=== PATIENT | female | born 1945 | race Caucasian/White ===

== ENCOUNTER 2017-09-05 10:23 | Inpatient (IN) | payer OTHER, MEDICARE ==
[~2017-09-05] VITALS: Ht 152.4 cm; Wt 61.6 kg
[2017-09-05] VITALS (12 sets, daily range): BP systolic 120–176; BP diastolic 65–82; PULSE 64–176; RESP 20–31; TEMP 97.5–98.2; O2SAT 95–99
[2017-09-05] MEDS ORDERED: ADENOSINE IV SOLN 3 MG/ML 2 ML VIAL IV PUSH ONE (10:45)
[2017-09-05] MEDS ORDERED: SODIUM CHLORIDE 0.9% FLUSH 10 ML FLUSH IVF PRN (10:45)
[2017-09-05] MEDS ORDERED: ADENOSINE IV SOLN 3 MG/ML 2 ML VIAL ONE (10:45)
[2017-09-05] MEDS ORDERED: DILTIAZEM HCL 25 MG/5 ML VIAL IV PUSH ONE (11:00)
[2017-09-05] MEDS ORDERED: SODIUM CHLORIDE 0.9% FLUSH 5 ML FLUSH IV FLUSH PRN (11:00)
--- NOTE | 2017-09-05 11:07 | RADRPT ---
EXAM DATE/TIME: 09/05/2017 10:54 [facility] COMPARISON: CT SIMULATION, August 22, 2017, 9:41. INDICATIONS : Shortnes of breath. MEDICAL HISTORY : Myocardial infarction. Chronic obstructive pulmonary disease. SURGICAL HISTORY : Lobectomy. Pacemaker. ENCOUNTER: Initial ACUITY: 1 day PAIN SCORE: 0/10 LOCATION: Bilateral chest FINDINGS: Left subclavian [id number] with tip in the mid SVC. Linear opacities at the lung bases with likely small right pleural effusion. Cardiomediastinal are within normal limits. Bony thorax is intact. CONCLUSION: 1. Linear parenchymal opacities at the lung bases consistent with atelectasis. 2. Probable small right pleural effusion. Jorge Escobar MD on September 05, 2017 at 11:03 Board Certified Radiologist. This report was verified electronically.
--- NOTE | 2017-09-05 11:16 | PD ---
HPI Chief Complaint: Cardiac Complaint Time Seen by Provider: 10:43 Travel History International Travel<30 days: No Contact w/Intl Traveler<30days: No Traveled to known affect area: No History of Present Illness HPI This is a 71-year-old female history of lung cancer, status post right lower lobectomy, SVT, who presents here with complaints of palpitations. When paramedics arrived, they found her to be in SVT with a heart rate in the 160s to 200s. The patient was combative and confused at that time. She has since converted to what appears to be sinus arrhythmia versus atypical A. fib. The patient reported palpitations. She's also reported that she was having shortness of breath. The patient did not recall having the altered mental status during the episode. PFSH Past Medical History Arthritis: Yes Asthma: Yes Anxiety: Yes Heart Rhythm Problems: Yes Cancer: Yes COPD: Yes GERD: Yes Migraines: Yes Myocardial Infarction: Yes Pneumonia: Yes Past Surgical History Hysterectomy: Yes Thoracic Surgery: Yes (RLL LOBECTOMY) Tonsillectomy: Yes Social History Alcohol Use: No Tobacco Use: No Substance Use: No Allergies-Medications (Allergen,Severity, Reaction): Coded Allergies: diphenhydramine (Unverified Adverse Reaction, Unknown, Shortness of Breath , Flushing, 06/14/17) Reported Meds & Prescriptions Reported Meds & Active Scripts Active Reported Verapamil ER 24 HR (Verapamil HCl) 240 Mg Tab Unknown Dose PO HS Ventolin Hfa 18 GM Inh (Albuterol Sulfate) 90 Mcg/Act Aer 1 Puff INH Q4H PRN Prevacid (Lansoprazole) 30 Mg Capdr 30 Mg PO DAILY Potassium Chloride ER (Potassium Chloride) 10 Meq Cap 10 Meq PO BID Magnesium Oxide 400 Mg Tab 400 Mg PO DAILY Lorazepam 0.5 Mg Tab Unknown Dose PO DAILY PRN Hydrochlorothiazide 12.5 Mg Tab 12.5 Mg PO DAILY Glucosamine (Glucosamine Sulfate) 1,000 Mg Cap Unknown Dose PO DAILY Dexamethasone 4 Mg Tab 4 Mg PO BID Aspirin EC (Aspirin) 81 Mg Tabdr 81 Mg PO DAILY Advair Hfa 12 GM Inh (Fluticasone-Salmeterol 12 GM Inh) 230-21 Mcg/Act Aer 2 Puff INH DAILY Review of Systems ROS Limitations: Poor Historian Except as stated in HPI: all other systems reviewed are Neg General / Constitutional: No: Fever, Chills HENT: No: Headaches, Neck Pain Cardiovascular: Positive: Palpitations, Tachycardia, No: Chest Pain or Discomfort Respiratory: No: Cough, Shortness of Breath Gastrointestinal: No: Nausea, Vomiting Genitourinary: No: Urgency, Dysuria Musculoskeletal: No: Pain Neurologic: Positive: Dizziness, Change in Mentation (resolved when heart rate returned to normal rate), No: Weakness, Syncope, Focal Abnormalities, Coordination Problem Physical Exam Narrative GENERAL: Well-developed well-nourished female in no obvious respiratory distress. SKIN: Focused skin assessment warm/dry. HEAD: Atraumatic. Normocephalic. EYES: Pupils equal and round. No scleral icterus. No injection or drainage. ENT: No nasal bleeding or discharge. Mucous membranes pink and moist. NECK: Trachea midline. Supple. CARDIOVASCULAR: Tachycardic with a rate in 190s. It resolved and return back to heart rate of 80s to 100 when I entered the room. RESPIRATORY: No accessory muscle use. Clear to auscultation. Slightly decreased breath sounds at the right base. This would be consistent with her right lower lobe lobectomy. GASTROINTESTINAL: Abdomen soft, non-tender, nondistended. Hepatic and splenic margins not palpable. MUSCULOSKELETAL: No obvious deformities. No clubbing. No cyanosis. No edema. NEUROLOGICAL: Awake and alert. No obvious cranial nerve deficits. Motor grossly within normal limits. Normal speech. PSYCHIATRIC: Appropriate mood and affect; insight and judgment normal. Data Data Last Documented VS Vital Signs Date Time Temp Pulse Resp B/P (MAP) Pulse Ox O2 Delivery O2 Flow Rate FiO2 09/05/17 12:31 88 31 97 Nasal Cannula 3.00 09/05/17 10:33 98.1 Orders Orders Electrocardiogram (09/05/17 10:43) Basic Metabolic Panel (Bmp) (09/05/17 10:43) Ckmb (Isoenzyme) Profile (09/05/17 10:43) Complete Blood Count With Diff (09/05/17 10:43) Magnesium (Mg) (09/05/17 10:43) Prothrombin Time / Inr (Pt) (09/05/17 10:43) Act Partial Throm Time (Ptt) (09/05/17 10:43) Troponin I (09/05/17 10:43) Chest, Single Ap (09/05/17 10:43) Ecg Monitoring (09/05/17 10:43) Bilateral Bp Monitoring (09/05/17 10:43) Iv Access Insert/Monitor (09/05/17 10:43) Oximetry (09/05/17 10:43) Oxygen Administration (09/05/17 10:43) Sodium Chloride 0.9% Flush (Ns Flush) (09/05/17 10:45) Adenosine Inj (Adenocard Inj) (09/05/17 10:45) Blood Pressure (09/05/17 10:48) Vital Signs (09/05/17 10:48) Diltiazem Inj (Cardizem Inj) (09/05/17 11:00) Diltiazem Inj (Cardizem Inj) (09/05/17 11:00) Sodium Chloride 0.9% Flush (Ns Flush) (09/05/17 11:00) Sodium Chlorid 0.9% 500 Ml Inj (Ns 500 M (09/05/17 12:15) Electrocardiogram (09/05/17 12:31) Admit To Inpatient (09/05/17 ) Vital Signs (Adult) Q4H (09/05/17 13:10) Activity Oob With Assistance (09/05/17 13:10) Sap Bw Developer / Telemetry .CONTINUOUS (09/05/17 13:10) Intake + Output HAYES.QSHIFT (09/05/17 13:10) Diet Heart Healthy (09/05/17 Lunch) Sodium Chloride 0.9% Flush (Ns Flush) (09/05/17 13:15) Sodium Chloride 0.9% Flush (Ns Flush) (09/05/17 21:00) Basic Metabolic Panel (Bmp) (09/06/17 06:00) Complete Blood Count With Diff (09/06/17 06:00) Creatine Kinase (Cpk) (09/05/17 17:00) Creatine Kinase (Cpk) (09/05/17 23:00) Troponin I (09/05/17 17:00) Troponin I (09/05/17 23:00) Electrocardiogram (09/05/17 17:00) Electrocardiogram (09/05/17 23:00) Pt Request For Service (09/05/17 13:10) Case Management Consult (09/05/17 13:10) Naloxone Inj (Narcan Inj) (09/05/17 13:15) Inpatient Certification (09/05/17 ) Ipratropium Neb (Atrovent Neb) (09/05/17 13:15) Ipratropium Neb (Atrovent Neb) (09/05/17 16:00) Resp Oxygen Nasal Cannula (09/05/17 ) Admit Order (Ed Use Only) (09/05/17 13:32) Labs Laboratory Tests Test 09/05/17 11:00 White Blood Count 13.9 TH/MM3 Red Blood Count 5.33 MIL/MM3 Hemoglobin 15.6 GM/DL Hematocrit 47.0 % Mean Corpuscular Volume 88.1 FL Mean Corpuscular Hemoglobin 29.2 PG Mean Corpuscular Hemoglobin Concent 33.2 % Red Cell Distribution Width 15.4 % Platelet Count 193 TH/MM3 Mean Platelet Volume 7.4 FL Neutrophils (%) (Auto) 86.8 % Lymphocytes (%) (Auto) 7.9 % Monocytes (%) (Auto) 5.2 % Eosinophils (%) (Auto) 0.0 % Basophils (%) (Auto) 0.1 % Neutrophils # (Auto) 12.0 TH/MM3 Lymphocytes # (Auto) 1.1 TH/MM3 Monocytes # (Auto) 0.7 TH/MM3 Eosinophils # (Auto) 0.0 TH/MM3 Basophils # (Auto) 0.0 TH/MM3 CBC Comment DIFF FINAL Differential Comment Prothrombin Time 11.5 SEC Prothromb Time International Ratio 1.0 RATIO Activated Partial Thromboplast Time 37.6 SEC Blood Urea Nitrogen 24 MG/DL Creatinine 0.89 MG/DL Random Glucose 133 MG/DL Calcium Level 9.1 MG/DL Magnesium Level 2.5 MG/DL Sodium Level 137 MEQ/L Potassium Level 3.5 MEQ/L Chloride Level 98 MEQ/L Carbon Dioxide Level 27.5 MEQ/L Anion Gap 12 MEQ/L Estimat Glomerular Filtration Rate 62 ML/MIN Total Creatine Kinase 34 U/L Troponin I 0.11 NG/ML MDM Medical Decision Making Medical Screen Exam Complete: Yes Emergency Medical Condition: Yes Differential Diagnosis Paroxysmal A. fib with RVR versus SVT versus sinus arrhythmia versus sinus tach. Narrative Course 71-year-old female with reported history of SVT, presents here after having palpitations and lightheadedness. The patient was noted to be with a heart rate of 180-200 when she arrived. She shortly one down to 80s and 100. She's having no chest pain, chest pressure. She apparently was confused when she had the elevated heart rate. She is back to baseline now. Troponin is 0.11. She had what appeared to be sinus tach with frequent PACs. It went back into the 130s 140s. She is placed on a diltiazem drip. She'll be admitted to the [facility] service. I spoke with Dr. Lane and she will admit the patient to the service. Diagnosis Primary Impression: Paroxysmal tachycardia Additional Impression: Elevated troponin Admitting Information Admitting Physician Requests: Admit Chucky Landrum MD Sep 05, 2017 11:16
[2017-09-05 11:26] LABS: BASOPHIL % 0.1 % (0.0-2.0); HEMO FLAGS DIFF FINAL; LYMPH % 7.9 % (9.0-44.0); LYMPHOCYTE # 1.1 TH/MM3 (1.0-4.8); MEAN CELL VOLUME 88.1 FL (80.0-100.0); MEAN CORPUSCULAR HEMOGLOBIN 29.2 PG (27.0-34.0); MEAN CORPUSCULAR HGB CONC 33.2 % (32.0-36.0); MONO % 5.2 % (0.0-8.0); NEUT % 86.8 % (16.0-70.0); PLATELET COUNT 193 TH/MM3 (150-450); RED BLOOD COUNT 5.33 MIL/MM3 (4.00-5.30); RED CELL DISTRIBUTION WIDTH 15.4 % (11.6-17.2); WHITE BLOOD COUNT 13.9 TH/MM3 (4.0-11.0)
[2017-09-05 11:34] LABS: APTT (PATIENT) 37.6 SEC (24.3-30.1); PROTHROMBIN TIME - PATIENT 11.5 SEC (9.8-11.6)
[2017-09-05 11:41] LABS: BICARBONATE 27.5 MEQ/L (21.0-32.0); MAGNESIUM 2.5 MG/DL (1.5-2.5); POTASSIUM 3.5 MEQ/L (3.5-5.1)
--- NOTE | 2017-09-05 11:44 | EKG ---
Date Performed: 09/05/2017 Time Performed: 10:30:07 PTAGE: 71 years EKG: Sinus rhythm WITH PACs ABNORMAL RHYTHM ECG NO PREVIOUS TRACING DOCTOR: Manny Chao Interpretating Date/Time 09/05/2017 11:43:15
[2017-09-05] MEDS: DILTIAZEM INJ 125 MG in SODIUM CHLORIDE 0.9% INJ 100 ML IV PRN (12:11)
[2017-09-05] MEDS ORDERED: SODIUM CHLORID 0.9% 500 ML INJ 500 ML IV ONE (12:15)
[2017-09-05] MEDS ORDERED: RESP: IPRATROPIUM 0.5 MG/2.5 ML NEB NEB PRN (13:15)
[2017-09-05] MEDS ORDERED: NALOXONE HCL 0.4 MG/ML AMP IV PUSH PRN (13:15)
[2017-09-05] MEDS ORDERED: DEXA4TAB PO (13:39)
[2017-09-05] MEDS ORDERED: ADVA230A INH (13:39)
[2017-09-05] MEDS ORDERED: HYDR12.56 PO (13:39)
[2017-09-05] MEDS ORDERED: LORA0.5T PO (13:39)
[2017-09-05] MEDS ORDERED: PREV30CA36 PO (13:39)
[2017-09-05] MEDS ORDERED: VERA1TAB17 PO (13:39)
[2017-09-05] MEDS ORDERED: GLUC100013 PO (13:39)
[2017-09-05] MEDS ORDERED: MAGN400T2 PO (13:39)
[2017-09-05] MEDS ORDERED: POTA10CA PO (13:39)
[2017-09-05] MEDS ORDERED: ASPI81TA23 PO (13:39)
[2017-09-05] MEDS ORDERED: VENTAER INH (13:39)
--- NOTE | 2017-09-05 13:57 | HHI.HP ---
[facility] Service [facility] Primary Care Physician Oswald Banegas M.D. Admission Diagnosis AFIB Diagnoses: Travel History International Travel<30 Days: No Contact w/Intl Traveler <30 Da: No Traveled to Known Affected Are: No History of Present Illness History from patient, ER physician communication, and review of medical records. Patient reported that she came to the hospital from Dr. Kong office. She stated this because her heart rate was high. Per ER triage note, patient was sent from lab core because of SVT with a heart rate in the 200s. Patient herself denies any symptoms associated with it. Particularly, she denies any chest pain/feeling of palpitations/nausea/sweating/diarrhea/vomiting. She denies any fever. Denies any cough. Denies any burning urination or pain on urination. denies any recent black color stools or red color stools. Denies hematuria. Patient is somewhat of a poor historian though. She is reports that she does have history of irregular heart beat. She denies being on blood thinners. She states she does have history of lung cancer. She states that she has had chemotherapy previously and last dose was in January. She reports she is supposed to start her first radiation today. When asked whether she takes Decadron, she states that it makes her feel so horrible and she does not take it. She does complain of severe headaches. However when asked whether her cancer had spread to her brain, she does not seem to know it. She is still driving. Review of Systems Except as stated in HPI: all other systems reviewed are Neg Past Family Social History Past Medical History Hypertension Irregular heart rate. Patient states atrial fibrillation when asked. However I cannot confirm this. 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 lung ca - s/p chemo, last january 2017. 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 COPD Migraine headaches Past Surgical History Per EMR: Hysterectomy Ovarian tumor resection Bronchoscopy with brushing in 2016 Right lower lobe lobectomy in 2011 Tonsillectomy in 9 Reported Medications Patient's medications listed on EMRreviewed. Patient is not able to recall the names and doses of her medications. Allergies: Coded Allergies: Iodinated Contrast- Oral and IV Dye (Verified Allergy, Unknown, Shortness of Breath, 09/05/17) diphenhydramine (Unverified Adverse Reaction, Unknown, Shortness of Breath , Flushing, 06/14/17) Family History brother of pancreatic cancer 3 yrs ago Social History quit smoking 10yrs ago denies etoh or drug abuse Physical Exam Vital Signs Vital Signs Date Time Temp Pulse Resp B/P (MAP) Pulse Ox O2 Delivery O2 Flow Rate FiO2 09/05/17 12:31 88 31 97 Nasal Cannula 3.00 09/05/17 12:11 104 141/63 09/05/17 11:04 97 Nasal Cannula 3.00 09/05/17 11:03 156/72 (100) 09/05/17 10:33 98.1 89 23 176/82 (113) 99 Nasal Cannula 3.00 09/05/17 10:33 99 Nasal Cannula 3.00 Physical Exam GENERAL: This is a well-nourished, well-developed patient, seems to be in mild distress. Could be anxiety. Also with chronic dyspnea. SKIN: No rashes, ecchymoses or lesions. Cool and dry. HEAD: Atraumatic. Normocephalic. No temporal or scalp tenderness. EYES: No scleral icterus. No injection or drainage. ENT: Nose without bleeding, purulent drainage or septal hematoma. Airway patent. NECK: Trachea midline. No JVD Supple, nontender, no meningeal signs. CARDIOVASCULAR: Regular rate and rhythm without murmurs, gallops, or rubs. RESPIRATORY: Bilaterally decreased air entry. GASTROINTESTINAL: Abdomen soft, non-tender, nondistended. No guarding. MUSCULOSKELETAL: Extremities without clubbing, cyanosis, or edema. No calf tenderness NEUROLOGICAL: Awake and alert. Motor and sensory grossly within normal limits. Normal speech. Laboratory Laboratory Tests Test 09/05/17 11:00 White Blood Count 13.9 Red Blood Count 5.33 Hemoglobin 15.6 Hematocrit 47.0 Mean Corpuscular Volume 88.1 Mean Corpuscular Hemoglobin 29.2 Mean Corpuscular Hemoglobin Concent 33.2 Red Cell Distribution Width 15.4 Platelet Count 193 Mean Platelet Volume 7.4 Neutrophils (%) (Auto) 86.8 Lymphocytes (%) (Auto) 7.9 Monocytes (%) (Auto) 5.2 Eosinophils (%) (Auto) 0.0 Basophils (%) (Auto) 0.1 Neutrophils # (Auto) 12.0 Lymphocytes # (Auto) 1.1 Monocytes # (Auto) 0.7 Eosinophils # (Auto) 0.0 Basophils # (Auto) 0.0 CBC Comment DIFF FINAL Differential Comment Prothrombin Time 11.5 Prothromb Time International Ratio 1.0 Activated Partial Thromboplast Time 37.6 Blood Urea Nitrogen 24 Creatinine 0.89 Random Glucose 133 Calcium Level 9.1 Magnesium Level 2.5 Sodium Level 137 Potassium Level 3.5 Chloride Level 98 Carbon Dioxide Level 27.5 Anion Gap 12 Estimat Glomerular Filtration Rate 62 Total Creatine Kinase 34 Troponin I 0.11 Result Diagram: 09/05/17 1100 09/05/17 1100 Imaging Last 48 hours Impressions Chest X-Ray 09/05/17 1043 Signed Impressions: Service Date/Time: Tuesday, September 05, 2017 10:54 - CONCLUSION: 1. Linear parenchymal opacities at the lung bases consistent with atelectasis. 2. Probable small right pleural effusion. Jorge Escobar MD Caprinjacquelyn VTE Risk Assessment Caprini VTE Risk Assessment: Mod/High Risk (score >= 2) Caprini Risk Assessment Model Point Value = 1 Point Value = 2 Point Value = 3 Point Value = 5 Age 41-60 Minor surgery BMI > 25 kg/m2 Swollen legs Varicose veins or History of unexplained or recurrent spontaneous Oral contraceptives or hormone replacement Sepsis (< 1 month) Serious lung disease, including pneumonia (< 1 month) Abnormal pulmonary function Acute myocardial infarction Congestive heart failure (< 1 month) History of inflammatory bowel disease Medical patient at bed rest Age 61-74 Arthroscopic surgery Major open surgery (> 45 min) Laparoscopic surgery (> 45 min) Malignancy Confined to bed (> 72 hours) Immobilizing plaster cast Central venous access Age >= 75 History of VTE Family history of VTE Factor V Leiden Prothrombin [id number] Lupus anticoagulant Anticardiolipin antibodies Elevated serum homocysteine Heparin-induced thrombocytopenia Other congenital or acquired thrombophilia Stroke (< 1 month) Elective arthroplasty Hip, pelvis, or leg fracture Acute spinal cord injury (< 1 month) Prophylaxis Regimen Total Risk Factor Score Risk Level Prophylaxis Regimen 0-1 Low Early ambulation 2 Moderate Order ONE of the following: *Sequential Compression Device (SCD) *Heparin 5000 units SQ BID 3-4 Higher Order ONE of the following medications: *Heparin 5000 units SQ TID *Enoxaparin/Lovenox 40 mg SQ daily (WT < 150 kg, CrCl > 30 mL/min) *Enoxaparin/Lovenox 30 mg SQ daily (WT < 150 kg, CrCl > 10-29 mL/min) *Enoxaparin/Lovenox 30 mg SQ BID (WT < 150 kg, CrCl > 30 mL/min) AND/OR *Sequential Compression Device (SCD) 5 or more Highest Order ONE of the following medications: *Heparin 5000 units SQ TID (Preferred with Epidurals) *Enoxaparin/Lovenox 40 mg SQ daily (WT < 150 kg, CrCl > 30 mL/min) *Enoxaparin/Lovenox 30 mg SQ daily (WT < 150 kg, CrCl > 10-29 mL/min) *Enoxaparin/Lovenox 30 mg SQ BID (WT < 150 kg, CrCl > 30 mL/min) AND *Sequential Compression Device (SCD) Assessment and Plan Assessment and Plan Impression: Cardiac arrhythmia : Sinus tachycardia. So far, no evidence of A. fib on EKGs. We'll need to monitor on telemetry. Leukocytosis with left shift: Etiology unclear. Patient denies any symptoms suggestive of acute infection. She is to be on Decadron as well. However she states she's not taking it. Elevated troponin: Secondary to tachycardia. Hypertension Irregular heart rate. Patient states atrial fibrillation when asked. However I cannot confirm this. 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 lung ca - s/p chemo, last january 2017. 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 COPD Migraine headaches Plan: Telemetry monitoring. Serial cardiac enzymes and EKGs. Patient requires Cardizem IV. Started on the drip. Supplemental oxygen. Patient is on home oxygen. Nebulizers scheduled and as needed. We'll check CT pulmonary angiogram as patient is quite dyspneic and tachycardic. 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 Would consult patient's oncologist. check US of Bilateral LE Will monitor for evidence of any infection. Check UA and urine culture if indicated. DVT prophylaxis with SCD - if DVT studies negative Discussed Condition With patient, ER MD, nursing staff Physician Certification 2 Midnight Certification Type: Admission for Inpatient Services Order for Inpatient Services The services are ordered in accordance with Medicare regulations or non- Medicare payer requirements, as applicable. In the case of services not specified as inpatient-only, they are appropriately provided as inpatient services in accordance with the 2-midnight benchmark. Estimated LOS (days): 3 days is the estimated time the patient will need to remain in the hospital, assuming treatment plan goals are met and no additional complications. Post-Hospital Plan: Not yet determined Malena Lane MD Sep 05, 2017 13:57
--- NOTE | 2017-09-05 16:00 | RADRPT ---
EXAM DATE/TIME: 09/05/2017 15:13 [facility] COMPARISON: No previous studies available for comparison. INDICATIONS : Bilateral leg pain. MEDICAL HISTORY : Gastroesophageal reflux disease. Chronic obstructive pulmonary disease. Arthritis. Asthma. Irregular heartbeat. Heart attack. SURGICAL HISTORY : Tonsillectomy.Hysterectomy. Right lobectomy. ENCOUNTER: Initial ACUITY: 1 day PAIN SCORE: 5/10 LOCATION: Bilateral legs. TECHNIQUE: Venous ultrasound of the left and right leg was performed from the inguinal ligament to the proximal calf. Real-time, color Doppler and spectral tracing, compression and augmentation techniques were us ed. FINDINGS: RIGHT LEG: There is normal compressibility of the deep venous system from the inguinal region to the proximal ca lf. No echogenic clot is seen in the lumen of the common femoral, femoral, popliteal, and posterior tibial veins. There is a normal response of the venous system to proximal and distal augmentation an d respiration. LEFT LEG: There is normal compressibility of the deep venous system from the inguinal region to the proximal ca lf. No echogenic clot is seen in the lumen of the common femoral, femoral, popliteal, and posterior tibial veins. There is a normal response of the venous system to proximal and distal augmentation an d respiration. CONCLUSION: No DVT in either leg. Alec Almeida MD on September 05, 2017 at 15:57 Board Certified Radiologist. This report was verified electronically.
--- NOTE | 2017-09-05 16:01 | PD.CONS ---
Consult Service Palliative Care Consult Requested By Dr. Lane. . Primary Care Physician Oswald Banegas M.D. . Reason for Consultation a. To assist with evaluation and management of symptoms including: shortness of breath and nausea b. To assist medical decision maker(s) with: better understanding of current medical conditions; weighing benefits/burdens of medical treatment options; making medical treatment decisions. . HPI History of Present Illness Patient is a 71 year old female who presented to the ED today, 08/31/17, she was being seen in Dr. Garza office and was sent to the hospital for an elevated heart rate, her heart rate was reportedly in the 200s. When paramedics arrived to the scene the patient was confused and combative, she subsequently converted to a sinus arrhythmia prior to arrival to the ED. Upon arrival patient reported having palpations and shortness of breath, she did not recall the episode of confusion with the onset of the elevated heart rate. The patient has a medical history significant for SVT, atrial fibrillation, and lung cancer with metastases to the brain, her last chemotherapy treatment was in January of this year, and it was planned to initiate radiation therapy with Dr. Casanova today. Of note the patient was recently hospitalized at [facility] for approximately 12 days and was recently discharged this past Tuesday. * ED workup included the following: Vital signs: T:98.1, HR:89, RR:23, BP:176/82 , SPO2:99% on 3L NC. WBC:13.9, Hb.6, Hct:47, Troponin:0.11. ECG: Sinus rhythm. Patient placed on Cardizem drip and admitted for cardiac arrhythmia. CTA ordered to R/O PE. Patient seen and examined in ED, at bedside, patient resting on stretcher, breathing comfortably on 3L NC. Patient is drowsy, converses only minimally, she is oriented to person and to place, she denies any chest pain, shortness of breath, or palpitations at the time of exam. She does state she has intermittent nausea and reports a severe headache. Palliative Care was consulted to assist with symptom management and to discuss with the patient/family the benefits and burdens of his current illnesses and the options regarding future care. Function/Cognitive Trajectory Prior to her acute hospitalization in July patient was completely independent of all ADLs, she was still driving independently, and was able to ambulate without difficulty. The patient's reports that her overall health has been declining over the past several months, specifically after the initiation of chemotherapy treatment in January, he states she has lost over 30 pounds since that time. . Review of Systems ROS Limitations: Poor Historian (ROS obtained via patient's 's report) Constitutional: COMPLAINS OF: Weight loss, Change in appetite, Generalized weakness, DENIES: Fever, Chills Respiratory: COMPLAINS OF: Cough, Shortness of breath Cardiovascular: COMPLAINS OF: Palpitations Gastrointestinal: COMPLAINS OF: Diarrhea, Nausea, Vomiting Neurologic: COMPLAINS OF: Headache Psychiatric: COMPLAINS OF: Confusion Past Family Social History Coded Allergies: Iodinated Contrast- Oral and IV Dye (Verified Allergy, Unknown, Shortness of Breath, 09/05/17) diphenhydramine (Unverified Adverse Reaction, Unknown, Shortness of Breath , Flushing, 06/14/17) Past Medical History Hypertension SVT Atrial Fibrillation Lung ca - s/p chemo, last January 2017. 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 Poorly differentiated squamous cell cancer. COPD Migraine headaches Past Surgical History Hysterectomy Ovarian tumor resection Bronchoscopy with brushing in 2016 Right lower lobe lobectomy in 2011 Tonsillectomy in 9 . Reported Medications Reported Meds & Active Scripts Active Reported Verapamil ER 24 HR (Verapamil HCl) 240 Mg Tab Unknown Dose PO HS Ventolin Hfa 18 GM Inh (Albuterol Sulfate) 90 Mcg/Act Aer 1 Puff INH Q4H PRN Prevacid (Lansoprazole) 30 Mg Capdr 30 Mg PO DAILY Potassium Chloride ER (Potassium Chloride) 10 Meq Cap 10 Meq PO BID Magnesium Oxide 400 Mg Tab 400 Mg PO DAILY Lorazepam 0.5 Mg Tab Unknown Dose PO DAILY PRN Hydrochlorothiazide 12.5 Mg Tab 12.5 Mg PO DAILY Glucosamine (Glucosamine Sulfate) 1,000 Mg Cap Unknown Dose PO DAILY Dexamethasone 4 Mg Tab 4 Mg PO BID Aspirin EC (Aspirin) 81 Mg Tabdr 81 Mg PO DAILY Advair Hfa 12 GM Inh (Fluticasone-Salmeterol 12 GM Inh) 230-21 Mcg/Act Aer 2 Puff INH DAILY . Current Medications Medications (Trade) Dose Ordered Sig/Arleen Route Start Time Stop Time Status Last Admin (NS Flush) 2 ml UNSCH PRN IVF 09/05/17 10:45 Diltiazem HCl 125 mg/Sodium Chloride 125 ml @ 5 mls/hr TITRATE PRN IV 09/05/17 11:00 09/05/17 12:11 (NS Flush) 2 ml UNSCH PRN IV FLUSH 09/05/17 11:00 (NS Flush) 2 ml UNSCH PRN IV FLUSH 09/05/17 13:15 (NS Flush) 2 ml BID IV FLUSH 09/05/17 21:00 (Narcan Inj) 0.4 mg UNSCH PRN IV PUSH 09/05/17 13:15 (Atrovent Neb) 0.5 mg Q2HR NEB PRN NEB 09/05/17 13:15 (Atrovent Neb) 0.5 mg Q6HR NEB NEB 09/05/17 16:00 Family History Father at age 90 secondary to head trauma. Mother at age 79 from unknown complications, per patient's from "loneliness after the of her ". Brother of pancreatic cancer 3 yrs ago. . Substance Use Tobacco: Former smoker, 1ppd 40 years, quit 7 years ago Alcohol: Occasional, social. Prescription med abuse: None reported. Illicits: None reported. Psychosocial History Patient is originally from [facility]. She has been for 47 years and has one adult daughter. 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 The patient and her relocated to [place] some time back in the 1970s and also moved back and forth from [place] during this time period. . Spiritual/Cultural Factors Nondenominational. . Living Will: Never completed Health Care Surrogate: Never completed Durable Power of Rn Social Work: Never completed Ethical and Legal Issues None known. . Physical Exam Vital Signs Date Time Temp Pulse Resp B/P (MAP) Pulse Ox O2 Delivery O2 Flow Rate FiO2 09/05/17 12:31 88 31 97 Nasal Cannula 3.00 09/05/17 12:11 104 141/63 09/05/17 11:04 97 Nasal Cannula 3.00 09/05/17 11:03 156/72 (100) 09/05/17 10:33 98.1 89 23 176/82 (113) 99 Nasal Cannula 3.00 09/05/17 10:33 99 Nasal Cannula 3.00 Exam CONSTITUTIONAL/GENERAL: This is a frail elderly female patient, in no apparent distress. TUBES/LINES/DRAINS: Left subclavian port accessed. SKIN: No jaundice, rashes, or lesions. Ecchymoses on upper extremities. No wounds seen anteriorly. Skin temperature appropriate. Not diaphoretic. HEAD: Atraumatic. Normocephalic. EYES: Pupils equal and round and reactive. Extraocular motions intact. No scleral icterus. No injection or drainage. Fundi not examined. ENT: Hearing grossly normal. Nose without bleeding or purulent drainage. NECK: Trachea midline. Supple, nontender. CARDIOVASCULAR: Regular rate and rhythm without murmurs, gallops, or rubs. No JVD. Peripheral pulses symmetric. RESPIRATORY/CHEST: Symmetric, unlabored respirations. Clear to auscultation. Breath sounds equal bilaterally. No wheezes, rales, or rhonchi. GASTROINTESTINAL: Abdomen soft, non-tender, nondistended. No guarding. Bowel sounds present. GENITOURINARY: Without palpable bladder distension. MUSCULOSKELETAL: Extremities without clubbing, cyanosis, or edema. No mottling or clubbing. LYMPHATICS: No palpable cervical or supraclavicular adenopathy. NEUROLOGICAL: Drowsy, oriented to person and to place. Minimally verbal. Follows commands. Moves all extremities. PSYCHIATRIC: Unable to assess secondary to clinical condition. . Diagnostic Tests Laboratory Laboratory Tests Test 09/05/17 11:00 White Blood Count 13.9 TH/MM3 (4.0-11.0) Red Blood Count 5.33 MIL/MM3 (4.00-5.30) Hemoglobin 15.6 GM/DL (11.6-15.3) Hematocrit 47.0 % (35.0-46.0) Mean Corpuscular Volume 88.1 FL (80.0-100.0) Mean Corpuscular Hemoglobin 29.2 PG (27.0-34.0) Mean Corpuscular Hemoglobin Concent 33.2 % (32.0-36.0) Red Cell Distribution Width 15.4 % (11.6-17.2) Platelet Count 193 TH/MM3 (150-450) Mean Platelet Volume 7.4 FL (7.0-11.0) Neutrophils (%) (Auto) 86.8 % (16.0-70.0) Lymphocytes (%) (Auto) 7.9 % (9.0-44.0) Monocytes (%) (Auto) 5.2 % (0.0-8.0) Eosinophils (%) (Auto) 0.0 % (0.0-4.0) Basophils (%) (Auto) 0.1 % (0.0-2.0) Neutrophils # (Auto) 12.0 TH/MM3 (1.8-7.7) Lymphocytes # (Auto) 1.1 TH/MM3 (1.0-4.8) Monocytes # (Auto) 0.7 TH/MM3 (0-0.9) Eosinophils # (Auto) 0.0 TH/MM3 (0-0.4) Basophils # (Auto) 0.0 TH/MM3 (0-0.2) CBC Comment DIFF FINAL Differential Comment Prothrombin Time 11.5 SEC (9.8-11.6) Prothromb Time International Ratio 1.0 RATIO Activated Partial Thromboplast Time 37.6 SEC (24.3-30.1) Blood Urea Nitrogen 24 MG/DL (7-18) Creatinine 0.89 MG/DL (0.50-1.00) Random Glucose 133 MG/DL (74-106) Calcium Level 9.1 MG/DL (8.5-10.1) Magnesium Level 2.5 MG/DL (1.5-2.5) Sodium Level 137 MEQ/L (136-145) Potassium Level 3.5 MEQ/L (3.5-5.1) Chloride Level 98 MEQ/L (98-107) Carbon Dioxide Level 27.5 MEQ/L (21.0-32.0) Anion Gap 12 MEQ/L (5-15) Estimat Glomerular Filtration Rate 62 ML/MIN (>89) Total Creatine Kinase 34 U/L (26-192) Troponin I 0.11 NG/ML (0.02-0.05) Result Diagram: 09/05/17 1100 09/05/17 1100 Patient/Family Conference Family Conference Location: Bedside Issues Discussed: * Palliative care role, purpose, approach * Additional medical, psychosocial, and spiritual history * Patients general health, functional status, and cognitive changes in the months leading up to the current hospitalization * Patient/family understanding of the current medical problems * Patient/family understanding of prognosis * Patients goals of care as best understood from conversations and/or values * Current medical treatment options and benefits/burdens of those options * Code status * Questions answered to the best of my ability * Palliative care contact information provided . Assessment and Plan Disease Oriented Problem List: (1) Lung cancer metastatic to brain (2) Paroxysmal tachycardia (3) Elevated troponin Symptom Scale: (1) Shortness of breath (2) Debility Pertinent Non-Medical Issues Psychosocial:Patient is originally from [facility]. She has been for 47 years and has one adult daughter. 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 The patient and her relocated to [place] some time back in the 1970s and also moved back and forth from [place] during this time period. Spiritual: Nondenominational. Legal: None known. Ethical issues impacting care: None known. . Important Contacts Jori Izaguirre () [phone] Tiffanie Lainez (daughter) [phone] . 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 Due to her advanced age and multiple comorbidities patient is at a high risk for complications and setbacks. Given her recent diagnosis of brain mets, unfortunately her overall prognosis is poor. . Code Status: No Code Plan * Legal decision maker: Patient drowsy during exam and minimally engages in conversation. Per EMR she had an episode of confusion prior to arriving to the hospital. Patient's reports that this was the first episode of confusion he has witnessed. She has a history of cancer with a recent diagnosis of brain mets. Patient does not have any previous written advanced directives, per [place] statutes in the absence of written advanced directives health care decision making would fall to her next of kin which is her . Suggest shared decision making secondary to her waxing and waning neurological status, this was discussed with the patient and her . * Goals: Pending clinical course. * CODE STATUS: DNR. Discussed the risks and limitations of CPR given the patient 's overall poor prognosis. Both the patient and her endorse that she would not want CPR or to be intubated and placed on mechanical ventilation. Code status updated in the EMR and discussed with bedside RN. * SYMPTOMS: --Shortness of breath: Multifactorial, secondary to history of lung cancer, COPD, irregular heart rhythm, etc. Patient on 3L NC, Atrovent 0.5mg ordered q 6 hours scheduled and q 2 hours PRN. Pending CTA to R/O PE. No recommendations at this time. --Nausea: Patient has had ongoing issues with nausea and vomiting prior to her hospital admission. She would benefit from antinausea medication. * Palliative care will continue to follow during hospital course as condition evolves, to assist patient/decision-maker with understanding of medical conditions, weighing benefits/burdens of treatment options, for clarification of goals of treatment. Additionally will assist with any symptoms of palliative concern Thank you for the opportunity to participate in the care of Ms. Izaguirre. Attestation To help prompt me to consider important information that might be impacting today's encounter and assessment, information from prior notes written by myself or my colleagues may have been "brought forward" into today's note. My signature on this note, however, is an attestation that I personally performed the exam, history, and/or decision-making noted today, and, unless otherwise indicated, the interactions with patient, family, and staff as well as the review of records all occurred today. I also attest that the listed assessment and stated plan reflect my best clinical judgment today based on the combination of historical information, prior notes, and today's exam/ interactions. When time spent is documented, it refers only to time spent today by the signer, or if indicated, combined time spent today by collaborating physician/nurse practitioner. Angle Liu Sep 05, 2017 16:01
[2017-09-05] MEDS: RESP: IPRATROPIUM 0.5 MG/2.5 ML NEB NEB SCH ×2 (17:34→20:29)
[2017-09-05] MEDS ORDERED: ONDANSETRON HCL 4 MG/2 ML VIAL IV PUSH PRN (18:30)
[2017-09-05] MEDS ORDERED: PANTOPRAZOLE SODIUM 40 MG VIAL IV PUSH ONE (19:00)
[2017-09-05] MEDS ORDERED: LORazepam 2 MG/ML VIAL IV PUSH ONE (19:00)
[2017-09-05] MEDS: SODIUM CHLOR 0.9% 1000 ML INJ 1,000 ML IV SCH (19:32)
[2017-09-05] MEDS: DEXAMETHASONE SOD PHOS 4 MG/ML VIAL IV PUSH SCH (19:33)
[2017-09-05] MEDS: SODIUM CHLORIDE 0.9% FLUSH 10 ML FLUSH IV FLUSH SCH (21:00)
[2017-09-06] VITALS (28 sets, daily range): BP systolic 143–177; BP diastolic 64–75; PULSE 63–84; RESP 18–22; TEMP 97.5–98; O2SAT 94–98
[2017-09-06] MEDS: DILTIAZEM INJ 125 MG in SODIUM CHLORIDE 0.9% INJ 100 ML IV PRN (00:17)
[2017-09-06] MEDS: ACETAMINOPHEN 325 MG TAB PO PRN ×2 (00:33→22:25)
[2017-09-06] MEDS: DEXAMETHASONE SOD PHOS 4 MG/ML VIAL IV PUSH SCH ×4 (00:34→17:51)
[2017-09-06] MEDS: RESP: IPRATROPIUM 0.5 MG/2.5 ML NEB NEB SCH ×4 (03:53→19:26)
[2017-09-06 05:24] LABS: AUTOMATED NEUTROPHIL # 7.4 TH/MM3 (1.8-7.7); BASOPHIL % 0.1 % (0.0-2.0); HEMATOCRIT 41.8 % (35.0-46.0); HEMO FLAGS DIFF FINAL; LYMPH % 3.5 % (9.0-44.0); LYMPHOCYTE # 0.3 TH/MM3 (1.0-4.8); MEAN CELL VOLUME 86.7 FL (80.0-100.0); MEAN CORPUSCULAR HEMOGLOBIN 29.8 PG (27.0-34.0); MEAN CORPUSCULAR HGB CONC 34.4 % (32.0-36.0); MONO % 0.9 % (0.0-8.0); NEUT % 95.5 % (16.0-70.0); PLATELET COUNT 164 TH/MM3 (150-450); RED BLOOD COUNT 4.82 MIL/MM3 (4.00-5.30); RED CELL DISTRIBUTION WIDTH 15.5 % (11.6-17.2); WHITE BLOOD COUNT 7.7 TH/MM3 (4.0-11.0)
[2017-09-06 05:49] LABS: BICARBONATE 25.1 MEQ/L (21.0-32.0); POTASSIUM 3.2 MEQ/L (3.5-5.1)
--- NOTE | 2017-09-06 05:57 | MB ---
cc: TONA MARTINES MD, RUBY ANNE E. M.D. DATE OF 1945 DATE OF SERVICE 09/05/2017 NOTE This is a re-dictation of a cut off dictation earlier. REFERRING PHYSICIAN Dr. Martines CHIEF COMPLAINT Dr. Martines requests consultation for Mrs. Izaguirre regarding metastatic small cell lung cancer. HISTORY OF PRESENT ILLNESS Mrs. Izaguirre is a 71-year-old woman, well-known patient originally from [place], speaks [place]. She has a history of right lung cancer resected in 2001. 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 She was treated with carboplatin and CDL INSTRUCTOR-16 with excellent response. MRI evaluation before the treatment shows nonspecific lesion. However, on followup July 15, MRI shows widespread metastatic disease to the TELEPHONE [employer] CLERK ROOM SERVICE without hemorrhage or mass effect. She was referred promptly to radiation oncology for treatment. Unfortunately there has been delays in starting her radiation therapy. She has been admitted several times to [facility]. She had previously refused to come to [facility] for admission due to a poor experience with her 's pacemaker. She has been followed by her mental health program manager at [facility] Dr. Rivera who is managing her COPD exacerbation. She finally reestablish with Dr. Casanova after being discharged from [facility] the first time. I saw her on 08/22/2017. She had evidence of progressive disease by imaging study at [facility]. She also has increased symptoms with headaches. She was re-admitted to [facility] these past 12 days. The reason for hospitalization is not clear. She was having some seen symptoms of shortness of breath. She complained of epigastric discomfort, increasing headaches and nausea. She does not like the Decadron which she was placed on. She was coming to the Oncology Clinic on 09/05/2017. We were discussing systemic therapy for her metastatic small cell lung cancer. We discussed the option of irinotecan pending completion of her radiation therapy. However, in clinic she was found to have heart rate in the 200 range. She was significantly affected. She had changes in mental status when her heart rate was in the 200s which rapidly would go down to the 130s. She was unstable. [facility] was called that brought her into the main hospital. She was seen by Dr. Landrum and subsequently admitted. REVIEW OF SYSTEMS She was seen in the emergency room in the presence of her and family friends. Her main complaint is the epigastric discomfort and headaches. She is noted to have heart rates in the 80s with the Cardizem drip. Her blood pressure is significantly elevated with systolic of 210 and diastolic of 100. She was nauseous. She is uncomfortable with back pain. She denies any fevers. She has good family support. The rest of her review of systems is negative. PAST MEDICAL HISTORY 1. Anxiety. 2. Arthritis. 3. COPD. 4. Asthma. 5. Gastroesophageal reflux. 6. Irregular heartbeat. 7. Migraine headaches. 8. History of right lung cancer. 9. Second primary left lung cancer with TELEPHONE ORDER CLERK [employer] SERVICE metastatic disease. PAST SURGICAL HISTORY 1. Port placement. 2. Hysterectomy. 3. Ovarian tumor resection. 4. Bronchoscopy. 5. Right lower lobectomy. 6. Tonsillectomy. ALLERGIES BENADRYL. CODEINE. MORPHINE. IV CONTRAST. FAMILY HISTORY Noncontributory. The patient does not know if her mother and father are still alive. SOCIAL HISTORY She is and lives with her , has one daughter. She quit smoking 10 years ago. She has over a 40 pack-year smoking history. She drank occasionally. Denies any illicit drug use. PHYSICAL EXAMINATION VITAL SIGNS: Temperature 98.2, heart rate in the 80s, respiratory rate 20, blood pressure 169/74. GENERAL: Ms. Izaguirre is a well-developed and well-nourished woman with short hair growing back. She has lost weight from her previous visit. HEENT: Her pupils are round, reactive. Oropharynx is dry. NECK: Supple. LUNGS: With decreased breath sounds in the right lung field. CARDIOVASCULAR: Cardiovascular exam reveals a rate-controlled rhythm. ABDOMEN: Benign. LOWER EXTREMITIES: Without edema. LABORATORY DATA Significant for the erythrocytosis with hemoglobin of 15.1. White blood cell count is 13.9, platelet count 193. Chemistry is significant for an elevated BUN of 24, creatinine 0.89, glucose of 133. Troponin I is mildly elevated. LDH is 305. D-dimer is elevated. ASSESSMENT AND PLAN Mrs. Izaguirre is a 71-year-old woman with history of right lung cancer resected. She developed a second primary left lung cancer with excellent response to carboplatin and CDL INSTRUCTOR-16. However at the time of her treatment she had TELEPHONE ORDER CLERK [employer] SERVICE metastatic disease that was not apparent at the completion of her carboplatin and CDL INSTRUCTOR-16. Follow-up MRI shows TELEPHONE ORDER CLERK [employer] SERVICE metastatic disease. On initial finding she was asymptomatic from TELEPHONE [employer] CLERK [employer] SERVICE disease. She has had a delay in starting her radiation therapy. She has had progression of her TELEPH[employer] CL[employer]ICE metastatic disease. She is complaining of headaches, likely from her TELEPHONE [employer] CL[employer]ICE metastatic disease. We discussed continuing Decadron. We will consult Dr. Casanova to initiate radiation to TELEPHONE [employer]ICE as soon as possible. Cardiology is consulted for the tachyarrhythmia. Her research physicist is in [place]. She does not recall nor her who the research physicist was who following her at [facility]. We will consult with the on-call physician for the tachyarrhythmia. She appears to be rate controlled on Cardizem drip. She is being titrated although her blood pressure is elevated. A dose of lorazepam for anxiety which she takes regularly is to be given. We will monitor her blood pressure trends. She has underlying severe COPD. Much of her shortness of breath is due to that. She is oxygen dependent at baseline. We will continue her oxygen support. Respiratory treatment will continue per primary team. We had considered chemotherapy with single-agent irinotecan pending that her performance status improves. She had recently been discharged from the hospital and is likely recovering from the acute exacerbation that brought her in. We will support her and consider how she fares in her performance status before deciding on additional palliative therapy. Mrs. Izaguirre and her family's questions were answered to their satisfaction. Supportive treatment continues. Proton pump inhibitor is ordered for GI toxicity associated with the Decadron. We will initiate DVT prophylaxis. She looks clinically dry. A liter of normal saline is ordered. Her questions were answered to her satisfaction. Shawanda Kong MD RAD/SSB /11:42 PM /5:44 AM
[2017-09-06] MEDS: SODIUM CHLOR 0.9% 1000 ML INJ 1,000 ML IV SCH ×2 (06:17→15:00)
[2017-09-06] MEDS: PANTOPRAZOLE SOD 40 MG DELAYED RELEASE TAB PO SCH ×2 (08:48→10:51)
[2017-09-06] MEDS: SODIUM CHLORIDE 0.9% FLUSH 10 ML FLUSH IV FLUSH SCH ×2 (08:48→20:19)
--- NOTE | 2017-09-06 10:23 | MB ---
cc: JESUS REYEZ M.D. DATE OF CONSULTATION 09/06/2017 REASON FOR CONSULTATION For evaluation of tachyarrhythmia. HISTORY OF PRESENT ILLNESS Skylar Izaguirre is a 71-year-old woman with a history of PSVT which sounds like paroxysmal atrial fibrillation. She was treated for this in the ambulance and unfortunately there are no strips in her chart and by the time she was here her EKG showed she was in sinus with PACs. However, she has had previous atrial fibrillation. She was just hospitalized at [facility] and was seen by my colleague Dr. Holcomb. She has a history of being on verapamil for SVT but was not taking it apparently due to side effects. She was changed the diltiazem. In talking to the patient now, she is somewhat somnolent during my exam but she denies taking any diltiazem. She is on IV Cardizem presently. She is confused. As mentioned right now I cannot elicit much history from her. She has known lung cancer with metastases to the brain. PAST MEDICAL HISTORY 1. Anxiety. 2. Arthritis. 3. COPD. 4. Gastroesophageal reflux. 5. Migraine headaches. 6. Large cell neuroendocrine cancer in the left lung. 7. Non-small cell cancer in the right lung. 8. Metastases to the brain. PAST SURGICAL HISTORY 1. Apparently surgery in the right lower lobe. 2. Port placement. 3. Hysterectomy. 4. Apparent tumor resection. 5. Bronchoscopy. 6. Tonsillectomy. ALLERGIES BENADRYL. CODEINE. MORPHINE. IV CONTRAST. FAMILY HISTORY Unremarkable. SOCIAL HISTORY Quit smoking 10 years ago with a 40 pack-year history. PHYSICAL EXAMINATION GENERAL: A well-developed, well-nourished female. She is alert. VITAL SIGNS: Charted. HEENT: Exam unremarkable. NECK: Supple. No JVD. CHEST: Diminished breath sounds particularly at the right base, right midlung stark. CARDIAC EXAM: S1-S2, regular rate and rhythm. No murmurs or gallops. ABDOMEN: Soft, nontender. No masses or organomegaly. EXTREMITIES: No clubbing, cyanosis or edema. EKG here shows additional sinus rhythm with PACs. LABORATORIES Notable for hypokalemia. Potassium is only 3.2. Troponins are nonspecific at 0.11, 0.08 and 0.08. Hematocrit is 41.8 with normal white count. IMAGING STUDIES Lower extremity ultrasound shows no DVT. Chest x-ray shows linear opacities at the lung bases, probable small right pleural effusion. IMPRESSION PSVT with what sounds like proximal atrial fibrillation. She has a horrible prognosis with lung cancer and mets to the brain. I do not think she was taking her medications prior to admission, hard to tell for sure. PLAN 1. I am starting diltiazem CD 240 mg daily and turning off her Cardizem drip. I will be available to follow up p.r.n. 2. She also is hypokalemia and I have ordered a total 60 mEq today with repeat labs tomorrow. Thank you for asking me to see her. MD SUZANNE Lott/SSB /10:05 AM /10:14 AM
[2017-09-06] MEDS: cloNIDine HCL 0.1 MG TAB PO PRN ×3 (10:34→14:33)
--- NOTE | 2017-09-06 10:44 | HHI.HCPN ---
Reason for visit a. To assist with evaluation and management of symptoms including: shortness of breath and nausea b. To assist medical decision maker(s) with: better understanding of current medical conditions; weighing benefits/burdens of medical treatment options; making medical treatment decisions. . Subjective/Interval History Patient seen and examined today, no family at bedside, patient is awake, confused, minimally engages in conversation. Patient denies pain or nausea at the time of exam, however discussed this with bedside RN, who reports the patient intermittently complains of a headache but refuses to take even acetaminophen. Discussed and inquired with the patient her reasoning/ apprehension for taking any medication for her headache, she states she is "comfortable" and does not have any pain. It was explained to the patient that in the setting of her metastatic disease process it is appropriate to utilize pain medication PRN, due to her confusion it is unclear if she truly comprehends the conversation. Currently the patient only has acetaminophen 650mg q 4 hours PRN ordered, she would benefit from an opioid for pain management if she was amenable. Palliative Care will continue to assist with symptom management and to discuss with the patient/family the benefits and burdens of his current illnesses and the options regarding future care. Advance Directives Living Will: Never completed Health Care Surrogate: Never completed Durable Power of Imager: Never completed Objective Vital Signs Date Time Temp Pulse Resp B/P (MAP) Pulse Ox O2 Delivery O2 Flow Rate FiO2 09/06/17 10:23 94 Nasal Cannula 1.00 09/06/17 08:00 97.5 74 20 171/74 (106) 96 09/06/17 08:00 74 09/06/17 07:00 64 09/06/17 06:00 84 09/06/17 05:00 72 09/06/17 04:00 74 09/06/17 03:00 71 22 177/73 (107) 96 09/06/17 03:00 76 09/06/17 02:35 71 177/73 09/06/17 02:00 68 09/06/17 01:39 18 09/06/17 01:00 66 09/06/17 00:17 74 176/72 09/06/17 00:00 72 09/05/17 23:00 97.5 74 20 176/72 (106) 96 09/05/17 23:00 80 09/05/17 22:00 64 09/05/17 21:00 76 09/05/17 20:35 09/05/17 20:30 76 22 169/74 (105) 96 09/05/17 20:27 96 Nasal Cannula 1.00 09/05/17 19:45 75 21 120/65 (83) 96 Nasal Cannula 3.00 09/05/17 19:36 76 22 158/74 (102) 98 Nasal Cannula 3.00 09/05/17 17:15 98.2 176 25 125/73 (90) 96 Nasal Cannula 3.00 09/05/17 14:20 95 Nasal Cannula 1.50 09/05/17 12:31 88 31 97 Nasal Cannula 3.00 09/05/17 12:11 104 141/63 09/05/17 11:04 97 Nasal Cannula 3.00 09/05/17 11:03 156/72 (100) Intake & Output 09/06/17 09/06/17 07:00 19:00 Intake Total 1342 ml Balance 1342 ml Intake Oral 240 ml IV Total 1102 ml # Voids 2 . Physical Exam CONSTITUTIONAL/GENERAL: This is a frail elderly female patient, in no apparent distress. TUBES/LINES/DRAINS: Left subclavian port accessed. SKIN: No jaundice, rashes, or lesions. Ecchymoses on upper extremities. No wounds seen anteriorly. Skin temperature appropriate. Not diaphoretic. CARDIOVASCULAR: Regular rate and rhythm without murmurs, gallops, or rubs. No JVD. Peripheral pulses symmetric. RESPIRATORY/CHEST: Symmetric, unlabored respirations. Clear to auscultation. Breath sounds equal bilaterally. No wheezes, rales, or rhonchi. GASTROINTESTINAL: Abdomen soft, non-tender, nondistended. No guarding. Bowel sounds present. GENITOURINARY: Without palpable bladder distension. MUSCULOSKELETAL: Extremities without clubbing, cyanosis, or edema. No mottling or clubbing. NEUROLOGICAL: Drowsy, oriented to person and to place. Minimally verbal. Follows commands. Moves all extremities. PSYCHIATRIC: Unable to assess secondary to clinical condition. . Diagnostic Tests Laboratory Laboratory Tests Test 09/05/17 11:00 09/05/17 16:36 09/06/17 00:30 09/06/17 04:58 White Blood Count 13.9 TH/MM3 (4.0-11.0) 7.7 TH/MM3 (4.0-11.0) Red Blood Count 5.33 MIL/MM3 (4.00-5.30) 4.82 MIL/MM3 (4.00-5.30) Hemoglobin 15.6 GM/DL (11.6-15.3) 14.4 GM/DL (11.6-15.3) Hematocrit 47.0 % (35.0-46.0) 41.8 % (35.0-46.0) Mean Corpuscular Volume 88.1 FL (80.0-100.0) 86.7 FL (80.0-100.0) Mean Corpuscular Hemoglobin 29.2 PG (27.0-34.0) 29.8 PG (27.0-34.0) Mean Corpuscular Hemoglobin Concent 33.2 % (32.0-36.0) 34.4 % (32.0-36.0) Red Cell Distribution Width 15.4 % (11.6-17.2) 15.5 % (11.6-17.2) Platelet Count 193 TH/MM3 (150-450) 164 TH/MM3 (150-450) Mean Platelet Volume 7.4 FL (7.0-11.0) 7.3 FL (7.0-11.0) Neutrophils (%) (Auto) 86.8 % (16.0-70.0) 95.5 % (16.0-70.0) Lymphocytes (%) (Auto) 7.9 % (9.0-44.0) 3.5 % (9.0-44.0) Monocytes (%) (Auto) 5.2 % (0.0-8.0) 0.9 % (0.0-8.0) Eosinophils (%) (Auto) 0.0 % (0.0-4.0) 0.0 % (0.0-4.0) Basophils (%) (Auto) 0.1 % (0.0-2.0) 0.1 % (0.0-2.0) Neutrophils # (Auto) 12.0 TH/MM3 (1.8-7.7) 7.4 TH/MM3 (1.8-7.7) Lymphocytes # (Auto) 1.1 TH/MM3 (1.0-4.8) 0.3 TH/MM3 (1.0-4.8) Monocytes # (Auto) 0.7 TH/MM3 (0-0.9) 0.1 TH/MM3 (0-0.9) Eosinophils # (Auto) 0.0 TH/MM3 (0-0.4) 0.0 TH/MM3 (0-0.4) Basophils # (Auto) 0.0 TH/MM3 (0-0.2) 0.0 TH/MM3 (0-0.2) CBC Comment DIFF FINAL DIFF FINAL Differential Comment Prothrombin Time 11.5 SEC (9.8-11.6) Prothromb Time International Ratio 1.0 RATIO Activated Partial Thromboplast Time 37.6 SEC (24.3-30.1) Blood Urea Nitrogen 24 MG/DL (7-18) 16 MG/DL (7-18) Creatinine 0.89 MG/DL (0.50-1.00) 0.49 MG/DL (0.50-1.00) Random Glucose 133 MG/DL (74-106) 135 MG/DL (74-106) Calcium Level 9.1 MG/DL (8.5-10.1) 8.6 MG/DL (8.5-10.1) Magnesium Level 2.5 MG/DL (1.5-2.5) Sodium Level 137 MEQ/L (136-145) 138 MEQ/L (136-145) Potassium Level 3.5 MEQ/L (3.5-5.1) 3.2 MEQ/L (3.5-5.1) Chloride Level 98 MEQ/L (98-107) 101 MEQ/L (98-107) Carbon Dioxide Level 27.5 MEQ/L (21.0-32.0) 25.1 MEQ/L (21.0-32.0) Anion Gap 12 MEQ/L (5-15) 12 MEQ/L (5-15) Estimat Glomerular Filtration Rate 62 ML/MIN (>89) 124 ML/MIN (>89) Total Creatine Kinase 34 U/L (26-192) 25 U/L (26-192) 23 U/L (26-192) Troponin I 0.11 NG/ML (0.02-0.05) 0.08 NG/ML (0.02-0.05) 0.08 NG/ML (0.02-0.05) D-Dimer Quantitative (PE/DVT) 0.84 MG/L FEU (0.00-0.50) Result Diagram: 09/06/17 0458 09/06/17 0458 Imaging Last 72 hours Impressions Chest X-Ray 09/05/17 1043 Signed Impressions: Service Date/Time: Tuesday, September 05, 2017 10:54 - CONCLUSION: 1. Linear parenchymal opacities at the lung bases consistent with atelectasis. 2. Probable small right pleural effusion. Jorge Escobar MD Lower Extremity Ultrasound 09/05/17 0000 Signed Impressions: Service Date/Time: Tuesday, September 05, 2017 15:13 - CONCLUSION: No DVT in either leg. Alec Almeida MD Assessment and Plan Disease Oriented Problem List: (1) Lung cancer metastatic to brain (2) Paroxysmal tachycardia (3) Elevated troponin Symptom Scale: (1) Shortness of breath (2) Debility Pertinent Non-Medical Issues Psychosocial:Patient is originally from [facility]. She has been for 47 years and has one adult daughter. 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 The patient and her relocated to [place] some time back in the 1970s and also moved back and forth from [place] during this time period. Spiritual: [employer]. Legal: None known. Ethical issues impacting care: None known. . Important Contacts Jori Izaguirre () [phone] Tiffanie Lainez (daughter) [phone] . 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 Due to her advanced age and multiple comorbidities patient is at a high risk for complications and setbacks. Given her recent diagnosis of brain mets, unfortunately her overall prognosis is poor. . Code Status: No Code Plan * Legal decision maker: Patient drowsy during exam and minimally engages in conversation. She has a history of cancer with a recent diagnosis of brain mets. Patient does not have any previous written advanced directives, per [place] statutes in the absence of written advanced directives health care decision making would fall to her next of kin which is her . Suggest shared decision making secondary to her waxing and waning neurological status, this was discussed with the patient and her yesterday. * Goals: Pending clinical course. Medical oncology has consulted Dr. Casanova for initiation of radiation treatment GAUDENCIO. * CODE STATUS: DNR. * SYMPTOMS: --Shortness of breath: Multifactorial, secondary to history of lung cancer, COPD, irregular heart rhythm, etc. Patient on 3L NC, Atrovent 0.5mg ordered q 6 hours scheduled and q 2 hours PRN. Pending CTA to R/O PE. No recommendations at this time. --Nausea: Patient has had ongoing issues with nausea and vomiting prior to her hospital admission. Ondansetron 4mg q 6 hours PRN ordered. No recommendations at this time. * Palliative care will continue to follow during hospital course as condition evolves, to assist patient/decision-maker with understanding of medical conditions, weighing benefits/burdens of treatment options, for clarification of goals of treatment. Additionally will assist with any symptoms of palliative concern Attestation To help prompt me to consider important information that might be impacting today's encounter and assessment, information from prior notes written by myself or my colleagues may have been "brought forward" into today's note. My signature on this note, however, is an attestation that I personally performed the exam, history, and/or decision-making noted today, and, unless otherwise indicated, the interactions with patient, family, and staff as well as the review of records all occurred today. I also attest that the listed assessment and stated plan reflect my best clinical judgment today based on the combination of historical information, prior notes, and today's exam/ interactions. When time spent is documented, it refers only to time spent today by the signer, or if indicated, combined time spent today by collaborating physician/nurse practitioner. Angle Liu Sep 06, 2017 10:44
[2017-09-06] MEDS ORDERED: POTASSIUM CHLORIDE 20 MEQ CONTROLLED RELEASE TAB PO STA (10:51)
[2017-09-06] MEDS ORDERED: MAGNESIUM SULFATE 1 GM PREMIX 100 ML IV PRN (11:00)
--- NOTE | 2017-09-06 11:53 | HHI.PR ---
Subjective Remarks in no acute distress. denies chest pain, sob or headache. Objective Vitals Vital Signs Date Time Temp Pulse Resp B/P (MAP) Pulse Ox O2 Delivery O2 Flow Rate FiO2 09/06/17 11: 97.9 75 18 164/72 (102) 95 09/06/17 11:00 75 09/06/17 10:23 94 Nasal Cannula 1.00 09/06/17 10:00 74 09/06/17 09:00 72 09/06/17 08:00 97.5 74 20 171/74 (106) 96 09/06/17 08:00 74 09/06/17 07:00 64 09/06/17 06:00 84 09/06/17 05:00 72 09/06/17 04:00 74 09/06/17 03:00 71 22 177/73 (107) 96 09/06/17 03:00 76 09/06/17 02:35 71 177/73 09/06/17 02:00 68 09/06/17 01:39 18 09/06/17 01:00 66 09/06/17 00:17 74 176/72 09/06/17 00:00 72 09/05/17 23:00 97.5 74 20 176/72 (106) 96 09/05/17 23:00 80 09/05/17 22:00 64 09/05/17 21:00 76 09/05/17 20:35 09/05/17 20:30 76 22 169/74 (105) 96 09/05/17 20:27 96 Nasal Cannula 1.00 09/05/17 19:45 75 21 120/65 (83) 96 Nasal Cannula 3.00 09/05/17 19:36 76 22 158/74 (102) 98 Nasal Cannula 3.00 09/05/17 17:15 98.2 176 25 125/73 (90) 96 Nasal Cannula 3.00 09/05/17 14:20 95 Nasal Cannula 1.50 09/05/17 12:31 88 31 97 Nasal Cannula 3.00 09/05/17 12:11 104 141/63 I/O 09/05/17 09/05/17 09/05/17 09/06/17 09/06/17 09/06/17 07:00 15:00 23:00 07:00 15:00 23:00 Intake Total 1342 ml Balance 1342 ml Intake Oral 240 ml IV Total 1102 ml # Voids 2 Result Diagram: 09/06/17 0458 09/06/17 0458 Imaging Last Impressions Chest X-Ray 09/05/17 1043 Signed Impressions: Service Date/Time: Tuesday, September 05, 2017 10:54 - CONCLUSION: 1. Linear parenchymal opacities at the lung bases consistent with atelectasis. 2. Probable small right pleural effusion. Jorge Escobar MD Lower Extremity Ultrasound 09/05/17 0000 Signed Impressions: Service Date/Time: Tuesday, September 05, 2017 15:13 - CONCLUSION: No DVT in either leg. Alec Almeida MD Objective Remarks GENERAL: This is a well-nourished, well-developed patient, in no apparent distress. CARDIOVASCULAR: Regular rate and irregular rhythm without murmurs, gallops, or rubs. RESPIRATORY: Clear to auscultation. Breath sounds equal bilaterally. No wheezes , rales, or rhonchi. GASTROINTESTINAL: Abdomen soft, non-tender, nondistended. Normal, active bowel sounds MUSCULOSKELETAL: Extremities without clubbing, cyanosis, or edema. NEURO: Alert & Oriented x4 to person, place, time, situation. Moves all ext x4 Medications and IVs Current Medications Sodium Chloride (NS Flush) 2 ml UNSCH PRN IVF FLUSH AFTER USING IV ACCESS; Start 09/05/17 at 10:45 Adenosine (Adenocard Inj) 6 mg ONCE ONCE IV PUSH ; Start 09/05/17 at 10:45; Stop 09/05/17 at 10:46; Status Cancel Adenosine (Adenocard Inj) 6 mg STK-MED ONCE .ROUTE ; Start 09/05/17 at 10:45; Stop 09/05/17 at 10:46; Status DC Diltiazem HCl 125 mg/Sodium Chloride 125 ml @ 5 mls/hr TITRATE PRN IV tachycardia Last administered on 09/06/17 00:17; Start 09/05/17 at 11:00; Stop 09/06/17 at 12:00 Diltiazem HCl (Cardizem Inj) 16 mg BOLUS ONCE IV PUSH Last administered on 11:03; Start 09/05/17 at 11:00; Stop 09/06/17 at 09:57; Status DC IV Flush (NS Flush) 2 ml UNSCH PRN IV FLUSH FLUSH AFTER USING IV ACCESS; Start 09/05/17 at 11:00; Stop 09/06/17 at 12:00 Sodium Chloride 500 ml @ 500 mls/hr BOLUS ONCE IV Last administered on 12:26; Start 09/05/17 at 12:15; Stop 09/05/17 at 13:14; Status DC Sodium Chloride (NS Flush) 2 ml UNSCH PRN IV FLUSH FLUSH AFTER USING IV ACCESS ; Start 09/05/17 at 13:15 Sodium Chloride (NS Flush) 2 ml BID IV FLUSH Last administered on 09/06/17 08: 48; Start 09/05/17 at 21:00 Naloxone HCl (Narcan Inj) 0.4 mg UNSCH PRN IV PUSH SEE LABEL COMMENTS; Start 09/05/17 at 13:15 Ipratropium [place] (Atrovent Neb) 0.5 mg Q2HR NEB PRN NEB wheezing; Start 09/05/17 at 13:15 Ipratropium [place] (Atrovent Neb) 0.5 mg Q6HR NEB NEB Last administered on 10:23; Start 09/05/17 at 16:00 Ondansetron HCl (Zofran Inj) 4 mg Q6HR PRN IV PUSH NAUSEA; Start 09/05/17 at 18 :30 Lorazepam (Ativan) 0.5 mg Q12H PRN PO ANXIETY; Start 09/05/17 at 18:30 Lorazepam (Ativan Inj) 0.5 mg ONCE ONCE IV PUSH Last administered on 19:33; Start 09/05/17 at 19:00; Stop 09/05/17 at 19:13; Status DC Dexamethasone Sodium Phosphate (Decadron Inj) 4 mg Q6HR IV PUSH Last administered on 09/06/17 05:42; Start 09/05/17 at 19:00 Pantoprazole Sodium (Protonix Inj) 40 mg ONCE ONCE IV PUSH Last administered on 09/05/17 19:34; Start 09/05/17 at 19:00; Stop 09/05/17 at 19:12; Status DC Pantoprazole Sodium (Protonix) 40 mg DAILY PO ; Start 09/06/17 at 09:00 Ondansetron HCl (Zofran Inj) 4 mg Q6HR PRN IV PUSH nausea; Start 09/05/17 at 19 :00 Clonidine (Catapres) 0.1 mg Q8HR PRN PO SBP> OR = 180, DBP> OR = 100; Start at 19:00; Stop 09/06/17 at 18:59 Sodium Chloride 1,000 ml @ 100 mls/hr Q10H IV Last administered on 09/06/17 06:17; Start 09/05/17 at 19:00 Acetaminophen (Tylenol) 650 mg Q4H PRN PO PAIN SCALE 1-5 Last administered on 09/06/17 00:33; Start 09/05/17 at 21:45 Potassium Chloride (KCl) 40 meq ONCE STAT PO ; Start 09/06/17 at 10:51; Stop 09/06/17 at 10:52; Status DC Potassium Chloride (KCl) 20 meq ONCE ONCE PO ; Start 09/06/17 at 16:00; Stop 09/06/17 at 16:01 Diltiazem HCl (Cardizem Cd) 240 mg DAILY PO ; Start 09/06/17 at 11:00 Magnesium Sulfate/ Dextrose 100 ml @ 100 mls/hr ONCE PRN IV MAGNESIUM LESS THAN 2; Start 09/06/17 at 11:00; Stop 09/07/17 at 10:59 A/P Assessment and Plan A/P Cardiac arrhythmia ; possible PSVT vs atrial fibrillation started on po cardizem- cardiology consult appreciated. Leukocytosis with left shift: Etiology unclear. Patient denies any symptoms suggestive of acute infection. She is to be on Decadron as well. Elevated troponin: Secondary to tachycardia. Hypertension; continue cardizem and continue to monitor. lung ca with brain metastasis- s/p chemo, last january 2017. continue Decadron- oncology consult appreciated- radiation oncology evaluation pending. COPD with no exacerbation; continue neb treatment. hypokalemia; replaced. DVT prophylaxis with SCD's- no chemical prophylaxis due to brain mets. Discharge Planning when cleared by oncology. Phillip Kendrick MD Sep 06, 2017 11:53
[2017-09-06] MEDS: DILTIAZEM-CD 240 MG CAP ER PO SCH (14:33)
[2017-09-06] MEDS ORDERED: POTASSIUM CHLORIDE 20 MEQ CONTROLLED RELEASE TAB PO ONE (16:00)
--- NOTE | 2017-09-06 16:07 | PD.ONC.PN ---
Subjective Subjective Remarks Afebrile SOB improved Denies chest pain Objective Data Date Time Temp Pulse Resp B/P (MAP) Pulse Ox O2 Delivery O2 Flow Rate FiO2 09/06/17 15:44 98.0 75 18 173/75 (107) 95 09/06/17 15:00 76 09/06/17 14:00 77 09/06/17 13:00 74 09/06/17 12:00 75 09/06/17 11:17 97.9 75 18 164/72 (102) 95 09/06/17 11:00 75 09/06/17 10:23 94 Nasal Cannula 1.00 09/06/17 10:00 74 09/06/17 09:00 72 09/06/17 08:00 97.5 74 20 171/74 (106) 96 09/06/17 08:00 74 09/06/17 07:00 64 09/06/17 06:00 84 09/06/17 05:00 72 09/06/17 04:00 74 09/06/17 03:00 71 22 177/73 (107) 96 09/06/17 03:00 76 09/06/17 02:35 71 177/73 09/06/17 02:00 68 09/06/17 01:39 18 09/06/17 01:00 66 09/06/17 00:17 74 176/72 09/06/17 00:00 72 09/05/17 23:00 97.5 74 20 176/72 (106) 96 09/05/17 23:00 80 09/05/17 22:00 64 09/05/17 21:00 76 09/05/17 20:35 09/05/17 20:30 76 22 169/74 (105) 96 09/05/17 20:27 96 Nasal Cannula 1.00 09/05/17 19:45 75 21 120/65 (83) 96 Nasal Cannula 3.00 09/05/17 19:36 76 22 158/74 (102) 98 Nasal Cannula 3.00 09/05/17 17:15 98.2 176 25 125/73 (90) 96 Nasal Cannula 3.00 09/06/17 09/06/17 09/06/17 07:00 15:00 23:00 Intake Total 1342 ml Balance 1342 ml Result Diagram: 09/06/1745709/06/17457 Laboratory Results Laboratory Tests Test 09/05/17 16:36 09/06/17 00:30 09/06/17 04:58 D-Dimer Quantitative (PE/DVT) 0.84 MG/L FEU Total Creatine Kinase 25 U/L 23 U/L Troponin I 0.08 NG/ML 0.08 NG/ML White Blood Count 7.7 TH/MM3 Red Blood Count 4.82 MIL/MM3 Hemoglobin 14.4 GM/DL Hematocrit 41.8 % Mean Corpuscular Volume 86.7 FL Mean Corpuscular Hemoglobin 29.8 PG Mean Corpuscular Hemoglobin Concent 34.4 % Red Cell Distribution Width 15.5 % Platelet Count 164 TH/MM3 Mean Platelet Volume 7.3 FL Neutrophils (%) (Auto) 95.5 % Lymphocytes (%) (Auto) 3.5 % Monocytes (%) (Auto) 0.9 % Eosinophils (%) (Auto) 0.0 % Basophils (%) (Auto) 0.1 % Neutrophils # (Auto) 7.4 TH/MM3 Lymphocytes # (Auto) 0.3 TH/MM3 Monocytes # (Auto) 0.1 TH/MM3 Eosinophils # (Auto) 0.0 TH/MM3 Basophils # (Auto) 0.0 TH/MM3 CBC Comment DIFF FINAL Differential Comment Blood Urea Nitrogen 16 MG/DL Creatinine 0.49 MG/DL Random Glucose 135 MG/DL Calcium Level 8.6 MG/DL Sodium Level 138 MEQ/L Potassium Level 3.2 MEQ/L Chloride Level 101 MEQ/L Carbon Dioxide Level 25.1 MEQ/L Anion Gap 12 MEQ/L Estimat Glomerular Filtration Rate 124 ML/MIN Administered Medications Medications (Trade) Dose Ordered Sig/Arleen Route PRN Reason Start Time Stop Time Status Last Admin Dose Admin Sodium Chloride (NS Flush) 2 ml BID IV FLUSH 09/05/17 21:00 09/06/17 08:48 Ipratropium [place] (Atrovent Neb) 0.5 mg Q6HR NEB NEB 09/05/17 16:00 09/06/17 10:23 Dexamethasone Sodium Phosphate (Decadron Inj) 4 mg Q6HR IV PUSH 09/05/17 19:00 09/06/17 12:05 Clonidine (Catapres) 0.1 mg Q8HR PRN PO SBP> OR = 180, DBP> OR = 100 09/05/17 19:00 09/06/17 18:59 09/06/17 14:33 Sodium Chloride 1,000 ml @ 100 mls/hr Q10H IV 09/05/17 19:00 09/06/17 06:17 Acetaminophen (Tylenol) 650 mg Q4H PRN PO PAIN SCALE 1-5 09/05/17 21:45 09/06/17 00:33 Diltiazem HCl (Cardizem Cd) 240 mg DAILY PO 09/06/17 11:00 09/06/17 14:33 Objective Remarks GENERAL: Older female, resting in bed asleep in no acute distress. Awakens to gentle shaking. SKIN: Warm and dry. HEAD: Normocephalic. EYES: No injection or drainage. NECK: Supple, trachea midline. CARDIOVASCULAR: Regular rate and rhythm. RESPIRATORY: Clear anteriorly. Breathing unlabored. GASTROINTESTINAL: Abdomen soft, non-tender, nondistended. EXTREMITIES: No cyanosis, or edema. MUSCULOSKELETAL: Adequate muscle tone. NEUROLOGICAL: Asleep but awakens to gentle shaking. Normal speech. Answers questions appropriately. Assessment/Plan Problem List: (1) Lung cancer metastatic to brain ICD Codes: C34.90 - Malignant neoplasm of unspecified part of unspecified bronchus or lung; C79.31 - Secondary malignant neoplasm of brain Plan: -- Getting daily XRT with Dr Casanova outpatient -- May begin chemotherapy with irinotecan after she has completed XRT. Hx: She has a history of right lung cancer resected in 2001. 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 She was treated with carboplatin and ACTUARIAL MATHEMATICIAN-16 with excellent response. MRI evaluation before the treatment shows nonspecific lesion. However, on followup July 15, MRI shows widespread metastatic disease to the [employer] KEEPER without hemorrhage or mass effect. She was referred promptly to radiation oncology for treatment but unfortunately there were delays prior to treatment. In clinic on 09/05 it was noted that she was symptomatic with HR in the 200's and [facility] was called to bring her to the hospital. (2) Paroxysmal tachycardia ICD Codes: I47.9 - Paroxysmal tachycardia, unspecified Status: Acute Plan: -- Transitioning from cardizem gtt to po -- Rate controlled in the 70's. -- Cardiology following -- Originally admitted with rate in the 200's Assessment 71 y/o female with metastatic small cell lung cancer admitted with tachycardia Plan 1. Rate much more controlled on cardizem po; cardiology managing 2. OK for discharge from oncology standpoint 3. Followup in clinic. Attending Statement The exam, history, and the medical decision-making described in the above note were completed with the assistance of the mid-level provider. I reviewed and agree with the findings presented. I attest that I had a [id number] encounter with the patient on the same day, and personally performed and documented my assessment and findings in the medical record. Noted cardiology consult and opinion about [employer] K[employer]PER metastatic small cell lung cancer. Agree prognosis is poor. Discussed w/ Factor XRT to palliate symptoms. XRT to start GAUDENCIO. Resting in bed in evening with at bedside, states she wants chocolate, her got her a Snicker[employer] bar at the cafeteria. Theresa Mendosa Sep 06, 2017 16:07 Shawanda Kong MD Sep 06, 2017 19:14
--- NOTE | 2017-09-06 20:11 | EKG ---
Date Performed: 09/05/2017 Time Performed: 12:29:23 PTAGE: 71 years EKG: Sinus rhythm WITH FREQUENT SUPRAVENTRICULAR PREMATURE COMPLEXES RIGHT ATRIAL ENLARGEMENT INDETERMINATE AXIS POSSI BLE RIGHT VENTRICULAR HYPERTROPHY Compared to prior tracing no significant change ABNORMAL ECG PREVIOUS TRACING 09/05/2017 @ 10.30 DOCTOR: Danielle Adam Interpretating Date/Time 09/06/2017 20:09:37
[2017-09-06] MEDS: LORazepam 0.5 MG TAB PO PRN (22:25)
[2017-09-07] VITALS (24 sets, daily range): BP systolic 149–178; BP diastolic 64–74; PULSE 60–93; RESP 18–24; TEMP 97–98.1; O2SAT 92–95
[2017-09-07] MEDS: DEXAMETHASONE SOD PHOS 4 MG/ML VIAL IV PUSH SCH ×4 (00:32→18:27)
[2017-09-07] MEDS: SODIUM CHLOR 0.9% 1000 ML INJ 1,000 ML IV SCH ×2 (01:00→10:40)
[2017-09-07] MEDS: RESP: IPRATROPIUM 0.5 MG/2.5 ML NEB NEB SCH ×4 (03:32→21:33)
[2017-09-07 05:36] LABS: BICARBONATE 24.7 MEQ/L (21.0-32.0); MAGNESIUM 2.1 MG/DL (1.5-2.5)
[2017-09-07] MEDS: PANTOPRAZOLE SOD 40 MG DELAYED RELEASE TAB PO SCH ×2 (10:15→10:30)
[2017-09-07] MEDS: DILTIAZEM-CD 240 MG CAP ER PO SCH ×2 (10:15→10:27)
[2017-09-07] MEDS: SODIUM CHLORIDE 0.9% FLUSH 10 ML FLUSH IV FLUSH SCH ×2 (10:15→19:58)
--- NOTE | 2017-09-07 10:17 | PD.ONC.PN ---
Subjective Subjective Remarks Afebrile overnight. Patient resting in bed. Confused, with delayed and incomplete answers to questions. Per , she is somewhat better than yesterday. Objective Data Date Time Temp Pulse Resp B/P (MAP) Pulse Ox O2 Delivery O2 Flow Rate FiO2 09/07/17 10:06 94 Nasal Cannula 1.50 09/07/17 05:00 81 09/07/17 04:00 60 09/07/17 04:00 98.0 69 18 151/68 (95) 94 09/07/17 03:00 69 09/07/17 01:00 61 09/07/17 00:00 66 09/06/17 23:00 97.7 66 18 143/64 (90) 98 09/06/17 22:00 67 09/06/17 21:00 70 09/06/17 20:00 63 09/06/17 19:30 94 Nasal Cannula 2.00 09/06/17 19:00 97.7 71 18 162/71 (101) 97 09/06/17 19:00 71 09/06/17 18:00 77 09/06/17 17:00 75 09/06/17 16:00 76 09/06/17 15:44 98.0 75 18 173/75 (107) 95 09/06/17 15:00 76 09/06/17 14:00 77 09/06/17 13:00 74 09/06/17 12:00 75 09/06/17 11:17 97.9 75 18 164/72 (102) 95 09/06/17 11:00 75 09/06/17 10:23 94 Nasal Cannula 1.00 Result Diagram: 09/06/17 0458 09/07/17 0450 Laboratory Results Laboratory Tests Test 09/07/17 04:50 Blood Urea Nitrogen 17 MG/DL Creatinine 0.38 MG/DL Random Glucose 129 MG/DL Calcium Level 8.2 MG/DL Magnesium Level 2.1 MG/DL Sodium Level 137 MEQ/L Potassium Level 3.0 MEQ/L Chloride Level 101 MEQ/L Carbon Dioxide Level 24.7 MEQ/L Anion Gap 11 MEQ/L Estimat Glomerular Filtration Rate 166 ML/MIN Administered Medications Medications (Trade) Dose Ordered Sig/Arleen Route PRN Reason Start Time Stop Time Status Last Admin Dose Admin Sodium Chloride (NS Flush) 2 ml BID IV FLUSH 09/05/17 21:00 11/7/17 08:48 Ipratropium [place] (Atrovent Neb) 0.5 mg Q6HR NEB NEB 09/05/17 16:00 09/07/17 10:05 Ondansetron HCl (Zofran Inj) 4 mg Q6HR PRN IV PUSH NAUSEA 09/05/17 18:30 09/07/17 06:18 Lorazepam (Ativan) 0.5 mg Q12H PRN PO ANXIETY 09/05/17 18:30 09/06/17 22:25 Dexamethasone Sodium Phosphate (Decadron Inj) 4 mg Q6HR IV PUSH 09/05/17 19:00 09/07/17 06:00 Sodium Chloride 1,000 ml @ 100 mls/hr Q10H IV 09/05/17 19:00 09/07/17 01:00 Acetaminophen (Tylenol) 650 mg Q4H PRN PO PAIN SCALE 1-5 09/05/17 21:45 09/06/17 22:25 Diltiazem HCl (Cardizem Cd) 240 mg DAILY PO 09/06/17 11:00 09/06/17 14:33 Objective Remarks GENERAL: Chronically ill appearing elderly female supine in bed resting. On 1.5 L O2 via NC SKIN: Warm and dry. HEAD: Normocephalic. EYES: No injection or drainage. NECK: Supple, trachea midline. CARDIOVASCULAR: Regular rate and rhythm RESPIRATORY: anterior stark clear. GASTROINTESTINAL: Abdomen soft, non-tender, nondistended. EXTREMITIES: No cyanosis NEUROLOGICAL: confused. answers in vincentian to some questions. is able to tell me she is at the hospital. follows some commands after multiple attempts. Assessment/Plan Problem List: (1) Lung cancer metastatic to brain ICD Codes: C34.90 - Malignant neoplasm of unspecified part of unspecified bronchus or lung; C79.31 - Secondary malignant neoplasm of brain Plan: -- to start XRT with Dr. Edilberto RATLIFF -- May begin chemotherapy with irinotecan after she has completed XRT. Hx: She has a history of right lung cancer resected in 2001. 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 She was treated with carboplatin and DATABASE MANAGEMENT SPECIALIST-16 with excellent response. MRI evaluation before the treatment shows nonspecific lesion. However, on followup July 15, MRI shows widespread metastatic disease to the DEAN without hemorrhage or mass effect. She was referred promptly to radiation oncology for treatment but unfortunately there were delays prior to treatment. In clinic on 09/05 it was noted that she was symptomatic with HR in the 200's and EVAC was called to bring her to the hospital. (2) Paroxysmal tachycardia ICD Codes: I47.9 - Paroxysmal tachycardia, unspecified Status: Acute Plan: -- on Cardizem PO, rate controlled. Assessment 71 y/o female with metastatic small cell lung cancer admitted with tachycardia Plan 1. UPDATE: d/w Dr. Casanova, will start radiation at 5PM today. 2. check CT Brain today, swallow evaluation, patient not taking pills. 3. continue Decadron. Kelly Barrera Sep 07, 2017 10:17
[2017-09-07] MEDS ORDERED: POTASSIUM CHLORIDE INJ 30 MEQ in SODIUM CHLORIDE 0.9% INJ 100 ML IV ONE (12:00)
--- NOTE | 2017-09-07 12:32 | HHI.HCPN ---
Reason for visit a. To assist with evaluation and management of symptoms including: shortness of breath and nausea b. To assist medical decision maker(s) with: better understanding of current medical conditions; weighing benefits/burdens of medical treatment options; making medical treatment decisions. . Subjective/Interval History Patient seen and examined today, at bedside, bedside RN, and speech therapy. Patient refusing to take her medication at that time, her actively encouraged her to take her medication and subsequently became irritated with her refusal. Patient is drowsy, oriented to person and to place, has some intermittent confusion. She answers most questions with one word answers and is too drowsy to truly engage in conversation. Patient denies any pain, shortness of breath or nausea. Discussed with the patient and her her right to refuse as well as the option to move forward with aggressive care or transition to comfort focused goals. The patient is too drowsy and with her intermittent confusion does not seem to truly grasp the gravity of that type of decision. Palliative Care will continue to assist with symptom management and to discuss with the patient/family the benefits and burdens of his current illnesses and the options regarding future care. Family/friend interactions Bedside discussion with patient's and family friends. . Advance Directives Living Will: Never completed Health Care Surrogate: Never completed Durable Power of Agricultural Extension Specialist: Never completed Objective Vital Signs Date Time Temp Pulse Resp B/P (MAP) Pulse Ox O2 Delivery O2 Flow Rate FiO2 09/07/17 10:06 94 Nasal Cannula 1.50 09/07/17 05:00 81 09/07/17 04:00 60 09/07/17 04:00 98.0 69 18 151/68 (95) 94 09/07/17 03:00 69 09/07/17 01:00 61 09/07/17 00:00 66 09/06/17 23:00 97.7 66 18 143/64 (90) 98 09/06/17 22:00 67 09/06/17 21:00 70 09/06/17 20:00 63 09/06/17 19:30 94 Nasal Cannula 2.00 09/06/17 19:00 97.7 71 18 162/71 (101) 97 09/06/17 19:00 71 09/06/17 18:00 77 09/06/17 17:00 75 09/06/17 16:00 76 09/06/17 15:44 98.0 75 18 173/75 (107) 95 09/06/17 15:00 76 09/06/17 14:00 77 09/06/17 13:00 74 Intake & Output 09/07/17 09/07/17 07:00 19:00 # Voids 3 . Physical Exam CONSTITUTIONAL/GENERAL: This is a frail elderly female patient, in no apparent distress. TUBES/LINES/DRAINS: Left subclavian port accessed. SKIN: No jaundice, rashes, or lesions. Ecchymoses on upper extremities. No wounds seen anteriorly. Skin temperature appropriate. Not diaphoretic. CARDIOVASCULAR: Regular rate and rhythm without murmurs, gallops, or rubs. No JVD. Peripheral pulses symmetric. RESPIRATORY/CHEST: Symmetric, unlabored respirations. Clear to auscultation. Breath sounds equal bilaterally. No wheezes, rales, or rhonchi. GASTROINTESTINAL: Abdomen soft, non-tender, nondistended. No guarding. Bowel sounds present. GENITOURINARY: Without palpable bladder distension. MUSCULOSKELETAL: Extremities without clubbing, cyanosis, or edema. No mottling or clubbing. NEUROLOGICAL: Drowsy, oriented to person and to place. Minimally verbal. Follows commands. Moves all extremities. PSYCHIATRIC: Unable to assess secondary to clinical condition. . Diagnostic Tests Laboratory Laboratory Tests Test 09/05/17 11:00 09/05/17 16:36 09/06/17 00:30 09/06/17 04:58 White Blood Count 13.9 TH/MM3 (4.0-11.0) 7.7 TH/MM3 (4.0-11.0) Red Blood Count 5.33 MIL/MM3 (4.00-5.30) 4.82 MIL/MM3 (4.00-5.30) Hemoglobin 15.6 GM/DL (11.6-15.3) 14.4 GM/DL (11.6-15.3) Hematocrit 47.0 % (35.0-46.0) 41.8 % (35.0-46.0) Mean Corpuscular Volume 88.1 FL (80.0-100.0) 86.7 FL (80.0-100.0) Mean Corpuscular Hemoglobin 29.2 PG (27.0-34.0) 29.8 PG (27.0-34.0) Mean Corpuscular Hemoglobin Concent 33.2 % (32.0-36.0) 34.4 % (32.0-36.0) Red Cell Distribution Width 15.4 % (11.6-17.2) 15.5 % (11.6-17.2) Platelet Count 193 TH/MM3 (150-450) 164 TH/MM3 (150-450) Mean Platelet Volume 7.4 FL (7.0-11.0) 7.3 FL (7.0-11.0) Neutrophils (%) (Auto) 86.8 % (16.0-70.0) 95.5 % (16.0-70.0) Lymphocytes (%) (Auto) 7.9 % (9.0-44.0) 3.5 % (9.0-44.0) Monocytes (%) (Auto) 5.2 % (0.0-8.0) 0.9 % (0.0-8.0) Eosinophils (%) (Auto) 0.0 % (0.0-4.0) 0.0 % (0.0-4.0) Basophils (%) (Auto) 0.1 % (0.0-2.0) 0.1 % (0.0-2.0) Neutrophils # (Auto) 12.0 TH/MM3 (1.8-7.7) 7.4 TH/MM3 (1.8-7.7) Lymphocytes # (Auto) 1.1 TH/MM3 (1.0-4.8) 0.3 TH/MM3 (1.0-4.8) Monocytes # (Auto) 0.7 TH/MM3 (0-0.9) 0.1 TH/MM3 (0-0.9) Eosinophils # (Auto) 0.0 TH/MM3 (0-0.4) 0.0 TH/MM3 (0-0.4) Basophils # (Auto) 0.0 TH/MM3 (0-0.2) 0.0 TH/MM3 (0-0.2) CBC Comment DIFF FINAL DIFF FINAL Differential Comment Prothrombin Time 11.5 SEC (9.8-11.6) Prothromb Time International Ratio 1.0 RATIO Activated Partial Thromboplast Time 37.6 SEC (24.3-30.1) Blood Urea Nitrogen 24 MG/DL (7-18) 16 MG/DL (7-18) Creatinine 0.89 MG/DL (0.50-1.00) 0.49 MG/DL (0.50-1.00) Random Glucose 133 MG/DL (74-106) 135 MG/DL (74-106) Calcium Level 9.1 MG/DL (8.5-10.1) 8.6 MG/DL (8.5-10.1) Magnesium Level 2.5 MG/DL (1.5-2.5) Sodium Level 137 MEQ/L (136-145) 138 MEQ/L (136-145) Potassium Level 3.5 MEQ/L (3.5-5.1) 3.2 MEQ/L (3.5-5.1) Chloride Level 98 MEQ/L (98-107) 101 MEQ/L (98-107) Carbon Dioxide Level 27.5 MEQ/L (21.0-32.0) 25.1 MEQ/L (21.0-32.0) Anion Gap 12 MEQ/L (5-15) 12 MEQ/L (5-15) Estimat Glomerular Filtration Rate 62 ML/MIN (>89) 124 ML/MIN (>89) Total Creatine Kinase 34 U/L (26-192) 25 U/L (26-192) 23 U/L (26-192) Troponin I 0.11 NG/ML (0.02-0.05) 0.08 NG/ML (0.02-0.05) 0.08 NG/ML (0.02-0.05) D-Dimer Quantitative (PE/DVT) 0.84 MG/L FEU (0.00-0.50) Test 09/07/17 04:50 Blood Urea Nitrogen 17 MG/DL (7-18) Creatinine 0.38 MG/DL (0.50-1.00) Random Glucose 129 MG/DL (74-106) Calcium Level 8.2 MG/DL (8.5-10.1) Magnesium Level 2.1 MG/DL (1.5-2.5) Sodium Level 137 MEQ/L (136-145) Potassium Level 3.0 MEQ/L (3.5-5.1) Chloride Level 101 MEQ/L (98-107) Carbon Dioxide Level 24.7 MEQ/L (21.0-32.0) Anion Gap 11 MEQ/L (5-15) Estimat Glomerular Filtration Rate 166 ML/MIN (>89) . Result Diagram: 09/06/1745709/07/17449 Assessment and Plan Disease Oriented Problem List: (1) Lung cancer metastatic to brain (2) Paroxysmal tachycardia (3) Elevated troponin Symptom Scale: (1) Shortness of breath (2) Debility Pertinent Non-Medical Issues Psychosocial:Patient is originally from [facility]. She has been for 47 years and has one adult daughter. 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 The patient and her relocated to [place] some time back in the 1970s and also moved back and forth from [place] during this time period. Spiritual: Presybeterian. Legal: None known. Ethical issues impacting care: None known. . Important Contacts Jori Izaguirre () [phone] Tiffanie Lainez (daughter) [phone] . 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 Due to her advanced age and multiple comorbidities patient is at a high risk for complications and setbacks. Given her recent diagnosis of brain mets, unfortunately her overall prognosis is poor. . Code Status: No Code Plan * Legal decision maker: Patient drowsy during exam, minimally engages in conversation, has intermittent confusion and has limited insight into her current prognosis. She has a history of cancer with a recent diagnosis of brain mets. Patient does not have any previous written advanced directives, per [place] statutes in the absence of written advanced directives health care decision making would fall to her next of kin which is her . * Goals: Patient has intermittent confusion and has limited insight into her current prognosis. She has been refusing medication but endorses she still wants to receive radiation therapy. Due to patient's limited insight health care decision making would fall to her , he has verbalized AGGRESSIVE goals of care. * CODE STATUS: DNR. * SYMPTOMS: --Shortness of breath: Multifactorial, secondary to history of lung cancer, COPD, irregular heart rhythm, etc. Patient on 3L NC, Atrovent 0.5mg ordered q 6 hours scheduled and q 2 hours PRN. Pending CTA to R/O PE. No recommendations at this time. --Nausea: Patient has had ongoing issues with nausea and vomiting prior to her hospital admission. Ondansetron 4mg q 6 hours PRN ordered. No recommendations at this time. * Palliative care will continue to follow during hospital course as condition evolves, to assist patient/decision-maker with understanding of medical conditions, weighing benefits/burdens of treatment options, for clarification of goals of treatment. Additionally will assist with any symptoms of palliative concern Attestation To help prompt me to consider important information that might be impacting today's encounter and assessment, information from prior notes written by myself or my colleagues may have been "brought forward" into today's note. My signature on this note, however, is an attestation that I personally performed the exam, history, and/or decision-making noted today, and, unless otherwise indicated, the interactions with patient, family, and staff as well as the review of records all occurred today. I also attest that the listed assessment and stated plan reflect my best clinical judgment today based on the combination of historical information, prior notes, and today's exam/ interactions. When time spent is documented, it refers only to time spent today by the signer, or if indicated, combined time spent today by collaborating physician/nurse practitioner. Angle Liu Sep 07, 2017 12:31
[2017-09-07] MEDS ORDERED: hydrALAZINE HCL 20 MG/ML VIAL IV PUSH PRN (13:15)
--- NOTE | 2017-09-07 14:21 | HHI.PR ---
Subjective Remarks Pt not taking pills, stating she doesn't want them. I attempted to figure out why she doesn't want them but per friend, she doesn't like them. Pt cannot give a reason except that she doesn't want them. Pt agreeable to radiation today. Discussed w RN, BP's elevated. Discussed w , pt hasn't been eating much. Both and friends are concerned Objective Vitals Vital Signs Date Time Temp Pulse Resp B/P (MAP) Pulse Ox O2 Delivery O2 Flow Rate FiO2 09/07/17 10:06 94 Nasal Cannula 1.50 09/07/17 05:00 81 09/07/17 04:00 60 09/07/17 04:00 98.0 69 18 151/68 (95) 94 09/07/17 03:00 69 09/07/17 01:00 61 09/07/17 00:00 66 09/06/17 23:00 97.7 66 18 143/64 (90) 98 09/06/17 22:00 67 09/06/17 21:00 70 09/06/17 20:00 63 09/06/17 19:30 94 Nasal Cannula 2.00 09/06/17 19:00 97.7 71 18 162/71 (101) 97 09/06/17 19:00 71 09/06/17 18:00 77 09/06/17 17:00 75 09/06/17 16:00 76 09/06/17 15:44 98.0 75 18 173/75 (107) 95 09/06/17 15:00 76 I/O 09/06/17 09/06/17 09/06/17 09/07/17 09/07/17 09/07/17 07:00 15:00 23:00 07:00 15:00 23:00 Intake Total 1342 ml 240 ml Balance 1342 ml 240 ml Intake Oral 240 ml 240 ml IV Total 1102 ml # Voids 2 1 3 # Bowel Movements 0 Result Diagram: 09/06/17 0458 09/07/17 0450 Imaging Last Impressions Chest X-Ray 09/05/17 1043 Signed Impressions: Service Date/Time: Tuesday, September 05, 2017 10:54 - CONCLUSION: 1. Linear parenchymal opacities at the lung bases consistent with atelectasis. 2. Probable small right pleural effusion. Jorge Escobar MD Lower Extremity Ultrasound 09/05/17 0000 Signed Impressions: Service Date/Time: Tuesday, September 05, 2017 15:13 - CONCLUSION: No DVT in either leg. Alec Almeida MD Objective Remarks GENERAL: This is a well-nourished, well-developed patient, laying in bed CARDIOVASCULAR: appears regular RESPIRATORY: Clear to auscultation. Breath sounds equal bilaterally. No wheezes GASTROINTESTINAL: Abdomen soft, non-tender, nondistended. Normal, active bowel sounds MUSCULOSKELETAL: Extremities without edema. NEURO: Alert & Oriented x4 doesn't say much to me, answers mostly w yes or no A/P Assessment and Plan Cardiac arrhythmia ; possible PSVT vs atrial fibrillation Pt was started on po cardizem- cardiology consult appreciated. however pt is refusing to take any pills, will switch to the short acting so RN can attempt to crush pills and give w food. Switch to 60mg po QID. I will also add the cardizem gtt back in case pt refuses to take any po. Leukocytosis with left shift: Etiology unclear. Patient denies any symptoms suggestive of acute infection. She is to be on Decadron as well. Elevated troponin: Secondary to tachycardia. Hypertension; continue cardizem and added IV vasotec/hydralazine prn. lung ca with brain metastasis- s/p chemo, last january 2017. continue Decadron- oncology consult appreciated- radiation oncology evaluated the patient and has scheduled her to radiation later today. Poor appetite: consult RD for danilo count. COPD with no exacerbation; continue neb treatment. hypokalemia; replaced. DVT prophylaxis with SCD's- no chemical prophylaxis due to brain mets. Discharge Planning calory count in place. scheduled for radiation this afternoon. d/c pending onc clearance and pt taking po meds. Palliative care following. Appreciate assistance from all consultants Afia Hawkins MD Sep 07, 2017 14:21
[2017-09-07] MEDS ORDERED: DILTIAZEM INJ 125 MG in SODIUM CHLORIDE 0.9% INJ 100 ML IV PRN (14:30)
--- NOTE | 2017-09-07 16:18 | RADRPT ---
EXAM DATE/TIME: 09/07/2017 15:22 [facility] COMPARISON: No previous studies available for comparison. INDICATIONS : Altered mental status. RADIATION DOSE: 56.35 CTDIvol (mGy) MEDICAL HISTORY : Chronic obstructive pulmonary disease. SURGICAL HISTORY : Hysterectomy. ENCOUNTER: Initial ACUITY: 1 day PAIN SCALE: Non-responsive LOCATION: cranial TECHNIQUE: Multiple contiguous axial images were obtained of the head. Using automated exposure control and adj ustment of the mA and/or kV according to patient size, radiation dose was kept as low as reasonably a chievable to obtain optimal diagnostic quality images. DICOM format image data is available electro nically for review and comparison. FINDINGS: CEREBRUM: Mild diffuse renal atrophy. 1.1 x 1.5 cm hypodense lesion in the left thalamus which may reflect a pr ior lacunar infarct. The ventricles are slightly prominent in size given degree of atrophy with moder ate periventricular diffuse white matter hypodensities. No evidence of midline shift, hemorrhage or a cute infarction. No extra-axial fluid collections are seen. POSTERIOR FOSSA: The cerebellum and brainstem are intact. The 4th ventricle is midline. The cerebellopontine angle i s unremarkable. EXTRACRANIAL: The visualized portion of the orbits is intact. SKULL: The calvaria is intact. No evidence of skull fracture. CONCLUSION: 1. 1.5 cm hypodense left thalamic lesion which may reflect a prior lacunar infarct. However, there is potentially subtle mass effect and therefore a mass lesion cannot be entirely excluded. Additional c haracterization may be performed with MRI exam as indicated. 2. Mild ventricular megaly out of proportion to degree of atrophy. Clinical correlation for normal pr essure hydrocephalus is recommended. 3. Moderate periventricular white matter hypodensities which may reflect ischemic white matter demyel ination versus transependymal fluid migration. Jorge Escobar MD on September 07, 2017 at 16:04 Board Certified Radiologist. This report was verified electronically.
[2017-09-07] MEDS: DILTIAZEM HCL 60 MG TAB PO SCH ×3 (18:00→19:57)
[2017-09-07] MEDS: ACETAMINOPHEN 325 MG TAB PO PRN (19:58)
[2017-09-08] VITALS (11 sets, daily range): BP systolic 150–189; BP diastolic 74–90; PULSE 71–93; RESP 18–24; TEMP 97.6–98.7; O2SAT 91–98
[2017-09-08] MEDS: DEXAMETHASONE SOD PHOS 4 MG/ML VIAL IV PUSH SCH ×5 (00:26→22:35)
[2017-09-08] MEDS: SODIUM CHLOR 0.9% 1000 ML INJ 1,000 ML IV SCH ×3 (00:26→17:00)
[2017-09-08] MEDS: ENALAPRILAT 1.25 MG/ML VIAL IV PUSH PRN (00:26)
[2017-09-08] MEDS: RESP: IPRATROPIUM 0.5 MG/2.5 ML NEB NEB SCH ×4 (04:23→21:17)
[2017-09-08 06:18] LABS: AUTOMATED NEUTROPHIL # 7.3 TH/MM3 (1.8-7.7); HEMATOCRIT 39.1 % (35.0-46.0); HEMO FLAGS DIFF FINAL; LYMPHOCYTE # 0.2 TH/MM3 (1.0-4.8); MEAN CORPUSCULAR HEMOGLOBIN 28.9 PG (27.0-34.0); MEAN CORPUSCULAR HGB CONC 33.2 % (32.0-36.0); MONO % 2.3 % (0.0-8.0); NEUT % 94.7 % (16.0-70.0); PLATELET COUNT 144 TH/MM3 (150-450); WHITE BLOOD COUNT 7.7 TH/MM3 (4.0-11.0)
[2017-09-08 06:37] LABS: BICARBONATE 27.6 MEQ/L (21.0-32.0)
[2017-09-08] MEDS ORDERED: POTASSIUM CHLORIDE 20 MEQ PWD PACKET PO ONE (08:30)
[2017-09-08] MEDS: SODIUM CHLORIDE 0.9% FLUSH 10 ML FLUSH IV FLUSH SCH ×2 (09:00→21:00)
[2017-09-08] MEDS: LISINOPRIL 20 MG TAB PO SCH (09:00)
[2017-09-08] MEDS: LORazepam 0.5 MG TAB PO PRN (09:18)
[2017-09-08] MEDS: ONDANSETRON HCL 4 MG/2 ML VIAL IV PUSH PRN (09:18)
[2017-09-08] MEDS: DILTIAZEM HCL 60 MG TAB PO SCH ×4 (09:19→21:00)
[2017-09-08] MEDS: POTASSIUM CHLOR 20 MEQ PREMIX 100 ML IV SCH ×2 (09:19→11:28)
--- NOTE | 2017-09-08 09:23 | HHI.PR ---
Subjective Remarks f/u BP, nausea not feeling well, very nauseated today, hasn't vomited, mildly sob, no chest pain. BP still elevated Objective Vitals Vital Signs Date Time Temp Pulse Resp B/P (MAP) Pulse Ox O2 Delivery O2 Flow Rate FiO2 09/08/17 05:40 98.1 81 170/76 (107) 97 09/08/17 04:23 98 Nasal Cannula 2.00 09/08/17 03:00 176/74 (108) 09/08/17 00:30 98.3 82 24 189/90 (123) 93 09/07/17 21:35 94 Nasal Cannula 2.00 09/07/17 20:04 83 09/07/17 20:00 97.8 86 20 168/67 (100) 92 09/07/17 18:00 85 09/07/17 17:00 85 09/07/17 16:00 97.5 93 24 157/67 (97) 94 09/07/17 16:00 76 09/07/17 15:00 85 09/07/17 14:45 85 24 149/64 (92) 92 09/07/17 14:00 80 09/07/17 13:30 172/70 (104) 09/07/17 13:00 78 09/07/17 12:00 98.1 75 20 178/74 (108) 95 09/07/17 12:00 75 09/07/17 11:00 66 09/07/17 10:06 94 Nasal Cannula 1.50 09/07/17 10:00 72 I/O 09/07/17 09/07/17 09/07/17 09/08/17 09/08/17 09/08/17 07:00 15:00 23:00 07:00 15:00 23:00 Intake Total 220 ml 500 ml Balance 220 ml 500 ml Intake Oral 120 ml IV Total 100 ml 500 ml # Voids 3 3 4 # Bowel Movements 0 Result Diagram: 09/08/1752909/08/17529 Objective Remarks GENERAL: Not in distress but nauseated CARDIOVASCULAR: appears regular RESPIRATORY: Clear to auscultation. Breath sounds equal bilaterally. No wheezes Poor effort Normal, active bowel sounds MUSCULOSKELETAL: Extremities without edema. NEURO: Nauseated, difficult to understand but oriented to self, place and to her birthday. A/P Problem List: (1) Paroxysmal tachycardia ICD Code: I47.9 - Paroxysmal tachycardia, unspecified Status: Acute (2) Elevated troponin ICD Code: R74.8 - Abnormal levels of other serum enzymes Status: Acute (3) Lung cancer metastatic to brain ICD Code: C34.90 - Malignant neoplasm of unspecified part of unspecified bronchus or lung; C79.31 - Secondary malignant neoplasm of brain Assessment and Plan This is a 71 year-old female with history of lung cancer with brain metastatic disease admitted for tachycardia PSVT vs atrial fibrillation - cardiology consulted, started on Cardizem, continue Cardizem by mouth. Heart rate controlled, Blood pressure still elevated. Replace potassium. Cardiology has signed off. Leukocytosis with left shift: Etiology unclear. Patient denies any symptoms suggestive of acute infection. She is to be on Decadron as well. Resolved. Elevated troponin: Secondary to tachycardia. Hypertension; continue cardizem, still uncontrolled, start lisinopril. lung ca with brain metastasis- s/p chemo, last january 2017. Oncology following, status post therapy yesterday, will continue with radiotherapy. CT scan of the brain should 1.5 cm left thalamic lesion with possible mass effect. Palliative care on board, patient is DO NOT RESUSCITATE, aggressive treatment per . Continue Decadron, decrease to 25 mg twice a day. Mild shortness of breath likely from nausea, patient's saturation is good, add albuterol. Poor appetite: consult RD for danilo count. Continue Zofran for nausea COPD with no exacerbation; continue neb treatment. hypokalemia; replace today, check magnesium DVT prophylaxis with SCD's- no chemical prophylaxis due to brain mets. Discharge Planning Discharge once cleared by oncology and if blood pressure and nausea are stable. Lauren Lyons MD Sep 08, 2017 09:23
--- NOTE | 2017-09-08 10:48 | PD.ONC.PN ---
Subjective Subjective Remarks Afebrile overnight. Patient resting in bed, sleeping on approach. Non-verbal. Objective Data Date Time Temp Pulse Resp B/P (MAP) Pulse Ox O2 Delivery O2 Flow Rate FiO2 09/08/17 09:49 98 Nasal Cannula 2.00 09/08/17 05:40 98.1 81 170/76 (107) 97 09/08/17 04:23 98 Nasal Cannula 2.00 09/08/17 03:00 176/74 (108) 09/08/17 00:30 98.3 82 24 189/90 (123) 93 09/07/17 21:35 94 Nasal Cannula 2.00 09/07/17 20:04 83 09/07/17 20:00 97.8 86 20 168/67 (100) 92 09/07/17 18:00 85 09/07/17 17:00 85 09/07/17 16:00 97.5 93 24 157/67 (97) 94 09/07/17 16:00 76 09/07/17 15:00 85 09/07/17 14:45 85 24 149/64 (92) 92 09/07/17 14:00 80 09/07/17 13:30 172/70 (104) 09/07/17 13:00 78 09/07/17 12:00 98.1 75 20 178/74 (108) 95 09/07/17 12:00 75 09/07/17 11:00 66 09/08/17 09/08/17 09/08/17 07:00 15:00 23:00 Intake Total 500 ml Balance 500 ml Result Diagram: 09/08/1752909/08/17529 Laboratory Results Laboratory Tests Test 09/08/17 05:30 White Blood Count 7.7 TH/MM3 Red Blood Count 4.50 MIL/MM3 Hemoglobin 13.0 GM/DL Hematocrit 39.1 % Mean Corpuscular Volume 87.0 FL Mean Corpuscular Hemoglobin 28.9 PG Mean Corpuscular Hemoglobin Concent 33.2 % Red Cell Distribution Width 15.0 % Platelet Count 144 TH/MM3 Mean Platelet Volume 7.0 FL Neutrophils (%) (Auto) 94.7 % Lymphocytes (%) (Auto) 3.0 % Monocytes (%) (Auto) 2.3 % Eosinophils (%) (Auto) 0.0 % Basophils (%) (Auto) 0.0 % Neutrophils # (Auto) 7.3 TH/MM3 Lymphocytes # (Auto) 0.2 TH/MM3 Monocytes # (Auto) 0.2 TH/MM3 Eosinophils # (Auto) 0.0 TH/MM3 Basophils # (Auto) 0.0 TH/MM3 CBC Comment DIFF FINAL Differential Comment Blood Urea Nitrogen 15 MG/DL Creatinine 0.38 MG/DL Random Glucose 146 MG/DL Calcium Level 8.2 MG/DL Sodium Level 135 MEQ/L Potassium Level 3.0 MEQ/L Chloride Level 99 MEQ/L Carbon Dioxide Level 27.6 MEQ/L Anion Gap 8 MEQ/L Estimat Glomerular Filtration Rate 166 ML/MIN Administered Medications Medications (Trade) Dose Ordered Sig/Arleen Route PRN Reason Start Time Stop Time Status Last Admin Dose Admin Sodium Chloride (NS Flush) 2 ml BID IV FLUSH 09/05/17 21:00 09/07/17 10:15 Ipratropium [place] (Atrovent Neb) 0.5 mg Q6HR NEB NEB 09/05/17 16:00 09/08/17 09:51 Lorazepam (Ativan) 0.5 mg Q12H PRN PO ANXIETY 09/05/17 18:30 09/08/17 09:18 Dexamethasone Sodium Phosphate (Decadron Inj) 4 mg Q6HR IV PUSH 09/05/17 19:00 09/08/17 05:35 Pantoprazole Sodium (Protonix) 40 mg DAILY PO 09/06/17 09:00 09/07/17 10:15 Ondansetron HCl (Zofran Inj) 4 mg Q6HR PRN IV PUSH nausea 09/05/17 19:00 09/08/17 09:18 Sodium Chloride 1,000 ml @ 100 mls/hr Q10H IV 09/05/17 19:00 09/08/17 00:26 Acetaminophen (Tylenol) 650 mg Q4H PRN PO PAIN SCALE 1-5 09/05/17 21:45 09/07/17 19:58 Enalaprilat (Vasotec Inj) 1.25 mg Q6H PRN IV PUSH SBP>160, DBP>90 09/07/17 13:15 09/08/17 00:26 Diltiazem HCl (Cardizem) 60 mg QID PO 09/07/17 18:00 09/08/17 09:19 Potassium Chloride 100 ml @ 50 mls/hr Q2H IV 09/08/17 08:30 09/08/17 12:29 09/08/17 09:19 Lisinopril (Prinivil) 20 mg DAILY PO 09/08/17 09:00 09/08/17 09:00 Objective Remarks GENERAL: Chronically ill female, sitting up in hospital bed, resting. SKIN: Warm and dry. HEAD: Normocephalic. EYES: No injection or drainage. NECK: Supple, trachea midline. CARDIOVASCULAR: +S1/S2 RESPIRATORY: anterior stark clear. GASTROINTESTINAL: Abdomen soft, non-tender, nondistended. EXTREMITIES: No cyanosis NEUROLOGICAL: confused. sleeping on approach, awakens to sternal rub and falls back asleep. Assessment/Plan Problem List: (1) Lung cancer metastatic to brain ICD Codes: C34.90 - Malignant neoplasm of unspecified part of unspecified bronchus or lung; C79.31 - Secondary malignant neoplasm of brain Plan: -- started on XRT on 09/07 -- May begin chemotherapy with irinotecan after she has completed XRT. Hx: She has a history of right lung cancer resected in 2001. 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 MRI evaluation before the treatment shows nonspecific lesion. 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 She was referred promptly to radiation oncology for treatment but unfortunately there were delays prior to treatment. In clinic on 09/05 it was noted that she was symptomatic with HR in the 200's and [facility] was called to bring her to the hospital. (2) Paroxysmal tachycardia ICD Codes: I47.9 - Paroxysmal tachycardia, unspecified Status: Acute Plan: -- on Cardizem PO, rate controlled. Assessment 71 y/o female with metastatic small cell lung cancer admitted with tachycardia Plan 1. continue radiation daily 2. monitor for change in mental status 3. continue Decadron 4mg IV q 6 hours. Attending Statement The exam, history, and the medical decision-making described in the above note were completed with the assistance of the mid-level provider. I reviewed and agree with the findings presented. I attest that I had a [id number] encounter with the patient on the same day, and personally performed and documented my assessment and findings in the medical record. Pt seen and examined. Awake looks anxious, denies pain, not saying anything this AM but state she was lucid conversing for 30 minutes after XRT last night. Continue current plan to palliate MIXING SUPERVISOR disease with XRT. Meds and issue since she does not want to swallow except with prompting from her family. Discussed with primary team. Cont current care. If no improvement or worsening mental status, anticipate transfer to hospice care. For now, she and her hold out hope of response. Kelly Barrera Sep 08, 2017 10:48 Shawanda Kong MD Sep 08, 2017 15:18
--- NOTE | 2017-09-08 12:23 | HHI.HCPN ---
Reason for visit a. To assist with evaluation and management of symptoms including: shortness of breath and nausea b. To assist medical decision maker(s) with: better understanding of current medical conditions; weighing benefits/burdens of medical treatment options; making medical treatment decisions. . Subjective/Interval History Patient seen today for follow up, no family at bedside, very today drowsy, minimally arouses to verbal stimuli, some response to tactile stimuli, however only opens eyes briefly, oriented to person. Patient denies any pain, shortness of breath or nausea. Head CT demonstrated 1.5cm hypodense left thalamic lesion with subtle mass effect. . Family/friend interactions Conversation with patient's in [facility], discussed signing community DNR to bring home upon discharge, he became very tearful and began recalling all the family members and friends he has lost over the years. He declined signing the community DNR at this time. He seems to be struggling with his 's diagnosis and her declining cognitive status. . Advance Directives Living Will: Never completed Health Care Surrogate: Never completed Durable Power of Space Systems Operations Craftsman: Never completed Objective Vital Signs Date Time Temp Pulse Resp B/P (MAP) Pulse Ox O2 Delivery O2 Flow Rate FiO2 09/08/17 11:01 97.6 78 18 176/78 (110) 95 09/08/17 09:49 98 Nasal Cannula 2.00 09/08/17 05:40 98.1 81 170/76 (107) 97 09/08/17 04:23 98 Nasal Cannula 2.00 09/08/17 03:00 176/74 (108) 09/08/17 00:30 98.3 82 24 189/90 (123) 93 09/07/17 21:35 94 Nasal Cannula 2.00 09/07/17 20:04 83 09/07/17 20:00 97.8 86 20 168/67 (100) 92 09/07/17 18:00 85 09/07/17 17:00 85 09/07/17 16:00 97.5 93 24 157/67 (97) 94 09/07/17 16:00 76 09/07/17 15:00 85 09/07/17 14:45 85 24 149/64 (92) 92 09/07/17 14:00 80 09/07/17 13:30 172/70 (104) 09/07/17 13:00 78 Intake & Output 11/9/17 11/9/17 07:00 19:00 Intake Total 500 ml Balance 500 ml IV Total 500 ml # Voids 5 . Physical Exam CONSTITUTIONAL/GENERAL: This is a frail elderly female patient, in no apparent distress. TUBES/LINES/DRAINS: Left subclavian port accessed. SKIN: No jaundice, rashes, or lesions. Ecchymoses on upper extremities. No wounds seen anteriorly. Skin temperature appropriate. Not diaphoretic. CARDIOVASCULAR: Regular rate and rhythm without murmurs, gallops, or rubs. No JVD. Peripheral pulses symmetric. RESPIRATORY/CHEST: Symmetric, unlabored respirations. Clear to auscultation. Breath sounds equal bilaterally. No wheezes, rales, or rhonchi. GASTROINTESTINAL: Abdomen soft, non-tender, nondistended. No guarding. Bowel sounds present. GENITOURINARY: Without palpable bladder distension. MUSCULOSKELETAL: Extremities without clubbing, cyanosis, or edema. No mottling or clubbing. NEUROLOGICAL: Very drowsy, oriented to person. Minimally verbal. PSYCHIATRIC: Unable to assess secondary to clinical condition. . Diagnostic Tests Laboratory Laboratory Tests Test 09/05/17 16:36 09/06/17 00:30 09/06/17 04:58 09/07/17 04:50 D-Dimer Quantitative (PE/DVT) 0.84 MG/L FEU (0.00-0.50) Total Creatine Kinase 25 U/L (26-192) 23 U/L (26-192) Troponin I 0.08 NG/ML (0.02-0.05) 0.08 NG/ML (0.02-0.05) White Blood Count 7.7 TH/MM3 (4.0-11.0) Red Blood Count 4.82 MIL/MM3 (4.00-5.30) Hemoglobin 14.4 GM/DL (11.6-15.3) Hematocrit 41.8 % (35.0-46.0) Mean Corpuscular Volume 86.7 FL (80.0-100.0) Mean Corpuscular Hemoglobin 29.8 PG (27.0-34.0) Mean Corpuscular Hemoglobin Concent 34.4 % (32.0-36.0) Red Cell Distribution Width 15.5 % (11.6-17.2) Platelet Count 164 TH/MM3 (150-450) Mean Platelet Volume 7.3 FL (7.0-11.0) Neutrophils (%) (Auto) 95.5 % (16.0-70.0) Lymphocytes (%) (Auto) 3.5 % (9.0-44.0) Monocytes (%) (Auto) 0.9 % (0.0-8.0) Eosinophils (%) (Auto) 0.0 % (0.0-4.0) Basophils (%) (Auto) 0.1 % (0.0-2.0) Neutrophils # (Auto) 7.4 TH/MM3 (1.8-7.7) Lymphocytes # (Auto) 0.3 TH/MM3 (1.0-4.8) Monocytes # (Auto) 0.1 TH/MM3 (0-0.9) Eosinophils # (Auto) 0.0 TH/MM3 (0-0.4) Basophils # (Auto) 0.0 TH/MM3 (0-0.2) CBC Comment DIFF FINAL Differential Comment Blood Urea Nitrogen 16 MG/DL (7-18) 17 MG/DL (7-18) Creatinine 0.49 MG/DL (0.50-1.00) 0.38 MG/DL (0.50-1.00) Random Glucose 135 MG/DL (74-106) 129 MG/DL (74-106) Calcium Level 8.6 MG/DL (8.5-10.1) 8.2 MG/DL (8.5-10.1) Sodium Level 138 MEQ/L (136-145) 137 MEQ/L (136-145) Potassium Level 3.2 MEQ/L (3.5-5.1) 3.0 MEQ/L (3.5-5.1) Chloride Level 101 MEQ/L (98-107) 101 MEQ/L (98-107) Carbon Dioxide Level 25.1 MEQ/L (21.0-32.0) 24.7 MEQ/L (21.0-32.0) Anion Gap 12 MEQ/L (5-15) 11 MEQ/L (5-15) Estimat Glomerular Filtration Rate 124 ML/MIN (>89) 166 ML/MIN (>89) Magnesium Level 2.1 MG/DL (1.5-2.5) Test 09/08/17 05:30 White Blood Count 7.7 TH/MM3 (4.0-11.0) Red Blood Count 4.50 MIL/MM3 (4.00-5.30) Hemoglobin 13.0 GM/DL (11.6-15.3) Hematocrit 39.1 % (35.0-46.0) Mean Corpuscular Volume 87.0 FL (80.0-100.0) Mean Corpuscular Hemoglobin 28.9 PG (27.0-34.0) Mean Corpuscular Hemoglobin Concent 33.2 % (32.0-36.0) Red Cell Distribution Width 15.0 % (11.6-17.2) Platelet Count 144 TH/MM3 (150-450) Mean Platelet Volume 7.0 FL (7.0-11.0) Neutrophils (%) (Auto) 94.7 % (16.0-70.0) Lymphocytes (%) (Auto) 3.0 % (9.0-44.0) Monocytes (%) (Auto) 2.3 % (0.0-8.0) Eosinophils (%) (Auto) 0.0 % (0.0-4.0) Basophils (%) (Auto) 0.0 % (0.0-2.0) Neutrophils # (Auto) 7.3 TH/MM3 (1.8-7.7) Lymphocytes # (Auto) 0.2 TH/MM3 (1.0-4.8) Monocytes # (Auto) 0.2 TH/MM3 (0-0.9) Eosinophils # (Auto) 0.0 TH/MM3 (0-0.4) Basophils # (Auto) 0.0 TH/MM3 (0-0.2) CBC Comment DIFF FINAL Differential Comment Blood Urea Nitrogen 15 MG/DL (7-18) Creatinine 0.38 MG/DL (0.50-1.00) Random Glucose 146 MG/DL (74-106) Calcium Level 8.2 MG/DL (8.5-10.1) Sodium Level 135 MEQ/L (136-145) Potassium Level 3.0 MEQ/L (3.5-5.1) Chloride Level 99 MEQ/L (98-107) Carbon Dioxide Level 27.6 MEQ/L (21.0-32.0) Anion Gap 8 MEQ/L (5-15) Estimat Glomerular Filtration Rate 166 ML/MIN (>89) Result Diagram: 09/08/17 0530 09/08/17 0530 Imaging Last [address] 09/07/17 0000 Signed Impressions: Service Date/Time: Tuesday, September 07, 2017 15:22 - CONCLUSION: 1. 1.5 cm hypodense left thalamic lesion which may reflect a prior lacunar infarct. However, there is potentially subtle mass effect and therefore a mass lesion cannot be entirely excluded. Additional characterization may be performed with MRI exam as indicated. 2. Mild ventricular megaly out of proportion to degree of atrophy. Clinical correlation for normal pressure hydrocephalus is recommended. 3. Moderate periventricular white matter hypodensities which may reflect ischemic white matter demyelination versus transependymal fluid migration. Jorge Escobar MD Assessment and Plan Disease Oriented Problem List: (1) Lung cancer metastatic to brain (2) Paroxysmal tachycardia (3) Elevated troponin Symptom Scale: (1) Shortness of breath (2) Debility Pertinent Non-Medical Issues Psychosocial:Patient is originally from [facility]. She has been for 47 years and has one adult daughter. 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 The patient and her relocated to [place] some time back in the 1970s and also moved back and forth from [place] during this time period. Spiritual: Evangelical. Legal: None known. Ethical issues impacting care: None known. . Important Contacts Jori Izaguirre () [phone] Tiffanie Lainez (daughter) [phone] . 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 Due to her advanced age and multiple comorbidities patient is at a high risk for complications and setbacks. Given her recent diagnosis of brain mets, unfortunately her overall prognosis is poor. . Code Status: No Code Plan * Legal decision maker: Patient increasingly lethargic, minimally engages in conversation, has intermittent confusion and has limited insight into her current prognosis. She has a history of cancer with a recent diagnosis of brain mets. Patient does not have any previous written advanced directives, per [place] statutes in the absence of written advanced directives health care decision making would fall to her next of kin which is her . * Goals: Patient has intermittent confusion and has limited insight into her current prognosis. Due to patient's limited insight health care decision making would fall to her , he has verbalized AGGRESSIVE goals of care. * CODE STATUS: DNR. * SYMPTOMS: --Shortness of breath: Multifactorial, secondary to history of lung cancer, COPD, irregular heart rhythm, etc. Patient on 3L NC, Atrovent 0.5mg ordered q 6 hours scheduled and q 2 hours PRN. Pending CTA to R/O PE. No recommendations at this time. --Nausea: Patient has had ongoing issues with nausea and vomiting prior to her hospital admission. Ondansetron 4mg q 6 hours PRN ordered. No recommendations at this time. * Palliative care will continue to follow during hospital course as condition evolves, to assist patient/decision-maker with understanding of medical conditions, weighing benefits/burdens of treatment options, for clarification of goals of treatment. Additionally will assist with any symptoms of palliative concern Attestation To help prompt me to consider important information that might be impacting today's encounter and assessment, information from prior notes written by myself or my colleagues may have been "brought forward" into today's note. My signature on this note, however, is an attestation that I personally performed the exam, history, and/or decision-making noted today, and, unless otherwise indicated, the interactions with patient, family, and staff as well as the review of records all occurred today. I also attest that the listed assessment and stated plan reflect my best clinical judgment today based on the combination of historical information, prior notes, and today's exam/ interactions. When time spent is documented, it refers only to time spent today by the signer, or if indicated, combined time spent today by collaborating physician/nurse practitioner. Angle Liu Sep 08, 2017 12:23
[2017-09-08] MEDS ORDERED: MORPHINE SULFATE 2 MG/ML INJ IM ONE (18:15)
[2017-09-09] VITALS (10 sets, daily range): BP systolic 134–194; BP diastolic 67–113; PULSE 72–105; RESP 20–28; TEMP 98.1–99.1; O2SAT 89–97
[2017-09-09] MEDS: SODIUM CHLOR 0.9% 1000 ML INJ 1,000 ML IV SCH ×3 (03:00→17:15)
[2017-09-09] MEDS: RESP: IPRATROPIUM 0.5 MG/2.5 ML NEB NEB SCH ×4 (04:00→21:01)
[2017-09-09] MEDS: ENALAPRILAT 1.25 MG/ML VIAL IV PUSH PRN ×2 (04:28→12:59)
[2017-09-09] MEDS: DEXAMETHASONE SOD PHOS 4 MG/ML VIAL IV PUSH SCH ×4 (04:29→23:18)
[2017-09-09] MEDS: ONDANSETRON HCL 4 MG/2 ML VIAL IV PUSH PRN ×2 (05:01→22:00)
[2017-09-09 05:22] LABS: POTASSIUM 3.4 MEQ/L (3.5-5.1)
[2017-09-09] MEDS: LISINOPRIL 20 MG TAB PO SCH (09:00)
[2017-09-09] MEDS: PANTOPRAZOLE SOD 40 MG DELAYED RELEASE TAB PO SCH (09:00)
[2017-09-09] MEDS: SODIUM CHLORIDE 0.9% FLUSH 10 ML FLUSH IV FLUSH SCH ×2 (09:00→21:00)
[2017-09-09] MEDS: DILTIAZEM HCL 60 MG TAB PO SCH ×4 (09:00→19:41)
--- NOTE | 2017-09-09 09:54 | HHI.PR ---
Subjective Remarks Follow-up for metastatic brain cancer. Speech therapist and patient has not bedside. Patient is moaning. She is confused and does not follow any directions. Her stated that this is her baseline since then started. Patient is having poor oral intake due to confusion. She is scheduled for radiation today. Objective Vitals Vital Signs Date Time Temp Pulse Resp B/P (MAP) Pulse Ox O2 Delivery O2 Flow Rate FiO2 09/09/17 09:16 96 Nasal Cannula 2.00 09/09/17 08:56 98.7 105 28 171/84 (113) 94 09/09/17 08:56 94 09/09/17 04:00 98.9 88 24 157/67 (97) 97 09/09/17 00:30 98.5 88 24 189/83 (118) 96 09/09/17 00:10 72 09/08/17 22:12 85 09/08/17 20:54 92 09/08/17 20:30 Nasal Cannula 2.00 09/08/17 20:00 98.7 71 24 150/77 (101) 98 09/08/17 18:26 98.1 93 20 184/83 (116) 91 09/08/17 11:01 97.6 78 18 176/78 (110) 95 09/08/17 09:49 98 Nasal Cannula 2.00 I/O 09/08/17 09/08/17 09/08/17 09/09/17 09/09/17 09/09/17 07:00 15:00 23:00 07:00 15:00 23:00 Intake Total 500 ml 100 ml 240 ml 715 ml Balance 500 ml 100 ml 240 ml 715 ml Intake Oral 240 ml IV Total 500 ml 100 ml 715 ml # Voids 4 6 6 Result Diagram: 09/08/17 0530 09/09/17 0422 Objective Remarks GENERAL: in NAD who is moaning and confused CARDIOVASCULAR: Regular rate and rhythm without murmurs, gallops, or rubs. RESPIRATORY: Breath sounds equal bilaterally. No accessory muscle use. GASTROINTESTINAL: Abdomen soft, non-tender, nondistended. NEURO: Patient does not follow any commands. Per is at her baseline. Medications and IVs Current Medications Sodium Chloride (NS Flush) 2 ml UNSCH PRN IVF FLUSH AFTER USING IV ACCESS; Start 09/05/17 at 10:45; Stop 09/07/17 at 13:44; Status DC Adenosine (Adenocard Inj) 6 mg ONCE ONCE IV PUSH ; Start 09/05/17 at 10:45; Stop 09/05/17 at 10:46; Status Cancel Adenosine (Adenocard Inj) 6 mg STK-MED ONCE .ROUTE ; Start 09/05/17 at 10:45; Stop 09/05/17 at 10:46; Status DC Diltiazem HCl 125 mg/Sodium Chloride 125 ml @ 5 mls/hr TITRATE PRN IV tachycardia Last administered on 09/06/17 00:17; Start 09/05/17 at 11:00; Stop 09/06/17 at 12:00; Status DC Diltiazem HCl (Cardizem Inj) 16 mg BOLUS ONCE IV PUSH Last administered on 11:03; Start 09/05/17 at 11:00; Stop 09/06/17 at 09:57; Status DC IV Flush (NS Flush) 2 ml UNSCH PRN IV FLUSH FLUSH AFTER USING IV ACCESS; Start 09/05/17 at 11:00; Stop 09/06/17 at 12:00; Status DC Sodium Chloride 500 ml @ 500 mls/hr BOLUS ONCE IV Last administered on 12:26; Start 09/05/17 at 12:15; Stop 09/05/17 at 13:14; Status DC Sodium Chloride (NS Flush) 2 ml UNSCH PRN IV FLUSH FLUSH AFTER USING IV ACCESS ; Start 09/05/17 at 13:15 Sodium Chloride (NS Flush) 2 ml BID IV FLUSH Last administered on 09/07/17 10: 15; Start 09/05/17 at 21:00 Naloxone HCl (Narcan Inj) 0.4 mg UNSCH PRN IV PUSH SEE LABEL COMMENTS; Start 09/05/17 at 13:15 Ipratropium [place] (Atrovent Neb) 0.5 mg Q2HR NEB PRN NEB wheezing; Start 09/05/17 at 13:15 Ipratropium [place] (Atrovent Neb) 0.5 mg Q6HR NEB NEB Last administered on 09:15; Start 09/05/17 at 16:00 Ondansetron HCl (Zofran Inj) 4 mg Q6HR PRN IV PUSH NAUSEA Last administered on 09/07/17 06:18; Start 09/05/17 at 18:30; Stop 09/07/17 at 11:16; Status DC Lorazepam (Ativan) 0.5 mg Q12H PRN PO ANXIETY Last administered on 09/08/17 09 :18; Start 09/05/17 at 18:30 Lorazepam (Ativan Inj) 0.5 mg ONCE ONCE IV PUSH Last administered on 19:33; Start 09/05/17 at 19:00; Stop 09/05/17 at 19:13; Status DC Dexamethasone Sodium Phosphate (Decadron Inj) 4 mg Q6HR IV PUSH Last administered on 09/09/17 04:29; Start 09/05/17 at 19:00 Pantoprazole Sodium (Protonix Inj) 40 mg ONCE ONCE IV PUSH Last administered on 09/05/17 19:34; Start 09/05/17 at 19:00; Stop 09/05/17 at 19:12; Status DC Pantoprazole Sodium (Protonix) 40 mg DAILY PO Last administered on 09/07/17 10 :15; Start 09/06/17 at 09:00 Ondansetron HCl (Zofran Inj) 4 mg Q6HR PRN IV PUSH nausea Last administered on 09/09/17 05:01; Start 09/05/17 at 19:00 Clonidine (Catapres) 0.1 mg Q8HR PRN PO SBP> OR = 180, DBP> OR = 100 Last administered on 09/06/17 14:33; Start 09/05/17 at 19:00; Stop 09/06/17 at 18:59 ; Status DC Sodium Chloride 1,000 ml @ 100 mls/hr Q10H IV Last administered on 09/08/17 17:00; Start 09/05/17 at 19:00 Acetaminophen (Tylenol) 650 mg Q4H PRN PO PAIN SCALE 1-5 Last administered on 09/07/17 19:58; Start 09/05/17 at 21:45 Potassium Chloride (KCl) 40 meq ONCE STAT PO Last administered on 09/06/17 14 :33; Start 09/06/17 at 10:51; Stop 09/06/17 at 10:52; Status DC Potassium Chloride (KCl) 20 meq ONCE ONCE PO Last administered on 09/06/17 16 :00; Start 09/06/17 at 16:00; Stop 09/06/17 at 16:01; Status DC Diltiazem HCl (Cardizem Cd) 240 mg DAILY PO Last administered on 09/07/17 10: 15; Start 09/06/17 at 11:00; Stop 09/07/17 at 14:18; Status DC Magnesium Sulfate/ Dextrose 100 ml @ 100 mls/hr ONCE PRN IV MAGNESIUM LESS THAN 2; Start 09/06/17 at 11:00; Stop 09/07/17 at 10:59; Status DC Potassium Chloride 30 meq/ Sodium Chloride 115 ml @ 33 mls/hr ONCE ONCE IV Last administered on 09/07/17 12:10; Start 09/07/17 at 12:00; Stop 09/07/17 at 15:29; Status DC Enalaprilat (Vasotec Inj) 1.25 mg Q6H PRN IV PUSH SBP>160, DBP>90 Last administered on 09/09/17 04:28; Start 09/07/17 at 13:15 Hydralazine HCl (Apresoline Inj) 10 mg Q4H PRN IV PUSH SBP>160, DBP>90; Start 09/07/17 at 13:15 Diltiazem HCl (Cardizem) 60 mg QID PO Last administered on 09/08/17 18:00; Start 09/07/17 at 18:00 Diltiazem HCl 125 mg/Sodium Chloride 125 ml @ 5 mls/hr TITRATE PRN IV Tachycardia; Start 09/07/17 at 14:30 Potassium Chloride 100 ml @ 50 mls/hr Q2H IV Last administered on 09/08/17 11 :28; Start 09/08/17 at 08:30; Stop 09/08/17 at 12:29; Status DC Potassium Chloride (KCl Powder) 40 meq ONCE ONCE PO ; Start 09/08/17 at 08:30; Stop 09/08/17 at 08:40; Status DC Lisinopril (Prinivil) 20 mg DAILY PO Last administered on 09/08/17 09:00; Start 09/08/17 at 09:00 Morphine Sulfate (Morphine Inj) 2 mg ONCE ONCE IM ; Start 09/08/17 at 18:15; Stop 09/08/17 at 18:33; Status DC A/P Problem List: (1) Paroxysmal tachycardia ICD Code: I47.9 - Paroxysmal tachycardia, unspecified Status: Acute (2) Elevated troponin ICD Code: R74.8 - Abnormal levels of other serum enzymes Status: Acute (3) Lung cancer metastatic to brain ICD Code: C34.90 - Malignant neoplasm of unspecified part of unspecified bronchus or lung; C79.31 - Secondary malignant neoplasm of brain Assessment and Plan This is a 71 year-old female with history of lung cancer with brain metastatic disease admitted for tachycardia lung ca with brain metastasis - s/p chemo, last january 2017. Oncology following, status post therapy yesterday, will continue with radiotherapy. CT scan of the brain should 1.5 cm left thalamic lesion with possible mass effect. Palliative care on board, patient is DO NOT RESUSCITATE, aggressive treatment per . Continue Decadron, decrease to 25 mg twice a day. PSVT vs atrial fibrillation Rate control Cardizem. Cardiology signed off. Leukocytosis with left shift: - Etiology unclear. Patient denies any symptoms suggestive of acute infection. She is to be on Decadron as well. Resolved. Elevated troponin: -Asymptomatic. Due to demand ischemia from tachycardia. Hypertension - continue cardizem, still uncontrolled, start lisinopril. Poor appetite: consult RD for danilo count. Continue Zofran for nausea. On a full thickened liquid diet. COPD with no exacerbation; continue neb treatment. hypokalemia; replace today, check magnesium DVT prophylaxis with SCD's- no chemical prophylaxis due to brain mets. Discharge Planning very poor prognosis. per oncologist if patient does not improve with radiation who recommend hospice. Agnes Delgado MD Sep 09, 2017 09:54
--- NOTE | 2017-09-09 09:56 | PD.ONC.PN ---
Subjective Subjective Remarks Afebrile overnight. Patient remains confused, non-verbal. No family members at bedside. No overnight events per nurse. Objective Data Date Time Temp Pulse Resp B/P (MAP) Pulse Ox O2 Delivery O2 Flow Rate FiO2 09/09/17 09:16 96 Nasal Cannula 2.00 09/09/17 08:56 98.7 105 28 171/84 (113) 94 09/09/17 08:56 94 09/09/17 04:00 98.9 88 24 157/67 (97) 97 09/09/17 00:30 98.5 88 24 189/83 (118) 96 09/09/17 00:10 72 09/08/17 22:12 85 09/08/17 20:54 92 09/08/17 20:30 Nasal Cannula 2.00 09/08/17 20:00 98.7 71 24 150/77 (101) 98 09/08/17 18:26 98.1 93 20 184/83 (116) 91 09/08/17 11:01 97.6 78 18 176/78 (110) 95 09/09/17 09/09/17 09/09/17 07:00 15:00 23:00 Intake Total 715 ml Balance 715 ml Result Diagram: 09/08/17 0530 09/09/17 0422 Laboratory Results Laboratory Tests Test 09/09/17 04:22 Blood Urea Nitrogen 16 MG/DL Creatinine 0.40 MG/DL Random Glucose 139 MG/DL Calcium Level 8.1 MG/DL Magnesium Level 2.0 MG/DL Sodium Level 135 MEQ/L Potassium Level 3.4 MEQ/L Chloride Level 99 MEQ/L Carbon Dioxide Level 29.0 MEQ/L Anion Gap 7 MEQ/L Estimat Glomerular Filtration Rate 156 ML/MIN Administered Medications Medications (Trade) Dose Ordered Sig/Arleen Route PRN Reason Start Time Stop Time Status Last Admin Dose Admin Sodium Chloride (NS Flush) 2 ml BID IV FLUSH 09/05/17 21:00 09/07/17 10:15 Ipratropium [place] (Atrovent Neb) 0.5 mg Q6HR NEB NEB 09/05/17 16:00 09/09/17 09:15 Lorazepam (Ativan) 0.5 mg Q12H PRN PO ANXIETY 09/05/17 18:30 09/08/17 09:18 Dexamethasone Sodium Phosphate (Decadron Inj) 4 mg Q6HR IV PUSH 09/05/17 19:00 09/09/17 04:29 Pantoprazole Sodium (Protonix) 40 mg DAILY PO 09/06/17 09:00 09/07/17 10:15 Ondansetron HCl (Zofran Inj) 4 mg Q6HR PRN IV PUSH nausea 09/05/17 19:00 09/09/17 05:01 Sodium Chloride 1,000 ml @ 100 mls/hr Q10H IV 09/05/17 19:00 09/08/17 17:00 Acetaminophen (Tylenol) 650 mg Q4H PRN PO PAIN SCALE 1-5 09/05/17 21:45 09/07/17 19:58 Enalaprilat (Vasotec Inj) 1.25 mg Q6H PRN IV PUSH SBP>160, DBP>90 09/07/17 13:15 09/09/17 04:28 Diltiazem HCl (Cardizem) 60 mg QID PO 09/07/17 18:00 09/08/17 18:00 Lisinopril (Prinivil) 20 mg DAILY PO 09/08/17 09:00 09/08/17 09:00 Objective Remarks GENERAL: Chronically ill female, lying in bed. Receiving breathing treatment via FM SKIN: Warm and dry. HEAD: Normocephalic. EYES: No injection or drainage. NECK: Supple, trachea midline. CARDIOVASCULAR: +S1/S2 RESPIRATORY: anterior stark clear. GASTROINTESTINAL: Abdomen soft, non-tender, nondistended. EXTREMITIES: No cyanosis NEUROLOGICAL: confused. nonverbal. does not follow commands. Assessment/Plan Problem List: (1) Lung cancer metastatic to brain ICD Codes: C34.90 - Malignant neoplasm of unspecified part of unspecified bronchus or lung; C79.31 - Secondary malignant neoplasm of brain Plan: -- started on XRT on 09/07 -- May begin chemotherapy with irinotecan after she has completed XRT if PFS improves. Hx: She has a history of right lung cancer resected in 2001. 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 She was treated with carboplatin and SURFBOARD MAKER-16 with excellent response. MRI evaluation before the treatment shows nonspecific lesion. However, on followup July 15, MRI shows widespread metastatic disease to the BEAM PRESS OPERATOR without hemorrhage or mass effect. She was referred promptly to radiation oncology for treatment but unfortunately there were delays prior to treatment. In clinic on 09/05 it was noted that she was symptomatic with HR in the 200's and [facility] was called to bring her to the hospital. (2) Paroxysmal tachycardia ICD Codes: I47.9 - Paroxysmal tachycardia, unspecified Status: Acute Plan: -- on Cardizem PO, rate controlled. Assessment 71 y/o female with metastatic small cell lung cancer admitted with tachycardia Plan 1. continue radiation daily 2. if mental status does not improve, may need to consider hospice. Attending Statement The exam, history, and the medical decision-making described in the above note were completed with the assistance of the mid-level provider. I reviewed and agree with the findings presented. I attest that I had a [id number] encounter with the patient on the same day, and personally performed and documented my assessment and findings in the medical record. Pt seen and examined. Hope emanate from who reports pt eating, talking, responding to XRT. Pt sleepy in AM, gradually opens eyes, shakes head or nod to answer. Pt denies any pain, very weak but moves legs. Continue current care with XRT, no plans for chemotherapy, placement concern to continue XRT. Pt po intake and swallow to be evaluated by speech. Family and friends at bedside encouraging her. Kelly Barrera Sep 09, 2017 09:56 Shawanda Kong MD Sep 09, 2017 19:02
[2017-09-09] MEDS ORDERED: BISACODYL 10 MG SUPP RECTAL ONE (10:00)
[2017-09-09] MEDS ORDERED: SODIUM CHLORID 0.9% 500 ML INJ 500 ML IV ONE (13:00)
--- NOTE | 2017-09-09 16:08 | HHI.HCPN ---
Reason for visit a. To assist with evaluation and management of symptoms including: shortness of breath and nausea b. To assist medical decision maker(s) with: better understanding of current medical conditions; weighing benefits/burdens of medical treatment options; making medical treatment decisions. . Subjective/Interval History Patient seen today for follow up on comfort, goals. Nursing reports episode of tachycardia earlier today requiring fluid bolus per oncology HALF SECTION IRONER. Status post XRT today, completed 3 out of 10 treatments. Chemistry today no significant changes. No new imaging. Some hypertension. Patient seen in room nursing at bedside assisting with nursing care, living change. No family present at time of my exam. Patient is awake though she does not follow my commands she does not verbalize for me. Following exam met with in waiting area--he endorses that he feels patient looks a little better today, and he spoke with oncology and they feel patient is "strong, tough", wishes to continue to pursue XRT with the possibility if her performance status improved she still might take chemotherapy to help slow her disease progression. Gently explore with him that given her weak, fragile status it is not clear that she will regain enough strength to undergo chemotherapy, and that she does still remain at risk for further decline in complications. He indicates he is praying, and is hopeful and does not want to see her suffer, but he does not feel she is currently suffering. Gently explore that if she reaches a point where she is not improving and is instead deteriorating and he feels she is suffering then he can elect to make her comfortable. He wants to take it one day at a time, and see how the patient does. He is open to ongoing conversations as clinical course evolves. Advance Directives Living Will: Never completed Health Care Surrogate: Never completed Durable Power of Brim Edge Trimmer: Never completed Objective Vital Signs Date Time Temp Pulse Resp B/P (MAP) Pulse Ox O2 Delivery O2 Flow Rate FiO2 09/09/17 15:01 93 Nasal Cannula 2.00 09/09/17 14:26 99.1 105 28 194/84 (120) 89 09/09/17 09:16 96 Nasal Cannula 2.00 09/09/17 08:56 98.7 105 28 171/84 (113) 94 09/09/17 08:56 94 09/09/17 04:00 98.9 88 24 157/67 (97) 97 09/09/17 00:30 98.5 88 24 189/83 (118) 96 09/09/17 00:10 72 09/08/17 22:12 85 09/08/17 20:54 92 09/08/17 20:30 Nasal Cannula 2.00 09/08/17 20:00 98.7 71 24 150/77 (101) 98 09/08/17 18:26 98.1 93 20 184/83 (116) 91 Intake & Output 09/09/17 09/09/17 07:00 19:00 Intake Total 715 ml 1500 ml Balance 715 ml 1500 ml IV Total 715 ml 1500 ml # Voids 6 Physical Exam CONSTITUTIONAL/GENERAL: This is a frail elderly female patient, in no apparent distress. TUBES/LINES/DRAINS: Left subclavian port accessed. NC O2 SKIN: No jaundice, rashes, or lesions. No wounds seen anteriorly. Skin temperature appropriate. Not diaphoretic. CARDIOVASCULAR: Regular rate and rhythm without murmur. Peripheral pulses symmetric. RESPIRATORY/CHEST: Symmetric, unlabored respirations. on NC 2l. Clear to auscultation. Breath sounds equal bilaterally. GASTROINTESTINAL: Abdomen soft, non-tender, nondistended. No guarding. Bowel sounds present. GENITOURINARY: Without palpable bladder distension. MUSCULOSKELETAL: Extremities without clubbing, cyanosis, or edema. No mottling or clubbing. NEUROLOGICAL: awake, though does not interact with examiner, does not follow commands. moves extremities spontaneously. PSYCHIATRIC: Unable to assess secondary to clinical condition- no evident anxiety . Diagnostic Tests Laboratory Laboratory Tests Test 09/07/17 04:50 09/08/17 05:30 09/09/17 04:22 Blood Urea Nitrogen 17 MG/DL (7-18) 15 MG/DL (7-18) 16 MG/DL (7-18) Creatinine 0.38 MG/DL (0.50-1.00) 0.38 MG/DL (0.50-1.00) 0.40 MG/DL (0.50-1.00) Random Glucose 129 MG/DL (74-106) 146 MG/DL (74-106) 139 MG/DL (74-106) Calcium Level 8.2 MG/DL (8.5-10.1) 8.2 MG/DL (8.5-10.1) 8.1 MG/DL (8.5-10.1) Magnesium Level 2.1 MG/DL (1.5-2.5) 2.0 MG/DL (1.5-2.5) Sodium Level 137 MEQ/L (136-145) 135 MEQ/L (136-145) 135 MEQ/L (136-145) Potassium Level 3.0 MEQ/L (3.5-5.1) 3.0 MEQ/L (3.5-5.1) 3.4 MEQ/L (3.5-5.1) Chloride Level 101 MEQ/L (98-107) 99 MEQ/L (98-107) 99 MEQ/L (98-107) Carbon Dioxide Level 24.7 MEQ/L (21.0-32.0) 27.6 MEQ/L (21.0-32.0) 29.0 MEQ/L (21.0-32.0) Anion Gap 11 MEQ/L (5-15) 8 MEQ/L (5-15) 7 MEQ/L (5-15) Estimat Glomerular Filtration Rate 166 ML/MIN (>89) 166 ML/MIN (>89) 156 ML/MIN (>89) White Blood Count 7.7 TH/MM3 (4.0-11.0) Red Blood Count 4.50 MIL/MM3 (4.00-5.30) Hemoglobin 13.0 GM/DL (11.6-15.3) Hematocrit 39.1 % (35.0-46.0) Mean Corpuscular Volume 87.0 FL (80.0-100.0) Mean Corpuscular Hemoglobin 28.9 PG (27.0-34.0) Mean Corpuscular Hemoglobin Concent 33.2 % (32.0-36.0) Red Cell Distribution Width 15.0 % (11.6-17.2) Platelet Count 144 TH/MM3 (150-450) Mean Platelet Volume 7.0 FL (7.0-11.0) Neutrophils (%) (Auto) 94.7 % (16.0-70.0) Lymphocytes (%) (Auto) 3.0 % (9.0-44.0) Monocytes (%) (Auto) 2.3 % (0.0-8.0) Eosinophils (%) (Auto) 0.0 % (0.0-4.0) Basophils (%) (Auto) 0.0 % (0.0-2.0) Neutrophils # (Auto) 7.3 TH/MM3 (1.8-7.7) Lymphocytes # (Auto) 0.2 TH/MM3 (1.0-4.8) Monocytes # (Auto) 0.2 TH/MM3 (0-0.9) Eosinophils # (Auto) 0.0 TH/MM3 (0-0.4) Basophils # (Auto) 0.0 TH/MM3 (0-0.2) CBC Comment DIFF FINAL Differential Comment Result Diagram: 09/08/17 0530 09/09/17 0422 Imaging Last Impressions Head CT 09/07/17 0000 Signed Impressions: Service Date/Time: Thursday, September 07, 2017 15:22 - CONCLUSION: 1. 1.5 cm hypodense left thalamic lesion which may reflect a prior lacunar infarct. However, there is potentially subtle mass effect and therefore a mass lesion cannot be entirely excluded. Additional characterization may be performed with MRI exam as indicated. 2. Mild ventricular megaly out of proportion to degree of atrophy. Clinical correlation for normal pressure hydrocephalus is recommended. 3. Moderate periventricular white matter hypodensities which may reflect ischemic white matter demyelination versus transependymal fluid migration. Jorge Escobar MD Chest X-Ray 09/05/17 1043 Signed Impressions: Service Date/Time: Tuesday, September 05, 2017 10:54 - CONCLUSION: 1. Linear parenchymal opacities at the lung bases consistent with atelectasis. 2. Probable small right pleural effusion. Jorge Escobar MD Lower Extremity Ultrasound 09/05/17 0000 Signed Impressions: Service Date/Time: Tuesday, September 05, 2017 15:13 - CONCLUSION: No DVT in either leg. Alec Almeida MD Assessment and Plan Disease Oriented Problem List: (1) Lung cancer metastatic to brain (2) Paroxysmal tachycardia (3) Elevated troponin Symptom Scale: (1) Shortness of breath (2) Debility Pertinent Non-Medical Issues Psychosocial:Patient is originally from [facility]. She has been for 47 years and has one adult daughter. 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 The patient and her relocated to [place] some time back in the 1970s and also moved back and forth from [place] during this time period. Spiritual: Faith. Legal: None known. Ethical issues impacting care: None known. . Important Contacts Jori Izaguirre () [phone] Tiffanie Lainez (daughter) [phone] . 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 Due to her advanced age and multiple comorbidities patient is at a high risk for complications and setbacks. Given her recent diagnosis of brain mets, unfortunately her overall prognosis is poor. . Code Status: No Code Plan * Legal decision maker: Patient increasingly lethargic, minimally engages in conversation, has intermittent confusion and has limited insight into her current prognosis. She has a history of cancer with a recent diagnosis of brain mets. Patient does not have any previous written advanced directives, per [place] statutes in the absence of written advanced directives health care decision making would fall to her next of kin which is her . * Goals: Patient has intermittent confusion and has limited insight into her current prognosis. Due to patient's limited insight health care decision making would fall to her , he has verbalized AGGRESSIVE goals of care (short or resuscitation) . He wishes to cont XRT, take it a day at a time , hopeful pt might improve enough for chemotherapy. * CODE STATUS: DNR. * SYMPTOMS: --Shortness of breath: Multifactorial, secondary to history of lung cancer, COPD, irregular heart rhythm, etc. Patient on 3L NC, Atrovent 0.5mg ordered q 6 hours scheduled and q 2 hours PRN. Pending CTA to R/O PE. No recommendations at this time. --Nausea: Patient has had ongoing issues with nausea and vomiting prior to her hospital admission. Ondansetron 4mg q 6 hours PRN ordered. no n/v reported today. No recommendations at this time. * Palliative care will continue to follow during hospital course as condition evolves, to assist patient/decision-maker with understanding of medical conditions, weighing benefits/burdens of treatment options, for clarification of goals of treatment. Additionally will assist with any symptoms of palliative concern Time Spent Total Floor Time (mins): 25 (PE, chart review. d/w RN, pt spouse) Attestation To help prompt me to consider important information that might be impacting today's encounter and assessment, information from prior notes written by myself or my colleagues may have been "brought forward" into today's note. My signature on this note, however, is an attestation that I personally performed the exam, history, and/or decision-making noted today, and, unless otherwise indicated, the interactions with patient, family, and staff as well as the review of records all occurred today. I also attest that the listed assessment and stated plan reflect my best clinical judgment today based on the combination of historical information, prior notes, and today's exam/ interactions. When time spent is documented, it refers only to time spent today by the signer, or if indicated, combined time spent today by collaborating physician/nurse practitioner. Amina Juarez Sep 09, 2017 16:08
[2017-09-10] VITALS (12 sets, daily range): BP systolic 132–200; BP diastolic 64–81; PULSE 54–116; RESP 22–25; TEMP 96.7–98.8; O2SAT 92–97
[2017-09-10] MEDS ORDERED: PROMETHAZINE HCL 12.5 MG SUPP RECTAL ONE (02:15)
[2017-09-10] MEDS ORDERED: SCOPOLAMINE 1.5 MG PATCH T-DERMAL ONE (03:00)
[2017-09-10] MEDS: RESP: IPRATROPIUM 0.5 MG/2.5 ML NEB NEB SCH ×4 (03:58→21:19)
[2017-09-10] MEDS: DEXAMETHASONE SOD PHOS 4 MG/ML VIAL IV PUSH SCH ×4 (06:20→23:40)
[2017-09-10] MEDS: DILTIAZEM HCL 60 MG TAB PO SCH (09:00)
[2017-09-10] MEDS: SODIUM CHLORIDE 0.9% FLUSH 10 ML FLUSH IV FLUSH SCH ×2 (09:00→20:17)
[2017-09-10] MEDS: PANTOPRAZOLE SOD 40 MG DELAYED RELEASE TAB PO SCH (09:00)
[2017-09-10] MEDS: LISINOPRIL 20 MG TAB PO SCH (09:00)
[2017-09-10] MEDS ORDERED: DILTIAZEM INJ 125 MG in SODIUM CHLORIDE 0.9% INJ 100 ML IV PRN (10:45)
--- NOTE | 2017-09-10 11:20 | PD.ONC.PN ---
Subjective Subjective Remarks Afebrile overnight Per RN patient is not taking anything by mouth Discussed with at the bedside that prognosis is quite poor He became tearful and states he is beginning to understand the severity of her illness "I don't know how I'm going to live without her" Objective Data Date Time Temp Pulse Resp B/P (MAP) Pulse Ox O2 Delivery O2 Flow Rate FiO2 09/10/17 10:31 92 Nasal Cannula 3.00 09/10/17 08:00 98.8 88 22 186/74 (111) 96 09/10/17 04:07 112 09/10/17 04:00 98.4 54 24 166/70 (102) 97 09/10/17 00:03 103 09/10/17 00:00 98.4 97 24 200/81 (120) 95 Automatic Cuff 09/09/17 21:30 98.6 96 20 134/113 (120) 95 09/09/17 20:10 89 09/09/17 16:00 98.1 88 20 176/78 (110) 93 09/09/17 15:01 93 Nasal Cannula 2.00 09/09/17 14:26 99.1 105 28 194/84 (120) 89 09/10/17 09/10/17 09/10/17 07:00 15:00 23:00 Intake Total 1500 ml Balance 1500 ml Result Diagram: 09/08/17 0530 09/09/17 0422 Administered Medications Medications (Trade) Dose Ordered Sig/Arleen Route PRN Reason Start Time Stop Time Status Last Admin Dose Admin Sodium Chloride (NS Flush) 2 ml BID IV FLUSH 09/05/17 21:00 09/07/17 10:15 Ipratropium [place] (Atrovent Neb) 0.5 mg Q6HR NEB NEB 09/05/17 16:00 09/10/17 10:28 Lorazepam (Ativan) 0.5 mg Q12H PRN PO ANXIETY 09/05/17 18:30 09/08/17 09:18 Dexamethasone Sodium Phosphate (Decadron Inj) 4 mg Q6HR IV PUSH 09/05/17 19:00 09/10/17 06:20 Pantoprazole Sodium (Protonix) 40 mg DAILY PO 09/06/17 09:00 09/07/17 10:15 Ondansetron HCl (Zofran Inj) 4 mg Q6HR PRN IV PUSH nausea 09/05/17 19:00 09/09/17 22:00 Sodium Chloride 1,000 ml @ 100 mls/hr Q10H IV 09/05/17 19:00 09/09/17 17:15 Acetaminophen (Tylenol) 650 mg Q4H PRN PO PAIN SCALE 1-5 09/05/17 21:45 09/07/17 19:58 Enalaprilat (Vasotec Inj) 1.25 mg Q6H PRN IV PUSH SBP>160, DBP>90 09/07/17 13:15 09/09/17 12:59 Hydralazine HCl (Apresoline Inj) 10 mg Q4H PRN IV PUSH SBP>160, DBP>90 09/07/17 13:15 09/10/17 09:00 Diltiazem HCl (Cardizem) 60 mg QID PO 09/07/17 18:00 09/08/17 18:00 Lisinopril (Prinivil) 20 mg DAILY PO 09/08/17 09:00 09/08/17 09:00 Objective Remarks GENERAL: Chronically ill female, lying in bed. Moaning. SKIN: Warm and dry. HEAD: Normocephalic. EYES: No injection or drainage. NECK: Supple, trachea midline. CARDIOVASCULAR: +S1/S2 RESPIRATORY: Anterior stark clear. GASTROINTESTINAL: Abdomen soft, non-tender, nondistended. EXTREMITIES: No cyanosis. No edema NEUROLOGICAL: Nonverbal. Makes eye contact. Shakes head "yes" when asked questions. Assessment/Plan Problem List: (1) Lung cancer metastatic to brain ICD Codes: C34.90 - Malignant neoplasm of unspecified part of unspecified bronchus or lung; C79.31 - Secondary malignant neoplasm of brain Plan: -- started on XRT on 09/07 -- May begin chemotherapy with irinotecan after she has completed XRT if PFS improves. Hx: She has a history of right lung cancer resected in 2001. 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 She was treated with carboplatin and RAG ROOM SUPERVISOR-16 with excellent response. MRI evaluation before the treatment shows nonspecific lesion. However, on followup July 15, MRI shows widespread metastatic disease to the HOUSE FELLOW without hemorrhage or mass effect. She was referred promptly to radiation oncology for treatment but unfortunately there were delays prior to treatment. In clinic on 09/05 it was noted that she was symptomatic with HR in the 200's and EVAC was called to bring her to the hospital. (2) Paroxysmal tachycardia ICD Codes: I47.9 - Paroxysmal tachycardia, unspecified Status: Acute Plan: --Patient not taking Cardizem by mouth; HR has been increased into the 120's at rest. -- Will initiate Cardizem drip at 5 mg per hour continuous -- May transfer patient to the cardiac unit if Cardizem unsuccessful in controlling rate Assessment 71 y/o female with metastatic small cell lung cancer admitted with tachycardia Plan 1. Had long discussion with the patient's to explain the severity of the illness and prognosis. We discussed that if her mental status does not improve then we will not offer chemotherapy. He does report that he attempted to reach out to the patient family to let them know. 2. Patient is currently not receiving any thing by mouth, we will transition her po Cardizem to IV at 5 mg per hour. On 3. Will likely continue XRT on Tuesday 4. Supportive care Discussed with RN Attending Statement The exam, history, and the medical decision-making described in the above note were completed with the assistance of the mid-level provider. I reviewed and agree with the findings presented. I attest that I had a [id number] encounter with the patient on the same day, and personally performed and documented my assessment and findings in the medical record Lethargic/moaning decreased po intake seen by palliative care poor prognosis HR improved --now in the 90s no oral intake IV diltiazem prn Cardiology needs to be informed d/w rn o/n events revoewed Theresa Mendosa Sep 10, 2017 11:20 Samuel Liu MD Sep 10, 2017 14:04
[2017-09-10] MEDS: SODIUM CHLOR 0.9% 1000 ML INJ 1,000 ML IV SCH ×2 (14:04→23:42)
--- NOTE | 2017-09-10 15:02 | HHI.PR ---
Subjective Remarks Patient lying in bed. Patient speaks, however does not answer questions appropriately. She does appear to communicate with family friends at bedside. Objective Vital Signs Date Time Temp Pulse Resp B/P (MAP) Pulse Ox O2 Delivery O2 Flow Rate FiO2 09/10/17 11:59 97.8 116 25 132/64 (86) 95 09/10/17 10:31 92 Nasal Cannula 3.00 09/10/17 08:00 98.8 88 22 186/74 (111) 96 09/10/17 04:07 112 09/10/17 04:00 98.4 54 24 166/70 (102) 97 09/10/17 00:03 103 09/10/17 00:00 98.4 97 24 200/81 (120) 95 Automatic Cuff 09/09/17 21:30 98.6 96 20 134/113 (120) 95 09/09/17 20:10 89 09/09/17 16:00 98.1 88 20 176/78 (110) 93 09/09/17 15:01 93 Nasal Cannula 2.00 I/O 09/09/17 09/09/17 09/09/17 09/10/17 09/10/17 09/10/17 07:00 15:00 23:00 07:00 15:00 23:00 Intake Total 715 ml 1500 ml 450 ml 1500 ml 783 ml Balance 715 ml 1500 ml 450 ml 1500 ml 783 ml Intake Oral 450 ml IV Total 715 ml 1500 ml 1500 ml 783 ml # Voids 6 4 4 1 # Bowel Movements 1 Result Diagram: 09/08/17 0530 09/09/17 0422 Objective Remarks GENERAL: Patient lying in bed. Moaning. SKIN: Warm and dry. HEAD: Normocephalic. EYES: No scleral icterus. No injection or drainage. NECK: Supple, trachea midline. No JVD. CARDIOVASCULAR: Regular rate and rhythm without murmurs, gallops, or rubs. RESPIRATORY: Breath sounds equal bilaterally. No accessory muscle use. GASTROINTESTINAL: Abdomen soft, non-tender, nondistended. MUSCULOSKELETAL: No cyanosis, or edema. BACK: Nontender without obvious deformity. No CVA tenderness. A/P Assessment and Plan //lung ca with brain metastasis - s/p chemo, last january 2017. Oncology following, status post therapy yesterday, will continue with radiotherapy. CT scan of the brain should 1.5 cm left thalamic lesion with possible mass effect. Palliative care on board, patient is DO NOT RESUSCITATE, aggressive treatment per . Continue Decadron, decrease to 25 mg twice a day. = 09/10. Long discussion with in room. He wishes aggressive treatment. Continue with radiation therapy as per oncology. //PSVT vs atrial fibrillation Rate control Cardizem. Cardiology signed off. //Leukocytosis with left shift: - Etiology unclear. Patient denies any symptoms suggestive of acute infection. She is to be on Decadron as well. Resolved. //Elevated troponin: -Asymptomatic. Due to demand ischemia from tachycardia. //Hypertension - continue cardizem and lisinopril, variable blood pressures. cont monitor //Poor appetite: Continue life 3 times a day. //COPD with no exacerbation; continue neb treatment. //hypokalemia. Recheck tomorrow. //DVT prophylaxis with SCD's- no chemical prophylaxis due to brain mets. Discharge Planning Continue radiation therapy as per oncology. PT recommends rehabilitation. Pending oncology clearance. Obi Sharma MD Sep 10, 2017 15:02
[2017-09-10] MEDS: DILTIAZEM HCL 30 MG TAB PO SCH ×2 (18:04→20:17)
[2017-09-10] MEDS: MORPHINE SULFATE 2 MG/ML INJ IV PUSH PRN (23:40)
[2017-09-11] VITALS (9 sets, daily range): BP systolic 121–190; BP diastolic 70–94; PULSE 83–97; RESP 16–25; TEMP 97.4–98.6; O2SAT 91–100
[2017-09-11] MEDS: RESP: IPRATROPIUM 0.5 MG/2.5 ML NEB NEB SCH ×4 (04:48→20:00)
[2017-09-11] MEDS: DEXAMETHASONE SOD PHOS 4 MG/ML VIAL IV PUSH SCH ×4 (05:15→23:31)
[2017-09-11] MEDS: MORPHINE SULFATE 2 MG/ML INJ IV PUSH PRN ×2 (05:15→21:35)
[2017-09-11 05:36] LABS: AUTOMATED NEUTROPHIL # 7.5 TH/MM3 (1.8-7.7); BASOPHIL % 0.2 % (0.0-2.0); HEMATOCRIT 42.7 % (35.0-46.0); HEMO FLAGS DIFF FINAL; LYMPH % 4.3 % (9.0-44.0); LYMPHOCYTE # 0.4 TH/MM3 (1.0-4.8); MEAN CELL VOLUME 85.5 FL (80.0-100.0); MEAN CORPUSCULAR HEMOGLOBIN 29.8 PG (27.0-34.0); MEAN CORPUSCULAR HGB CONC 34.9 % (32.0-36.0); MONO % 3.9 % (0.0-8.0); NEUT % 91.6 % (16.0-70.0); PLATELET COUNT 189 TH/MM3 (150-450); RED BLOOD COUNT 4.99 MIL/MM3 (4.00-5.30); RED CELL DISTRIBUTION WIDTH 15.3 % (11.6-17.2); WHITE BLOOD COUNT 8.2 TH/MM3 (4.0-11.0)
[2017-09-11] MEDS: DILTIAZEM HCL 30 MG TAB PO SCH ×4 (09:00→21:00)
[2017-09-11] MEDS: LISINOPRIL 20 MG TAB PO SCH (09:00)
[2017-09-11] MEDS: SODIUM CHLORIDE 0.9% FLUSH 10 ML FLUSH IV FLUSH SCH ×2 (09:00→21:00)
[2017-09-11] MEDS: PANTOPRAZOLE SOD 40 MG DELAYED RELEASE TAB PO SCH (09:00)
[2017-09-11] MEDS: SODIUM CHLOR 0.9% 1000 ML INJ 1,000 ML IV SCH ×2 (10:25→21:18)
--- NOTE | 2017-09-11 10:47 | PD.ONC.PN ---
Subjective Subjective Remarks Afebrile overnight Pt still moaning but appears more alert today Asking for water Follows simple commands not at bedside this am Objective Data Date Time Temp Pulse Resp B/P (MAP) Pulse Ox O2 Delivery O2 Flow Rate FiO2 09/11/17 09:46 91 Nasal Cannula 3.00 09/11/17 04:48 95 Nasal Cannula 3.00 09/11/17 04:00 97.7 95 18 168/76 (106) 97 09/11/17 00:08 96 Nasal Cannula 3.00 09/10/17 23:49 97.6 89 25 155/71 (99) 95 09/10/17 21:19 94 Nasal Cannula 3.00 09/10/17 20:00 98.0 100 22 165/69 (101) 96 Manual Cuff/Auscultation 09/10/17 20:00 100 09/10/17 19:00 98 Nasal Cannula 5.00 09/10/17 16:15 96.7 93 24 170/70 (103) 96 09/10/17 11:59 97.8 116 25 132/64 (86) 95 09/11/17 09/11/17 09/11/17 07:00 15:00 23:00 Intake Total 1253 ml Balance 1253 ml Result Diagram: 09/11/17 0508 09/09/17 0422 Laboratory Results Laboratory Tests Test 09/11/17 05:08 White Blood Count 8.2 TH/MM3 Red Blood Count 4.99 MIL/MM3 Hemoglobin 14.9 GM/DL Hematocrit 42.7 % Mean Corpuscular Volume 85.5 FL Mean Corpuscular Hemoglobin 29.8 PG Mean Corpuscular Hemoglobin Concent 34.9 % Red Cell Distribution Width 15.3 % Platelet Count 189 TH/MM3 Mean Platelet Volume 7.3 FL Neutrophils (%) (Auto) 91.6 % Lymphocytes (%) (Auto) 4.3 % Monocytes (%) (Auto) 3.9 % Eosinophils (%) (Auto) 0.0 % Basophils (%) (Auto) 0.2 % Neutrophils # (Auto) 7.5 TH/MM3 Lymphocytes # (Auto) 0.4 TH/MM3 Monocytes # (Auto) 0.3 TH/MM3 Eosinophils # (Auto) 0.0 TH/MM3 Basophils # (Auto) 0.0 TH/MM3 CBC Comment DIFF FINAL Differential Comment Administered Medications Medications (Trade) Dose Ordered Sig/Arleen Route PRN Reason Start Time Stop Time Status Last Admin Dose Admin Sodium Chloride (NS Flush) 2 ml BID IV FLUSH 09/05/17 21:00 09/07/17 10:15 Ipratropium [place] (Atrovent Neb) 0.5 mg Q6HR NEB NEB 09/05/17 16:00 09/11/17 09:46 Dexamethasone Sodium Phosphate (Decadron Inj) 4 mg Q6HR IV PUSH 09/05/17 19:00 09/11/17 05:15 Pantoprazole Sodium (Protonix) 40 mg DAILY PO 09/06/17 09:00 09/07/17 10:15 Ondansetron HCl (Zofran Inj) 4 mg Q6HR PRN IV PUSH nausea 09/05/17 19:00 09/09/17 22:00 Sodium Chloride 1,000 ml @ 100 mls/hr Q10H IV 09/05/17 19:00 09/11/17 10:25 Acetaminophen (Tylenol) 650 mg Q4H PRN PO PAIN SCALE 1-5 09/05/17 21:45 09/07/17 19:58 Enalaprilat (Vasotec Inj) 1.25 mg Q6H PRN IV PUSH SBP>160, DBP>90 09/07/17 13:15 09/09/17 12:59 Hydralazine HCl (Apresoline Inj) 10 mg Q4H PRN IV PUSH SBP>160, DBP>90 09/07/17 13:15 09/10/17 09:00 Diltiazem HCl (Cardizem) 60 mg QID PO 09/07/17 18:00 Future Hold 09/08/17 18:00 Lisinopril (Prinivil) 20 mg DAILY PO 09/08/17 09:00 09/08/17 09:00 Diltiazem HCl (Cardizem) 30 mg QID PO 09/10/17 17:46 09/10/17 20:17 Morphine Sulfate (Morphine Inj) 2 mg Q3H PRN IV PUSH PAIN >5 09/10/17 23:30 09/11/17 05:15 Objective Remarks GENERAL: Chronically ill female, lying in bed awake and moaning SKIN: Warm and dry. HEAD: Normocephalic. EYES: No injection or drainage. NECK: Supple, trachea midline. CARDIOVASCULAR: +S1/S2 RESPIRATORY: Anterior stark clear. On 3L NC. GASTROINTESTINAL: Abdomen soft, non-tender, nondistended. EXTREMITIES: No cyanosis. No edema NEUROLOGICAL: Somewhat more alert today. Follows simple commands. Assessment/Plan Problem List: (1) Lung cancer metastatic to brain ICD Codes: C34.90 - Malignant neoplasm of unspecified part of unspecified bronchus or lung; C79.31 - Secondary malignant neoplasm of brain Plan: -- started on XRT on 09/07 -- May begin chemotherapy with irinotecan after she has completed XRT if PFS improves. Hx: She has a history of right lung cancer resected in 2001. 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 She was treated with carboplatin and FUR BLENDER-16 with excellent response. MRI evaluation before the treatment shows nonspecific lesion. However, on followup July 15, MRI shows widespread metastatic disease to the NP without hemorrhage or mass effect. She was referred promptly to radiation oncology for treatment but unfortunately there were delays prior to treatment. In clinic on 09/05 it was noted that she was symptomatic with HR in the 200's and [facility] was called to bring her to the hospital. (2) Paroxysmal tachycardia ICD Codes: I47.9 - Paroxysmal tachycardia, unspecified Status: Acute Plan: -- Cardiology was contacted yesterday and patient was placed back on po Cardizem as she apparently is taking in better by mouth -- Heart rate controlled less than 100 Assessment 71 y/o female with metastatic small cell lung cancer admitted with tachycardia Plan 1. Patient appears somewhat improved today in regards to her mental status however her prognosis overall remains poor 2. Radiation will resume tomorrow to brain lesions 3. Heart rate much improved and apparently patient is now taking in po better. 4. Will check K and Mag level today. Discussed with RN Attending Statement The exam, history, and the medical decision-making described in the above note were completed with the assistance of the mid-level provider. I reviewed and agree with the findings presented. I attest that I had a [id number] encounter with the patient on the same day, and personally performed and documented my assessment and findings in the medical record More alert today poor prognosis XRT to resume tomorrow Theresa Mendosa Sep 11, 2017 10:47 Samuel Liu MD Sep 11, 2017 15:59
[2017-09-11] MEDS: ENALAPRILAT 1.25 MG/ML VIAL IV PUSH PRN (12:08)
--- NOTE | 2017-09-11 13:08 | EKG ---
Date Performed: 09/10/2017 Time Performed: 15:25:32 PTAGE: 71 years EKG: Sinus rhythm WITH FREQUENT VENTRICULAR PREMATURE COMPLEXES WITH FREQUENT SUPRAVENTRICULAR PREMATURE COMPLEXES IN A BIGEMINAL PATTERN RIGHT ATRIAL ENLARGEMENT POSSIBLE LEFT ATRIAL ENLARGEMENT POSSIBLE RIGHT VENTRICU LAR CONDUCTION DELAY ABNORMAL ECG PREVIOUS TRACING : 09/05/2017 12.29 Since previous tracing, no significant change. DOCTOR: Hany Boone Interpretating Date/Time 09/11/2017 13:06:27
[2017-09-11] MEDS: LORazepam 2 MG/ML VIAL IV PUSH PRN (13:57)
[2017-09-11 18:13] LABS: BICARBONATE 29.5 MEQ/L (21.0-32.0)
--- NOTE | 2017-09-11 18:23 | HHI.PR ---
Subjective Remarks Patient seen today around 11:30 AM .Patient more communicative today. Says she feels all right. Denies any pain. Is able to communicate with me that her is downstairs getting food. Objective Vital Signs Date Time Temp Pulse Resp B/P (MAP) Pulse Ox O2 Delivery O2 Flow Rate FiO2 09/11/17 15:45 98.2 97 22 174/94 (120) 97 09/11/17 12:06 97.4 91 24 187/79 (115) 97 09/11/17 09:46 91 Nasal Cannula 3.00 09/11/17 08:18 97.6 25 190/70 (110) 97 09/11/17 08:12 Nasal Cannula 2.50 09/11/17 04:48 95 Nasal Cannula 3.00 09/11/17 04:00 97.7 95 18 168/76 (106) 97 09/11/17 00:08 96 Nasal Cannula 3.00 09/10/17 23:49 97.6 89 25 155/71 (99) 95 09/10/17 21:19 94 Nasal Cannula 3.00 09/10/17 20:00 98.0 100 22 165/69 (101) 96 Manual Cuff/Auscultation 09/10/17 20:00 100 09/10/17 19:00 98 Nasal Cannula 5.00 I/O 09/10/17 09/10/17 09/10/17 09/11/17 09/11/17 09/11/17 07:00 15:00 23:00 07:00 15:00 23:00 Intake Total 1500 ml 783 ml 880 ml 1253 ml Balance 1500 ml 783 ml 880 ml 1253 ml Intake Oral 480 ml 240 ml IV Total 1500 ml 783 ml 400 ml 1013 ml # Voids 4 3 4 5 # Bowel Movements 1 0 Result Diagram: 09/11/17 0508 09/11/17 1748 Objective Remarks GENERAL: Patient lying in bed. Appears comfortable today. Answers basic questions with nodding. Overall improvement from yesterday SKIN: Warm and dry. HEAD: Normocephalic. EYES: No scleral icterus. No injection or drainage. NECK: Supple, trachea midline. No JVD. CARDIOVASCULAR: Regular rate and rhythm without murmurs, gallops, or rubs. RESPIRATORY: Breath sounds equal bilaterally. No accessory muscle use. GASTROINTESTINAL: Abdomen soft, non-tender, nondistended. MUSCULOSKELETAL: No cyanosis, or edema. BACK: Nontender without obvious deformity. No CVA tenderness. A/P Assessment and Plan //lung ca with brain metastasis - s/p chemo, last january 2017. Oncology following, status post therapy yesterday, will continue with radiotherapy. CT scan of the brain should 1.5 cm left thalamic lesion with possible mass effect. Palliative care on board, patient is DO NOT RESUSCITATE, aggressive treatment per . Continue Decadron, decrease to 25 mg twice a day. = 09/10. Long discussion with in room. He wishes aggressive treatment. =Continue with radiation therapy as per oncology. //PSVT vs atrial fibrillation Continue by mouth Cardizem 4 times daily. //Leukocytosis with left shift: Resolved. - Etiology unclear. Patient denies any symptoms suggestive of acute infection. She is to be on Decadron as well. Resolved. //Elevated troponin: -Asymptomatic. Due to demand ischemia from tachycardia. //Hypertension - continue cardizem and lisinopril, variable blood pressures. cont monitor //Poor appetite: Continue ENLIVE 3 times a day. //COPD with no exacerbation; continue neb treatment. //hypokalemia. Potassium 3.0. Replaced. Magnesium within normal limits. Recheck again tomorrow. //DVT prophylaxis with SCD's- no chemical prophylaxis due to brain mets. Discharge Planning Continue radiation therapy as per oncology. PT recommends rehabilitation. Pending oncology clearance. Obi Sahrma MD Sep 11, 2017 18:23
[2017-09-11] MEDS ORDERED: POTASSIUM CHLORIDE 25 MEQ EFFERVESCENT TAB PO ONE (18:30)
[2017-09-11] MEDS: POTASSIUM CHLOR 20 MEQ PREMIX 100 ML IV SCH ×2 (21:19→22:41)
[2017-09-12] VITALS (9 sets, daily range): BP systolic 101–160; BP diastolic 65–96; PULSE 55–195; RESP 16–24; TEMP 97.4–98.9; O2SAT 92–100
[2017-09-12] MEDS: RESP: IPRATROPIUM 0.5 MG/2.5 ML NEB NEB SCH ×4 (03:46→21:39)
[2017-09-12] MEDS: MORPHINE SULFATE 2 MG/ML INJ IV PUSH PRN (04:21)
[2017-09-12] MEDS ORDERED: DILTIAZEM HCL 25 MG/5 ML VIAL IV PUSH ONE (04:30)
[2017-09-12] MEDS: DILTIAZEM INJ 125 MG in SODIUM CHLORIDE 0.9% INJ 100 ML IV PRN (04:57)
[2017-09-12] MEDS: DEXAMETHASONE SOD PHOS 4 MG/ML VIAL IV PUSH SCH ×4 (05:55→23:45)
[2017-09-12 06:45] LABS: BICARBONATE 27.1 MEQ/L (21.0-32.0); POTASSIUM 3.3 MEQ/L (3.5-5.1)
[2017-09-12] MEDS: SODIUM CHLORIDE 0.9% FLUSH 10 ML FLUSH IV FLUSH SCH ×2 (09:00→21:00)
[2017-09-12] MEDS: DILTIAZEM HCL 30 MG TAB PO SCH (09:00)
[2017-09-12] MEDS: LISINOPRIL 20 MG TAB PO SCH (09:00)
[2017-09-12] MEDS: PANTOPRAZOLE SOD 40 MG DELAYED RELEASE TAB PO SCH (09:00)
--- NOTE | 2017-09-12 10:02 | PD.ONC.PN ---
Subjective Subjective Remarks Afebrile overnight. Patient more alert today, but remains confused. Per nursing staff she continues to refuse her pills and refuse to eat. Objective Data Date Time Temp Pulse Resp B/P (MAP) Pulse Ox O2 Delivery O2 Flow Rate FiO2 09/12/17 08:50 95 Nasal Cannula 2.00 09/12/17 08:15 97.6 92 18 152/74 (100) 93 09/12/17 04:57 96 115/50 09/12/17 04:00 97.5 195 16 101/75 (84) 96 09/12/17 00:00 98.4 55 16 146/96 (113) 100 09/11/17 20:03 100 Nasal Cannula 2.00 09/11/17 20:00 83 09/11/17 20:00 98.2 83 16 158/94 (115) 99 09/11/17 20:00 99 Nasal Cannula 2.50 09/11/17 15:45 98.2 97 22 174/94 (120) 97 09/11/17 12:06 97.4 91 24 187/79 (115) 97 09/12/17 09/12/17 09/12/17 07:00 15:00 23:00 Intake Total 265 ml Balance 265 ml Result Diagram: 09/11/17 0508 09/12/17 0557 Laboratory Results Laboratory Tests Test 09/11/17 17:48 09/12/17 05:57 Blood Urea Nitrogen 16 MG/DL 20 MG/DL Creatinine 0.46 MG/DL 0.52 MG/DL Random Glucose 159 MG/DL 158 MG/DL Calcium Level 7.8 MG/DL 8.0 MG/DL Magnesium Level 2.0 MG/DL 2.0 MG/DL Sodium Level 136 MEQ/L 137 MEQ/L Potassium Level 3.0 MEQ/L 3.3 MEQ/L Chloride Level 100 MEQ/L 101 MEQ/L Carbon Dioxide Level 29.5 MEQ/L 27.1 MEQ/L Anion Gap 7 MEQ/L 9 MEQ/L Estimat Glomerular Filtration Rate 133 ML/MIN 116 ML/MIN Albumin 2.8 GM/DL Phosphorus Level 2.5 MG/DL Administered Medications Medications (Trade) Dose Ordered Sig/Arleen Route PRN Reason Start Time Stop Time Status Last Admin Dose Admin Sodium Chloride (NS Flush) 2 ml BID IV FLUSH 09/05/17 21:00 09/07/17 10:15 Ipratropium [place] (Atrovent Neb) 0.5 mg Q6HR NEB NEB 09/05/17 16:00 09/12/17 08:48 Dexamethasone Sodium Phosphate (Decadron Inj) 4 mg Q6HR IV PUSH 09/05/17 19:00 09/12/17 05:55 Pantoprazole Sodium (Protonix) 40 mg DAILY PO 09/06/17 09:00 09/07/17 10:15 Ondansetron HCl (Zofran Inj) 4 mg Q6HR PRN IV PUSH nausea 09/05/17 19:00 09/09/17 22:00 Sodium Chloride 1,000 ml @ 45 mls/hr [id number] IV 09/05/17 19:00 09/11/17 21:18 Acetaminophen (Tylenol) 650 mg Q4H PRN PO PAIN SCALE 1-5 09/05/17 21:45 09/07/17 19:58 Enalaprilat (Vasotec Inj) 1.25 mg Q6H PRN IV PUSH SBP>160, DBP>90 09/07/17 13:15 09/11/17 12:08 Hydralazine HCl (Apresoline Inj) 10 mg Q4H PRN IV PUSH SBP>160, DBP>90 09/07/17 13:15 09/10/17 09:00 Diltiazem HCl (Cardizem) 60 mg QID PO 09/07/17 18:00 Future Hold 09/08/17 18:00 Lisinopril (Prinivil) 20 mg DAILY PO 09/08/17 09:00 09/08/17 09:00 Diltiazem HCl (Cardizem) 30 mg QID PO 09/10/17 17:46 09/10/17 20:17 Morphine Sulfate (Morphine Inj) 2 mg Q3H PRN IV PUSH PAIN >5 09/10/17 23:30 09/12/17 04:21 Lorazepam (Ativan Inj) 0.5 mg Q12HR PRN IV PUSH agitation 09/10/17 23:30 09/11/17 13:57 Diltiazem HCl 125 mg/Sodium Chloride 125 ml @ 5 mls/hr TITRATE PRN IV Tachycardia 09/12/17 04:30 09/12/17 04:57 Objective Remarks GENERAL: chronically ill elderly female sitting up in bed, in nad SKIN: Warm and dry. HEAD: Normocephalic. EYES: No injection or drainage. NECK: Supple, trachea midline. CARDIOVASCULAR: +S1/S2 RESPIRATORY: anterior stark clear. GASTROINTESTINAL: Abdomen soft, non-tender, nondistended. EXTREMITIES: No cyanosis NEUROLOGICAL: awake. answers questions. follows some commands. oriented to self but not time or place. Assessment/Plan Problem List: (1) Lung cancer metastatic to brain ICD Codes: C34.90 - Malignant neoplasm of unspecified part of unspecified bronchus or lung; C79.31 - Secondary malignant neoplasm of brain Plan: -- started on XRT on 09/07 -- May begin chemotherapy with irinotecan after she has completed XRT if PFS improves. Hx: She has a history of right lung cancer resected in 2001. 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 She was treated with carboplatin and PAINTER PLATE-16 with excellent response. MRI evaluation before the treatment shows nonspecific lesion. However, on followup July 15, MRI shows widespread metastatic disease to the GRADE TE[employer]ER without hemorrhage or mass effect. She was referred promptly to radiation oncology for treatment but unfortunately there were delays prior to treatment. In clinic on 09/05 it was noted that she was symptomatic with HR in the 200's and [facility] was called to bring her to the hospital. (2) Paroxysmal tachycardia ICD Codes: I47.9 - Paroxysmal tachycardia, unspecified Status: Acute Plan: -- on cardizem gtt Assessment 71 y/o female with metastatic small cell lung cancer admitted with tachycardia Plan 1. continue radiation --patient has completed 3/10 XRT treatments, today will be 02/07. 2. monitor mental status 3. continue Decadron and Protonix. Attending Statement The exam, history, and the medical decision-making described in the above note were completed with the assistance of the mid-level provider. I reviewed and agree with the findings presented. I attest that I had a [id number] encounter with the patient on the same day, and personally performed and documented my assessment and findings in the medical record. Clinically improved. [place] and angry but becomes pleasant, dominguez. Throwing food at this AM. Steroids contributing. Will decrease to Q8H and monitor for symptoms, mentation improve since last week. Wants to go home but accepts rehab. Consult w/ case management for transfer to rehab. Discussed issue of eating, state that "I can eat", report suggest otherwise. Not ready for feeding tube. Pt still making decision for herself. Orientated to day, place, and self. Kelly Barrera Sep 12, 2017 10:02 Shawanda Kong MD Sep 12, 2017 19:02
[2017-09-12] MEDS ORDERED: ATENOLOL 25 MG TAB PO ONE (12:00)
--- NOTE | 2017-09-12 12:21 | HHI.HCPN ---
Reason for visit a. To assist with evaluation and management of symptoms including: shortness of breath and nausea b. To assist medical decision maker(s) with: better understanding of current medical conditions; weighing benefits/burdens of medical treatment options; making medical treatment decisions. . Subjective/Interval History Patient seen today for follow up on comfort, goals. Pt completed # 3 of 10 XRT treatments last week 09/09/17. Planned to continue XRT this week, with possibility of chemo after if pt performance status improves. K+ low, trending low, today 3.3, yesterday 3.0, repletion per medical attending. PT working with- notes pt able to take a few steps w walker and assist. Recommends ongoing rehab. ST evaluated- pt tolerating liquid diet however refuses most things offered. Poor oral intake-- 10-20% of most meals. If goals are aggressive may need to consider feeding tube in order to meet caloric requirements. Marinol added by medical attending. Patient seen in room no visitors present. She is alert. She nods to some questions, though needs repeated question/encouragement to verbalize. She tells me her is out. Verbalizes 1-2 words, pauses/searched for words. Oriented to self, . When asked where she is at, says " so tired of asking ". She does follow simple commands, moves all 4 extremities very weakly, RU weaker than COURTNEY. This movement appears to tire her. When asked about eating she says "not hungry"-- she denies nausea/vomiting/abdominal pain. She denies other pain. Denies dyspnea. palliative contact information left at bedside. will attempt to d/w pt when he is present later. d/w medical attending. d/w nursing to please notify me if arrives later Advance Directives Living Will: Never completed Health Care Surrogate: Never completed Durable Power of Range Rider: Never completed Objective Vital Signs Date Time Temp Pulse Resp B/P (MAP) Pulse Ox O2 Delivery O2 Flow Rate FiO2 09/12/17 08:50 95 Nasal Cannula 2.00 09/12/17 08:15 97.6 92 18 152/74 (100) 93 09/12/17 04:57 96 115/50 09/12/17 04:00 97.5 195 16 101/75 (84) 96 09/12/17 00:00 98.4 55 16 146/96 (113) 100 09/11/17 20:03 100 Nasal Cannula 2.00 09/11/17 20:00 83 09/11/17 20:00 98.2 83 16 158/94 (115) 99 09/11/17 20:00 99 Nasal Cannula 2.50 09/11/17 15:45 98.2 97 22 174/94 (120) 97 09/11/17 12:06 97.4 91 24 187/79 (115) 97 Intake & Output 09/12/17 09/12/17 07:00 19:00 Intake Total 265 ml Balance 265 ml IV Total 265 ml # Voids 2 Physical Exam CONSTITUTIONAL/GENERAL: This is a frail elderly female patient, in no apparent distress. TUBES/LINES/DRAINS: Left subclavian port accessed. NC O2 SKIN: No jaundice, rashes, or lesions. No wounds seen anteriorly. Skin temperature appropriate. Not diaphoretic. CARDIOVASCULAR: heart irregular. no murmur. No peripheral edema. Peripheral pulses symmetric. RESPIRATORY/CHEST: Symmetric, unlabored respirations. on NC 2l. Clear to auscultation. Breath sounds equal bilaterally. GASTROINTESTINAL: Abdomen soft, non-tender, nondistended. No guarding. Bowel sounds present. GENITOURINARY: Without palpable bladder distension. NEUROLOGICAL: awake, oriented x 1-2. limited verbalization 1-2 words only. Follows simple commands. Moves all 4 extremities with significant weakness. PSYCHIATRIC: no evident anxiety . Diagnostic Tests Laboratory Laboratory Tests Test 09/11/17 05:08 09/11/17 17:48 09/12/17 05:57 White Blood Count 8.2 TH/MM3 (4.0-11.0) Red Blood Count 4.99 MIL/MM3 (4.00-5.30) Hemoglobin 14.9 GM/DL (11.6-15.3) Hematocrit 42.7 % (35.0-46.0) Mean Corpuscular Volume 85.5 FL (80.0-100.0) Mean Corpuscular Hemoglobin 29.8 PG (27.0-34.0) Mean Corpuscular Hemoglobin Concent 34.9 % (32.0-36.0) Red Cell Distribution Width 15.3 % (11.6-17.2) Platelet Count 189 TH/MM3 (150-450) Mean Platelet Volume 7.3 FL (7.0-11.0) Neutrophils (%) (Auto) 91.6 % (16.0-70.0) Lymphocytes (%) (Auto) 4.3 % (9.0-44.0) Monocytes (%) (Auto) 3.9 % (0.0-8.0) Eosinophils (%) (Auto) 0.0 % (0.0-4.0) Basophils (%) (Auto) 0.2 % (0.0-2.0) Neutrophils # (Auto) 7.5 TH/MM3 (1.8-7.7) Lymphocytes # (Auto) 0.4 TH/MM3 (1.0-4.8) Monocytes # (Auto) 0.3 TH/MM3 (0-0.9) Eosinophils # (Auto) 0.0 TH/MM3 (0-0.4) Basophils # (Auto) 0.0 TH/MM3 (0-0.2) CBC Comment DIFF FINAL Differential Comment Blood Urea Nitrogen 16 MG/DL (7-18) 20 MG/DL (7-18) Creatinine 0.46 MG/DL (0.50-1.00) 0.52 MG/DL (0.50-1.00) Random Glucose 159 MG/DL (74-106) 158 MG/DL (74-106) Calcium Level 7.8 MG/DL (8.5-10.1) 8.0 MG/DL (8.5-10.1) Magnesium Level 2.0 MG/DL (1.5-2.5) 2.0 MG/DL (1.5-2.5) Sodium Level 136 MEQ/L (136-145) 137 MEQ/L (136-145) Potassium Level 3.0 MEQ/L (3.5-5.1) 3.3 MEQ/L (3.5-5.1) Chloride Level 100 MEQ/L (98-107) 101 MEQ/L (98-107) Carbon Dioxide Level 29.5 MEQ/L (21.0-32.0) 27.1 MEQ/L (21.0-32.0) Anion Gap 7 MEQ/L (5-15) 9 MEQ/L (5-15) Estimat Glomerular Filtration Rate 133 ML/MIN (>89) 116 ML/MIN (>89) Albumin 2.8 GM/DL (3.4-5.0) Phosphorus Level 2.5 MG/DL (2.5-4.9) Result Diagram: 09/11/17 0508 09/12/17 0557 Microbiology Last Imp[address] Head CT 09/07/17 0000 Signed Impressions: Service Date/Time: Thursday, September 07, 2017 15:22 - CONCLUSION: 1. 1.5 cm hypodense left thalamic lesion which may reflect a prior lacunar infarct. However, there is potentially subtle mass effect and therefore a mass lesion cannot be entirely excluded. Additional characterization may be performed with MRI exam as indicated. 2. Mild ventricular megaly out of proportion to degree of atrophy. Clinical correlation for normal pressure hydrocephalus is recommended. 3. Moderate periventricular white matter hypodensities which may reflect ischemic white matter demyelination versus transependymal fluid migration. Jorge Escobar MD Chest X-Ray 09/05/17 1043 Signed Impressions: Service Date/Time: Tuesday, September 05, 2017 10:54 - CONCLUSION: 1. Linear parenchymal opacities at the lung bases consistent with atelectasis. 2. Probable small right pleural effusion. Jorge Escobar MD Lower Extremity Ultrasound 09/05/17 0000 Signed Impressions: Service Date/Time: Tuesday, September 05, 2017 15:13 - CONCLUSION: No DVT in either leg. Alec Almeida MD Imaging Last Impressions Head CT 09/07/17 0000 Signed Impressions: Service Date/Time: Thursday, September 07, 2017 15:22 - CONCLUSION: 1. 1.5 cm hypodense left thalamic lesion which may reflect a prior lacunar infarct. However, there is potentially subtle mass effect and therefore a mass lesion cannot be entirely excluded. Additional characterization may be performed with MRI exam as indicated. 2. Mild ventricular megaly out of proportion to degree of atrophy. Clinical correlation for normal pressure hydrocephalus is recommended. 3. Moderate periventricular white matter hypodensities which may reflect ischemic white matter demyelination versus transependymal fluid migration. Jorge Escobar MD Chest X-Ray 09/05/17 1043 Signed Impressions: Service Date/Time: Tuesday, September 05, 2017 10:54 - CONCLUSION: 1. Linear parenchymal opacities at the lung bases consistent with atelectasis. 2. Probable small right pleural effusion. Jorge Escobar MD Lower Extremity Ultrasound 09/05/17 0000 Signed Impressions: Service Date/Time: Tuesday, September 05, 2017 15:13 - CONCLUSION: No DVT in either leg. Alec Almeida MD Assessment and Plan Disease Oriented Problem List: (1) Lung cancer metastatic to brain (2) Paroxysmal tachycardia (3) Elevated troponin Symptom Scale: (1) Shortness of breath (2) Debility (3) Anorexia Pertinent Non-Medical Issues Psychosocial:Patient is originally from [facility]. She has been for 47 years and has one adult daughter. 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 The patient and her relocated to [place] some time back in the 1970s and also moved back and forth from [place] during this time period. Spiritual: Cheondoism. Legal: None known. Ethical issues impacting care: None known. . Important Contacts Jori Izaguirre () [phone] Tiffanie Lainez (daughter) [phone] . 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 Due to her advanced age and multiple comorbidities patient is at a high risk for complications and setbacks. Given her recent diagnosis of brain mets, unfortunately her overall prognosis is poor. . Code Status: No Code Plan * Legal decision maker: Patient lethargic at times, minimally engages in conversation, has intermittent confusion and has limited insight into her current prognosis. She has a history of cancer with a recent diagnosis of brain mets. Patient does not have any previous written advanced directives, per [place] statutes in the absence of written advanced directives health care decision making would fall to her next of kin which is her . * Goals: Patient has intermittent confusion and has limited insight into her current prognosis. Due to patient's limited insight health care decision making would fall to her , he has verbalized AGGRESSIVE goals of care (short or resuscitation) . He wishes to cont XRT, take it a day at a time , hopeful pt might improve enough for chemotherapy. * CODE STATUS: DNR. * SYMPTOMS: --Shortness of breath: Multifactorial, secondary to history of lung cancer, COPD, irregular heart rhythm, etc. Patient on 3L NC, Atrovent 0.5mg ordered q 6 hours scheduled and q 2 hours PRN. No recommendations at this time. --Nausea: Patient has had ongoing issues with nausea and vomiting prior to her hospital admission. Ondansetron 4mg q 6 hours PRN ordered. pt denies nausea or GI complaints today. No recommendations at this time. -- poor appetite /malnutrition/anorexia - ST has evaluated, pt tolerating PO liquids/pudding, however refusing most things offered. Eating 10-20% of meals, albumin 2.8. Marinol added by medical attending. servicing rep evaluated 09/07 for possible calorie count; however "pt on full liquid diet which is transitional diet , will not provide 100% of pts nutritional requirements. calorie count is deferred for now. pt Ensure changed to Enlive TID. If upgraded to a solid diet, re-consult for calorie count". Consider feeding tube to meet caloric needs if goals aggressive. -- debility- multifactorial-->2/2 metastatic cancer/chronic illness, poor oral intake. PT working w, pt very weak, able to ambulate few steps w assist, and walker. Recommends cont PT/rehab * Palliative care will continue to follow during hospital course as condition evolves, to assist patient/decision-maker with understanding of medical conditions, weighing benefits/burdens of treatment options, for clarification of goals of treatment. Additionally will assist with any symptoms of palliative concern Time Spent Total Floor Time (mins): 20 (chart review, PE) Attestation To help prompt me to consider important information that might be impacting today's encounter and assessment, information from prior notes written by myself or my colleagues may have been "brought forward" into today's note. My signature on this note, however, is an attestation that I personally performed the exam, history, and/or decision-making noted today, and, unless otherwise indicated, the interactions with patient, family, and staff as well as the review of records all occurred today. I also attest that the listed assessment and stated plan reflect my best clinical judgment today based on the combination of historical information, prior notes, and today's exam/ interactions. When time spent is documented, it refers only to time spent today by the signer, or if indicated, combined time spent today by collaborating physician/nurse practitioner. Ann,Amina AUTHORIZATION REP Sep 12, 2017 12:21
[2017-09-12] MEDS: POTASSIUM CHLORIDE INJ 30 MEQ in SODIUM CHLOR 0.9% 1000 ML INJ 1,000 ML IV SCH (15:26)
[2017-09-12] MEDS: POTASSIUM CHLOR 10 MEQ PREMIX 100 ML IV SCH ×3 (15:26→18:49)
[2017-09-12] MEDS: DRONABINOL 2.5 MG CAP PO SCH (16:00)
[2017-09-13] VITALS (12 sets, daily range): BP systolic 118–154; BP diastolic 69–95; PULSE 74–186; RESP 16–24; TEMP 97.4–98.8; O2SAT 93–98
[2017-09-13] MEDS: LORazepam 2 MG/ML VIAL IV PUSH PRN (02:13)
[2017-09-13] MEDS: RESP: IPRATROPIUM 0.5 MG/2.5 ML NEB NEB SCH ×3 (04:38→16:00)
[2017-09-13] MEDS: DEXAMETHASONE SOD PHOS 4 MG/ML VIAL IV PUSH SCH ×3 (06:00→20:59)
[2017-09-13] MEDS: MORPHINE SULFATE 2 MG/ML INJ IV PUSH PRN (06:15)
[2017-09-13 08:11] LABS: BICARBONATE 28.2 MEQ/L (21.0-32.0); POTASSIUM 3.6 MEQ/L (3.5-5.1)
[2017-09-13] MEDS: PANTOPRAZOLE SOD 40 MG DELAYED RELEASE TAB PO SCH (09:00)
[2017-09-13] MEDS: LISINOPRIL 20 MG TAB PO SCH (09:00)
[2017-09-13] MEDS: ATENOLOL 25 MG TAB PO SCH (09:00)
--- NOTE | 2017-09-13 09:24 | PD.ONC.PN ---
Subjective Subjective Remarks Afebrile overnight. Patient resting in bed. Non-verbal this morning. not a bedside. Objective Data Date Time Temp Pulse Resp B/P (MAP) Pulse Ox O2 Delivery O2 Flow Rate FiO2 09/13/17 08:26 98.0 100 16 121/82 (95) 96 09/13/17 06:46 16 09/13/17 06:15 186 09/13/17 05:40 98.8 09/13/17 04:48 98.0 92 20 154/95 (114) 97 09/13/17 04:00 77 09/13/17 00:06 90 09/13/17 00:00 97.6 84 24 154/75 (101) 94 09/12/17 22:27 189 154/95 09/12/17 21:39 95 Nasal Cannula 2.00 09/12/17 20:33 Nasal Cannula 2.00 09/12/17 20:12 98 09/12/17 20:00 97.4 84 24 151/70 (97) 93 09/12/17 16:36 98.9 92 17 160/65 (96) 92 09/12/17 11:30 98.9 92 19 140/74 (96) 93 09/13/17 09/13/17 09/13/17 07:00 15:00 23:00 Intake Total 50 ml Balance 50 ml Result Diagram: 09/11/17 0508 09/13/17 0730 Laboratory Results Laboratory Tests Test 09/13/17 07:30 Blood Urea Nitrogen 15 MG/DL Creatinine 0.38 MG/DL Random Glucose 162 MG/DL Calcium Level 7.8 MG/DL Sodium Level 137 MEQ/L Potassium Level 3.6 MEQ/L Chloride Level 102 MEQ/L Carbon Dioxide Level 28.2 MEQ/L Anion Gap 7 MEQ/L Estimat Glomerular Filtration Rate 166 ML/MIN Administered Medications Medications (Trade) Dose Ordered Sig/Arleen Route PRN Reason Start Time Stop Time Status Last Admin Dose Admin Sodium Chloride (NS Flush) 2 ml BID IV FLUSH 09/05/17 21:00 09/07/17 10:15 Ipratropium [place] (Atrovent Neb) 0.5 mg Q6HR NEB NEB 09/05/17 16:00 09/13/17 04:38 Pantoprazole Sodium (Protonix) 40 mg DAILY PO 09/06/17 09:00 09/07/17 10:15 Ondansetron HCl (Zofran Inj) 4 mg Q6HR PRN IV PUSH nausea 09/05/17 19:00 09/09/17 22:00 Acetaminophen (Tylenol) 650 mg Q4H PRN PO PAIN SCALE 1-5 09/05/17 21:45 09/07/17 19:58 Enalaprilat (Vasotec Inj) 1.25 mg Q6H PRN IV PUSH SBP>160, DBP>90 09/07/17 13:15 09/11/17 12:08 Hydralazine HCl (Apresoline Inj) 10 mg Q4H PRN IV PUSH SBP>160, DBP>90 09/07/17 13:15 09/10/17 09:00 Lisinopril (Prinivil) 20 mg DAILY PO 09/08/17 09:00 09/08/17 09:00 Morphine Sulfate (Morphine Inj) 2 mg Q3H PRN IV PUSH PAIN >5 09/10/17 23:30 09/13/17 06:15 Lorazepam (Ativan Inj) 0.5 mg Q12HR PRN IV PUSH agitation 09/10/17 23:30 09/13/17 02:13 Diltiazem HCl 125 mg/Sodium Chloride 125 ml @ 5 mls/hr TITRATE PRN IV Tachycardia 09/12/17 04:30 09/12/17 04:57 Potassium Chloride 30 meq/ Sodium Chloride 1,015 ml @ 45 mls/hr [id number] IV 09/12/17 19:00 09/12/17 15:26 Objective Remarks GENERAL: Chronically ill female supine in bed resting. SKIN: Warm and dry. HEAD: Normocephalic. EYES: No injection or drainage. NECK: Supple, trachea midline. CARDIOVASCULAR: Regular rate and rhythm RESPIRATORY: anterior stark with occasional rhonchi. On supplemental O2 via NC GASTROINTESTINAL: Abdomen soft, non-tender, nondistended. EXTREMITIES: No cyanosis NEUROLOGICAL: awake but non-verbal Assessment/Plan Problem List: (1) Lung cancer metastatic to brain ICD Codes: C34.90 - Malignant neoplasm of unspecified part of unspecified bronchus or lung; C79.31 - Secondary malignant neoplasm of brain Plan: -- started on XRT on 09/07 -- May begin chemotherapy with irinotecan after she has completed XRT if PFS improves. Hx: She has a history of right lung cancer resected in 2001. 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 She was treated with carboplatin and [facility] CATH [facility]-16 with excellent response. MRI evaluation before the treatment shows nonspecific lesion. 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 She was referred promptly to radiation oncology for treatment but unfortunately there were delays prior to treatment. In clinic on 09/05 it was noted that she was symptomatic with HR in the 200's and [facility] was called to bring her to the hospital. (2) Paroxysmal tachycardia ICD Codes: I47.9 - Paroxysmal tachycardia, unspecified Status: Acute Plan: -- on cardizem gtt Assessment 71 y/o female with metastatic small cell lung cancer admitted with tachycardia Plan 1. continue radiation --patient has completed 4/10 XRT treatments, today will be 03/09. 2. decrease Decadron to q 12 hours 3. monitor for mental status changes. Attending Statement Agree with above, as discussed. Kelly Barrera Sep 13, 2017 09:24 Shawanda Kong MD Sep 13, 2017 23:00
[2017-09-13] MEDS: SODIUM CHLORIDE 0.9% FLUSH 10 ML FLUSH IV FLUSH SCH ×2 (10:03→20:59)
[2017-09-13] MEDS: DRONABINOL 2.5 MG CAP PO SCH ×2 (11:00→16:00)
--- NOTE | 2017-09-13 14:24 | HHI.HCPN ---
Reason for visit a. To assist with evaluation and management of symptoms including: shortness of breath and nausea b. To assist medical decision maker(s) with: better understanding of current medical conditions; weighing benefits/burdens of medical treatment options; making medical treatment decisions. . Subjective/Interval History Patient seen in room today, no family or visitors present. Patient is sitting up in recliner, much more awake and alert compared to previous exams, she is oriented to person and to place, follow simple one step commands. She states "I just want to go home" and states that she does not want to be discharge to a rehabilitation facility. Patient denies nausea/vomiting/abdominal pain. She denies any other pain or dyspnea. Family/friend interactions Telephone conversation with patient's , provided update, he stated he is amenable to discharge to a rehabilitation facility, he also stated he does not want any mention of Hospice in front of his . He also stated he had no questions at this time and appreciated the update/phone call. Advance Directives Living Will: Never completed Health Care Surrogate: Never completed Durable Power of Tarper: Never completed Objective Vital Signs Date Time Temp Pulse Resp B/P (MAP) Pulse Ox O2 Delivery O2 Flow Rate FiO2 09/13/17 13:33 Nasal Cannula 2.50 09/13/17 10:00 98 Nasal Cannula 2.00 09/13/17 08:26 98.0 100 16 121/82 (95) 96 09/13/17 06:46 16 09/13/17 06:15 186 09/13/17 05:40 98.8 09/13/17 04:48 98.0 92 20 154/95 (114) 97 09/13/17 04:00 77 09/13/17 00:06 90 09/13/17 00:00 97.6 84 24 154/75 (101) 94 09/12/17 22:27 189 154/95 09/12/17 21:39 95 Nasal Cannula 2.00 09/12/17 20:33 Nasal Cannula 2.00 09/12/17 20:12 98 09/12/17 20:00 97.4 84 24 151/70 (97) 93 09/12/17 16:36 98.9 92 17 160/65 (96) 92 Intake & Output 09/13/17 09/13/17 07:00 19:00 Intake Total 1265 ml Balance 1265 ml Intake Oral 50 ml IV Total 1215 ml # Voids 6 . Physical Exam CONSTITUTIONAL/GENERAL: This is a frail elderly female patient, in no apparent distress. TUBES/LINES/DRAINS: Left subclavian port accessed. SKIN: No jaundice, rashes, or lesions. No wounds seen anteriorly. Skin temperature appropriate. Not diaphoretic. CARDIOVASCULAR: Irregular. no murmur. No peripheral edema. Peripheral pulses symmetric. RESPIRATORY/CHEST: Symmetric, unlabored respirations. On NC 2L Clear to auscultation. Breath sounds equal bilaterally. GASTROINTESTINAL: Abdomen soft, non-tender, nondistended. No guarding. Bowel sounds present. GENITOURINARY: Without palpable bladder distension. NEUROLOGICAL: Awake, alert,oriented x 1-2. Engages in conversation today more than previously, still has intermittent confusion. Follows simple one step commands. Moves all 4 extremities with significant weakness. PSYCHIATRIC: No evident anxiety . Diagnostic Tests Laboratory Laboratory Tests Test 09/11/17 05:08 09/11/17 17:48 09/12/17 05:57 09/13/17 07:30 White Blood Count 8.2 TH/MM3 (4.0-11.0) Red Blood Count 4.99 MIL/MM3 (4.00-5.30) Hemoglobin 14.9 GM/DL (11.6-15.3) Hematocrit 42.7 % (35.0-46.0) Mean Corpuscular Volume 85.5 FL (80.0-100.0) Mean Corpuscular Hemoglobin 29.8 PG (27.0-34.0) Mean Corpuscular Hemoglobin Concent 34.9 % (32.0-36.0) Red Cell Distribution Width 15.3 % (11.6-17.2) Platelet Count 189 TH/MM3 (150-450) Mean Platelet Volume 7.3 FL (7.0-11.0) Neutrophils (%) (Auto) 91.6 % (16.0-70.0) Lymphocytes (%) (Auto) 4.3 % (9.0-44.0) Monocytes (%) (Auto) 3.9 % (0.0-8.0) Eosinophils (%) (Auto) 0.0 % (0.0-4.0) Basophils (%) (Auto) 0.2 % (0.0-2.0) Neutrophils # (Auto) 7.5 TH/MM3 (1.8-7.7) Lymphocytes # (Auto) 0.4 TH/MM3 (1.0-4.8) Monocytes # (Auto) 0.3 TH/MM3 (0-0.9) Eosinophils # (Auto) 0.0 TH/MM3 (0-0.4) Basophils # (Auto) 0.0 TH/MM3 (0-0.2) CBC Comment DIFF FINAL Differential Comment Blood Urea Nitrogen 16 MG/DL (7-18) 20 MG/DL (7-18) 15 MG/DL (7-18) Creatinine 0.46 MG/DL (0.50-1.00) 0.52 MG/DL (0.50-1.00) 0.38 MG/DL (0.50-1.00) Random Glucose 159 MG/DL (74-106) 158 MG/DL (74-106) 162 MG/DL (74-106) Calcium Level 7.8 MG/DL (8.5-10.1) 8.0 MG/DL (8.5-10.1) 7.8 MG/DL (8.5-10.1) Magnesium Level 2.0 MG/DL (1.5-2.5) 2.0 MG/DL (1.5-2.5) Sodium Level 136 MEQ/L (136-145) 137 MEQ/L (136-145) 137 MEQ/L (136-145) Potassium Level 3.0 MEQ/L (3.5-5.1) 3.3 MEQ/L (3.5-5.1) 3.6 MEQ/L (3.5-5.1) Chloride Level 100 MEQ/L (98-107) 101 MEQ/L (98-107) 102 MEQ/L (98-107) Carbon Dioxide Level 29.5 MEQ/L (21.0-32.0) 27.1 MEQ/L (21.0-32.0) 28.2 MEQ/L (21.0-32.0) Anion Gap 7 MEQ/L (5-15) 9 MEQ/L (5-15) 7 MEQ/L (5-15) Estimat Glomerular Filtration Rate 133 ML/MIN (>89) 116 ML/MIN (>89) 166 ML/MIN (>89) Albumin 2.8 GM/DL (3.4-5.0) Phosphorus Level 2.5 MG/DL (2.5-4.9) . Result Diagram: 09/11/17 0508 09/13/17 0730 Assessment and Plan Disease Oriented Problem List: (1) Lung cancer metastatic to brain (2) Paroxysmal tachycardia Symptom Scale: (1) Shortness of breath (2) Debility (3) Anorexia Pertinent Non-Medical Issues Psychosocial:Patient is originally from [facility]. She has been for 47 years and has one adult daughter. 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 The patient and her relocated to [place] some time back in the 1970s and also moved back and forth from [place] during this time period. Spiritual: Hinduism. Legal: None known. Ethical issues impacting care: None known. . Important Contacts Jori Izaguirre () [phone] Tiffanie Lainez (daughter) [phone] . 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 Due to her advanced age and multiple comorbidities patient is at a high risk for complications and setbacks. Given her recent diagnosis of brain mets, unfortunately her overall prognosis is poor. . Code Status: No Code Plan * Legal decision maker: Patient lethargic at times, minimally engages in conversation, has intermittent confusion and has limited insight into her current prognosis. She has a history of cancer with a recent diagnosis of brain mets. Patient does not have any previous written advanced directives, per [place] statutes in the absence of written advanced directives health care decision making would fall to her next of kin which is her . * Goals: Patient has intermittent confusion and has limited insight into her current prognosis. Due to patient's limited insight health care decision making would fall to her , he has verbalized AGGRESSIVE goals of care (short or resuscitation) . He wishes to cont XRT, take it a day at a time , hopeful pt might improve enough for chemotherapy. stated he does not want any mention of Hospice. * CODE STATUS: DNR. * SYMPTOMS: --Shortness of breath: Multifactorial, secondary to history of lung cancer, COPD, irregular heart rhythm, etc. Patient on 2L NC, Atrovent 0.5mg ordered q 6 hours scheduled and q 2 hours PRN. No recommendations at this time. --Nausea: Patient has had ongoing issues with nausea and vomiting prior to her hospital admission. Ondansetron 4mg q 6 hours PRN ordered. Patient denies nausea or GI complaints today. No recommendations at this time. -- Poor appetite /malnutrition/anorexia - ST has evaluated, pt tolerating PO liquids/pudding, however refusing most things offered. Patient stated today "I do not eat here" referring to the hospital and stated she does not like the food offered here. Eating 10-20% of meals, albumin 2.8 on . Marinol added by medical attending on 09/12/17. Patient would likely be a candidate for a PEG tube if goals remain aggressive. -- debility- multifactorial-->2/2 metastatic cancer/chronic illness, poor oral intake. PT working w, pt very weak, able to ambulate few steps w assist, and walker. Recommends cont PT/rehab. * Palliative care will continue to follow during hospital course as condition evolves, to assist patient/decision-maker with understanding of medical conditions, weighing benefits/burdens of treatment options, for clarification of goals of treatment. Additionally will assist with any symptoms of palliative concern Attestation To help prompt me to consider important information that might be impacting today's encounter and assessment, information from prior notes written by myself or my colleagues may have been "brought forward" into today's note. My signature on this note, however, is an attestation that I personally performed the exam, history, and/or decision-making noted today, and, unless otherwise indicated, the interactions with patient, family, and staff as well as the review of records all occurred today. I also attest that the listed assessment and stated plan reflect my best clinical judgment today based on the combination of historical information, prior notes, and today's exam/ interactions. When time spent is documented, it refers only to time spent today by the signer, or if indicated, combined time spent today by collaborating physician/nurse practitioner. Angle Liu Sep 13, 2017 14:24
--- NOTE | 2017-09-13 16:08 | HHI.PR ---
Subjective Remarks Undergoing radiation has been seen by oncology Somewhat confused Not very talkative Not so cooperative A.m. labs Physical therapy and occupational therapy wants aggressive therapy Objective Vitals Vital Signs Date Time Temp Pulse Resp B/P (MAP) Pulse Ox O2 Delivery O2 Flow Rate FiO2 09/13/17 14:54 98.3 89 18 118/76 (90) 95 09/13/17 13:33 Nasal Cannula 2.50 09/13/17 10:00 98 Nasal Cannula 2.00 09/13/17 08:26 98.0 100 16 121/82 (95) 96 09/13/17 06:46 16 09/13/17 06:15 186 09/13/17 05:40 98.8 09/13/17 04:48 98.0 92 20 154/95 (114) 97 09/13/17 04:00 77 09/13/17 00:06 90 09/13/17 00:00 97.6 84 24 154/75 (101) 94 09/12/17 22:27 189 154/95 09/12/17 21:39 95 Nasal Cannula 2.00 09/12/17 20:33 Nasal Cannula 2.00 09/12/17 20:12 98 09/12/17 20:00 97.4 84 24 151/70 (97) 93 09/12/17 16:36 98.9 92 17 160/65 (96) 92 I/O 09/12/17 09/12/17 09/12/17 09/13/17 09/13/17 09/13/17 07:00 15:00 23:00 07:00 15:00 23:00 Intake Total 265 ml 1215 ml 50 ml Balance 265 ml 1215 ml 50 ml Intake Oral 50 ml IV Total 265 ml 1215 ml # Voids 2 3 3 Result Diagram: 09/11/17 0508 09/13/17 0730 Other Results Laboratory Tests Test 09/11/17 05:08 09/11/17 17:48 09/12/17 05:57 09/13/17 07:30 White Blood Count 8.2 TH/MM3 Red Blood Count 4.99 MIL/MM3 Hemoglobin 14.9 GM/DL Hematocrit 42.7 % Mean Corpuscular Volume 85.5 FL Mean Corpuscular Hemoglobin 29.8 PG Mean Corpuscular Hemoglobin Concent 34.9 % Red Cell Distribution Width 15.3 % Platelet Count 189 TH/MM3 Mean Platelet Volume 7.3 FL Neutrophils (%) (Auto) 91.6 % Lymphocytes (%) (Auto) 4.3 % Monocytes (%) (Auto) 3.9 % Eosinophils (%) (Auto) 0.0 % Basophils (%) (Auto) 0.2 % Neutrophils # (Auto) 7.5 TH/MM3 Lymphocytes # (Auto) 0.4 TH/MM3 Monocytes # (Auto) 0.3 TH/MM3 Eosinophils # (Auto) 0.0 TH/MM3 Basophils # (Auto) 0.0 TH/MM3 CBC Comment DIFF FINAL Differential Comment Blood Urea Nitrogen 16 MG/DL 20 MG/DL 15 MG/DL Creatinine 0.46 MG/DL 0.52 MG/DL 0.38 MG/DL Random Glucose 159 MG/DL 158 MG/DL 162 MG/DL Calcium Level 7.8 MG/DL 8.0 MG/DL 7.8 MG/DL Magnesium Level 2.0 MG/DL 2.0 MG/DL Sodium Level 136 MEQ/L 137 MEQ/L 137 MEQ/L Potassium Level 3.0 MEQ/L 3.3 MEQ/L 3.6 MEQ/L Chloride Level 100 MEQ/L 101 MEQ/L 102 MEQ/L Carbon Dioxide Level 29.5 MEQ/L 27.1 MEQ/L 28.2 MEQ/L Anion Gap 7 MEQ/L 9 MEQ/L 7 MEQ/L Estimat Glomerular Filtration Rate 133 ML/MIN 116 ML/MIN 166 ML/MIN Albumin 2.8 GM/DL Phosphorus Level 2.5 MG/DL Imaging Last Impressions Head CT 09/07/17 0000 Signed Impressions: Service Date/Time: Thursday, September 07, 2017 15:22 - CONCLUSION: 1. 1.5 cm hypodense left thalamic lesion which may reflect a prior lacunar infarct. However, there is potentially subtle mass effect and therefore a mass lesion cannot be entirely excluded. Additional characterization may be performed with MRI exam as indicated. 2. Mild ventricular megaly out of proportion to degree of atrophy. Clinical correlation for normal pressure hydrocephalus is recommended. 3. Moderate periventricular white matter hypodensities which may reflect ischemic white matter demyelination versus transependymal fluid migration. Jorge Escobar MD Chest X-Ray 09/05/17 1043 Signed Impressions: Service Date/Time: Tuesday, September 05, 2017 10:54 - CONCLUSION: 1. Linear parenchymal opacities at the lung bases consistent with atelectasis. 2. Probable small right pleural effusion. Jorge Escobar MD Lower Extremity Ultrasound 09/05/17 0000 Signed Impressions: Service Date/Time: Tuesday, September 05, 2017 15:13 - CONCLUSION: No DVT in either leg. Alec Almeida MD Objective Remarks GENERAL: Awake and alert not very talkative not so cooperative some confusion SKIN: Warm and dry. HEAD: Atraumatic. Normocephalic. EYES: Pupils equal and round. No scleral icterus. No injection or drainage. Extraocular muscles intact ENT: No nasal bleeding or discharge. Mucous membranes pink and moist. Tongue is midline NECK: Trachea midline. No JVD. Neck is supple CARDIOVASCULAR: Regular rate and rhythm. S1-S2 no S3 or S4 RESPIRATORY: No accessory muscle use. Clear to auscultation. Breath sounds equal bilaterally. GASTROINTESTINAL: Abdomen soft, non-tender, nondistended. Hepatic and splenic margins not palpable. MUSCULOSKELETAL: Extremities without clubbing, cyanosis, or edema. No obvious deformities. NEUROLOGICAL: Awake and alert. No obvious cranial nerve deficits. Motor grossly within normal limits. Five out of 5 muscle strength in the arms and legs. ABNormal speech. PSYCHIATRIC: INAppropriate mood and affect; insight and judgment ABnormal. Medications and IVs Current Medications Sodium Chloride (NS Flush) 2 ml UNSCH PRN IVF FLUSH AFTER USING IV ACCESS; Start 09/05/17 at 10:45; Stop 09/07/17 at 13:44; Status DC Adenosine (Adenocard Inj) 6 mg ONCE ONCE IV PUSH ; Start 09/05/17 at 10:45; Stop 09/05/17 at 10:46; Status Cancel Adenosine (Adenocard Inj) 6 mg STK-MED ONCE .ROUTE ; Start 09/05/17 at 10:45; Stop 09/05/17 at 10:46; Status DC Diltiazem HCl 125 mg/Sodium Chloride 125 ml @ 5 mls/hr TITRATE PRN IV tachycardia Last administered on 09/06/17t 00:17; Start 09/05/17 at 11:00; Stop 09/06/17 at 12:00; Status DC Diltiazem HCl (Cardizem Inj) 16 mg BOLUS ONCE IV PUSH Last administered on 11:03; Start 09/05/17 at 11:00; Stop 09/06/17 at 09:57; Status DC IV Flush (NS Flush) 2 ml UNSCH PRN IV FLUSH FLUSH AFTER USING IV ACCESS; Start 09/05/17 at 11:00; Stop 09/06/17 at 12:00; Status DC Sodium Chloride 500 ml @ 500 mls/hr BOLUS ONCE IV Last administered on 12:26; Start 09/05/17 at 12:15; Stop 09/05/17 at 13:14; Status DC Sodium Chloride (NS Flush) 2 ml UNSCH PRN IV FLUSH FLUSH AFTER USING IV ACCESS ; Start 09/05/17 at 13:15 Sodium Chloride (NS Flush) 2 ml BID IV FLUSH Last administered on 09/13/17 10 :03; Start 09/05/17 at 21:00 Naloxone HCl (Narcan Inj) 0.4 mg UNSCH PRN IV PUSH SEE LABEL COMMENTS; Start 09/05/17 at 13:15 Ipratropium [place] (Atrovent Neb) 0.5 mg Q2HR NEB PRN NEB wheezing; Start 09/05/17 at 13:15 Ipratropium [place] (Atrovent Neb) 0.5 mg Q6HR NEB NEB Last administered on 09:58; Start 09/05/17 at 16:00 Ondansetron HCl (Zofran Inj) 4 mg Q6HR PRN IV PUSH NAUSEA Last administered on 09/07/17 06:18; Start 09/05/17 at 18:30; Stop 09/07/17 at 11:16; Status DC Lorazepam (Ativan) 0.5 mg Q12H PRN PO ANXIETY Last administered on 09/08/17 09 :18; Start 09/05/17 at 18:30; Stop 09/10/17 at 23:30; Status DC Lorazepam (Ativan Inj) 0.5 mg ONCE ONCE IV PUSH Last administered on 19:33; Start 09/05/17 at 19:00; Stop 09/05/17 at 19:13; Status DC Dexamethasone Sodium Phosphate (Decadron Inj) 4 mg Q6HR IV PUSH Last administered on 09/12/17 23:45; Start 09/05/17 at 19:00; Stop 09/13/17 at 07: 55; Status DC Pantoprazole Sodium (Protonix Inj) 40 mg ONCE ONCE IV PUSH Last administered on 09/05/17 19:34; Start 09/05/17 at 19:00; Stop 09/05/17 at 19:12; Status DC Pantoprazole Sodium (Protonix) 40 mg DAILY PO Last administered on 09/07/17 10 :15; Start 09/06/17 at 09:00 Ondansetron HCl (Zofran Inj) 4 mg Q6HR PRN IV PUSH nausea Last administered on 09/09/17 22:00; Start 09/05/17 at 19:00 Clonidine (Catapres) 0.1 mg Q8HR PRN PO SBP> OR = 180, DBP> OR = 100 Last administered on 09/06/17 14:33; Start 09/05/17 at 19:00; Stop 09/06/17 at 18:59 ; Status DC Sodium Chloride 1,000 ml @ 45 mls/hr [id number] IV Last administered on 21:18; Start 09/05/17 at 19:00; Stop 09/12/17 at 11:27; Status DC Acetaminophen (Tylenol) 650 mg Q4H PRN PO PAIN SCALE 1-5 Last administered on 09/07/17 19:58; Start 09/05/17 at 21:45 Potassium Chloride (KCl) 40 meq ONCE STAT PO Last administered on 09/06/17 14 :33; Start 09/06/17 at 10:51; Stop 09/06/17 at 10:52; Status DC Potassium Chloride (KCl) 20 meq ONCE ONCE PO Last administered on 09/06/17 16 :00; Start 09/06/17 at 16:00; Stop 09/06/17 at 16:01; Status DC Diltiazem HCl (Cardizem Cd) 240 mg DAILY PO Last administered on 09/07/17 10: 15; Start 09/06/17 at 11:00; Stop 09/07/17 at 14:18; Status DC Magnesium Sulfate/ Dextrose 100 ml @ 100 mls/hr ONCE PRN IV MAGNESIUM LESS THAN 2; Start 09/06/17 at 11:00; Stop 09/07/17 at 10:59; Status DC Potassium Chloride 30 meq/ Sodium Chloride 115 ml @ 33 mls/hr ONCE ONCE IV Last administered on 09/07/17 12:10; Start 09/07/17 at 12:00; Stop 09/07/17 at 15:29; Status DC Enalaprilat (Vasotec Inj) 1.25 mg Q6H PRN IV PUSH SBP>160, DBP>90 Last administered on 09/11/17 12:08; Start 09/07/17 at 13:15 Hydralazine HCl (Apresoline Inj) 10 mg Q4H PRN IV PUSH SBP>160, DBP>90 Last administered on 09/10/17 09:00; Start 09/07/17 at 13:15 Diltiazem HCl (Cardizem) 60 mg QID PO Last administered on 09/08/17 18:00; Start 09/07/17 at 18:00; Stop 09/12/17 at 11:28; Status DC Diltiazem HCl 125 mg/Sodium Chloride 125 ml @ 5 mls/hr TITRATE PRN IV Tachycardia; Start 09/07/17 at 14:30; Stop 09/10/17 at 10:44; Status DC Potassium Chloride 100 ml @ 50 mls/hr Q2H IV Last administered on 09/08/17 11 :28; Start 09/08/17 at 08:30; Stop 09/08/17 at 12:29; Status DC Potassium Chloride (KCl Powder) 40 meq ONCE ONCE PO ; Start 09/08/17 at 08:30; Stop 09/08/17 at 08:40; Status DC Lisinopril (Prinivil) 20 mg DAILY PO Last administered on 09/08/17 09:00; Start 09/08/17 at 09:00 Morphine Sulfate (Morphine Inj) 2 mg ONCE ONCE IM ; Start 09/08/17 at 18:15; Stop 09/08/17 at 18:33; Status DC Bisacodyl (Dulcolax Supp) 10 mg ONCE ONCE RECTAL Last administered on 15:38; Start 09/09/17 at 10:00; Stop 09/09/17 at 10:01; Status DC Sodium Chloride 500 ml @ 500 mls/hr BOLUS ONCE IV Last administered on 13:00; Start 09/09/17 at 13:00; Stop 09/09/17 at 13:59; Status DC Promethazine HCl (Phenergan Supp) 12.5 mg ONCE ONCE RECTAL Last administered on 09/10/17 02:35; Start 09/10/17 at 02:15; Stop 09/10/17 at 02:16; Status DC Scopolamine (Transderm-Scop 1.5 Mg Patch.72 Hr) 1 patch ONCE ONCE T-DERMAL Last administered on 09/10/17 02:35; Start 09/10/17 at 03:00; Stop 09/10/17 at 03:01; Status DC Diltiazem HCl 125 mg/Sodium Chloride 125 ml @ 5 mls/hr CONTINUOUS PRN IV Tachycardia; Start 09/10/17 at 10:45; Stop 09/11/17 at 08:10; Status DC Diltiazem HCl (Cardizem) 30 mg QID PO Last administered on 09/10/17 20:17; Start 09/10/17 at 17:46; Stop 09/12/17 at 11:22; Status DC Morphine Sulfate (Morphine Inj) 2 mg Q3H PRN IV PUSH PAIN >5 Last administered on 09/13/17 06:15; Start 09/10/17 at 23:30 Lorazepam (Ativan Inj) 0.5 mg Q12HR PRN IV PUSH agitation Last administered on 09/13/17 02:13; Start 09/10/17 at 23:30 Potassium Bicarb/ Potassium Chloride (K-Lyte Cl Eff) 50 meq ONCE ONCE PO ; Start 09/11/17 at 18:30; Stop 09/11/17 at 18:31; Status DC Potassium Chloride 100 ml @ 50 mls/hr Q2H IV Last administered on 09/11/17 22:41; Start 09/11/17 at 20:00; Stop 09/11/17 at 23:59; Status DC Diltiazem HCl (Cardizem Inj) 15 mg ONCE ONCE IV PUSH Last administered on 04:40; Start 09/12/17 at 04:30; Stop 09/12/17 at 04:33; Status DC Diltiazem HCl 125 mg/Sodium Chloride 125 ml @ 5 mls/hr TITRATE PRN IV Tachycardia Last administered on 09/12/17 04:57; Start 09/12/17 at 04:30 Atenolol (Tenormin) 25 mg ONCE ONCE PO ; Start 09/12/17 at 12:00; Stop at 12:01; Status DC Atenolol (Tenormin) 25 mg DAILY PO ; Start 09/13/17 at 09:00 Dronabinol (Marinol) 2.5 mg BID@11,16 PO ; Start 09/12/17 at 16:00 Potassium Chloride 30 meq/ Sodium Chloride 1,015 ml @ 45 mls/hr [id number] IV Last administered on 09/12/17 15:26; Start 09/12/17 at 19:00 Potassium Chloride 100 ml @ 100 mls/hr Q1H IV Last administered on 09/12/17 18:49; Start 09/12/17 at 13:00; Stop 09/12/17 at 15:59; Status DC Dexamethasone Sodium Phosphate (Decadron Inj) 4 mg Q12HR IV PUSH Last administered on 09/13/17 10:04; Start 09/13/17 at 09:00 A/P Problem List: (1) Paroxysmal tachycardia ICD Code: I47.9 - Paroxysmal tachycardia, unspecified Status: Acute (2) Elevated troponin ICD Code: R74.8 - Abnormal levels of other serum enzymes Status: Acute (3) Lung cancer metastatic to brain ICD Code: C34.90 - Malignant neoplasm of unspecified part of unspecified bronchus or lung; C79.31 - Secondary malignant neoplasm of brain Assessment and Plan //lung ca with brain metastasis - s/p chemo, last january 2017. Oncology following, status post therapy yesterday, will continue with radiotherapy. CT scan of the brain should 1.5 cm left thalamic lesion with possible mass effect. Palliative care on board, patient is DO NOT RESUSCITATE, aggressive treatment per . Continue Decadron, decrease to 25 mg twice a day. = 09/10. Long discussion with in room. He wishes aggressive treatment. =Continue with radiation therapy as per oncology. //PSVT vs atrial fibrillation Continue by mouth Cardizem 4 times daily. //Leukocytosis with left shift: Resolved. - Etiology unclear. Patient denies any symptoms suggestive of acute infection. She is to be on Decadron as well. Resolved. //Elevated troponin: -Asymptomatic. Due to demand ischemia from tachycardia. //Hypertension - continue cardizem and lisinopril, variable blood pressures. cont monitor //Poor appetite: Continue ENLIVE 3 times a day. //COPD with no exacerbation; continue neb treatment. //hypokalemia. Potassium 3.0. Replaced. Magnesium within normal limits. Recheck again tomorrow. //DVT prophylaxis with SCD's- no chemical prophylaxis due to brain mets. Discharge Planning Once cleared by all for discharge Librado Olivera DO Sep 13, 2017 16:08
[2017-09-13] MEDS: POTASSIUM CHLORIDE INJ 30 MEQ in SODIUM CHLOR 0.9% 1000 ML INJ 1,000 ML IV SCH (20:59)
[2017-09-14] VITALS (10 sets, daily range): BP systolic 136–160; BP diastolic 57–84; PULSE 74–120; RESP 16–21; TEMP 97.5–98.6; O2SAT 95–99
[2017-09-14] MEDS: LORazepam 2 MG/ML VIAL IV PUSH PRN (00:47)
[2017-09-14] MEDS: MORPHINE SULFATE 2 MG/ML INJ IV PUSH PRN ×2 (01:25→20:38)
[2017-09-14] MEDS: RESP: IPRATROPIUM 0.5 MG/2.5 ML NEB NEB SCH ×4 (02:55→20:21)
[2017-09-14 05:56] LABS: AUTOMATED NEUTROPHIL # 6.8 TH/MM3 (1.8-7.7); HEMO FLAGS DIFF FINAL; LYMPH % 6.1 % (9.0-44.0); LYMPHOCYTE # 0.5 TH/MM3 (1.0-4.8); MEAN CELL VOLUME 86.2 FL (80.0-100.0); MEAN CORPUSCULAR HEMOGLOBIN 29.2 PG (27.0-34.0); MEAN CORPUSCULAR HGB CONC 33.8 % (32.0-36.0); MONO % 6.5 % (0.0-8.0); NEUT % 87.4 % (16.0-70.0); PLATELET COUNT 206 TH/MM3 (150-450); RED BLOOD COUNT 4.52 MIL/MM3 (4.00-5.30); RED CELL DISTRIBUTION WIDTH 15.3 % (11.6-17.2); WHITE BLOOD COUNT 7.8 TH/MM3 (4.0-11.0)
[2017-09-14 06:17] LABS: ANION GAP 9 MEQ/L (5-15); AST (GOT) 18 U/L (15-37); BICARBONATE 26.2 MEQ/L (21.0-32.0); BLOOD UREA NITROGEN 17 MG/DL (7-18); CHLORIDE 100 MEQ/L (98-107); GLOMERULAR FILTRATION RATE 195 ML/MIN (>89); MAGNESIUM 2.1 MG/DL (1.5-2.5); POTASSIUM 3.8 MEQ/L (3.5-5.1); SODIUM (NA) 135 MEQ/L (136-145)
[2017-09-14 06:21] LABS: ALKALINE PHOSPHATASE 52 U/L (45-117); ALT (GPT) 33 U/L (10-53); TOTAL BILIRUBIN ADULT 0.9 MG/DL (0.2-1.0)
[2017-09-14] MEDS: PANTOPRAZOLE SOD 40 MG DELAYED RELEASE TAB PO SCH (09:00)
[2017-09-14] MEDS: LISINOPRIL 20 MG TAB PO SCH (09:00)
[2017-09-14] MEDS: ATENOLOL 25 MG TAB PO SCH (09:00)
[2017-09-14] MEDS: SODIUM CHLORIDE 0.9% FLUSH 10 ML FLUSH IV FLUSH SCH ×2 (09:00→21:00)
[2017-09-14] MEDS: DEXAMETHASONE SOD PHOS 4 MG/ML VIAL IV PUSH SCH ×2 (09:35→20:38)
--- NOTE | 2017-09-14 09:57 | HHI.PR ---
Subjective Remarks Undergoing radiation has been seen by oncology Somewhat confused Not very talkative Not so cooperative A.m. labs Physical therapy and occupational therapy wants aggressive therapy 09-14 patient is refusing to take her medications today Discussed with patient and RN and Still somewhat confused We'll get speech therapy to eval regarding swallow needs physical therapy and occupational therapy Objective Vitals Vital Signs Date Time Temp Pulse Resp B/P (MAP) Pulse Ox O2 Delivery O2 Flow Rate FiO2 09/14/17 05:18 98.1 74 16 146/57 (86) 99 09/14/17 04:00 93 09/14/17 01:33 16 09/14/17 00:37 97.5 93 21 160/84 (109) 96 09/14/17 00:18 86 09/13/17 21:04 97.4 74 20 149/69 (95) 93 09/13/17 21:00 Nasal Cannula 3.00 09/13/17 20:00 81 09/13/17 15:45 97.8 88 18 136/78 (97) 96 09/13/17 14:54 98.3 89 18 118/76 (90) 95 09/13/17 13:33 Nasal Cannula 2.50 09/13/17 10:00 98 Nasal Cannula 2.00 I/O 09/13/17 09/13/17 09/13/17 09/14/17 09/14/17 09/14/17 07:00 15:00 23:00 07:00 15:00 23:00 Intake Total 50 ml 620 ml 150 ml Balance 50 ml 620 ml 150 ml Intake Oral 50 ml 620 ml 150 ml # Voids 3 7 2 Result Diagram: 09/14/17 0535 09/14/17 0535 Other Results Laboratory Tests Test 09/11/17 17:48 09/12/17 05:57 09/13/17 07:30 09/14/17 05:35 Blood Urea Nitrogen 16 MG/DL 20 MG/DL 15 MG/DL 17 MG/DL Creatinine 0.46 MG/DL 0.52 MG/DL 0.38 MG/DL 0.33 MG/DL Random Glucose 159 MG/DL 158 MG/DL 162 MG/DL 143 MG/DL Calcium Level 7.8 MG/DL 8.0 MG/DL 7.8 MG/DL 7.8 MG/DL Magnesium Level 2.0 MG/DL 2.0 MG/DL 2.1 MG/DL Sodium Level 136 MEQ/L 137 MEQ/L 137 MEQ/L 135 MEQ/L Potassium Level 3.0 MEQ/L 3.3 MEQ/L 3.6 MEQ/L 3.8 MEQ/L Chloride Level 100 MEQ/L 101 MEQ/L 102 MEQ/L 100 MEQ/L Carbon Dioxide Level 29.5 MEQ/L 27.1 MEQ/L 28.2 MEQ/L 26.2 MEQ/L Anion Gap 7 MEQ/L 9 MEQ/L 7 MEQ/L 9 MEQ/L Estimat Glomerular Filtration Rate 133 ML/MIN 116 ML/MIN 166 ML/MIN 195 ML/MIN Albumin 2.8 GM/DL 2.8 GM/DL Phosphorus Level 2.5 MG/DL 2.9 MG/DL White Blood Count 7.8 TH/MM3 Red Blood Count 4.52 MIL/MM3 Hemoglobin 13.2 GM/DL Hematocrit 39.0 % Mean Corpuscular Volume 86.2 FL Mean Corpuscular Hemoglobin 29.2 PG Mean Corpuscular Hemoglobin Concent 33.8 % Red Cell Distribution Width 15.3 % Platelet Count 206 TH/MM3 Mean Platelet Volume 7.3 FL Neutrophils (%) (Auto) 87.4 % Lymphocytes (%) (Auto) 6.1 % Monocytes (%) (Auto) 6.5 % Eosinophils (%) (Auto) 0.0 % Basophils (%) (Auto) 0.0 % Neutrophils # (Auto) 6.8 TH/MM3 Lymphocytes # (Auto) 0.5 TH/MM3 Monocytes # (Auto) 0.5 TH/MM3 Eosinophils # (Auto) 0.0 TH/MM3 Basophils # (Auto) 0.0 TH/MM3 CBC Comment DIFF FINAL Differential Comment Total Protein 5.0 GM/DL Alkaline Phosphatase 52 U/L Aspartate Amino Transf (AST/SGOT) 18 U/L Alanine Aminotransferase (ALT/SGPT) 33 U/L Total Bilirubin 0.9 MG/DL Imaging Last Impressions Head CT 09/07/17 0000 Signed Impressions: Service Date/Time: Thursday, September 07, 2017 15:22 - CONCLUSION: 1. 1.5 cm hypodense left thalamic lesion which may reflect a prior lacunar infarct. However, there is potentially subtle mass effect and therefore a mass lesion cannot be entirely excluded. Additional characterization may be performed with MRI exam as indicated. 2. Mild ventricular megaly out of proportion to degree of atrophy. Clinical correlation for normal pressure hydrocephalus is recommended. 3. Moderate periventricular white matter hypodensities which may reflect ischemic white matter demyelination versus transependymal fluid migration. Jorge Escobar MD Chest X-Ray 09/05/17 1043 Signed Impressions: Service Date/Time: Tuesday, September 05, 2017 10:54 - CONCLUSION: 1. Linear parenchymal opacities at the lung bases consistent with atelectasis. 2. Probable small right pleural effusion. Jorge Escobar MD Lower Extremity Ultrasound 09/05/17 0000 Signed Impressions: Service Date/Time: Tuesday, September 05, 2017 15:13 - CONCLUSION: No DVT in either leg. Alec Almeida MD Objective Remarks GENERAL: Awake and alert not very talkative not so cooperative some confusion SKIN: Warm and dry. HEAD: Atraumatic. Normocephalic. EYES: Pupils equal and round. No scleral icterus. No injection or drainage. Extraocular muscles intact ENT: No nasal bleeding or discharge. Mucous membranes pink and moist. Tongue is midline NECK: Trachea midline. No JVD. Neck is supple CARDIOVASCULAR: Regular rate and rhythm. S1-S2 no S3 or S4 RESPIRATORY: No accessory muscle use. Clear to auscultation. Breath sounds equal bilaterally. GASTROINTESTINAL: Abdomen soft, non-tender, nondistended. Hepatic and splenic margins not palpable. MUSCULOSKELETAL: Extremities without clubbing, cyanosis, or edema. No obvious deformities. NEUROLOGICAL: Awake and alert. No obvious cranial nerve deficits. Motor grossly within normal limits. Five out of 5 muscle strength in the arms and legs. ABNormal speech. PSYCHIATRIC: INAppropriate mood and affect; insight and judgment ABnormal. Medications and IVs Current Medications Sodium Chloride (NS Flush) 2 ml UNSCH PRN IVF FLUSH AFTER USING IV ACCESS; Start 09/05/17 at 10:45; Stop 09/07/17 at 13:44; Status DC Adenosine (Adenocard Inj) 6 mg ONCE ONCE IV PUSH ; Start 09/05/17 at 10:45; Stop 09/05/17 at 10:46; Status Cancel Adenosine (Adenocard Inj) 6 mg STK-MED ONCE .ROUTE ; Start 09/05/17 at 10:45; Stop 09/05/17 at 10:46; Status DC Diltiazem HCl 125 mg/Sodium Chloride 125 ml @ 5 mls/hr TITRATE PRN IV tachycardia Last administered on 09/06/17 00:17; Start 09/05/17 at 11:00; Stop 09/06/17 at 12:00; Status DC Diltiazem HCl (Cardizem Inj) 16 mg BOLUS ONCE IV PUSH Last administered on 11:03; Start 09/05/17 at 11:00; Stop 09/06/17 at 09:57; Status DC IV Flush (NS Flush) 2 ml UNSCH PRN IV FLUSH FLUSH AFTER USING IV ACCESS; Start 09/05/17 at 11:00; Stop 09/06/17 at 12:00; Status DC Sodium Chloride 500 ml @ 500 mls/hr BOLUS ONCE IV Last administered on 12:26; Start 09/05/17 at 12:15; Stop 09/05/17 at 13:14; Status DC Sodium Chloride (NS Flush) 2 ml UNSCH PRN IV FLUSH FLUSH AFTER USING IV ACCESS ; Start 09/05/17 at 13:15 Sodium Chloride (NS Flush) 2 ml BID IV FLUSH Last administered on 09/13/17 10 :03; Start 09/05/17 at 21:00 Naloxone HCl (Narcan Inj) 0.4 mg UNSCH PRN IV PUSH SEE LABEL COMMENTS; Start 09/05/17 at 13:15 Ipratropium [place] (Atrovent Neb) 0.5 mg Q2HR NEB PRN NEB wheezing; Start 09/05/17 at 13:15 Ipratropium [place] (Atrovent Neb) 0.5 mg Q6HR NEB NEB Last administered on 09:10; Start 09/05/17 at 16:00 Ondansetron HCl (Zofran Inj) 4 mg Q6HR PRN IV PUSH NAUSEA Last administered on 09/07/17 06:18; Start 09/05/17 at 18:30; Stop 09/07/17 at 11:16; Status DC Lorazepam (Ativan) 0.5 mg Q12H PRN PO ANXIETY Last administered on 09/08/17 09 :18; Start 09/05/17 at 18:30; Stop 09/10/17 at 23:30; Status DC Lorazepam (Ativan Inj) 0.5 mg ONCE ONCE IV PUSH Last administered on 19:33; Start 09/05/17 at 19:00; Stop 09/05/17 at 19:13; Status DC Dexamethasone Sodium Phosphate (Decadron Inj) 4 mg Q6HR IV PUSH Last administered on 09/12/17 23:45; Start 09/05/17 at 19:00; Stop 09/13/17 at 07: 55; Status DC Pantoprazole Sodium (Protonix Inj) 40 mg ONCE ONCE IV PUSH Last administered on 09/05/17 19:34; Start 09/05/17 at 19:00; Stop 09/05/17 at 19:12; Status DC Pantoprazole Sodium (Protonix) 40 mg DAILY PO Last administered on 09/07/17 10 :15; Start 09/06/17 at 09:00 Ondansetron HCl (Zofran Inj) 4 mg Q6HR PRN IV PUSH nausea Last administered on 09/09/17 22:00; Start 09/05/17 at 19:00 Clonidine (Catapres) 0.1 mg Q8HR PRN PO SBP> OR = 180, DBP> OR = 100 Last administered on 09/06/17 14:33; Start 09/05/17 at 19:00; Stop 09/06/17 at 18:59 ; Status DC Sodium Chloride 1,000 ml @ 45 mls/hr [id number] IV Last administered on 21:18; Start 09/05/17 at 19:00; Stop 09/12/17 at 11:27; Status DC Acetaminophen (Tylenol) 650 mg Q4H PRN PO PAIN SCALE 1-5 Last administered on 09/07/17 19:58; Start 09/05/17 at 21:45 Potassium Chloride (KCl) 40 meq ONCE STAT PO Last administered on 09/06/17 14 :33; Start 09/06/17 at 10:51; Stop 09/06/17 at 10:52; Status DC Potassium Chloride (KCl) 20 meq ONCE ONCE PO Last administered on 09/06/17 16 :00; Start 09/06/17 at 16:00; Stop 09/06/17 at 16:01; Status DC Diltiazem HCl (Cardizem Cd) 240 mg DAILY PO Last administered on 09/07/17 10: 15; Start 09/06/17 at 11:00; Stop 09/07/17 at 14:18; Status DC Magnesium Sulfate/ Dextrose 100 ml @ 100 mls/hr ONCE PRN IV MAGNESIUM LESS THAN 2; Start 09/06/17 at 11:00; Stop 09/07/17 at 10:59; Status DC Potassium Chloride 30 meq/ Sodium Chloride 115 ml @ 33 mls/hr ONCE ONCE IV Last administered on 09/07/17 12:10; Start 09/07/17 at 12:00; Stop 09/07/17 at 15:29; Status DC Enalaprilat (Vasotec Inj) 1.25 mg Q6H PRN IV PUSH SBP>160, DBP>90 Last administered on 09/11/17 12:08; Start 09/07/17 at 13:15 Hydralazine HCl (Apresoline Inj) 10 mg Q4H PRN IV PUSH SBP>160, DBP>90 Last administered on 09/10/17 09:00; Start 09/07/17 at 13:15 Diltiazem HCl (Cardizem) 60 mg QID PO Last administered on 09/08/17 18:00; Start 09/07/17 at 18:00; Stop 09/12/17 at 11:28; Status DC Diltiazem HCl 125 mg/Sodium Chloride 125 ml @ 5 mls/hr TITRATE PRN IV Tachycardia; Start 09/07/17 at 14:30; Stop 09/10/17 at 10:44; Status DC Potassium Chloride 100 ml @ 50 mls/hr Q2H IV Last administered on 09/08/17 11 :28; Start 09/08/17 at 08:30; Stop 09/08/17 at 12:29; Status DC Potassium Chloride (KCl Powder) 40 meq ONCE ONCE PO ; Start 09/08/17 at 08:30; Stop 09/08/17 at 08:40; Status DC Lisinopril (Prinivil) 20 mg DAILY PO Last administered on 09/08/17 09:00; Start 09/08/17 at 09:00 Morphine Sulfate (Morphine Inj) 2 mg ONCE ONCE IM ; Start 09/08/17 at 18:15; Stop 09/08/17 at 18:33; Status DC Bisacodyl (Dulcolax Supp) 10 mg ONCE ONCE RECTAL Last administered on 15:38; Start 09/09/17 at 10:00; Stop 09/09/17 at 10:01; Status DC Sodium Chloride 500 ml @ 500 mls/hr BOLUS ONCE IV Last administered on 13:00; Start 09/09/17 at 13:00; Stop 09/09/17 at 13:59; Status DC Promethazine HCl (Phenergan Supp) 12.5 mg ONCE ONCE RECTAL Last administered on 09/10/17 02:35; Start 09/10/17 at 02:15; Stop 09/10/17 at 02:16; Status DC Scopolamine (Transderm-Scop 1.5 Mg Patch.72 Hr) 1 patch ONCE ONCE T-DERMAL Last administered on 09/10/17 02:35; Start 09/10/17 at 03:00; Stop 09/10/17 at 03:01; Status DC Diltiazem HCl 125 mg/Sodium Chloride 125 ml @ 5 mls/hr CONTINUOUS PRN IV Tachycardia; Start 09/10/17 at 10:45; Stop 09/11/17 at 08:10; Status DC Diltiazem HCl (Cardizem) 30 mg QID PO Last administered on 09/10/17 20:17; Start 09/10/17 at 17:46; Stop 09/12/17 at 11:22; Status DC Morphine Sulfate (Morphine Inj) 2 mg Q3H PRN IV PUSH PAIN >5 Last administered on 09/14/17 01:25; Start 09/10/17 at 23:30 Lorazepam (Ativan Inj) 0.5 mg Q12HR PRN IV PUSH agitation Last administered on 09/14/17 00:47; Start 09/10/17 at 23:30 Potassium Bicarb/ Potassium Chloride (K-Lyte Cl Eff) 50 meq ONCE ONCE PO ; Start 09/11/17 at 18:30; Stop 09/11/17 at 18:31; Status DC Potassium Chloride 100 ml @ 50 mls/hr Q2H IV Last administered on 09/11/17 22:41; Start 09/11/17 at 20:00; Stop 09/11/17 at 23:59; Status DC Diltiazem HCl (Cardizem Inj) 15 mg ONCE ONCE IV PUSH Last administered on 04:40; Start 09/12/17 at 04:30; Stop 09/12/17 at 04:33; Status DC Diltiazem HCl 125 mg/Sodium Chloride 125 ml @ 5 mls/hr TITRATE PRN IV Tachycardia Last administered on 09/12/17 04:57; Start 09/12/17 at 04:30 Atenolol (Tenormin) 25 mg ONCE ONCE PO ; Start 09/12/17 at 12:00; Stop at 12:01; Status DC Atenolol (Tenormin) 25 mg DAILY PO ; Start 09/13/17 at 09:00 Dronabinol (Marinol) 2.5 mg BID@11,16 PO ; Start 09/12/17 at 16:00 Potassium Chloride 30 meq/ Sodium Chloride 1,015 ml @ 45 mls/hr [id number] IV Last administered on 09/13/17 20:59; Start 09/12/17 at 19:00 Potassium Chloride 100 ml @ 100 mls/hr Q1H IV Last administered on 09/12/17 18:49; Start 09/12/17 at 13:00; Stop 09/12/17 at 15:59; Status DC Dexamethasone Sodium Phosphate (Decadron Inj) 4 mg Q12HR IV PUSH Last administered on 09/14/17 09:35; Start 09/13/17 at 09:00 A/P Problem List: (1) Paroxysmal tachycardia ICD Code: I47.9 - Paroxysmal tachycardia, unspecified Status: Acute (2) Elevated troponin ICD Code: R74.8 - Abnormal levels of other serum enzymes Status: Acute (3) Lung cancer metastatic to brain ICD Code: C34.90 - Malignant neoplasm of unspecified part of unspecified bronchus or lung; C79.31 - Secondary malignant neoplasm of brain Assessment and Plan //lung ca with brain metastasis - s/p chemo, last january 2017. Oncology following, status post therapy yesterday, will continue with radiotherapy. CT scan of the brain should 1.5 cm left thalamic lesion with possible mass effect. Palliative care on board, patient is DO NOT RESUSCITATE, aggressive treatment per . Continue Decadron, decrease to 25 mg twice a day. = 09/10. Long discussion with in room. He wishes aggressive treatment. =Continue with radiation therapy as per oncology. //PSVT vs atrial fibrillation Continue by mouth Cardizem 4 times daily. //Leukocytosis with left shift: Resolved. - Etiology unclear. Patient denies any symptoms suggestive of acute infection. She is to be on Decadron as well. Resolved. //Elevated troponin: -Asymptomatic. Due to demand ischemia from tachycardia. //Hypertension - continue Cardizem and lisinopril, variable blood pressures. cont monitor //Poor appetite: Continue ENLIVE 3 times a day. //COPD with no exacerbation; continue neb treatment. //hypokalemia. Potassium 3.0. Replaced. Magnesium within normal limits. Recheck again tomorrow. //DVT prophylaxis with SCD's- no chemical prophylaxis due to brain mets. Patient is refusing her medications today have discussed with patient and RN and A.padmini labs Physical therapy and occupational therapy as well as speech therapy for swallow eval Guarded prognosis Discharge Planning Once cleared by all for discharge Librado Olivera DO Sep 14, 2017 09:57
--- NOTE | 2017-09-14 09:58 | PD.ONC.PN ---
Subjective Subjective Remarks Afebrile overnight Patient alert; reports that she is wet Discussed that she has 5 remaining radiation treatments Objective Data Date Time Temp Pulse Resp B/P (MAP) Pulse Ox O2 Delivery O2 Flow Rate FiO2 09/14/17 05:18 98.1 74 16 146/57 (86) 99 09/14/17 04:00 93 09/14/17 01:33 16 09/14/17 00:37 97.5 93 21 160/84 (109) 96 09/14/17 00:18 86 09/13/17 21:04 97.4 74 20 149/69 (95) 93 09/13/17 21:00 Nasal Cannula 3.00 09/13/17 20:00 81 09/13/17 15:45 97.8 88 18 136/78 (97) 96 09/13/17 14:54 98.3 89 18 118/76 (90) 95 09/13/17 13:33 Nasal Cannula 2.50 09/13/17 10:00 98 Nasal Cannula 2.00 09/14/17 09/14/17 09/14/17 07:00 15:00 23:00 Intake Total 150 ml Balance 150 ml Result Diagram: 09/14/17 0535 09/14/17 0535 Laboratory Results Laboratory Tests Test 09/14/17 05:35 White Blood Count 7.8 TH/MM3 Red Blood Count 4.52 MIL/MM3 Hemoglobin 13.2 GM/DL Hematocrit 39.0 % Mean Corpuscular Volume 86.2 FL Mean Corpuscular Hemoglobin 29.2 PG Mean Corpuscular Hemoglobin Concent 33.8 % Red Cell Distribution Width 15.3 % Platelet Count 206 TH/MM3 Mean Platelet Volume 7.3 FL Neutrophils (%) (Auto) 87.4 % Lymphocytes (%) (Auto) 6.1 % Monocytes (%) (Auto) 6.5 % Eosinophils (%) (Auto) 0.0 % Basophils (%) (Auto) 0.0 % Neutrophils # (Auto) 6.8 TH/MM3 Lymphocytes # (Auto) 0.5 TH/MM3 Monocytes # (Auto) 0.5 TH/MM3 Eosinophils # (Auto) 0.0 TH/MM3 Basophils # (Auto) 0.0 TH/MM3 CBC Comment DIFF FINAL Differential Comment Blood Urea Nitrogen 17 MG/DL Creatinine 0.33 MG/DL Random Glucose 143 MG/DL Total Protein 5.0 GM/DL Albumin 2.8 GM/DL Calcium Level 7.8 MG/DL Phosphorus Level 2.9 MG/DL Magnesium Level 2.1 MG/DL Alkaline Phosphatase 52 U/L Aspartate Amino Transf (AST/SGOT) 18 U/L Alanine Aminotransferase (ALT/SGPT) 33 U/L Total Bilirubin 0.9 MG/DL Sodium Level 135 MEQ/L Potassium Level 3.8 MEQ/L Chloride Level 100 MEQ/L Carbon Dioxide Level 26.2 MEQ/L Anion Gap 9 MEQ/L Estimat Glomerular Filtration Rate 195 ML/MIN Administered Medications Medications (Trade) Dose Ordered Sig/Arleen Route PRN Reason Start Time Stop Time Status Last Admin Dose Admin Sodium Chloride (NS Flush) 2 ml BID IV FLUSH 09/05/17 21:00 09/13/17 10:03 Ipratropium [place] (Atrovent Neb) 0.5 mg Q6HR NEB NEB 09/05/17 16:00 09/14/17 09:10 Pantoprazole Sodium (Protonix) 40 mg DAILY PO 09/06/17 09:00 09/07/17 10:15 Ondansetron HCl (Zofran Inj) 4 mg Q6HR PRN IV PUSH nausea 09/05/17 19:00 09/09/17 22:00 Acetaminophen (Tylenol) 650 mg Q4H PRN PO PAIN SCALE 1-5 09/05/17 21:45 09/07/17 19:58 Enalaprilat (Vasotec Inj) 1.25 mg Q6H PRN IV PUSH SBP>160, DBP>90 09/07/17 13:15 09/11/17 12:08 Hydralazine HCl (Apresoline Inj) 10 mg Q4H PRN IV PUSH SBP>160, DBP>90 09/07/17 13:15 09/10/17 09:00 Lisinopril (Prinivil) 20 mg DAILY PO 09/08/17 09:00 09/08/17 09:00 Morphine Sulfate (Morphine Inj) 2 mg Q3H PRN IV PUSH PAIN >5 09/10/17 23:30 09/14/17 01:25 Lorazepam (Ativan Inj) 0.5 mg Q12HR PRN IV PUSH agitation 09/10/17 23:30 09/14/17 00:47 Diltiazem HCl 125 mg/Sodium Chloride 125 ml @ 5 mls/hr TITRATE PRN IV Tachycardia 09/12/17 04:30 09/12/17 04:57 Potassium Chloride 30 meq/ Sodium Chloride 1,015 ml @ 45 mls/hr [id number] IV 09/12/17 19:00 09/13/17 20:59 Dexamethasone Sodium Phosphate (Decadron Inj) 4 mg Q12HR IV PUSH 09/13/17 09:00 09/14/17 09:35 Objective Remarks GENERAL: Chronically ill female supine in bed resting. SKIN: Warm and dry. HEAD: Normocephalic. EYES: No injection or drainage. NECK: Supple, trachea midline. CARDIOVASCULAR: Regular rate and rhythm RESPIRATORY: Scattered rhonchi anteriorly. GASTROINTESTINAL: Abdomen soft, non-tender, nondistended. EXTREMITIES: No cyanosis NEUROLOGICAL: Followed commands to give me a thumbs up. Normal speech. Awake but somewhat lethargic. Assessment/Plan Problem List: (1) Lung cancer metastatic to brain ICD Codes: C34.90 - Malignant neoplasm of unspecified part of unspecified bronchus or lung; C79.31 - Secondary malignant neoplasm of brain Plan: -- started on XRT on 09/07; total of 10 treatments scheduled -- May begin chemotherapy with irinotecan after she has completed XRT if PFS improves. Hx: She has a history of right lung cancer resected in 2001. 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 MRI evaluation before the treatment shows nonspecific lesion. 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 She was referred promptly to radiation oncology for treatment but unfortunately there were delays prior to treatment. In clinic on 09/05 it was noted that she was symptomatic with HR in the 200's and [facility] was called to bring her to the hospital. (2) Paroxysmal tachycardia ICD Codes: I47.9 - Paroxysmal tachycardia, unspecified Status: Acute Plan: -- on cardizem gtt Assessment 71 y/o female with metastatic small cell lung cancer admitted with tachycardia Plan 1. Patient denies headache; will continue Decadron every 12 hours. 2. #6 radiation treatments to be done today. 3. Continue supportive care. 4. Will continue to monitor for improvement in performance status. As it stands now she is still not a candidate for traditional chemotherapy. Attending Statement The exam, history, and the medical decision-making described in the above note were completed with the assistance of the mid-level provider. I reviewed and agree with the findings presented. I attest that I had a [id number] encounter with the patient on the same day, and personally performed and documented my assessment and findings in the medical record. Impatient to go home. Less aggressive with less steroids. Awake alert and responsive. Looks tired, possibly due to end of the day. State she was hungry assisted in getting her meal in front of her to eat. Wanted her dinner. Placement issue, pt told Palliative care she does not want to go to rehab. would not be able to care for her at home. Daughter is a nurse in [place], not certain if she would come to care for patient if she insist on going home. Theresa Mendosa Sep 14, 2017 09:58 Shawanda Kong MD Sep 14, 2017 17:58
[2017-09-14] MEDS: DILTIAZEM INJ 125 MG in SODIUM CHLORIDE 0.9% INJ 100 ML IV PRN (10:22)
[2017-09-14] MEDS: DRONABINOL 2.5 MG CAP PO SCH ×2 (11:00→16:00)
[2017-09-14] MEDS: POTASSIUM CHLORIDE INJ 30 MEQ in SODIUM CHLOR 0.9% 1000 ML INJ 1,000 ML IV SCH (22:27)
[2017-09-15] VITALS (10 sets, daily range): BP systolic 122–140; BP diastolic 62–74; PULSE 65–150; RESP 18–24; TEMP 97.6–98.3; O2SAT 76–99
[2017-09-15] MEDS: MORPHINE SULFATE 2 MG/ML INJ IV PUSH PRN (02:05)
[2017-09-15] MEDS: RESP: IPRATROPIUM 0.5 MG/2.5 ML NEB NEB SCH ×4 (03:05→20:58)
[2017-09-15 04:51] LABS: AUTOMATED NEUTROPHIL # 8.5 TH/MM3 (1.8-7.7); HEMATOCRIT 39.3 % (35.0-46.0); LYMPH % 5.7 % (9.0-44.0); LYMPHOCYTE # 0.5 TH/MM3 (1.0-4.8); MEAN CELL VOLUME 85.7 FL (80.0-100.0); MEAN CORPUSCULAR HGB CONC 33.8 % (32.0-36.0); MONO % 5.6 % (0.0-8.0); NEUT % 88.7 % (16.0-70.0); PLATELET COUNT 226 TH/MM3 (150-450); RED BLOOD COUNT 4.58 MIL/MM3 (4.00-5.30); RED CELL DISTRIBUTION WIDTH 15.6 % (11.6-17.2); WHITE BLOOD COUNT 9.6 TH/MM3 (4.0-11.0)
[2017-09-15 04:54] LABS: HEMO FLAGS AUTO DIFF
[2017-09-15 05:25] LABS: ANION GAP 7 MEQ/L (5-15); AST (GOT) 12 U/L (15-37); BICARBONATE 27.6 MEQ/L (21.0-32.0); BLOOD UREA NITROGEN 18 MG/DL (7-18); CHLORIDE 99 MEQ/L (98-107); GLOMERULAR FILTRATION RATE 140 ML/MIN (>89); POTASSIUM 4.3 MEQ/L (3.5-5.1); SODIUM (NA) 134 MEQ/L (136-145)
[2017-09-15 05:26] LABS: ALT (GPT) 32 U/L (10-53)
[2017-09-15 05:34] LABS: ALKALINE PHOSPHATASE 54 U/L (45-117); FREE T4 1.23 NG/DL (0.76-1.46)
[2017-09-15 07:44] LABS: SCAN/DIFF AUTO DIFF CONFIRMED
[2017-09-15] MEDS: ATENOLOL 25 MG TAB PO SCH (09:00)
[2017-09-15] MEDS: LISINOPRIL 20 MG TAB PO SCH (09:00)
[2017-09-15] MEDS: PANTOPRAZOLE SOD 40 MG DELAYED RELEASE TAB PO SCH (09:00)
[2017-09-15] MEDS: DEXAMETHASONE SOD PHOS 4 MG/ML VIAL IV PUSH SCH ×2 (09:39→21:57)
[2017-09-15] MEDS: SODIUM CHLORIDE 0.9% FLUSH 10 ML FLUSH IV FLUSH SCH ×2 (09:39→21:59)
--- NOTE | 2017-09-15 10:15 | PD.ONC.PN ---
Subjective Subjective Remarks Afebrile Pt resting in bed getting a bed bath Denies acute complaints Happy to have some hot tea Per spouse she told him to "get out" this am Objective Data Date Time Temp Pulse Resp B/P (MAP) Pulse Ox O2 Delivery O2 Flow Rate FiO2 09/15/17 09:15 99 Nasal Cannula 3.00 09/15/17 05:10 62 09/15/17 04:30 97.8 67 18 131/74 (93) 97 09/15/17 04:15 65 09/15/17 04:12 76 09/15/17 03:20 128 09/15/17 03:06 97 Nasal Cannula 3.00 09/15/17 02:49 158 09/15/17 02:10 16 09/15/17 00:23 98.3 70 18 122/69 (86) 99 09/15/17 00:04 100 09/14/17 20:45 97.5 102 16 137/81 (99) 96 09/14/17 20:45 Nasal Cannula 3.00 09/14/17 20:21 96 Nasal Cannula 3.00 09/14/17 20:08 120 09/14/17 18:00 97.8 82 18 144/79 (100) 95 09/14/17 14:15 98.6 74 20 144/72 (96) 95 09/14/17 14:09 Nasal Cannula 2.50 09/14/17 10:22 81 136/77 Result Diagram: 09/15/17 0434 09/15/17 0434 Laboratory Results Laboratory Tests Test 09/15/17 04:34 White Blood Count 9.6 TH/MM3 Red Blood Count 4.58 MIL/MM3 Hemoglobin 13.3 GM/DL Hematocrit 39.3 % Mean Corpuscular Volume 85.7 FL Mean Corpuscular Hemoglobin 29.0 PG Mean Corpuscular Hemoglobin Concent 33.8 % Red Cell Distribution Width 15.6 % Platelet Count 226 TH/MM3 Mean Platelet Volume 7.2 FL Neutrophils (%) (Auto) 88.7 % Lymphocytes (%) (Auto) 5.7 % Monocytes (%) (Auto) 5.6 % Eosinophils (%) (Auto) 0.0 % Basophils (%) (Auto) 0.0 % Neutrophils # (Auto) 8.5 TH/MM3 Lymphocytes # (Auto) 0.5 TH/MM3 Monocytes # (Auto) 0.5 TH/MM3 Eosinophils # (Auto) 0.0 TH/MM3 Basophils # (Auto) 0.0 TH/MM3 CBC Comment AUTO DIFF Differential Comment AUTO DIFF CONFIRMED Blood Urea Nitrogen 18 MG/DL Creatinine 0.44 MG/DL Random Glucose 156 MG/DL Total Protein 5.3 GM/DL Albumin 2.9 GM/DL Calcium Level 7.8 MG/DL Phosphorus Level 2.4 MG/DL Magnesium Level 2.0 MG/DL Alkaline Phosphatase 54 U/L Aspartate Amino Transf (AST/SGOT) 12 U/L Alanine Aminotransferase (ALT/SGPT) 32 U/L Total Bilirubin 1.0 MG/DL Sodium Level 134 MEQ/L Potassium Level 4.3 MEQ/L Chloride Level 99 MEQ/L Carbon Dioxide Level 27.6 MEQ/L Anion Gap 7 MEQ/L Estimat Glomerular Filtration Rate 140 ML/MIN Free Thyroxine 1.23 NG/DL Thyroid Stimulating Hormone 3rd Gen 0.221 uIU/ML Administered Medications Medications (Trade) Dose Ordered Sig/Arleen Route PRN Reason Start Time Stop Time Status Last Admin Dose Admin Sodium Chloride (NS Flush) 2 ml BID IV FLUSH 09/05/17 21:00 09/15/17 09:39 Ipratropium Kenneth (Atrovent Neb) 0.5 mg Q6HR NEB NEB 09/05/17 16:00 09/15/17 09:15 Pantoprazole Sodium (Protonix) 40 mg DAILY PO 09/06/17 09:00 09/07/17 10:15 Ondansetron HCl (Zofran Inj) 4 mg Q6HR PRN IV PUSH nausea 09/05/17 19:00 09/09/17 22:00 Acetaminophen (Tylenol) 650 mg Q4H PRN PO PAIN SCALE 1-5 09/05/17 21:45 09/07/17 19:58 Enalaprilat (Vasotec Inj) 1.25 mg Q6H PRN IV PUSH SBP>160, DBP>90 09/07/17 13:15 09/11/17 12:08 Hydralazine HCl (Apresoline Inj) 10 mg Q4H PRN IV PUSH SBP>160, DBP>90 09/07/17 13:15 09/10/17 09:00 Lisinopril (Prinivil) 20 mg DAILY PO 09/08/17 09:00 09/08/17 09:00 Morphine Sulfate (Morphine Inj) 2 mg Q3H PRN IV PUSH PAIN >5 09/10/17 23:30 09/15/17 02:05 Lorazepam (Ativan Inj) 0.5 mg Q12HR PRN IV PUSH agitation 09/10/17 23:30 09/14/17 00:47 Diltiazem HCl 125 mg/Sodium Chloride 125 ml @ 5 mls/hr TITRATE PRN IV Tachycardia 09/12/17 04:30 09/14/17 10:22 Potassium Chloride 30 meq/ Sodium Chloride 1,015 ml @ 45 mls/hr [id number] IV 09/12/17 19:00 09/14/17 22:27 Dexamethasone Sodium Phosphate (Decadron Inj) 4 mg Q12HR IV PUSH 09/13/17 09:00 09/15/17 09:39 Objective Remarks GENERAL: Elderly, frail female resting in bed getting a bed bath by PERSONAL CARE AID SKIN: Warm and dry. HEAD: Normocephalic. EYES: No injection or drainage. NECK: Supple, trachea midline. CARDIOVASCULAR: Regular rate and rhythm. On cardizem gtt at 5mg/hr. RESPIRATORY: Clear anteriorly. Breathing unlabored. GASTROINTESTINAL: Abdomen soft, non-tender, nondistended. EXTREMITIES: No cyanosis, or edema. MUSCULOSKELETAL: Generalized weakness. NEUROLOGICAL: No longer moaning. Answers simple yes/no questions. Making eye contact. Assessment/Plan Problem List: (1) Lung cancer metastatic to brain ICD Codes: C34.90 - Malignant neoplasm of unspecified part of unspecified bronchus or lung; C79.31 - Secondary malignant neoplasm of brain Plan: -- started on XRT on 09/07; total of 10 treatments scheduled -- May begin chemotherapy with irinotecan after she has completed XRT if PFS improves. Hx: She has a history of right lung cancer resected in 2001. 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 She was treated with carboplatin and [employer]-16 with excellent response. MRI evaluation before the treatment shows nonspecific lesion. However, on followup July 15, MRI shows widespread metastatic disease to the VACCINE SPECIALIST without hemorrhage or mass effect. She was referred promptly to radiation oncology for treatment but unfortunately there were delays prior to treatment. In clinic on 09/05 it was noted that she was symptomatic with HR in the 200's and [facility] was called to bring her to the hospital. (2) Paroxysmal tachycardia ICD Codes: I47.9 - Paroxysmal tachycardia, unspecified Status: Acute Plan: -- on cardizem gtt at 5mg/hr -- Rate now controlled Assessment 71 y/o female with metastatic small cell lung cancer admitted with tachycardia Plan 1. Attempting to find placement for pt; CM waiting to speak with . 2. #7/10 radiation treatments to be done today. 3. No major improvement in PFS; prognosis remains poor. 4. Continue supportive care for pt and family. Attending Statement The exam, history, and the medical decision-making described in the above note were completed with the assistance of the mid-level provider. I reviewed and agree with the findings presented. I attest that I had a [id number] encounter with the patient on the same day, and personally performed and documented my assessment and findings in the medical record. Pt woke this AM, awake alert, not wanting to eat. Discussed at length with , resisting idea of hospice. Discussed that although she may improve short term, she is very likely to progress and of her lung cancer. He express experiences in his life that show he understand the poor prognosis from other friends and family members. For now he is contemplating rehab or SNF. Continue to work towards placement and XRT as planned. Theresa Mendosa Sep 15, 2017 10:15 Shawanda Kong MD Sep 15, 2017 14:14
[2017-09-15] MEDS: DRONABINOL 2.5 MG CAP PO SCH ×2 (11:00→16:00)
[2017-09-15] MEDS: LORazepam 2 MG/ML VIAL IV PUSH PRN (11:30)
[2017-09-15 11:35] LABS: HEMOGLOBIN A1a 1.2 %; HEMOGLOBIN A1b 0.9 %; HEMOGLOBIN Ao 83.1 %; HEMOGLOBIN F 1.4 %; HEMOGLOBIN LA1C 2.3 %; HEMOGLOBIN P3 4.1 %
--- NOTE | 2017-09-15 13:26 | HHI.PR ---
Subjective Remarks Undergoing radiation has been seen by oncology Somewhat confused Not very talkative Not so cooperative A.m. labs Physical therapy and occupational therapy wants aggressive therapy 11-15 patient is refusing to take her medications today Discussed with patient and RN and Still somewhat confused We'll get speech therapy to eval regarding swallow needs physical therapy and occupational therapy 11-16 PATIENT REFUSING TO EAT AND TAKE ORAL MEDICATIONS STILL GETTING BRAIN RADIATION STILL CONFUSED CONTINUE PT AND OT Objective Vitals Vital Signs Date Time Temp Pulse Resp B/P (MAP) Pulse Ox O2 Delivery O2 Flow Rate FiO2 09/15/17 09:32 Nasal Cannula 3.00 09/15/17 09:15 99 Nasal Cannula 3.00 09/15/17 05:10 62 09/15/17 04:30 97.8 67 18 131/74 (93) 97 09/15/17 04:15 65 09/15/17 04:12 76 09/15/17 03:20 128 09/15/17 03:06 97 Nasal Cannula 3.00 09/15/17 02:49 158 09/15/17 02:10 16 09/15/17 00:23 98.3 70 18 122/69 (86) 99 09/15/17 00:04 100 09/14/17 20:45 97.5 102 16 137/81 (99) 96 09/14/17 20:45 Nasal Cannula 3.00 09/14/17 20:21 96 Nasal Cannula 3.00 09/14/17 20:08 120 09/14/17 18:00 97.8 82 18 144/79 (100) 95 09/14/17 14:15 98.6 74 20 144/72 (96) 95 09/14/17 14:09 Nasal Cannula 2.50 I/O 09/14/17 09/14/17 09/14/17 09/15/17 09/15/17 09/15/17 07:00 15:00 23:00 07:00 15:00 23:00 Intake Total 150 ml 770 ml Balance 150 ml 770 ml Intake Oral 150 ml 770 ml # Voids 2 6 3 Result Diagram: 09/15/17 0434 09/15/174 Other Results Laboratory Tests Test 09/13/17 07:30 09/14/17 05:35 09/15/17 04:34 Blood Urea Nitrogen 15 MG/DL 17 MG/DL 18 MG/DL Creatinine 0.38 MG/DL 0.33 MG/DL 0.44 MG/DL Random Glucose 162 MG/DL 143 MG/DL 156 MG/DL Calcium Level 7.8 MG/DL 7.8 MG/DL 7.8 MG/DL Sodium Level 137 MEQ/L 135 MEQ/L 134 MEQ/L Potassium Level 3.6 MEQ/L 3.8 MEQ/L 4.3 MEQ/L Chloride Level 102 MEQ/L 100 MEQ/L 99 MEQ/L Carbon Dioxide Level 28.2 MEQ/L 26.2 MEQ/L 27.6 MEQ/L Anion Gap 7 MEQ/L 9 MEQ/L 7 MEQ/L Estimat Glomerular Filtration Rate 166 ML/MIN 195 ML/MIN 140 ML/MIN White Blood Count 7.8 TH/MM3 9.6 TH/MM3 Red Blood Count 4.52 MIL/MM3 4.58 MIL/MM3 Hemoglobin 13.2 GM/DL 13.3 GM/DL Hematocrit 39.0 % 39.3 % Mean Corpuscular Volume 86.2 FL 85.7 FL Mean Corpuscular Hemoglobin 29.2 PG 29.0 PG Mean Corpuscular Hemoglobin Concent 33.8 % 33.8 % Red Cell Distribution Width 15.3 % 15.6 % Platelet Count 206 TH/MM3 226 TH/MM3 Mean Platelet Volume 7.3 FL 7.2 FL Neutrophils (%) (Auto) 87.4 % 88.7 % Lymphocytes (%) (Auto) 6.1 % 5.7 % Monocytes (%) (Auto) 6.5 % 5.6 % Eosinophils (%) (Auto) 0.0 % 0.0 % Basophils (%) (Auto) 0.0 % 0.0 % Neutrophils # (Auto) 6.8 TH/MM3 8.5 TH/MM3 Lymphocytes # (Auto) 0.5 TH/MM3 0.5 TH/MM3 Monocytes # (Auto) 0.5 TH/MM3 0.5 TH/MM3 Eosinophils # (Auto) 0.0 TH/MM3 0.0 TH/MM3 Basophils # (Auto) 0.0 TH/MM3 0.0 TH/MM3 CBC Comment DIFF FINAL AUTO DIFF Differential Comment AUTO DIFF CONFIRMED Total Protein 5.0 GM/DL 5.3 GM/DL Albumin 2.8 GM/DL 2.9 GM/DL Phosphorus Level 2.9 MG/DL 2.4 MG/DL Magnesium Level 2.1 MG/DL 2.0 MG/DL Alkaline Phosphatase 52 U/L 54 U/L Aspartate Amino Transf (AST/SGOT) 18 U/L 12 U/L Alanine Aminotransferase (ALT/SGPT) 33 U/L 32 U/L Total Bilirubin 0.9 MG/DL 1.0 MG/DL Hemoglobin A1c 6.6 % Free Thyroxine 1.23 NG/DL Thyroid Stimulating Hormone 3rd Gen 0.221 uIU/ML Imaging Last Impressions Head CT 09/07/17 0000 Signed Impressions: Service Date/Time: Thursday, September 07, 2017 15:22 - CONCLUSION: 1. 1.5 cm hypodense left thalamic lesion which may reflect a prior lacunar infarct. However, there is potentially subtle mass effect and therefore a mass lesion cannot be entirely excluded. Additional characterization may be performed with MRI exam as indicated. 2. Mild ventricular megaly out of proportion to degree of atrophy. Clinical correlation for normal pressure hydrocephalus is recommended. 3. Moderate periventricular white matter hypodensities which may reflect ischemic white matter demyelination versus transependymal fluid migration. Jorge Escobar MD Chest X-Ray 09/05/17 1043 Signed Impressions: Service Date/Time: Tuesday, September 05, 2017 10:54 - CONCLUSION: 1. Linear parenchymal opacities at the lung bases consistent with atelectasis. 2. Probable small right pleural effusion. Jorge Escobar MD Lower Extremity Ultrasound 09/05/17 0000 Signed Impressions: Service Date/Time: Tuesday, September 05, 2017 15:13 - CONCLUSION: No DVT in either leg. Alec Almeida MD Objective Remarks GENERAL: Awake and alert not very talkative not so cooperative some confusion SKIN: Warm and dry. HEAD: Atraumatic. Normocephalic. EYES: Pupils equal and round. No scleral icterus. No injection or drainage. Extraocular muscles intact ENT: No nasal bleeding or discharge. Mucous membranes pink and moist. Tongue is midline NECK: Trachea midline. No JVD. Neck is supple CARDIOVASCULAR: Regular rate and rhythm. S1-S2 no S3 or S4 RESPIRATORY: No accessory muscle use. Clear to auscultation. Breath sounds equal bilaterally. GASTROINTESTINAL: Abdomen soft, non-tender, nondistended. Hepatic and splenic margins not palpable. MUSCULOSKELETAL: Extremities without clubbing, cyanosis, or edema. No obvious deformities. NEUROLOGICAL: Awake and alert. No obvious cranial nerve deficits. Motor grossly within normal limits. Five out of 5 muscle strength in the arms and legs. ABNormal speech. PSYCHIATRIC: INAppropriate mood and affect; insight and judgment ABnormal. Medications and IVs Current Medications Sodium Chloride (NS Flush) 2 ml UNSCH PRN IVF FLUSH AFTER USING IV ACCESS; Start 09/05/17 at 10:45; Stop 09/07/17 at 13:44; Status DC Adenosine (Adenocard Inj) 6 mg ONCE ONCE IV PUSH ; Start 09/05/17 at 10:45; Stop 09/05/17 at 10:46; Status Cancel Adenosine (Adenocard Inj) 6 mg STK-MED ONCE .ROUTE ; Start 09/05/17 at 10:45; Stop 09/05/17 at 10:46; Status DC Diltiazem HCl 125 mg/Sodium Chloride 125 ml @ 5 mls/hr TITRATE PRN IV tachycardia Last administered on 09/06/17 00:17; Start 09/05/17 at 11:00; Stop 09/06/17 at 12:00; Status DC Diltiazem HCl (Cardizem Inj) 16 mg BOLUS ONCE IV PUSH Last administered on 11:03; Start 09/05/17 at 11:00; Stop 09/06/17 at 09:57; Status DC IV Flush (NS Flush) 2 ml UNSCH PRN IV FLUSH FLUSH AFTER USING IV ACCESS; Start 09/05/17 at 11:00; Stop 09/06/17 at 12:00; Status DC Sodium Chloride 500 ml @ 500 mls/hr BOLUS ONCE IV Last administered on 12:26; Start 09/05/17 at 12:15; Stop 09/05/17 at 13:14; Status DC Sodium Chloride (NS Flush) 2 ml UNSCH PRN IV FLUSH FLUSH AFTER USING IV ACCESS ; Start 09/05/17 at 13:15 Sodium Chloride (NS Flush) 2 ml BID IV FLUSH Last administered on 09/15/17 09 :39; Start 09/05/17 at 21:00 Naloxone HCl (Narcan Inj) 0.4 mg UNSCH PRN IV PUSH SEE LABEL COMMENTS; Start 09/05/17 at 13:15 Ipratropium [place] (Atrovent Neb) 0.5 mg Q2HR NEB PRN NEB wheezing; Start 09/05/17 at 13:15 Ipratropium [place] (Atrovent Neb) 0.5 mg Q6HR NEB NEB Last administered on 09:15; Start 09/05/17 at 16:00 Ondansetron HCl (Zofran Inj) 4 mg Q6HR PRN IV PUSH NAUSEA Last administered on 09/07/17 06:18; Start 09/05/17 at 18:30; Stop 09/07/17 at 11:16; Status DC Lorazepam (Ativan) 0.5 mg Q12H PRN PO ANXIETY Last administered on 09/08/17 09 :18; Start 09/05/17 at 18:30; Stop 09/10/17 at 23:30; Status DC Lorazepam (Ativan Inj) 0.5 mg ONCE ONCE IV PUSH Last administered on 19:33; Start 09/05/17 at 19:00; Stop 09/05/17 at 19:13; Status DC Dexamethasone Sodium Phosphate (Decadron Inj) 4 mg Q6HR IV PUSH Last administered on 09/12/17 23:45; Start 09/05/17 at 19:00; Stop 09/13/17 at 07: 55; Status DC Pantoprazole Sodium (Protonix Inj) 40 mg ONCE ONCE IV PUSH Last administered on 09/05/17 19:34; Start 09/05/17 at 19:00; Stop 09/05/17 at 19:12; Status DC Pantoprazole Sodium (Protonix) 40 mg DAILY PO Last administered on 09/07/17 10 :15; Start 09/06/17 at 09:00 Ondansetron HCl (Zofran Inj) 4 mg Q6HR PRN IV PUSH nausea Last administered on 09/09/17 22:00; Start 09/05/17 at 19:00 Clonidine (Catapres) 0.1 mg Q8HR PRN PO SBP> OR = 180, DBP> OR = 100 Last administered on 09/06/17 14:33; Start 09/05/17 at 19:00; Stop 09/06/17 at 18:59 ; Status DC Sodium Chloride 1,000 ml @ 45 mls/hr [id number] IV Last administered on 21:18; Start 09/05/17 at 19:00; Stop 09/12/17 at 11:27; Status DC Acetaminophen (Tylenol) 650 mg Q4H PRN PO PAIN SCALE 1-5 Last administered on 09/07/17 19:58; Start 09/05/17 at 21:45 Potassium Chloride (KCl) 40 meq ONCE STAT PO Last administered on 09/06/17 14 :33; Start 09/06/17 at 10:51; Stop 09/06/17 at 10:52; Status DC Potassium Chloride (KCl) 20 meq ONCE ONCE PO Last administered on 09/06/17 16 :00; Start 09/06/17 at 16:00; Stop 09/06/17 at 16:01; Status DC Diltiazem HCl (Cardizem Cd) 240 mg DAILY PO Last administered on 09/07/17 10: 15; Start 09/06/17 at 11:00; Stop 09/07/17 at 14:18; Status DC Magnesium Sulfate/ Dextrose 100 ml @ 100 mls/hr ONCE PRN IV MAGNESIUM LESS THAN 2; Start 09/06/17 at 11:00; Stop 09/07/17 at 10:59; Status DC Potassium Chloride 30 meq/ Sodium Chloride 115 ml @ 33 mls/hr ONCE ONCE IV Last administered on 09/07/17 12:10; Start 09/07/17 at 12:00; Stop 09/07/17 at 15:29; Status DC Enalaprilat (Vasotec Inj) 1.25 mg Q6H PRN IV PUSH SBP>160, DBP>90 Last administered on 09/11/17 12:08; Start 09/07/17 at 13:15 Hydralazine HCl (Apresoline Inj) 10 mg Q4H PRN IV PUSH SBP>160, DBP>90 Last administered on 09/10/17 09:00; Start 09/07/17 at 13:15 Diltiazem HCl (Cardizem) 60 mg QID PO Last administered on 09/08/17 18:00; Start 09/07/17 at 18:00; Stop 09/12/17 at 11:28; Status DC Diltiazem HCl 125 mg/Sodium Chloride 125 ml @ 5 mls/hr TITRATE PRN IV Tachycardia; Start 09/07/17 at 14:30; Stop 09/10/17 at 10:44; Status DC Potassium Chloride 100 ml @ 50 mls/hr Q2H IV Last administered on 09/08/17 11 :28; Start 09/08/17 at 08:30; Stop 09/08/17 at 12:29; Status DC Potassium Chloride (KCl Powder) 40 meq ONCE ONCE PO ; Start 09/08/17 at 08:30; Stop 09/08/17 at 08:40; Status DC Lisinopril (Prinivil) 20 mg DAILY PO Last administered on 09/08/17 09:00; Start 09/08/17 at 09:00 Morphine Sulfate (Morphine Inj) 2 mg ONCE ONCE IM ; Start 09/08/17 at 18:15; Stop 09/08/17 at 18:33; Status DC Bisacodyl (Dulcolax Supp) 10 mg ONCE ONCE RECTAL Last administered on 15:38; Start 09/09/17 at 10:00; Stop 09/09/17 at 10:01; Status DC Sodium Chloride 500 ml @ 500 mls/hr BOLUS ONCE IV Last administered on 13:00; Start 09/09/17 at 13:00; Stop 09/09/17 at 13:59; Status DC Promethazine HCl (Phenergan Supp) 12.5 mg ONCE ONCE RECTAL Last administered on 09/10/17 02:35; Start 09/10/17 at 02:15; Stop 09/10/17 at 02:16; Status DC Scopolamine (Transderm-Scop 1.5 Mg Patch.72 Hr) 1 patch ONCE ONCE T-DERMAL Last administered on 09/10/17 02:35; Start 09/10/17 at 03:00; Stop 09/10/17 at 03:01; Status DC Diltiazem HCl 125 mg/Sodium Chloride 125 ml @ 5 mls/hr CONTINUOUS PRN IV Tachycardia; Start 09/10/17 at 10:45; Stop 09/11/17 at 08:10; Status DC Diltiazem HCl (Cardizem) 30 mg QID PO Last administered on 09/10/17 20:17; Start 09/10/17 at 17:46; Stop 09/12/17 at 11:22; Status DC Morphine Sulfate (Morphine Inj) 2 mg Q3H PRN IV PUSH PAIN >5 Last administered on 09/15/17 02:05; Start 09/10/17 at 23:30 Lorazepam (Ativan Inj) 0.5 mg Q12HR PRN IV PUSH agitation Last administered on 09/15/17 11:30; Start 09/10/17 at 23:30 Potassium Bicarb/ Potassium Chloride (K-Lyte Cl Eff) 50 meq ONCE ONCE PO ; Start 09/11/17 at 18:30; Stop 09/11/17 at 18:31; Status DC Potassium Chloride 100 ml @ 50 mls/hr Q2H IV Last administered on 09/11/17 22:41; Start 09/11/17 at 20:00; Stop 09/11/17 at 23:59; Status DC Diltiazem HCl (Cardizem Inj) 15 mg ONCE ONCE IV PUSH Last administered on 04:40; Start 09/12/17 at 04:30; Stop 09/12/17 at 04:33; Status DC Diltiazem HCl 125 mg/Sodium Chloride 125 ml @ 5 mls/hr TITRATE PRN IV Tachycardia Last administered on 09/14/17 10:22; Start 09/12/17 at 04:30 Atenolol (Tenormin) 25 mg ONCE ONCE PO ; Start 09/12/17 at 12:00; Stop at 12:01; Status DC Atenolol (Tenormin) 25 mg DAILY PO ; Start 09/13/17 at 09:00 Dronabinol (Marinol) 2.5 mg BID@11,16 PO ; Start 09/12/17 at 16:00 Potassium Chloride 30 meq/ Sodium Chloride 1,015 ml @ 45 mls/hr [id number] IV Last administered on 09/14/17 22:27; Start 09/12/17 at 19:00 Potassium Chloride 100 ml @ 100 mls/hr Q1H IV Last administered on 09/12/17 18:49; Start 09/12/17 at 13:00; Stop 09/12/17 at 15:59; Status DC Dexamethasone Sodium Phosphate (Decadron Inj) 4 mg Q12HR IV PUSH Last administered on 11/16/17at 09:39; Start 09/13/17 at 09:00 A/P Problem List: (1) Paroxysmal tachycardia ICD Code: I47.9 - Paroxysmal tachycardia, unspecified Status: Acute (2) Elevated troponin ICD Code: R74.8 - Abnormal levels of other serum enzymes Status: Acute (3) Lung cancer metastatic to brain ICD Code: C34.90 - Malignant neoplasm of unspecified part of unspecified bronchus or lung; C79.31 - Secondary malignant neoplasm of brain Assessment and Plan //lung ca with brain metastasis - s/p chemo, last january 2017. Oncology following, status post therapy yesterday, will continue with radiotherapy. CT scan of the brain should 1.5 cm left thalamic lesion with possible mass effect. Palliative care on board, patient is DO NOT RESUSCITATE, aggressive treatment per . Continue Decadron, decrease to 25 mg twice a day. = 09/10. Long discussion with in room. He wishes aggressive treatment. =Continue with radiation therapy as per oncology. TO CONTINUE RADIATION UNTIL COMPLETE //PSVT vs atrial fibrillation ON CARDIZEM DRIP NOW SINCE REFUSING MEDICATIONS //Leukocytosis with left shift: Resolved. - Etiology unclear. Patient denies any symptoms suggestive of acute infection. She is to be on Decadron as well. Resolved. //Elevated troponin: -Asymptomatic. Due to demand ischemia from tachycardia. //Hypertension - continue Cardizem and lisinopril, variable blood pressures. cont monitor ON DRIPS BECAUSE REFUSING TO TAKE PO MEDICATIONS //Poor appetite: Continue ENLIVE 3 times a day. //COPD with no exacerbation; continue neb treatment. //hypokalemia. Potassium 3.0. Replaced. Magnesium within normal limits. Recheck again tomorrow. //DVT prophylaxis with SCD's- no chemical prophylaxis due to brain mets. Patient is refusing her medications today have discussed with patient and RN and A.m. labs Physical therapy and occupational therapy as well as speech therapy for swallow eval Guarded prognosis CONTINUE RADIATION UNTIL COMPLETE OR PATIENT SIGNS UP FOR HOSPICE Discharge Planning Once cleared by all for discharge Librado Olivera DO Sep 15, 2017 13:26
[2017-09-15] MEDS: DILTIAZEM INJ 125 MG in SODIUM CHLORIDE 0.9% INJ 100 ML IV PRN (13:39)
--- NOTE | 2017-09-15 15:57 | HHI.HCPN ---
Reason for visit a. To assist with evaluation and management of symptoms including: shortness of breath and nausea b. To assist medical decision maker(s) with: better understanding of current medical conditions; weighing benefits/burdens of medical treatment options; making medical treatment decisions. . Subjective/Interval History Patient examined today, recently returned from radiation treatment, no family or visitors present. Patient is resting comfortably in bed, awake and alert, oriented to person and to place, intermittent confusion, some nonsensical speech. Follows simple one step commands. Patient denies nausea/vomiting/ abdominal pain. She denies any other pain or dyspnea. Patient states that she has been eating and she is hungry, however per EMR she has been refusing to eat and take her medications, there is no documented percentage of meals consumed for the past few days. Freelance Programmer/App Developer following, documented poor oral intake and recommends considering enteral nutrition and supplemental nutrition with meals. Advance Directives Living Will: Never completed Health Care Surrogate: Never completed Durable Power of Construction Management Instructor: Never completed Objective Vital Signs Date Time Temp Pulse Resp B/P (MAP) Pulse Ox O2 Delivery O2 Flow Rate FiO2 09/15/17 15:14 96 Nasal Cannula 3.00 09/15/17 13:39 141 143/67 09/15/17 09:35 97.8 76 20 140/62 (88) 76 09/15/17 09:32 Nasal Cannula 3.00 09/15/17 09:15 99 Nasal Cannula 3.00 09/15/17 05:10 62 09/15/17 04:30 97.8 67 18 131/74 (93) 97 09/15/17 04:15 65 09/15/17 04:12 76 09/15/17 03:20 128 09/15/17 03:06 97 Nasal Cannula 3.00 09/15/17 02:49 158 09/15/17 02:10 16 09/15/17 00:23 98.3 70 18 122/69 (86) 99 09/15/17 00:04 100 09/14/17 20:45 97.5 102 16 137/81 (99) 96 09/14/17 20:45 Nasal Cannula 3.00 09/14/17 20:21 96 Nasal Cannula 3.00 09/14/17 20:08 120 09/14/17 18:00 97.8 82 18 144/79 (100) 95 Intake & Output 09/15/17 09/15/17 07:00 19:00 Intake Total 150 ml Balance 150 ml Intake Oral 150 ml # Voids 5 Physical Exam CONSTITUTIONAL/GENERAL: This is a frail elderly female patient, in no apparent distress. TUBES/LINES/DRAINS: Left subclavian port accessed. SKIN: No jaundice, rashes, or lesions. No wounds seen anteriorly. Skin temperature appropriate. Not diaphoretic. CARDIOVASCULAR: Irregular. no murmur. No peripheral edema. Peripheral pulses symmetric. RESPIRATORY/CHEST: Symmetric, unlabored respirations. On NC 2L Clear to auscultation. Breath sounds equal bilaterally. GASTROINTESTINAL: Abdomen soft, non-tender, nondistended. No guarding. Bowel sounds present. GENITOURINARY: Without palpable bladder distension. NEUROLOGICAL: Awake, alert,oriented x 1-2. Intermittent confusion. Follows simple one step commands. Moves all 4 extremities with significant weakness. PSYCHIATRIC: No evident anxiety . Diagnostic Tests Laboratory Laboratory Tests Test 09/13/17 07:30 09/14/17 05:35 09/15/17 04:34 Blood Urea Nitrogen 15 MG/DL (7-18) 17 MG/DL (7-18) 18 MG/DL (7-18) Creatinine 0.38 MG/DL (0.50-1.00) 0.33 MG/DL (0.50-1.00) 0.44 MG/DL (0.50-1.00) Random Glucose 162 MG/DL (74-106) 143 MG/DL (74-106) 156 MG/DL (74-106) Calcium Level 7.8 MG/DL (8.5-10.1) 7.8 MG/DL (8.5-10.1) 7.8 MG/DL (8.5-10.1) Sodium Level 137 MEQ/L (136-145) 135 MEQ/L (136-145) 134 MEQ/L (136-145) Potassium Level 3.6 MEQ/L (3.5-5.1) 3.8 MEQ/L (3.5-5.1) 4.3 MEQ/L (3.5-5.1) Chloride Level 102 MEQ/L (98-107) 100 MEQ/L (98-107) 99 MEQ/L (98-107) Carbon Dioxide Level 28.2 MEQ/L (21.0-32.0) 26.2 MEQ/L (21.0-32.0) 27.6 MEQ/L (21.0-32.0) Anion Gap 7 MEQ/L (5-15) 9 MEQ/L (5-15) 7 MEQ/L (5-15) Estimat Glomerular Filtration Rate 166 ML/MIN (>89) 195 ML/MIN (>89) 140 ML/MIN (>89) White Blood Count 7.8 TH/MM3 (4.0-11.0) 9.6 TH/MM3 (4.0-11.0) Red Blood Count 4.52 MIL/MM3 (4.00-5.30) 4.58 MIL/MM3 (4.00-5.30) Hemoglobin 13.2 GM/DL (11.6-15.3) 13.3 GM/DL (11.6-15.3) Hematocrit 39.0 % (35.0-46.0) 39.3 % (35.0-46.0) Mean Corpuscular Volume 86.2 FL (80.0-100.0) 85.7 FL (80.0-100.0) Mean Corpuscular Hemoglobin 29.2 PG (27.0-34.0) 29.0 PG (27.0-34.0) Mean Corpuscular Hemoglobin Concent 33.8 % (32.0-36.0) 33.8 % (32.0-36.0) Red Cell Distribution Width 15.3 % (11.6-17.2) 15.6 % (11.6-17.2) Platelet Count 206 TH/MM3 (150-450) 226 TH/MM3 (150-450) Mean Platelet Volume 7.3 FL (7.0-11.0) 7.2 FL (7.0-11.0) Neutrophils (%) (Auto) 87.4 % (16.0-70.0) 88.7 % (16.0-70.0) Lymphocytes (%) (Auto) 6.1 % (9.0-44.0) 5.7 % (9.0-44.0) Monocytes (%) (Auto) 6.5 % (0.0-8.0) 5.6 % (0.0-8.0) Eosinophils (%) (Auto) 0.0 % (0.0-4.0) 0.0 % (0.0-4.0) Basophils (%) (Auto) 0.0 % (0.0-2.0) 0.0 % (0.0-2.0) Neutrophils # (Auto) 6.8 TH/MM3 (1.8-7.7) 8.5 TH/MM3 (1.8-7.7) Lymphocytes # (Auto) 0.5 TH/MM3 (1.0-4.8) 0.5 TH/MM3 (1.0-4.8) Monocytes # (Auto) 0.5 TH/MM3 (0-0.9) 0.5 TH/MM3 (0-0.9) Eosinophils # (Auto) 0.0 TH/MM3 (0-0.4) 0.0 TH/MM3 (0-0.4) Basophils # (Auto) 0.0 TH/MM3 (0-0.2) 0.0 TH/MM3 (0-0.2) CBC Comment DIFF FINAL AUTO DIFF Differential Comment AUTO DIFF CONFIRMED Total Protein 5.0 GM/DL (6.4-8.2) 5.3 GM/DL (6.4-8.2) Albumin 2.8 GM/DL (3.4-5.0) 2.9 GM/DL (3.4-5.0) Phosphorus Level 2.9 MG/DL (2.5-4.9) 2.4 MG/DL (2.5-4.9) Magnesium Level 2.1 MG/DL (1.5-2.5) 2.0 MG/DL (1.5-2.5) Alkaline Phosphatase 52 U/L (45-117) 54 U/L (45-117) Aspartate Amino Transf (AST/SGOT) 18 U/L (15-37) 12 U/L (15-37) Alanine Aminotransferase (ALT/SGPT) 33 U/L (10-53) 32 U/L (10-53) Total Bilirubin 0.9 MG/DL (0.2-1.0) 1.0 MG/DL (0.2-1.0) Hemoglobin A1c 6.6 % (4.3-6.0) Free Thyroxine 1.23 NG/DL (0.76-1.46) Thyroid Stimulating Hormone 3rd Gen 0.221 uIU/ML (0.358-3.740) Result Diagram: 09/15/174 09/15/17433 Assessment and Plan Disease Oriented Problem List: (1) Lung cancer metastatic to brain (2) Paroxysmal tachycardia Symptom Scale: (1) Shortness of breath (2) Debility (3) Anorexia Pertinent Non-Medical Issues Psychosocial:Patient is originally from [facility]. She has been for 47 years and has one adult daughter. 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 The patient and her relocated to [place] some time back in the 1970s and also moved back and forth from [place] during this time period. Spiritual: Gnosticist. Legal: None known. Ethical issues impacting care: None known. . Important Contacts Jori Izaguirre () [phone] Tiffanie Lainez (daughter) [phone] . 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 Due to her advanced age and multiple comorbidities patient is at a high risk for complications and setbacks. Given her recent diagnosis of brain mets, unfortunately her overall prognosis is poor. . Code Status: No Code Plan * Legal decision maker: Patient lethargic at times, minimally engages in conversation, has intermittent confusion and has limited insight into her current prognosis. She has a history of cancer with a recent diagnosis of brain mets. Patient does not have any previous written advanced directives, per [place] statutes in the absence of written advanced directives health care decision making would fall to her next of kin which is her . * Goals: Patient has intermittent confusion and has limited insight into her current prognosis. Due to patient's limited insight health care decision making would fall to her , he has verbalized AGGRESSIVE goals of care (short or resuscitation) . He wishes to cont XRT, take it a day at a time , hopeful pt might improve enough for chemotherapy. * CODE STATUS: DNR. * SYMPTOMS: --Shortness of breath: Multifactorial, secondary to history of lung cancer, COPD, irregular heart rhythm, etc. Patient on 2L NC, Atrovent 0.5mg ordered q 6 hours scheduled and q 2 hours PRN. No recommendations at this time. --Nausea: Patient has had ongoing issues with nausea and vomiting prior to her hospital admission. Ondansetron 4mg q 6 hours PRN ordered. Patient denies nausea or GI complaints today. No recommendations at this time. -- Poor appetite /malnutrition/anorexia - ST has evaluated, pt tolerating PO liquids/pudding, however refusing most things offered. Eating 10-20% of meals, albumin 2.8 on 09/12/17. Marinol added by medical attending on 09/12/17. Freelance Programmer/App Developer recommends considering initiating enteral nutrition. -- debility- multifactorial-->2/2 metastatic cancer/chronic illness, poor oral intake. PT working w, pt very weak, able to ambulate few steps w assist, and walker. Recommends cont PT/rehab. * Palliative care will continue to follow during hospital course as condition evolves, to assist patient/decision-maker with understanding of medical conditions, weighing benefits/burdens of treatment options, for clarification of goals of treatment. Additionally will assist with any symptoms of palliative concern Attestation To help prompt me to consider important information that might be impacting today's encounter and assessment, information from prior notes written by myself or my colleagues may have been "brought forward" into today's note. My signature on this note, however, is an attestation that I personally performed the exam, history, and/or decision-making noted today, and, unless otherwise indicated, the interactions with patient, family, and staff as well as the review of records all occurred today. I also attest that the listed assessment and stated plan reflect my best clinical judgment today based on the combination of historical information, prior notes, and today's exam/ interactions. When time spent is documented, it refers only to time spent today by the signer, or if indicated, combined time spent today by collaborating physician/nurse practitioner. Angle Liu Sep 15, 2017 15:57
[2017-09-15] MEDS ORDERED: LORazepam 2 MG/ML VIAL IV PUSH ONE (21:45)
[2017-09-15] MEDS: ONDANSETRON HCL 4 MG/2 ML VIAL IV PUSH PRN (21:58)
[2017-09-15] MEDS: POTASSIUM CHLORIDE INJ 30 MEQ in SODIUM CHLOR 0.9% 1000 ML INJ 1,000 ML IV SCH (23:06)
[2017-09-16] VITALS (12 sets, daily range): BP systolic 128–161; BP diastolic 56–84; PULSE 82–130; RESP 20–24; TEMP 97.3–98.5; O2SAT 92–98
[2017-09-16] MEDS: RESP: IPRATROPIUM 0.5 MG/2.5 ML NEB NEB SCH ×4 (03:07→21:25)
[2017-09-16 07:12] LABS: ANION GAP 6 MEQ/L (5-15); AST (GOT) 15 U/L (15-37); BICARBONATE 29.3 MEQ/L (21.0-32.0); BLOOD UREA NITROGEN 12 MG/DL (7-18); CHLORIDE 97 MEQ/L (98-107); GLOMERULAR FILTRATION RATE 171 ML/MIN (>89); POTASSIUM 3.8 MEQ/L (3.5-5.1); SODIUM (NA) 132 MEQ/L (136-145)
[2017-09-16 07:13] LABS: AUTOMATED NEUTROPHIL # 9.8 TH/MM3 (1.8-7.7); BASOPHIL % 0.1 % (0.0-2.0); HEMATOCRIT 38.1 % (35.0-46.0); HEMO FLAGS DIFF FINAL; LYMPH % 3.9 % (9.0-44.0); LYMPHOCYTE # 0.4 TH/MM3 (1.0-4.8); MEAN CELL VOLUME 85.9 FL (80.0-100.0); MEAN CORPUSCULAR HEMOGLOBIN 29.9 PG (27.0-34.0); MEAN CORPUSCULAR HGB CONC 34.8 % (32.0-36.0); MONO % 5.3 % (0.0-8.0); NEUT % 90.7 % (16.0-70.0); PLATELET COUNT 220 TH/MM3 (150-450); RED BLOOD COUNT 4.44 MIL/MM3 (4.00-5.30); RED CELL DISTRIBUTION WIDTH 15.8 % (11.6-17.2); WHITE BLOOD COUNT 10.8 TH/MM3 (4.0-11.0)
[2017-09-16 07:14] LABS: ALT (GPT) 31 U/L (10-53)
[2017-09-16 07:16] LABS: ALKALINE PHOSPHATASE 55 U/L (45-117)
--- NOTE | 2017-09-16 08:39 | HHI.PR ---
Subjective Remarks Undergoing radiation has been seen by oncology Somewhat confused Not very talkative Not so cooperative A.m. labs Physical therapy and occupational therapy wants aggressive therapy 11-15 patient is refusing to take her medications today Discussed with patient and RN and Still somewhat confused We'll get speech therapy to eval regarding swallow needs physical therapy and occupational therapy 11-16 PATIENT REFUSING TO EAT AND TAKE ORAL MEDICATIONS STILL GETTING BRAIN RADIATION STILL CONFUSED CONTINUE PT AND OT - DW RN AND PT AND NEEDS TO CONTINUE RADIATION VERY POOR ORAL INTAKE STILL STILL CONFUSED NOT WANTING TO TAKE HER MEDICATIONS ALL THE TIME DW HEMATOLOGY Objective Vitals Vital Signs Date Time Temp Pulse Resp B/P (MAP) Pulse Ox O2 Delivery O2 Flow Rate FiO2 09/16/17 06:25 130 09/16/17 04:00 98.1 88 24 147/65 (92) 95 09/16/17 03:09 98 Nasal Cannula 2.50 09/16/17 00:00 97.9 85 24 148/80 (102) 96 09/15/17 22:35 150 09/15/17 20:00 Nasal Cannula 3.00 09/15/17 20:00 97.6 149 24 140/72 (94) 94 09/15/17 15:14 96 Nasal Cannula 3.00 09/15/17 13:39 141 143/67 09/15/17 09:35 97.8 76 20 140/62 (88) 76 09/15/17 09:32 Nasal Cannula 3.00 09/15/17 09:15 99 Nasal Cannula 3.00 I/O 09/15/17 09/15/17 09/15/17 09/16/17 09/16/17 09/16/17 07:00 15:00 23:00 07:00 15:00 23:00 Intake Total 480 ml 964 ml Balance 480 ml 964 ml Intake Oral 480 ml IV Total 964 ml # Voids 3 3 6 Result Diagram: 09/16/17 0600 09/16/17 0600 Other Results Laboratory Tests Test 09/14/17 05:35 09/15/17 04:34 09/16/17 06:00 White Blood Count 7.8 TH/MM3 9.6 TH/MM3 10.8 TH/MM3 Red Blood Count 4.52 MIL/MM3 4.58 MIL/MM3 4.44 MIL/MM3 Hemoglobin 13.2 GM/DL 13.3 GM/DL 13.3 GM/DL Hematocrit 39.0 % 39.3 % 38.1 % Mean Corpuscular Volume 86.2 FL 85.7 FL 85.9 FL Mean Corpuscular Hemoglobin 29.2 PG 29.0 PG 29.9 PG Mean Corpuscular Hemoglobin Concent 33.8 % 33.8 % 34.8 % Red Cell Distribution Width 15.3 % 15.6 % 15.8 % Platelet Count 206 TH/MM3 226 TH/MM3 220 TH/MM3 Mean Platelet Volume 7.3 FL 7.2 FL 7.4 FL Neutrophils (%) (Auto) 87.4 % 88.7 % 90.7 % Lymphocytes (%) (Auto) 6.1 % 5.7 % 3.9 % Monocytes (%) (Auto) 6.5 % 5.6 % 5.3 % Eosinophils (%) (Auto) 0.0 % 0.0 % 0.0 % Basophils (%) (Auto) 0.0 % 0.0 % 0.1 % Neutrophils # (Auto) 6.8 TH/MM3 8.5 TH/MM3 9.8 TH/MM3 Lymphocytes # (Auto) 0.5 TH/MM3 0.5 TH/MM3 0.4 TH/MM3 Monocytes # (Auto) 0.5 TH/MM3 0.5 TH/MM3 0.6 TH/MM3 Eosinophils # (Auto) 0.0 TH/MM3 0.0 TH/MM3 0.0 TH/MM3 Basophils # (Auto) 0.0 TH/MM3 0.0 TH/MM3 0.0 TH/MM3 CBC Comment DIFF FINAL AUTO DIFF DIFF FINAL Differential Comment AUTO DIFF CONFIRMED Blood Urea Nitrogen 17 MG/DL 18 MG/DL 12 MG/DL Creatinine 0.33 MG/DL 0.44 MG/DL 0.37 MG/DL Random Glucose 143 MG/DL 156 MG/DL 150 MG/DL Total Protein 5.0 GM/DL 5.3 GM/DL 5.4 GM/DL Albumin 2.8 GM/DL 2.9 GM/DL 3.0 GM/DL Calcium Level 7.8 MG/DL 7.8 MG/DL 7.9 MG/DL Phosphorus Level 2.9 MG/DL 2.4 MG/DL 2.5 MG/DL Magnesium Level 2.1 MG/DL 2.0 MG/DL 2.0 MG/DL Alkaline Phosphatase 52 U/L 54 U/L 55 U/L Aspartate Amino Transf (AST/SGOT) 18 U/L 12 U/L 15 U/L Alanine Aminotransferase (ALT/SGPT) 33 U/L 32 U/L 31 U/L Total Bilirubin 0.9 MG/DL 1.0 MG/DL 1.0 MG/DL Sodium Level 135 MEQ/L 134 MEQ/L 132 MEQ/L Potassium Level 3.8 MEQ/L 4.3 MEQ/L 3.8 MEQ/L Chloride Level 100 MEQ/L 99 MEQ/L 97 MEQ/L Carbon Dioxide Level 26.2 MEQ/L 27.6 MEQ/L 29.3 MEQ/L Anion Gap 9 MEQ/L 7 MEQ/L 6 MEQ/L Estimat Glomerular Filtration Rate 195 ML/MIN 140 ML/MIN 171 ML/MIN Hemoglobin A1c 6.6 % Free Thyroxine 1.23 NG/DL Thyroid Stimulating Hormone 3rd Gen 0.221 uIU/ML Imaging Last Impressions Head CT 09/07/17 0000 Signed Impressions: Service Date/Time: Thursday, September 07, 2017 15:22 - CONCLUSION: 1. 1.5 cm hypodense left thalamic lesion which may reflect a prior lacunar infarct. However, there is potentially subtle mass effect and therefore a mass lesion cannot be entirely excluded. Additional characterization may be performed with MRI exam as indicated. 2. Mild ventricular megaly out of proportion to degree of atrophy. Clinical correlation for normal pressure hydrocephalus is recommended. 3. Moderate periventricular white matter hypodensities which may reflect ischemic white matter demyelination versus transependymal fluid migration. Jorge Escobar MD Chest X-Ray 09/05/17 1043 Signed Impressions: Service Date/Time: Tuesday, September 05, 2017 10:54 - CONCLUSION: 1. Linear parenchymal opacities at the lung bases consistent with atelectasis. 2. Probable small right pleural effusion. Jorge Escobar MD Lower Extremity Ultrasound 09/05/17 0000 Signed Impressions: Service Date/Time: Tuesday, September 05, 2017 15:13 - CONCLUSION: No DVT in either leg. Alec Almeida MD Objective Remarks GENERAL: Awake and alert MORE TALKATIVE- BUT NOT VERY COOPERATIVE SKIN: Warm and dry. HEAD: Atraumatic. Normocephalic. EYES: Pupils equal and round. No scleral icterus. No injection or drainage. Extraocular muscles intact ENT: No nasal bleeding or discharge. Mucous membranes pink and moist. Tongue is midline NECK: Trachea midline. No JVD. Neck is supple CARDIOVASCULAR: Regular rate and rhythm. S1-S2 no S3 or S4 RESPIRATORY: No accessory muscle use. Clear to auscultation. Breath sounds equal bilaterally. GASTROINTESTINAL: Abdomen soft, non-tender, nondistended. Hepatic and splenic margins not palpable. MUSCULOSKELETAL: Extremities without clubbing, cyanosis, or edema. No obvious deformities. NEUROLOGICAL: Awake and alert. No obvious cranial nerve deficits. Motor grossly within normal limits. 4 out of 5 muscle strength in the arms and legs. ABNormal speech. PSYCHIATRIC: INAppropriate mood and affect; insight and judgment ABnormal. Medications and IVs Current Medications Sodium Chloride (NS Flush) 2 ml UNSCH PRN IVF FLUSH AFTER USING IV ACCESS; Start 09/05/17 at 10:45; Stop 09/07/17 at 13:44; Status DC Adenosine (Adenocard Inj) 6 mg ONCE ONCE IV PUSH ; Start 09/05/17 at 10:45; Stop 09/05/17 at 10:46; Status Cancel Adenosine (Adenocard Inj) 6 mg STK-MED ONCE .ROUTE ; Start 09/05/17 at 10:45; Stop 09/05/17 at 10:46; Status DC Diltiazem HCl 125 mg/Sodium Chloride 125 ml @ 5 mls/hr TITRATE PRN IV tachycardia Last administered on 09/06/17 00:17; Start 09/05/17 at 11:00; Stop 09/06/17 at 12:00; Status DC Diltiazem HCl (Cardizem Inj) 16 mg BOLUS ONCE IV PUSH Last administered on 11:03; Start 09/05/17 at 11:00; Stop 09/06/17 at 09:57; Status DC IV Flush (NS Flush) 2 ml UNSCH PRN IV FLUSH FLUSH AFTER USING IV ACCESS; Start 09/05/17 at 11:00; Stop 09/06/17 at 12:00; Status DC Sodium Chloride 500 ml @ 500 mls/hr BOLUS ONCE IV Last administered on 12:26; Start 09/05/17 at 12:15; Stop 09/05/17 at 13:14; Status DC Sodium Chloride (NS Flush) 2 ml UNSCH PRN IV FLUSH FLUSH AFTER USING IV ACCESS ; Start 09/05/17 at 13:15 Sodium Chloride (NS Flush) 2 ml BID IV FLUSH Last administered on 09/15/17 21 :59; Start 09/05/17 at 21:00 Naloxone HCl (Narcan Inj) 0.4 mg UNSCH PRN IV PUSH SEE LABEL COMMENTS; Start 09/05/17 at 13:15 Ipratropium [place] (Atrovent Neb) 0.5 mg Q2HR NEB PRN NEB wheezing; Start 09/05/17 at 13:15 Ipratropium [place] (Atrovent Neb) 0.5 mg Q6HR NEB NEB Last administered on 03:07; Start 09/05/17 at 16:00 Ondansetron HCl (Zofran Inj) 4 mg Q6HR PRN IV PUSH NAUSEA Last administered on 09/07/17 06:18; Start 09/05/17 at 18:30; Stop 09/07/17 at 11:16; Status DC Lorazepam (Ativan) 0.5 mg Q12H PRN PO ANXIETY Last administered on 09/08/17 09 :18; Start 09/05/17 at 18:30; Stop 09/10/17 at 23:30; Status DC Lorazepam (Ativan Inj) 0.5 mg ONCE ONCE IV PUSH Last administered on 19:33; Start 09/05/17 at 19:00; Stop 09/05/17 at 19:13; Status DC Dexamethasone Sodium Phosphate (Decadron Inj) 4 mg Q6HR IV PUSH Last administered on 09/12/17 23:45; Start 09/05/17 at 19:00; Stop 09/13/17 at 07: 55; Status DC Pantoprazole Sodium (Protonix Inj) 40 mg ONCE ONCE IV PUSH Last administered on 09/05/17 19:34; Start 09/05/17 at 19:00; Stop 09/05/17 at 19:12; Status DC Pantoprazole Sodium (Protonix) 40 mg DAILY PO Last administered on 09/07/17 10 :15; Start 09/06/17 at 09:00 Ondansetron HCl (Zofran Inj) 4 mg Q6HR PRN IV PUSH nausea Last administered on 09/15/17 21:58; Start 09/05/17 at 19:00 Clonidine (Catapres) 0.1 mg Q8HR PRN PO SBP> OR = 180, DBP> OR = 100 Last administered on 09/06/17 14:33; Start 09/05/17 at 19:00; Stop 09/06/17 at 18:59 ; Status DC Sodium Chloride 1,000 ml @ 45 mls/hr [id number] IV Last administered on 21:18; Start 09/05/17 at 19:00; Stop 09/12/17 at 11:27; Status DC Acetaminophen (Tylenol) 650 mg Q4H PRN PO PAIN SCALE 1-5 Last administered on 09/07/17 19:58; Start 09/05/17 at 21:45 Potassium Chloride (KCl) 40 meq ONCE STAT PO Last administered on 09/06/17 14 :33; Start 09/06/17 at 10:51; Stop 09/06/17 at 10:52; Status DC Potassium Chloride (KCl) 20 meq ONCE ONCE PO Last administered on 09/06/17 16 :00; Start 09/06/17 at 16:00; Stop 09/06/17 at 16:01; Status DC Diltiazem HCl (Cardizem Cd) 240 mg DAILY PO Last administered on 09/07/17 10: 15; Start 09/06/17 at 11:00; Stop 09/07/17 at 14:18; Status DC Magnesium Sulfate/ Dextrose 100 ml @ 100 mls/hr ONCE PRN IV MAGNESIUM LESS THAN 2; Start 09/06/17 at 11:00; Stop 09/07/17 at 10:59; Status DC Potassium Chloride 30 meq/ Sodium Chloride 115 ml @ 33 mls/hr ONCE ONCE IV Last administered on 09/07/17 12:10; Start 09/07/17 at 12:00; Stop 09/07/17 at 15:29; Status DC Enalaprilat (Vasotec Inj) 1.25 mg Q6H PRN IV PUSH SBP>160, DBP>90 Last administered on 09/11/17 12:08; Start 09/07/17 at 13:15 Hydralazine HCl (Apresoline Inj) 10 mg Q4H PRN IV PUSH SBP>160, DBP>90 Last administered on 09/10/17 09:00; Start 09/07/17 at 13:15 Diltiazem HCl (Cardizem) 60 mg QID PO Last administered on 09/08/17 18:00; Start 09/07/17 at 18:00; Stop 09/12/17 at 11:28; Status DC Diltiazem HCl 125 mg/Sodium Chloride 125 ml @ 5 mls/hr TITRATE PRN IV Tachycardia; Start 09/07/17 at 14:30; Stop 09/10/17 at 10:44; Status DC Potassium Chloride 100 ml @ 50 mls/hr Q2H IV Last administered on 09/08/17 11 :28; Start 09/08/17 at 08:30; Stop 09/08/17 at 12:29; Status DC Potassium Chloride (KCl Powder) 40 meq ONCE ONCE PO ; Start 09/08/17 at 08:30; Stop 09/08/17 at 08:40; Status DC Lisinopril (Prinivil) 20 mg DAILY PO Last administered on 09/08/17 09:00; Start 09/08/17 at 09:00 Morphine Sulfate (Morphine Inj) 2 mg ONCE ONCE IM ; Start 09/08/17 at 18:15; Stop 09/08/17 at 18:33; Status DC Bisacodyl (Dulcolax Supp) 10 mg ONCE ONCE RECTAL Last administered on 15:38; Start 09/09/17 at 10:00; Stop 09/09/17 at 10:01; Status DC Sodium Chloride 500 ml @ 500 mls/hr BOLUS ONCE IV Last administered on 13:00; Start 09/09/17 at 13:00; Stop 09/09/17 at 13:59; Status DC Promethazine HCl (Phenergan Supp) 12.5 mg ONCE ONCE RECTAL Last administered on 09/10/17 02:35; Start 09/10/17 at 02:15; Stop 09/10/17 at 02:16; Status DC Scopolamine (Transderm-Scop 1.5 Mg Patch.72 Hr) 1 patch ONCE ONCE T-DERMAL Last administered on 09/10/17 02:35; Start 09/10/17 at 03:00; Stop 09/10/17 at 03:01; Status DC Diltiazem HCl 125 mg/Sodium Chloride 125 ml @ 5 mls/hr CONTINUOUS PRN IV Tachycardia; Start 09/10/17 at 10:45; Stop 09/11/17 at 08:10; Status DC Diltiazem HCl (Cardizem) 30 mg QID PO Last administered on 09/10/17 20:17; Start 09/10/17 at 17:46; Stop 09/12/17 at 11:22; Status DC Morphine Sulfate (Morphine Inj) 2 mg Q3H PRN IV PUSH PAIN >5 Last administered on 09/15/17 02:05; Start 09/10/17 at 23:30 Lorazepam (Ativan Inj) 0.5 mg Q12HR PRN IV PUSH agitation Last administered on 09/15/17 11:30; Start 09/10/17 at 23:30 Potassium Bicarb/ Potassium Chloride (K-Lyte Cl Eff) 50 meq ONCE ONCE PO ; Start 09/11/17 at 18:30; Stop 09/11/17 at 18:31; Status DC Potassium Chloride 100 ml @ 50 mls/hr Q2H IV Last administered on 09/11/17 22:41; Start 09/11/17 at 20:00; Stop 09/11/17 at 23:59; Status DC Diltiazem HCl (Cardizem Inj) 15 mg ONCE ONCE IV PUSH Last administered on 04:40; Start 09/12/17 at 04:30; Stop 09/12/17 at 04:33; Status DC Diltiazem HCl 125 mg/Sodium Chloride 125 ml @ 5 mls/hr TITRATE PRN IV Tachycardia Last administered on 09/15/17 13:39; Start 09/12/17 at 04:30 Atenolol (Tenormin) 25 mg ONCE ONCE PO ; Start 09/12/17 at 12:00; Stop at 12:01; Status DC Atenolol (Tenormin) 25 mg DAILY PO ; Start 09/13/17 at 09:00 Dronabinol (Marinol) 2.5 mg BID@11,16 PO ; Start 09/12/17 at 16:00 Potassium Chloride 30 meq/ Sodium Chloride 1,015 ml @ 45 mls/hr [id number] IV Last administered on 09/15/17 23:06; Start 09/12/17 at 19:00 Potassium Chloride 100 ml @ 100 mls/hr Q1H IV Last administered on 09/12/17 18:49; Start 09/12/17 at 13:00; Stop 09/12/17 at 15:59; Status DC Dexamethasone Sodium Phosphate (Decadron Inj) 4 mg Q12HR IV PUSH Last administered on 09/15/17 21:57; Start 09/13/17 at 09:00 Lorazepam (Ativan Inj) 0.5 mg ONCE ONCE IV PUSH Last administered on 21:58; Start 09/15/17 at 21:45; Stop 09/15/17 at 21:47; Status DC A/P Problem List: (1) Paroxysmal tachycardia ICD Code: I47.9 - Paroxysmal tachycardia, unspecified Status: Acute (2) Elevated troponin ICD Code: R74.8 - Abnormal levels of other serum enzymes Status: Acute (3) Lung cancer metastatic to brain ICD Code: C34.90 - Malignant neoplasm of unspecified part of unspecified bronchus or lung; C79.31 - Secondary malignant neoplasm of brain Assessment and Plan //lung ca with brain metastasis - s/p chemo, last january 2017. Oncology following, status post therapy yesterday, will continue with radiotherapy. CT scan of the brain should 1.5 cm left thalamic lesion with possible mass effect. Palliative care on board, patient is DO NOT RESUSCITATE, aggressive treatment per . Continue Decadron, decrease to 25 mg twice a day. = 09/10. Long discussion with in room. He wishes aggressive treatment. =Continue with radiation therapy as per oncology. TO CONTINUE RADIATION UNTIL COMPLETE //PSVT vs atrial fibrillation ON CARDIZEM DRIP NOW SINCE REFUSING MEDICATIONS //Leukocytosis with left shift: Resolved. - Etiology unclear. Patient denies any symptoms suggestive of acute infection. She is to be on Decadron as well. Resolved. //Elevated troponin: -Asymptomatic. Due to demand ischemia from tachycardia. //Hypertension - continue Cardizem and lisinopril, variable blood pressures. cont monitor ON DRIPS BECAUSE REFUSING TO TAKE PO MEDICATIONS PCM CONTINUE [employer]- //Poor appetite: Continue ENLIVE 3 times a day. //COPD with no exacerbation; continue neb treatment. //hypokalemia. Potassium 3.0. Replaced. Magnesium within normal limits. Recheck again tomorrow. //DVT prophylaxis with SCD's- no chemical prophylaxis due to brain mets. Patient is refusing her medications today have discussed with patient and RN and A.m. labs Physical therapy and occupational therapy as well as speech therapy for swallow eval Guarded prognosis CONTINUE RADIATION UNTIL COMPLETE OR PATIENT SIGNS UP FOR HOSPICE DW HEMATOLOGY AM LABS Discharge Planning Once cleared by all for discharge Librado Olivera DO Sep 16, 2017 08:39
[2017-09-16] MEDS: LISINOPRIL 20 MG TAB PO SCH (09:00)
[2017-09-16] MEDS: ATENOLOL 25 MG TAB PO SCH (09:00)
[2017-09-16] MEDS: PANTOPRAZOLE SOD 40 MG DELAYED RELEASE TAB PO SCH (09:00)
[2017-09-16] MEDS: DEXAMETHASONE SOD PHOS 4 MG/ML VIAL IV PUSH SCH ×2 (09:05→20:47)
[2017-09-16] MEDS: SODIUM CHLORIDE 0.9% FLUSH 10 ML FLUSH IV FLUSH SCH ×2 (09:05→20:48)
--- NOTE | 2017-09-16 10:20 | PD.ONC.PN ---
Subjective Subjective Remarks Afebrile overnight. Patient resting in bed, talking with who is feeding her breakfast. She is more awake and alert. discussed that she only has 3 radiation treatments left. Objective Data Date Time Temp Pulse Resp B/P (MAP) Pulse Ox O2 Delivery O2 Flow Rate FiO2 09/16/17 10:01 94 Nasal Cannula 2.50 09/16/17 06:25 130 09/16/17 04:00 98.1 88 24 147/65 (92) 95 09/16/17 03:09 98 Nasal Cannula 2.50 09/16/17 00:00 97.9 85 24 148/80 (102) 96 09/15/17 22:35 150 09/15/17 20:00 Nasal Cannula 3.00 09/15/17 20:00 97.6 149 24 140/72 (94) 94 09/15/17 15:14 96 Nasal Cannula 3.00 09/15/17 13:39 141 143/67 09/16/17 09/16/17 09/16/17 07:00 15:00 23:00 Intake Total 964 ml Balance 964 ml Result Diagram: 09/16/17 0600 09/16/17 0600 Laboratory Results Laboratory Tests Test 09/16/17 06:00 White Blood Count 10.8 TH/MM3 Red Blood Count 4.44 MIL/MM3 Hemoglobin 13.3 GM/DL Hematocrit 38.1 % Mean Corpuscular Volume 85.9 FL Mean Corpuscular Hemoglobin 29.9 PG Mean Corpuscular Hemoglobin Concent 34.8 % Red Cell Distribution Width 15.8 % Platelet Count 220 TH/MM3 Mean Platelet Volume 7.4 FL Neutrophils (%) (Auto) 90.7 % Lymphocytes (%) (Auto) 3.9 % Monocytes (%) (Auto) 5.3 % Eosinophils (%) (Auto) 0.0 % Basophils (%) (Auto) 0.1 % Neutrophils # (Auto) 9.8 TH/MM3 Lymphocytes # (Auto) 0.4 TH/MM3 Monocytes # (Auto) 0.6 TH/MM3 Eosinophils # (Auto) 0.0 TH/MM3 Basophils # (Auto) 0.0 TH/MM3 CBC Comment DIFF FINAL Differential Comment Blood Urea Nitrogen 12 MG/DL Creatinine 0.37 MG/DL Random Glucose 150 MG/DL Total Protein 5.4 GM/DL Albumin 3.0 GM/DL Calcium Level 7.9 MG/DL Phosphorus Level 2.5 MG/DL Magnesium Level 2.0 MG/DL Alkaline Phosphatase 55 U/L Aspartate Amino Transf (AST/SGOT) 15 U/L Alanine Aminotransferase (ALT/SGPT) 31 U/L Total Bilirubin 1.0 MG/DL Sodium Level 132 MEQ/L Potassium Level 3.8 MEQ/L Chloride Level 97 MEQ/L Carbon Dioxide Level 29.3 MEQ/L Anion Gap 6 MEQ/L Estimat Glomerular Filtration Rate 171 ML/MIN Administered Medications Medications (Trade) Dose Ordered Sig/Arleen Route PRN Reason Start Time Stop Time Status Last Admin Dose Admin Sodium Chloride (NS Flush) 2 ml BID IV FLUSH 09/05/17 21:00 09/16/17 09:05 Ipratropium [place] (Atrovent Neb) 0.5 mg Q6HR NEB NEB 09/05/17 16:00 09/16/17 10:00 Pantoprazole Sodium (Protonix) 40 mg DAILY PO 09/06/17 09:00 09/07/17 10:15 Ondansetron HCl (Zofran Inj) 4 mg Q6HR PRN IV PUSH nausea 09/05/17 19:00 09/15/17 21:58 Acetaminophen (Tylenol) 650 mg Q4H PRN PO PAIN SCALE 1-5 09/05/17 21:45 09/07/17 19:58 Enalaprilat (Vasotec Inj) 1.25 mg Q6H PRN IV PUSH SBP>160, DBP>90 09/07/17 13:15 09/11/17 12:08 Hydralazine HCl (Apresoline Inj) 10 mg Q4H PRN IV PUSH SBP>160, DBP>90 09/07/17 13:15 09/10/17 09:00 Lisinopril (Prinivil) 20 mg DAILY PO 09/08/17 09:00 09/08/17 09:00 Morphine Sulfate (Morphine Inj) 2 mg Q3H PRN IV PUSH PAIN >5 09/10/17 23:30 09/15/17 02:05 Lorazepam (Ativan Inj) 0.5 mg Q12HR PRN IV PUSH agitation 09/10/17 23:30 09/15/17 11:30 Diltiazem HCl 125 mg/Sodium Chloride 125 ml @ 5 mls/hr TITRATE PRN IV Tachycardia 11/13/17 04:30 09/15/17 13:39 Potassium Chloride 30 meq/ Sodium Chloride 1,015 ml @ 45 mls/hr [id number] IV 09/12/17 19:00 09/15/17 23:06 Dexamethasone Sodium Phosphate (Decadron Inj) 4 mg Q12HR IV PUSH 09/13/17 09:00 09/16/17 09:05 Objective Remarks GENERAL: Elderly female sitting up in bed SKIN: Warm and dry. HEAD: Normocephalic. EYES: No injection or drainage. NECK: Supple, trachea midline. CARDIOVASCULAR: Regular rate and rhythm RESPIRATORY: Breath sounds equal bilaterally. No accessory muscle use. GASTROINTESTINAL: Abdomen soft, non-tender, nondistended. EXTREMITIES: No cyanosis NEUROLOGICAL: awake and alert, normal speech. Assessment/Plan Problem List: (1) Lung cancer metastatic to brain ICD Codes: C34.90 - Malignant neoplasm of unspecified part of unspecified bronchus or lung; C79.31 - Secondary malignant neoplasm of brain Plan: -- started on XRT on 09/07; total of 10 treatments scheduled -- May begin chemotherapy with irinotecan after she has completed XRT if PFS improves. Hx: She has a history of right lung cancer resected in 2001. 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 She was treated with carboplatin and BIN PILER-16 with excellent response. MRI evaluation before the treatment shows nonspecific lesion. However, on followup July 15, MRI shows widespread metastatic disease to the CUTTER HELPER without hemorrhage or mass effect. She was referred promptly to radiation oncology for treatment but unfortunately there were delays prior to treatment. In clinic on 09/05 it was noted that she was symptomatic with HR in the 200's and [facility] was called to bring her to the hospital. (2) Paroxysmal tachycardia ICD Codes: I47.9 - Paroxysmal tachycardia, unspecified Status: Acute Plan: -- on cardizem gtt at 5mg/hr -- Rate now controlled Assessment 71 y/o female with metastatic small cell lung cancer admitted with tachycardia Plan 1. continue Decadron 2. continue radiation 3. await placement. Attending Statement The exam, history, and the medical decision-making described in the above note were completed with the assistance of the mid-level provider. I reviewed and agree with the findings presented. I attest that I had a [id number] encounter with the patient on the same day, and personally performed and documented my assessment and findings in the medical record. Pt seen and examined. No change. Supportive at bedside with friends. Awaiting placement. Kelly Barrera Sep 16, 2017 10:20 Shawanda Kong MD Sep 16, 2017 19:20
[2017-09-16] MEDS: DRONABINOL 2.5 MG CAP PO SCH ×2 (11:00→16:00)
[2017-09-16] MEDS: LORazepam 2 MG/ML VIAL IV PUSH PRN (14:48)
[2017-09-16] MEDS: POTASSIUM CHLORIDE INJ 30 MEQ in SODIUM CHLOR 0.9% 1000 ML INJ 1,000 ML IV SCH (22:32)
[2017-09-16] MEDS: DILTIAZEM INJ 125 MG in SODIUM CHLORIDE 0.9% INJ 100 ML IV PRN (22:32)
[2017-09-16] MEDS ORDERED: LORazepam 2 MG/ML VIAL IV PUSH ONE (23:15)
[2017-09-17] VITALS (11 sets, daily range): BP systolic 102–146; BP diastolic 55–80; PULSE 72–140; RESP 16–24; TEMP 96.6–99.3; O2SAT 93–98
[2017-09-17] MEDS: MORPHINE SULFATE 2 MG/ML INJ IV PUSH PRN ×3 (00:48→18:28)
[2017-09-17] MEDS: RESP: IPRATROPIUM 0.5 MG/2.5 ML NEB NEB SCH ×4 (03:20→22:00)
[2017-09-17 06:29] LABS: AUTOMATED NEUTROPHIL # 12.9 TH/MM3 (1.8-7.7); BASOPHIL % 0.1 % (0.0-2.0); HEMATOCRIT 38.6 % (35.0-46.0); HEMO FLAGS DIFF FINAL; LYMPH % 4.2 % (9.0-44.0); LYMPHOCYTE # 0.6 TH/MM3 (1.0-4.8); MEAN CELL VOLUME 85.2 FL (80.0-100.0); MEAN CORPUSCULAR HEMOGLOBIN 29.7 PG (27.0-34.0); MEAN CORPUSCULAR HGB CONC 34.8 % (32.0-36.0); MONO % 5.3 % (0.0-8.0); NEUT % 90.4 % (16.0-70.0); PLATELET COUNT 226 TH/MM3 (150-450); RED BLOOD COUNT 4.53 MIL/MM3 (4.00-5.30); RED CELL DISTRIBUTION WIDTH 15.6 % (11.6-17.2); WHITE BLOOD COUNT 14.3 TH/MM3 (4.0-11.0)
[2017-09-17 07:06] LABS: ANION GAP 6 MEQ/L (5-15); AST (GOT) 18 U/L (15-37); BICARBONATE 27.5 MEQ/L (21.0-32.0); BLOOD UREA NITROGEN 15 MG/DL (7-18); CHLORIDE 99 MEQ/L (98-107); GLOMERULAR FILTRATION RATE 137 ML/MIN (>89); MAGNESIUM 2.2 MG/DL (1.5-2.5); POTASSIUM 4.1 MEQ/L (3.5-5.1); SODIUM (NA) 132 MEQ/L (136-145)
[2017-09-17 07:09] LABS: ALKALINE PHOSPHATASE 56 U/L (45-117); ALT (GPT) 32 U/L (10-53); TOTAL BILIRUBIN ADULT 0.9 MG/DL (0.2-1.0)
[2017-09-17] MEDS: PANTOPRAZOLE SOD 40 MG DELAYED RELEASE TAB PO SCH (09:00)
[2017-09-17] MEDS: ATENOLOL 25 MG TAB PO SCH (09:00)
[2017-09-17] MEDS: SODIUM CHLORIDE 0.9% FLUSH 10 ML FLUSH IV FLUSH SCH ×2 (09:00→21:00)
[2017-09-17] MEDS: LISINOPRIL 20 MG TAB PO SCH (09:00)
[2017-09-17] MEDS: DEXAMETHASONE SOD PHOS 4 MG/ML VIAL IV PUSH SCH ×2 (10:57→20:59)
[2017-09-17] MEDS: DRONABINOL 2.5 MG CAP PO SCH ×2 (11:00→16:00)
--- NOTE | 2017-09-17 11:21 | HHI.PR ---
Subjective Remarks Undergoing radiation has been seen by oncology Somewhat confused Not very talkative Not so cooperative A.m. labs Physical therapy and occupational therapy wants aggressive therapy 11-15 patient is refusing to take her medications today Discussed with patient and RN and Still somewhat confused We'll get speech therapy to eval regarding swallow needs physical therapy and occupational therapy -16 PATIENT REFUSING TO EAT AND TAKE ORAL MEDICATIONS STILL GETTING BRAIN RADIATION STILL CONFUSED CONTINUE PT AND OT 09-16 DW RN AND PT AND NEEDS TO CONTINUE RADIATION VERY POOR ORAL INTAKE STILL STILL CONFUSED NOT WANTING TO TAKE HER MEDICATIONS ALL THE TIME DW HEMATOLOGY 09-17 to complete radiation before discharge STILL VERY CONFUSED CONTINUE RADIATION POOR ORAL INTAKE REFUSING TO TAKE ANY MEDICATIONS REMAINS ON CARDIZEM DRIP BECAUSE OF THIS DW RN AND PT AND AND ONCOLOGY Objective Vitals Vital Signs Date Time Temp Pulse Resp B/P (MAP) Pulse Ox O2 Delivery O2 Flow Rate FiO2 09/17/17 09:10 99.3 99 22 127/70 (89) 97 09/17/17 03:56 98.5 88 18 146/75 (98) 93 09/16/17 23:21 97.5 97 20 146/75 (98) 93 09/16/17 22:32 94 161/68 09/16/17 20:58 Nasal Cannula 1.50 Humidified 09/16/17 20:46 97.9 82 20 161/68 (99) 93 09/16/17 20:00 94 09/16/17 17:10 92 Nasal Cannula 2.00 09/16/17 16:26 98.5 105 24 136/75 (95) 95 09/16/17 13:17 98.0 107 24 146/84 (104) 95 I/O 09/16/17 09/16/17 09/16/17 09/17/17 09/17/17 09/17/17 07:00 15:00 23:00 07:00 15:00 23:00 Intake Total 964 ml 1432.5 ml Balance 964 ml 1432.5 ml Intake Oral 900 ml IV Total 964 ml 532.5 ml # Voids 6 4 2 Result Diagram: 09/17/17 0609 09/17/17 0609 Other Results Laboratory Tests Test 09/15/17 04:34 09/16/17 06:00 09/17/17 06:09 White Blood Count 9.6 TH/MM3 10.8 TH/MM3 14.3 TH/MM3 Red Blood Count 4.58 MIL/MM3 4.44 MIL/MM3 4.53 MIL/MM3 Hemoglobin 13.3 GM/DL 13.3 GM/DL 13.4 GM/DL Hematocrit 39.3 % 38.1 % 38.6 % Mean Corpuscular Volume 85.7 FL 85.9 FL 85.2 FL Mean Corpuscular Hemoglobin 29.0 PG 29.9 PG 29.7 PG Mean Corpuscular Hemoglobin Concent 33.8 % 34.8 % 34.8 % Red Cell Distribution Width 15.6 % 15.8 % 15.6 % Platelet Count 226 TH/MM3 220 TH/MM3 226 TH/MM3 Mean Platelet Volume 7.2 FL 7.4 FL 7.3 FL Neutrophils (%) (Auto) 88.7 % 90.7 % 90.4 % Lymphocytes (%) (Auto) 5.7 % 3.9 % 4.2 % Monocytes (%) (Auto) 5.6 % 5.3 % 5.3 % Eosinophils (%) (Auto) 0.0 % 0.0 % 0.0 % Basophils (%) (Auto) 0.0 % 0.1 % 0.1 % Neutrophils # (Auto) 8.5 TH/MM3 9.8 TH/MM3 12.9 TH/MM3 Lymphocytes # (Auto) 0.5 TH/MM3 0.4 TH/MM3 0.6 TH/MM3 Monocytes # (Auto) 0.5 TH/MM3 0.6 TH/MM3 0.8 TH/MM3 Eosinophils # (Auto) 0.0 TH/MM3 0.0 TH/MM3 0.0 TH/MM3 Basophils # (Auto) 0.0 TH/MM3 0.0 TH/MM3 0.0 TH/MM3 CBC Comment AUTO DIFF DIFF FINAL DIFF FINAL Differential Comment AUTO DIFF CONFIRMED Blood Urea Nitrogen 18 MG/DL 12 MG/DL 15 MG/DL Creatinine 0.44 MG/DL 0.37 MG/DL 0.45 MG/DL Random Glucose 156 MG/DL 150 MG/DL 142 MG/DL Total Protein 5.3 GM/DL 5.4 GM/DL 5.4 GM/DL Albumin 2.9 GM/DL 3.0 GM/DL 2.9 GM/DL Calcium Level 7.8 MG/DL 7.9 MG/DL 8.1 MG/DL Phosphorus Level 2.4 MG/DL 2.5 MG/DL 3.0 MG/DL Magnesium Level 2.0 MG/DL 2.0 MG/DL 2.2 MG/DL Alkaline Phosphatase 54 U/L 55 U/L 56 U/L Aspartate Amino Transf (AST/SGOT) 12 U/L 15 U/L 18 U/L Alanine Aminotransferase (ALT/SGPT) 32 U/L 31 U/L 32 U/L Total Bilirubin 1.0 MG/DL 1.0 MG/DL 0.9 MG/DL Sodium Level 134 MEQ/L 132 MEQ/L 132 MEQ/L Potassium Level 4.3 MEQ/L 3.8 MEQ/L 4.1 MEQ/L Chloride Level 99 MEQ/L 97 MEQ/L 99 MEQ/L Carbon Dioxide Level 27.6 MEQ/L 29.3 MEQ/L 27.5 MEQ/L Anion Gap 7 MEQ/L 6 MEQ/L 6 MEQ/L Estimat Glomerular Filtration Rate 140 ML/MIN 171 ML/MIN 137 ML/MIN Hemoglobin A1c 6.6 % Free Thyroxine 1.23 NG/DL Thyroid Stimulating Hormone 3rd Gen 0.221 uIU/ML Imaging Last Impressions Head CT 09/07/17 0000 Signed Impressions: Service Date/Time: Thursday, September 07, 2017 15:22 - CONCLUSION: 1. 1.5 cm hypodense left thalamic lesion which may reflect a prior lacunar infarct. However, there is potentially subtle mass effect and therefore a mass lesion cannot be entirely excluded. Additional characterization may be performed with MRI exam as indicated. 2. Mild ventricular megaly out of proportion to degree of atrophy. Clinical correlation for normal pressure hydrocephalus is recommended. 3. Moderate periventricular white matter hypodensities which may reflect ischemic white matter demyelination versus transependymal fluid migration. Jorge Escobar MD Chest X-Ray 09/05/17 1043 Signed Impressions: Service Date/Time: Tuesday, September 05, 2017 10:54 - CONCLUSION: 1. Linear parenchymal opacities at the lung bases consistent with atelectasis. 2. Probable small right pleural effusion. Jorge Escobar MD Lower Extremity Ultrasound 09/05/17 0000 Signed Impressions: Service Date/Time: Tuesday, September 05, 2017 15:13 - CONCLUSION: No DVT in either leg. lAec Almeida MD Objective Remarks GENERAL: Awake and alert MORE TALKATIVE- BUT NOT VERY COOPERATIVE SKIN: Warm and dry. HEAD: Atraumatic. Normocephalic. EYES: Pupils equal and round. No scleral icterus. No injection or drainage. Extraocular muscles intact ENT: No nasal bleeding or discharge. Mucous membranes pink and moist. Tongue is midline NECK: Trachea midline. No JVD. Neck is supple CARDIOVASCULAR: Regular rate and rhythm. S1-S2 no S3 or S4 RESPIRATORY: No accessory muscle use. Clear to auscultation. Breath sounds equal bilaterally. GASTROINTESTINAL: Abdomen soft, non-tender, nondistended. Hepatic and splenic margins not palpable. MUSCULOSKELETAL: Extremities without clubbing, cyanosis, or edema. No obvious deformities. NEUROLOGICAL: Awake and alert. No obvious cranial nerve deficits. Motor grossly within normal limits. 4 out of 5 muscle strength in the arms and legs. ABNormal speech. PSYCHIATRIC: INAppropriate mood and affect; insight and judgment ABnormal. Medications and IVs Current Medications Sodium Chloride (NS Flush) 2 ml UNSCH PRN IVF FLUSH AFTER USING IV ACCESS; Start 09/05/17 at 10:45; Stop 09/07/17 at 13:44; Status DC Adenosine (Adenocard Inj) 6 mg ONCE ONCE IV PUSH ; Start 09/05/17 at 10:45; Stop 09/05/17 at 10:46; Status Cancel Adenosine (Adenocard Inj) 6 mg STK-MED ONCE .ROUTE ; Start 09/05/17 at 10:45; Stop 09/05/17 at 10:46; Status DC Diltiazem HCl 125 mg/Sodium Chloride 125 ml @ 5 mls/hr TITRATE PRN IV tachycardia Last administered on 09/06/17 00:17; Start 09/05/17 at 11:00; Stop 09/06/17 at 12:00; Status DC Diltiazem HCl (Cardizem Inj) 16 mg BOLUS ONCE IV PUSH Last administered on 11:03; Start 09/05/17 at 11:00; Stop 09/06/17 at 09:57; Status DC IV Flush (NS Flush) 2 ml UNSCH PRN IV FLUSH FLUSH AFTER USING IV ACCESS; Start 09/05/17 at 11:00; Stop 09/06/17 at 12:00; Status DC Sodium Chloride 500 ml @ 500 mls/hr BOLUS ONCE IV Last administered on 12:26; Start 09/05/17 at 12:15; Stop 09/05/17 at 13:14; Status DC Sodium Chloride (NS Flush) 2 ml UNSCH PRN IV FLUSH FLUSH AFTER USING IV ACCESS ; Start 09/05/17 at 13:15 Sodium Chloride (NS Flush) 2 ml BID IV FLUSH Last administered on 09/16/17 20 :48; Start 09/05/17 at 21:00 Naloxone HCl (Narcan Inj) 0.4 mg UNSCH PRN IV PUSH SEE LABEL COMMENTS; Start 09/05/17 at 13:15 Ipratropium [place] (Atrovent Neb) 0.5 mg Q2HR NEB PRN NEB wheezing Last administered on 09/16/17 17:10; Start 09/05/17 at 13:15 Ipratropium [place] (Atrovent Neb) 0.5 mg Q6HR NEB NEB Last administered on 03:20; Start 09/05/17 at 16:00 Ondansetron HCl (Zofran Inj) 4 mg Q6HR PRN IV PUSH NAUSEA Last administered on 09/07/17 06:18; Start 09/05/17 at 18:30; Stop 09/07/17 at 11:16; Status DC Lorazepam (Ativan) 0.5 mg Q12H PRN PO ANXIETY Last administered on 09/08/17 09 :18; Start 09/05/17 at 18:30; Stop 09/10/17 at 23:30; Status DC Lorazepam (Ativan Inj) 0.5 mg ONCE ONCE IV PUSH Last administered on 19:33; Start 09/05/17 at 19:00; Stop 09/05/17 at 19:13; Status DC Dexamethasone Sodium Phosphate (Decadron Inj) 4 mg Q6HR IV PUSH Last administered on 09/12/17 23:45; Start 09/05/17 at 19:00; Stop 09/13/17 at 07: 55; Status DC Pantoprazole Sodium (Protonix Inj) 40 mg ONCE ONCE IV PUSH Last administered on 09/05/17 19:34; Start 09/05/17 at 19:00; Stop 09/05/17 at 19:12; Status DC Pantoprazole Sodium (Protonix) 40 mg DAILY PO Last administered on 09/07/17 10 :15; Start 09/06/17 at 09:00 Ondansetron HCl (Zofran Inj) 4 mg Q6HR PRN IV PUSH nausea Last administered on 09/15/17 21:58; Start 09/05/17 at 19:00 Clonidine (Catapres) 0.1 mg Q8HR PRN PO SBP> OR = 180, DBP> OR = 100 Last administered on 09/06/17 14:33; Start 09/05/17 at 19:00; Stop 09/06/17 at 18:59 ; Status DC Sodium Chloride 1,000 ml @ 45 mls/hr [id number] IV Last administered on 21:18; Start 09/05/17 at 19:00; Stop 09/12/17 at 11:27; Status DC Acetaminophen (Tylenol) 650 mg Q4H PRN PO PAIN SCALE 1-5 Last administered on 09/07/17 19:58; Start 09/05/17 at 21:45 Potassium Chloride (KCl) 40 meq ONCE STAT PO Last administered on 09/06/17 14 :33; Start 09/06/17 at 10:51; Stop 09/06/17 at 10:52; Status DC Potassium Chloride (KCl) 20 meq ONCE ONCE PO Last administered on 09/06/17 16 :00; Start 09/06/17 at 16:00; Stop 09/06/17 at 16:01; Status DC Diltiazem HCl (Cardizem Cd) 240 mg DAILY PO Last administered on 09/07/17 10: 15; Start 09/06/17 at 11:00; Stop 09/07/17 at 14:18; Status DC Magnesium Sulfate/ Dextrose 100 ml @ 100 mls/hr ONCE PRN IV MAGNESIUM LESS THAN 2; Start 09/06/17 at 11:00; Stop 09/07/17 at 10:59; Status DC Potassium Chloride 30 meq/ Sodium Chloride 115 ml @ 33 mls/hr ONCE ONCE IV Last administered on 09/07/17 12:10; Start 09/07/17 at 12:00; Stop 09/07/17 at 15:29; Status DC Enalaprilat (Vasotec Inj) 1.25 mg Q6H PRN IV PUSH SBP>160, DBP>90 Last administered on 09/11/17 12:08; Start 09/07/17 at 13:15 Hydralazine HCl (Apresoline Inj) 10 mg Q4H PRN IV PUSH SBP>160, DBP>90 Last administered on 09/10/17 09:00; Start 09/07/17 at 13:15 Diltiazem HCl (Cardizem) 60 mg QID PO Last administered on 09/08/17 18:00; Start 09/07/17 at 18:00; Stop 09/12/17 at 11:28; Status DC Diltiazem HCl 125 mg/Sodium Chloride 125 ml @ 5 mls/hr TITRATE PRN IV Tachycardia; Start 09/07/17 at 14:30; Stop 09/10/17 at 10:44; Status DC Potassium Chloride 100 ml @ 50 mls/hr Q2H IV Last administered on 09/08/17 11 :28; Start 09/08/17 at 08:30; Stop 09/08/17 at 12:29; Status DC Potassium Chloride (KCl Powder) 40 meq ONCE ONCE PO ; Start 09/08/17 at 08:30; Stop 09/08/17 at 08:40; Status DC Lisinopril (Prinivil) 20 mg DAILY PO Last administered on 09/08/17 09:00; Start 09/08/17 at 09:00 Morphine Sulfate (Morphine Inj) 2 mg ONCE ONCE IM ; Start 09/08/17 at 18:15; Stop 09/08/17 at 18:33; Status DC Bisacodyl (Dulcolax Supp) 10 mg ONCE ONCE RECTAL Last administered on 15:38; Start 09/09/17 at 10:00; Stop 09/09/17 at 10:01; Status DC Sodium Chloride 500 ml @ 500 mls/hr BOLUS ONCE IV Last administered on 13:00; Start 09/09/17 at 13:00; Stop 09/09/17 at 13:59; Status DC Promethazine HCl (Phenergan Supp) 12.5 mg ONCE ONCE RECTAL Last administered on 09/10/17 02:35; Start 09/10/17 at 02:15; Stop 09/10/17 at 02:16; Status DC Scopolamine (Transderm-Scop 1.5 Mg Patch.72 Hr) 1 patch ONCE ONCE T-DERMAL Last administered on 09/10/17 02:35; Start 09/10/17 at 03:00; Stop 09/10/17 at 03:01; Status DC Diltiazem HCl 125 mg/Sodium Chloride 125 ml @ 5 mls/hr CONTINUOUS PRN IV Tachycardia; Start 09/10/17 at 10:45; Stop 09/11/17 at 08:10; Status DC Diltiazem HCl (Cardizem) 30 mg QID PO Last administered on 09/10/17 20:17; Start 09/10/17 at 17:46; Stop 09/12/17 at 11:22; Status DC Morphine Sulfate (Morphine Inj) 2 mg Q3H PRN IV PUSH PAIN >5 Last administered on 09/15/17 02:05; Start 09/10/17 at 23:30; Stop 09/16/17 at 23:08; Status DC Lorazepam (Ativan Inj) 0.5 mg Q12HR PRN IV PUSH agitation Last administered on 09/16/17 14:48; Start 09/10/17 at 23:30 Potassium Bicarb/ Potassium Chloride (K-Lyte Cl Eff) 50 meq ONCE ONCE PO ; Start 09/11/17 at 18:30; Stop 09/11/17 at 18:31; Status DC Potassium Chloride 100 ml @ 50 mls/hr Q2H IV Last administered on 09/11/17 22:41; Start 09/11/17 at 20:00; Stop 09/11/17 at 23:59; Status DC Diltiazem HCl (Cardizem Inj) 15 mg ONCE ONCE IV PUSH Last administered on 04:40; Start 09/12/17 at 04:30; Stop 09/12/17 at 04:33; Status DC Diltiazem HCl 125 mg/Sodium Chloride 125 ml @ 5 mls/hr TITRATE PRN IV Tachycardia Last administered on 09/16/17 22:32; Start 09/12/17 at 04:30 Atenolol (Tenormin) 25 mg ONCE ONCE PO ; Start 09/12/17 at 12:00; Stop at 12:01; Status DC Atenolol (Tenormin) 25 mg DAILY PO ; Start 09/13/17 at 09:00 Dronabinol (Marinol) 2.5 mg BID@11,16 PO ; Start 09/12/17 at 16:00 Potassium Chloride 30 meq/ Sodium Chloride 1,015 ml @ 45 mls/hr [id number] IV Last administered on 09/16/17 22:32; Start 09/12/17 at 19:00 Potassium Chloride 100 ml @ 100 mls/hr Q1H IV Last administered on 09/12/17 18:49; Start 09/12/17 at 13:00; Stop 09/12/17 at 15:59; Status DC Dexamethasone Sodium Phosphate (Decadron Inj) 4 mg Q12HR IV PUSH Last administered on 09/17/17 10:57; Start 09/13/17 at 09:00 Lorazepam (Ativan Inj) 0.5 mg ONCE ONCE IV PUSH Last administered on 21:58; Start 09/15/17 at 21:45; Stop 09/15/17 at 21:47; Status DC Morphine Sulfate (Morphine Inj) 1 mg Q3H PRN IV PUSH PAIN >5 Last administered on 09/17/17 00:48; Start 09/16/17 at 23:30 Lorazepam (Ativan Inj) 0.5 mg ONCE ONCE IV PUSH Last administered on 23:17; Start 09/16/17 at 23:15; Stop 09/16/17 at 23:16; Status DC A/P Problem List: (1) Paroxysmal tachycardia ICD Code: I47.9 - Paroxysmal tachycardia, unspecified Status: Acute (2) Elevated troponin ICD Code: R74.8 - Abnormal levels of other serum enzymes Status: Acute (3) Lung cancer metastatic to brain ICD Code: C34.90 - Malignant neoplasm of unspecified part of unspecified bronchus or lung; C79.31 - Secondary malignant neoplasm of brain Assessment and Plan //lung ca with brain metastasis - s/p chemo, last january 2017. Oncology following, status post therapy yesterday, will continue with radiotherapy. CT scan of the brain should 1.5 cm left thalamic lesion with possible mass effect. Palliative care on board, patient is DO NOT RESUSCITATE, aggressive treatment per . Continue Decadron, decrease to 25 mg twice a day. = 09/10. Long discussion with in room. He wishes aggressive treatment. =Continue with radiation therapy as per oncology. TO CONTINUE RADIATION UNTIL COMPLETE //PSVT vs atrial fibrillation ON CARDIZEM DRIP NOW SINCE REFUSING MEDICATIONS //Leukocytosis with left shift: Resolved. - Etiology unclear. Patient denies any symptoms suggestive of acute infection. She is to be on Decadron as well. Resolved. //Elevated troponin: -Asymptomatic. Due to demand ischemia from tachycardia. //Hypertension - continue Cardizem and lisinopril, variable blood pressures. cont monitor ON DRIPS BECAUSE REFUSING TO TAKE PO MEDICATIONS PCM CONTINUE [employer]ITE [employer]IMULANTS- //Poor appetite: Continue ENLIVE 3 times a day. //COPD with no exacerbation; continue neb treatment. //hypokalemia. Potassium 3.0. Replaced. Magnesium within normal limits. Recheck again tomorrow. //DVT prophylaxis with SCD's- no chemical prophylaxis due to brain mets. Patient is refusing her medications today have discussed with patient and RN and A.m. labs Physical therapy and occupational therapy as well as speech therapy for swallow eval Guarded prognosis CONTINUE RADIATION UNTIL COMPLETE OR PATIENT SIGNS UP FOR HOSPICE DW HEMATOLOGY AM LABS REFUSING PO MEDS- STILL ON CARDIZEM DRIP VERY POOR ORAL INTAKE MAY NEED HOSPICE AT DC- NOT READY AT THIS TIME Discharge Planning Once cleared by all for discharge Librado Olivera DO Sep 17, 2017 11:21
--- NOTE | 2017-09-17 11:48 | PD.ONC.PN ---
Subjective Subjective Remarks Afebrile overnight. Patient resting in bed in nad. No overnight events reported. Objective Data Date Time Temp Pulse Resp B/P (MAP) Pulse Ox O2 Delivery O2 Flow Rate FiO2 09/17/17 09:10 99.3 99 22 127/70 (89) 97 09/17/17 03:56 98.5 88 18 146/75 (98) 93 09/16/17 23:21 97.5 97 20 146/75 (98) 93 09/16/17 22:32 94 161/68 09/16/17 20:58 Nasal Cannula 1.50 Humidified 09/16/17 20:46 97.9 82 20 161/68 (99) 93 09/16/17 20:00 94 09/16/17 17:10 92 Nasal Cannula 2.00 09/16/17 16:26 98.5 105 24 136/75 (95) 95 09/16/17 13:17 98.0 107 24 146/84 (104) 95 Result Diagram: 09/17/17 0609 09/17/17 0609 Laboratory Results Laboratory Tests Test 09/17/17 06:09 White Blood Count 14.3 TH/MM3 Red Blood Count 4.53 MIL/MM3 Hemoglobin 13.4 GM/DL Hematocrit 38.6 % Mean Corpuscular Volume 85.2 FL Mean Corpuscular Hemoglobin 29.7 PG Mean Corpuscular Hemoglobin Concent 34.8 % Red Cell Distribution Width 15.6 % Platelet Count 226 TH/MM3 Mean Platelet Volume 7.3 FL Neutrophils (%) (Auto) 90.4 % Lymphocytes (%) (Auto) 4.2 % Monocytes (%) (Auto) 5.3 % Eosinophils (%) (Auto) 0.0 % Basophils (%) (Auto) 0.1 % Neutrophils # (Auto) 12.9 TH/MM3 Lymphocytes # (Auto) 0.6 TH/MM3 Monocytes # (Auto) 0.8 TH/MM3 Eosinophils # (Auto) 0.0 TH/MM3 Basophils # (Auto) 0.0 TH/MM3 CBC Comment DIFF FINAL Differential Comment Blood Urea Nitrogen 15 MG/DL Creatinine 0.45 MG/DL Random Glucose 142 MG/DL Total Protein 5.4 GM/DL Albumin 2.9 GM/DL Calcium Level 8.1 MG/DL Phosphorus Level 3.0 MG/DL Magnesium Level 2.2 MG/DL Alkaline Phosphatase 56 U/L Aspartate Amino Transf (AST/SGOT) 18 U/L Alanine Aminotransferase (ALT/SGPT) 32 U/L Total Bilirubin 0.9 MG/DL Sodium Level 132 MEQ/L Potassium Level 4.1 MEQ/L Chloride Level 99 MEQ/L Carbon Dioxide Level 27.5 MEQ/L Anion Gap 6 MEQ/L Estimat Glomerular Filtration Rate 137 ML/MIN Administered Medications Medications (Trade) Dose Ordered Sig/Arleen Route PRN Reason Start Time Stop Time Status Last Admin Dose Admin Sodium Chloride (NS Flush) 2 ml BID IV FLUSH 09/05/17 21:00 09/16/17 20:48 Ipratropium [place] (Atrovent Neb) 0.5 mg Q2HR NEB PRN NEB wheezing 09/05/17 13:15 09/16/17 17:10 Ipratropium [place] (Atrovent Neb) 0.5 mg Q6HR NEB NEB 09/05/17 16:00 09/17/17 03:20 Pantoprazole Sodium (Protonix) 40 mg DAILY PO 09/06/17 09:00 09/07/17 10:15 Ondansetron HCl (Zofran Inj) 4 mg Q6HR PRN IV PUSH nausea 09/05/17 19:00 09/15/17 21:58 Acetaminophen (Tylenol) 650 mg Q4H PRN PO PAIN SCALE 1-5 09/05/17 21:45 09/07/17 19:58 Enalaprilat (Vasotec Inj) 1.25 mg Q6H PRN IV PUSH SBP>160, DBP>90 09/07/17 13:15 09/11/17 12:08 Hydralazine HCl (Apresoline Inj) 10 mg Q4H PRN IV PUSH SBP>160, DBP>90 09/07/17 13:15 09/10/17 09:00 Lisinopril (Prinivil) 20 mg DAILY PO 09/08/17 09:00 09/08/17 09:00 Lorazepam (Ativan Inj) 0.5 mg Q12HR PRN IV PUSH agitation 09/10/17 23:30 09/16/17 14:48 Diltiazem HCl 125 mg/Sodium Chloride 125 ml @ 5 mls/hr TITRATE PRN IV Tachycardia 09/12/17 04:30 09/16/17 22:32 Potassium Chloride 30 meq/ Sodium Chloride 1,015 ml @ 45 mls/hr [id number] IV 09/12/17 19:00 09/16/17 22:32 Dexamethasone Sodium Phosphate (Decadron Inj) 4 mg Q12HR IV PUSH 09/13/17 09:00 09/17/17 10:57 Morphine Sulfate (Morphine Inj) 1 mg Q3H PRN IV PUSH PAIN >5 09/16/17 23:30 09/17/17 00:48 Objective Remarks GENERAL: Chronically ill female supine in bed resting. SKIN: Warm and dry. HEAD: Normocephalic. EYES: No injection or drainage. NECK: Supple, trachea midline. CARDIOVASCULAR: Regular rate and rhythm RESPIRATORY: anterior stark with occasional rhonchi. GASTROINTESTINAL: Abdomen soft, non-tender, nondistended. EXTREMITIES: No cyanosis Assessment/Plan Problem List: (1) Lung cancer metastatic to brain ICD Codes: C34.90 - Malignant neoplasm of unspecified part of unspecified bronchus or lung; C79.31 - Secondary malignant neoplasm of brain Plan: -- started on XRT on 09/07; total of 10 treatments scheduled -- May begin chemotherapy with irinotecan after she has completed XRT if PFS improves. Hx: She has a history of right lung cancer resected in 2001. 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 She was treated with carboplatin and PHLEBOTOMY COORDINATOR-16 with excellent response. MRI evaluation before the treatment shows nonspecific lesion. 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 She was referred promptly to radiation oncology for treatment but unfortunately there were delays prior to treatment. In clinic on 09/05 it was noted that she was symptomatic with HR in the 200's and [facility] was called to bring her to the hospital. (2) Paroxysmal tachycardia ICD Codes: I47.9 - Paroxysmal tachycardia, unspecified Status: Acute Plan: -- on cardizem gtt at 5mg/hr -- Rate now controlled Assessment 71 y/o female with metastatic small cell lung cancer admitted with tachycardia Plan 1. continue Decadron 2. finish radiation on Tuesday 3. recommend discharge to SNF. Attending Statement The exam, history, and the medical decision-making described in the above note were completed with the assistance of the mid-level provider. I reviewed and agree with the findings presented. I attest that I had a [id number] encounter with the patient on the same day, and personally performed and documented my assessment and findings in the medical record. Continue with confusion, mixed with her bias. State she does not like this hospital and wants to go home. Cannot comprehend need to be able to take PO cardiac meds. Pt states she does not need them. She will walk out of the hospital herself- unrealistic goals. Recommend caser up work with . Kelly Barrera Sep 17, 2017 11:47 Shawanda Kong MD Sep 17, 2017 19:48
[2017-09-17] MEDS: LORazepam 2 MG/ML VIAL IV PUSH PRN (14:02)
[2017-09-17] MEDS: POTASSIUM CHLORIDE INJ 30 MEQ in SODIUM CHLOR 0.9% 1000 ML INJ 1,000 ML IV SCH (21:41)
[2017-09-18] VITALS (13 sets, daily range): BP systolic 114–146; BP diastolic 62–88; PULSE 81–106; RESP 18–24; TEMP 97.6–98.3; O2SAT 94–97
[2017-09-18] MEDS: RESP: IPRATROPIUM 0.5 MG/2.5 ML NEB NEB SCH ×3 (04:25→21:41)
[2017-09-18 05:54] LABS: AUTOMATED NEUTROPHIL # 15.4 TH/MM3 (1.8-7.7); BASOPHIL % 0.1 % (0.0-2.0); HEMATOCRIT 40.8 % (35.0-46.0); LYMPH % 2.3 % (9.0-44.0); LYMPHOCYTE # 0.4 TH/MM3 (1.0-4.8); MEAN CELL VOLUME 86.1 FL (80.0-100.0); MEAN CORPUSCULAR HEMOGLOBIN 28.8 PG (27.0-34.0); MEAN CORPUSCULAR HGB CONC 33.4 % (32.0-36.0); NEUT % 93.6 % (16.0-70.0); PLATELET COUNT 233 TH/MM3 (150-450); RED BLOOD COUNT 4.73 MIL/MM3 (4.00-5.30); RED CELL DISTRIBUTION WIDTH 15.8 % (11.6-17.2); WHITE BLOOD COUNT 16.4 TH/MM3 (4.0-11.0)
[2017-09-18 06:07] LABS: ALT (GPT) 31 U/L (10-53); ANION GAP 8 MEQ/L (5-15); AST (GOT) 14 U/L (15-37); BICARBONATE 25.4 MEQ/L (21.0-32.0); BLOOD UREA NITROGEN 19 MG/DL (7-18); CHLORIDE 100 MEQ/L (98-107); GLOMERULAR FILTRATION RATE 111 ML/MIN (>89); MAGNESIUM 2.2 MG/DL (1.5-2.5); POTASSIUM 4.4 MEQ/L (3.5-5.1); SODIUM (NA) 133 MEQ/L (136-145)
[2017-09-18 06:09] LABS: ALKALINE PHOSPHATASE 54 U/L (45-117); TOTAL BILIRUBIN ADULT 0.7 MG/DL (0.2-1.0)
[2017-09-18 06:14] LABS: HEMO FLAGS AUTO DIFF
[2017-09-18] MEDS: LORazepam 2 MG/ML VIAL IV PUSH PRN ×3 (07:55→23:54)
[2017-09-18] MEDS: DEXAMETHASONE SOD PHOS 4 MG/ML VIAL IV PUSH SCH ×2 (07:55→20:59)
[2017-09-18] MEDS: SODIUM CHLORIDE 0.9% FLUSH 10 ML FLUSH IV FLUSH SCH ×2 (07:56→20:58)
[2017-09-18] MEDS: LISINOPRIL 20 MG TAB PO SCH (08:12)
[2017-09-18] MEDS: PANTOPRAZOLE SOD 40 MG DELAYED RELEASE TAB PO SCH (08:12)
[2017-09-18] MEDS: ATENOLOL 25 MG TAB PO SCH (08:13)
[2017-09-18 09:11] LABS: SCAN/DIFF AUTO DIFF CONFIRMED
[2017-09-18 09:12] LABS: HYPERSEGMENTED POLYS 1+ (NORMAL)
--- NOTE | 2017-09-18 09:26 | HHI.PR ---
Subjective Remarks Patient seen and evaluated in follow-up for metastatic lung cancer Patient without a bowel movement for the last several days and with poor oral intake Care plan discussed with oncology coordinator Objective Vitals Vital Signs Date Time Temp Pulse Resp B/P (MAP) Pulse Ox O2 Delivery O2 Flow Rate FiO2 09/18/17 09:15 97 Nasal Cannula 2.00 09/18/17 08:44 97.7 103 24 138/79 (98) 94 09/18/17 08:44 Nasal Cannula 2.00 09/18/17 08:44 94 09/18/17 05:10 98.0 89 18 131/69 (89) 09/18/17 04:02 81 09/18/17 00:00 83 09/17/17 23:56 98.1 72 16 115/64 (81) 98 09/17/17 22:18 97 Nasal Cannula 2.00 09/17/17 21:00 Nasal Cannula 1.50 Humidified 09/17/17 20:54 97.5 95 16 142/73 (96) 97 09/17/17 20:08 88 09/17/17 17:00 96.6 92 22 140/67 (91) 97 09/17/17 14:05 98.7 140 24 135/80 (98) 97 09/17/17 13:08 96 Nasal Cannula 2.00 I/O 09/17/17 09/17/17 09/17/17 09/18/17 09/18/17 09/18/17 07:00 15:00 23:00 07:00 15:00 23:00 Intake Total 600 ml 760 ml Output Total 3 ml Balance 600 ml 757 ml Intake Oral 600 ml 240 ml IV Total 520 ml Output Urine Total 3 ml # Voids 2 5 Result Diagram: 09/18/1751309/18/1714 Objective Remarks GENERAL: This is a well-nourished, well-developed patient, flat affect CARDIOVASCULAR: Regular rate and rhythm without murmurs, gallops, or rubs. RESPIRATORY: Clear to auscultation. Breath sounds equal bilaterally. No wheezes , rales, or rhonchi. GASTROINTESTINAL: Abdomen soft, non-tender, nondistended. Normal active bowel sounds MUSCULOSKELETAL: Extremities without clubbing, cyanosis, or edema. NEURO: Alert & Oriented x4 to person, place, time, situation. 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 Prognosis is poor due to her advanced age and multiple comorbidities Current DNR status confirmed Continue with radiation plans through Tuesday continue supportive care for pain and respiratory distress (3) Constipation ICD Code: K59.00 - Constipation, unspecified Plan: Patient with poor oral intake Continue with suppository/enema as needed ivf nutritional team following Discharge Planning Patient is a candidate for hospice however the family would like to complete current course of radiation Likely to senior care facility at discharge Vanna Lawrence MD Sep 18, 2017 09:26
[2017-09-18] MEDS ORDERED: SOD PHOSPHATE/SOD BIPHOSPHATE (ADULT) ENEMA 133ML RECTAL PRN (09:30)
[2017-09-18] MEDS ORDERED: BISACODYL 10 MG SUPP RECTAL ONE (09:30)
[2017-09-18] MEDS ORDERED: SODIUM CHLORID 0.9% 500 ML INJ 500 ML IV ONE (09:30)
--- NOTE | 2017-09-18 10:20 | PD.ONC.PN ---
Subjective Subjective Remarks Afebrile overnight. patient resting in bed. States she doesn't like the food in the hospital and is tired of being here. Objective Data Date Time Temp Pulse Resp B/P (MAP) Pulse Ox O2 Delivery O2 Flow Rate FiO2 09/18/17 09:15 97 Nasal Cannula 2.00 09/18/17 08:44 97.7 103 24 138/79 (98) 94 09/18/17 08:44 Nasal Cannula 2.00 09/18/17 08:44 94 09/18/17 05:10 98.0 89 18 131/69 (89) 09/18/17 04:02 81 09/18/17 00:00 83 09/17/17 23:56 98.1 72 16 115/64 (81) 98 09/17/17 22:18 97 Nasal Cannula 2.00 09/17/17 21:00 Nasal Cannula 1.50 Humidified 09/17/17 20:54 97.5 95 16 142/73 (96) 97 09/17/17 20:08 88 09/17/17 17:00 96.6 92 22 140/67 (91) 97 09/17/17 14:05 98.7 140 24 135/80 (98) 97 09/17/17 13:08 96 Nasal Cannula 2.00 09/18/17 09/18/17 09/18/17 07:00 15:00 23:00 Intake Total 760 ml Output Total 3 ml Balance 757 ml Result Diagram: 09/18/1714 09/18/17 0514 Laboratory Results Laboratory Tests Test 09/18/17 05:14 White Blood Count 16.4 TH/MM3 Red Blood Count 4.73 MIL/MM3 Hemoglobin 13.6 GM/DL Hematocrit 40.8 % Mean Corpuscular Volume 86.1 FL Mean Corpuscular Hemoglobin 28.8 PG Mean Corpuscular Hemoglobin Concent 33.4 % Red Cell Distribution Width 15.8 % Platelet Count 233 TH/MM3 Mean Platelet Volume 7.2 FL Neutrophils (%) (Auto) 93.6 % Lymphocytes (%) (Auto) 2.3 % Monocytes (%) (Auto) 4.0 % Eosinophils (%) (Auto) 0.0 % Basophils (%) (Auto) 0.1 % Neutrophils # (Auto) 15.4 TH/MM3 Lymphocytes # (Auto) 0.4 TH/MM3 Monocytes # (Auto) 0.7 TH/MM3 Eosinophils # (Auto) 0.0 TH/MM3 Basophils # (Auto) 0.0 TH/MM3 CBC Comment AUTO DIFF Differential Comment AUTO DIFF CONFIRMED Hypersegmented Polys 1+ Blood Urea Nitrogen 19 MG/DL Creatinine 0.54 MG/DL Random Glucose 173 MG/DL Total Protein 5.3 GM/DL Albumin 2.8 GM/DL Calcium Level 7.9 MG/DL Phosphorus Level 3.0 MG/DL Magnesium Level 2.2 MG/DL Alkaline Phosphatase 54 U/L Aspartate Amino Transf (AST/SGOT) 14 U/L Alanine Aminotransferase (ALT/SGPT) 31 U/L Total Bilirubin 0.7 MG/DL Sodium Level 133 MEQ/L Potassium Level 4.4 MEQ/L Chloride Level 100 MEQ/L Carbon Dioxide Level 25.4 MEQ/L Anion Gap 8 MEQ/L Estimat Glomerular Filtration Rate 111 ML/MIN Administered Medications Medications (Trade) Dose Ordered Sig/Arleen Route PRN Reason Start Time Stop Time Status Last Admin Dose Admin Sodium Chloride (NS Flush) 2 ml BID IV FLUSH 09/05/17 21:00 09/18/17 07:56 Ipratropium [place] (Atrovent Neb) 0.5 mg Q2HR NEB PRN NEB wheezing 09/05/17 13:15 09/16/17 17:10 Ipratropium [place] (Atrovent Neb) 0.5 mg Q6HR NEB NEB 09/05/17 16:00 09/18/17 09:12 Pantoprazole Sodium (Protonix) 40 mg DAILY PO 09/06/17 09:00 09/07/17 10:15 Ondansetron HCl (Zofran Inj) 4 mg Q6HR PRN IV PUSH nausea 09/05/17 19:00 09/15/17 21:58 Acetaminophen (Tylenol) 650 mg Q4H PRN PO PAIN SCALE 1-5 09/05/17 21:45 09/07/17 19:58 Enalaprilat (Vasotec Inj) 1.25 mg Q6H PRN IV PUSH SBP>160, DBP>90 09/07/17 13:15 09/11/17 12:08 Hydralazine HCl (Apresoline Inj) 10 mg Q4H PRN IV PUSH SBP>160, DBP>90 09/07/17 13:15 09/10/17 09:00 Lisinopril (Prinivil) 20 mg DAILY PO 09/08/17 09:00 09/08/17 09:00 Diltiazem HCl 125 mg/Sodium Chloride 125 ml @ 5 mls/hr TITRATE PRN IV Tachycardia 09/12/17 04:30 09/16/17 22:32 Potassium Chloride 30 meq/ Sodium Chloride 1,015 ml @ 45 mls/hr [id number] IV 09/12/17 19:00 09/17/17 21:41 Dexamethasone Sodium Phosphate (Decadron Inj) 4 mg Q12HR IV PUSH 09/13/17 09:00 09/18/17 07:55 Morphine Sulfate (Morphine Inj) 1 mg Q3H PRN IV PUSH PAIN >5 09/16/17 23:30 09/17/17 18:28 Lorazepam (Ativan Inj) 0.5 mg Q6HR PRN IV PUSH agitation 09/18/17 07:30 09/18/17 07:55 Sodium Chloride 500 ml @ 500 mls/hr BOLUS ONCE IV 09/18/17 09:30 09/18/17 10:29 09/18/17 09:30 Objective Remarks GENERAL: Chronically ill female supine in bed resting. SKIN: Warm and dry. HEAD: Normocephalic. EYES: No injection or drainage. NECK: Supple, trachea midline. CARDIOVASCULAR: Regular rate and rhythm RESPIRATORY: anterior stark with occasional rhonchi. GASTROINTESTINAL: Abdomen soft, non-tender, nondistended. EXTREMITIES: No cyanosis NEURO: awake and alert. normal speech. moving all extremities. Assessment/Plan Problem List: (1) Lung cancer metastatic to brain ICD Codes: C34.90 - Malignant neoplasm of unspecified part of unspecified bronchus or lung; C79.31 - Secondary malignant neoplasm of brain Plan: -- started on XRT on 09/07; total of 10 treatments scheduled -- May begin chemotherapy with irinotecan after she has completed XRT if PFS improves. Hx: She has a history of right lung cancer resected in 2001. 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 She was treated with carboplatin and STAGE BUILDER-16 with excellent response. MRI evaluation before the treatment shows nonspecific lesion. However, on followup July 15, MRI shows widespread metastatic disease to the RESISTOR WINDER without hemorrhage or mass effect. She was referred promptly to radiation oncology for treatment but unfortunately there were delays prior to treatment. In clinic on 09/05 it was noted that she was symptomatic with HR in the 200's and [facility] was called to bring her to the hospital. (2) Paroxysmal tachycardia ICD Codes: I47.9 - Paroxysmal tachycardia, unspecified Status: Acute Plan: -- on cardizem gtt at 5mg/hr -- Rate now controlled Assessment 71 y/o female with metastatic small cell lung cancer admitted with tachycardia Plan 1. continue Decadron 2. encourage PO intake. advised her he can bring in food from home for her 3. completion of XRT on Tuesday. Attending Statement The exam, history, and the medical decision-making described in the above note were completed with the assistance of the mid-level provider. I reviewed and agree with the findings presented. I attest that I had a [id number] encounter with the patient on the same day, and personally performed and documented my assessment and findings in the medical record. No change to further insight or understanding of her disease condition. Only wishes to go home. Continue current steroid dose until completion of XRT, then anticipate taper. Kelly Barrera Sep 18, 2017 10:20 Shawanda Kong MD Sep 18, 2017 14:31
[2017-09-18] MEDS: DRONABINOL 2.5 MG CAP PO SCH ×2 (11:00→16:00)
[2017-09-18] MEDS: POTASSIUM CHLORIDE INJ 30 MEQ in SODIUM CHLOR 0.9% 1000 ML INJ 1,000 ML IV SCH (11:34)
[2017-09-18] MEDS: DILTIAZEM INJ 125 MG in SODIUM CHLORIDE 0.9% INJ 100 ML IV PRN (11:37)
[2017-09-18] MEDS: ENOXAPARIN SODIUM 40 MG/0.4 ML SYRINGE SQ SCH (11:37)
[2017-09-18] MEDS: MORPHINE SULFATE 2 MG/ML INJ IV PUSH PRN (13:43)
[2017-09-18] MEDS: SODIUM CHLORIDE 0.9% FLUSH 10 ML FLUSH IV FLUSH PRN (23:54)
[2017-09-19] VITALS (16 sets, daily range): BP systolic 124–159; BP diastolic 68–96; PULSE 70–97; RESP 16–24; TEMP 97–98.4; O2SAT 95–98
[2017-09-19] MEDS: SODIUM CHLORIDE 0.9% FLUSH 10 ML FLUSH IV FLUSH PRN (02:01)
[2017-09-19] MEDS: MORPHINE SULFATE 2 MG/ML INJ IV PUSH PRN ×2 (02:01→21:59)
[2017-09-19] MEDS: RESP: IPRATROPIUM 0.5 MG/2.5 ML NEB NEB SCH ×4 (03:01→21:22)
[2017-09-19] MEDS: DEXAMETHASONE SOD PHOS 4 MG/ML VIAL IV PUSH SCH ×2 (08:28→20:44)
[2017-09-19] MEDS: PANTOPRAZOLE SOD 40 MG DELAYED RELEASE TAB PO SCH (08:29)
[2017-09-19] MEDS: LISINOPRIL 20 MG TAB PO SCH (08:29)
[2017-09-19] MEDS: SODIUM CHLORIDE 0.9% FLUSH 10 ML FLUSH IV FLUSH SCH ×2 (08:29→20:44)
[2017-09-19] MEDS: ATENOLOL 25 MG TAB PO SCH (08:29)
[2017-09-19] MEDS: DRONABINOL 2.5 MG CAP PO SCH ×2 (11:00→16:00)
[2017-09-19 11:35] LABS: AUTOMATED NEUTROPHIL # 14.9 TH/MM3 (1.8-7.7); HEMATOCRIT 40.4 % (35.0-46.0); HEMO FLAGS DIFF FINAL; LYMPHOCYTE # 0.3 TH/MM3 (1.0-4.8); MEAN CELL VOLUME 86.1 FL (80.0-100.0); MEAN CORPUSCULAR HEMOGLOBIN 29.5 PG (27.0-34.0); MEAN CORPUSCULAR HGB CONC 34.3 % (32.0-36.0); PLATELET COUNT 200 TH/MM3 (150-450); RED BLOOD COUNT 4.69 MIL/MM3 (4.00-5.30); RED CELL DISTRIBUTION WIDTH 15.9 % (11.6-17.2); WHITE BLOOD COUNT 15.9 TH/MM3 (4.0-11.0)
--- NOTE | 2017-09-19 11:39 | HHI.PR ---
Subjective Remarks Patient seen and evaluated in follow-up for metastatic malignancy of the lung. Some wheezes on exam. Patient still says she does not want to continue "any of this ". She is refusing all of her medications orally and she has minimal oral intake She wants to go home Objective Vitals Vital Signs Date Time Temp Pulse Resp B/P (MAP) Pulse Ox O2 Delivery O2 Flow Rate FiO2 09/19/17 09:37 95 Nasal Cannula 2.00 09/19/17 08:29 Nasal Cannula 2.00 Humidified 09/19/17 08:29 97.0 81 20 159/70 (99) 97 09/19/17 06:00 70 09/19/17 06:00 95 128/74 09/19/17 05:00 76 09/19/17 04:00 98.3 95 18 128/74 (92) 98 09/19/17 03:01 18 09/19/17 03:00 78 09/19/17 02:00 90 09/19/17 01:00 82 09/19/17 00:00 97.7 90 18 134/77 (96) 96 09/18/17 23:00 88 09/18/17 22:00 88 09/18/17 21:43 96 Nasal Cannula 2.00 09/18/17 21:00 86 09/18/17 20:00 96 09/18/17 20:00 96 Nasal Cannula 2.00 28 09/18/17 20:00 98.3 98 20 114/62 (79) 96 Manual Cuff/Auscultation 09/18/17 18:29 94 Nasal Cannula 2.00 09/18/17 16:58 97.7 88 24 146/88 (107) 94 09/18/17 11:46 97.6 106 20 138/79 (98) 94 09/18/17 11:37 93 158/72 I/O 09/18/17 09/18/17 09/18/17 09/19/17 09/19/17 09/19/17 07:00 15:00 23:00 07:00 15:00 23:00 Intake Total 760 ml 500 ml 840 ml 720 ml Output Total 3 ml Balance 757 ml 500 ml 840 ml 720 ml Intake Oral 240 ml 840 ml 120 ml IV Total 520 ml 500 ml 600 ml Output Urine Total 3 ml # Voids 5 3 # Bowel Movements 1 Result Diagram: 09/18/17 0514 09/18/17 0514 Objective Remarks GENERAL: This is a well-nourished, well-developed patient, flat affect CARDIOVASCULAR: Regular rate and rhythm without murmurs, gallops, or rubs. RESPIRATORY: Clear to auscultation. Breath sounds equal bilaterally. No wheezes , rales, or rhonchi. GASTROINTESTINAL: Abdomen soft, non-tender, nondistended. Normal active bowel sounds MUSCULOSKELETAL: Extremities without clubbing, cyanosis, or edema. NEURO: Alert & Oriented x4 to person, place, time, situation. 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 Prognosis is poor due to her advanced age and multiple comorbidities Current DNR status confirmed Continue with radiation plans through Tuesday continue supportive care for pain and respiratory distress (3) Constipation ICD Code: K59.00 - Constipation, unspecified Plan: Patient with poor oral intake Continue with suppository/enema as needed, bowel movement 09/18 ivf nutritional team following Discharge Planning Patient is a candidate for hospice however the family would like to complete current course of radiation Likely to group home facility at discharge Vanna Lawrence MD Sep 19, 2017 11:39
[2017-09-19] MEDS: ENOXAPARIN SODIUM 40 MG/0.4 ML SYRINGE SQ SCH (11:50)
[2017-09-19] MEDS: POTASSIUM CHLORIDE INJ 30 MEQ in SODIUM CHLOR 0.9% 1000 ML INJ 1,000 ML IV SCH (12:18)
[2017-09-19] MEDS: LORazepam 2 MG/ML VIAL IV PUSH PRN (18:05)
--- NOTE | 2017-09-19 20:31 | PD.ONC.PN ---
Subjective Subjective Remarks Pt quiet. Family member massaging her head and neck. Non verbal. Family member explains she took care of the family. Unlikely that her can take care of her at home. Objective Data Date Time Temp Pulse Resp B/P (MAP) Pulse Ox O2 Delivery O2 Flow Rate FiO2 09/19/17 16:33 95 Nasal Cannula 2.00 09/19/17 15:35 97.8 97 20 145/83 (103) 95 09/19/17 11:53 97.4 77 24 124/70 (88) 95 09/19/17 09:37 95 Nasal Cannula 2.00 09/19/17 08:29 Nasal Cannula 2.00 Humidified 09/19/17 08:29 97.0 81 20 159/70 (99) 97 09/19/17 06:00 70 09/19/17 06:00 95 128/74 09/19/17 05:00 76 09/19/17 04:00 98.3 95 18 128/74 (92) 98 09/19/17 03:01 18 09/19/17 03:00 78 09/19/17 02:00 90 09/19/17 01:00 82 09/19/17 00:00 97.7 90 18 134/77 (96) 96 09/18/17 23:00 88 09/18/17 22:00 88 09/18/17 21:43 96 Nasal Cannula 2.00 09/18/17 21:00 86 09/19/17 09/19/17 09/19/17 07:00 15:00 23:00 Intake Total 720 ml 305 ml 360 ml Balance 720 ml 305 ml 360 ml Result Diagram: 09/19/17 1045 09/18/17 0514 Laboratory Results Laboratory Tests Test 09/19/17 10:45 White Blood Count 15.9 TH/MM3 Red Blood Count 4.69 MIL/MM3 Hemoglobin 13.8 GM/DL Hematocrit 40.4 % Mean Corpuscular Volume 86.1 FL Mean Corpuscular Hemoglobin 29.5 PG Mean Corpuscular Hemoglobin Concent 34.3 % Red Cell Distribution Width 15.9 % Platelet Count 200 TH/MM3 Mean Platelet Volume 7.5 FL Neutrophils (%) (Auto) 94.0 % Lymphocytes (%) (Auto) 2.0 % Monocytes (%) (Auto) 4.0 % Eosinophils (%) (Auto) 0.0 % Basophils (%) (Auto) 0.0 % Neutrophils # (Auto) 14.9 TH/MM3 Lymphocytes # (Auto) 0.3 TH/MM3 Monocytes # (Auto) 0.6 TH/MM3 Eosinophils # (Auto) 0.0 TH/MM3 Basophils # (Auto) 0.0 TH/MM3 CBC Comment DIFF FINAL Differential Comment Administered Medications Medications (Trade) Dose Ordered Sig/Arleen Route PRN Reason Start Time Stop Time Status Last Admin Dose Admin Sodium Chloride (NS Flush) 2 ml UNSCH PRN IV FLUSH FLUSH AFTER USING IV ACCESS 09/05/17 13:15 09/19/17 02:01 Sodium Chloride (NS Flush) 2 ml BID IV FLUSH 09/05/17 21:00 09/19/17 08:29 Ipratropium [place] (Atrovent Neb) 0.5 mg Q2HR NEB PRN NEB wheezing 09/05/17 13:15 09/16/17 17:10 Ipratropium [place] (Atrovent Neb) 0.5 mg Q6HR NEB NEB 09/05/17 16:00 09/19/17 16:33 Pantoprazole Sodium (Protonix) 40 mg DAILY PO 09/06/17 09:00 09/07/17 10:15 Ondansetron HCl (Zofran Inj) 4 mg Q6HR PRN IV PUSH nausea 09/05/17 19:00 09/15/17 21:58 Acetaminophen (Tylenol) 650 mg Q4H PRN PO PAIN SCALE 1-5 09/05/17 21:45 09/07/17 19:58 Enalaprilat (Vasotec Inj) 1.25 mg Q6H PRN IV PUSH SBP>160, DBP>90 09/07/17 13:15 09/11/17 12:08 Hydralazine HCl (Apresoline Inj) 10 mg Q4H PRN IV PUSH SBP>160, DBP>90 09/07/17 13:15 09/10/17 09:00 Lisinopril (Prinivil) 20 mg DAILY PO 09/08/17 09:00 09/08/17 09:00 Potassium Chloride 30 meq/ Sodium Chloride 1,015 ml @ 45 mls/hr [id number] IV 09/12/17 19:00 09/19/17 12:18 Dexamethasone Sodium Phosphate (Decadron Inj) 4 mg Q12HR IV PUSH 09/13/17 09:00 09/19/17 08:28 Morphine Sulfate (Morphine Inj) 1 mg Q3H PRN IV PUSH PAIN >5 09/16/17 23:30 09/19/17 02:01 Lorazepam (Ativan Inj) 0.5 mg Q6HR PRN IV PUSH agitation 09/18/17 07:30 09/19/17 18:05 Enoxaparin Sodium (Lovenox Inj) 40 mg Q24H SQ 09/18/17 12:00 09/19/17 11:50 Objective Remarks GENERAL: Chronically ill female supine in bed resting. SKIN: Warm and dry. HEAD: Normocephalic. EYES: No injection or drainage. NECK: Supple, trachea midline. CARDIOVASCULAR: Regular rate and rhythm RESPIRATORY: anterior stark with occasional rhonchi. GASTROINTESTINAL: Abdomen soft, non-tender, nondistended. EXTREMITIES: No cyanosis NEURO: awake and alert. normal speech. moving all extremities. Assessment/Plan Problem List: (1) Lung cancer metastatic to brain ICD Codes: C34.90 - Malignant neoplasm of unspecified part of unspecified bronchus or lung; C79.31 - Secondary malignant neoplasm of brain Plan: 09/19/17. Continue XRT as planned. Decadron same dose. Possible neurologic decline. Pt more quiet, we will monitor. Prognosis explained to family. Continue palliative treatment. -- started on XRT on 09/07; total of 10 treatments scheduled -- May begin chemotherapy with irinotecan after she has completed XRT if PFS improves. Hx: She has a history of right lung cancer resected in 2001. 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 She was treated with carboplatin and DEPOSITION OPERATOR-16 with excellent response. MRI evaluation before the treatment shows nonspecific lesion. However, on followup July 15, MRI shows widespread metastatic disease to the LIFE ADVISOR without hemorrhage or mass effect. She was referred promptly to radiation oncology for treatment but unfortunately there were delays prior to treatment. In clinic on 09/05 it was noted that she was symptomatic with HR in the 200's and [facility] was called to bring her to the hospital. (2) Paroxysmal tachycardia ICD Codes: I47.9 - Paroxysmal tachycardia, unspecified Status: Acute Plan: 09/19/17. Rate controlled. -- on cardizem gtt at 5mg/hr -- Rate now controlled Assessment 71 y/o female with metastatic small cell lung cancer admitted with tachycardia, and LIFE ADVISOR metastatic disease. Unable to make decision for herself, eat herself or care for herself. Family decline hospice. Placement has been central issue. Plan 1. continue Decadron 2. Family and friends visit and supportive 3. completion of XRT on Tuesday. 4. Defer to case management for placement, ideally SNF with transition to hospice when pt progress. Shawanda Kong MD Sep 19, 2017 20:31
[2017-09-20] VITALS (20 sets, daily range): BP systolic 86–149; BP diastolic 51–93; PULSE 80–214; RESP 20–22; TEMP 97.7–98.9; O2SAT 93–95
[2017-09-20] MEDS: LORazepam 2 MG/ML VIAL IV PUSH PRN ×3 (00:16→20:08)
[2017-09-20] MEDS: MORPHINE SULFATE 2 MG/ML INJ IV PUSH PRN ×2 (00:41→04:05)
[2017-09-20] MEDS: DILTIAZEM INJ 125 MG in SODIUM CHLORIDE 0.9% INJ 100 ML IV PRN ×2 (03:45→10:46)
[2017-09-20] MEDS: DILTIAZEM HCL 25 MG/5 ML VIAL IV PUSH ONE ×2 (03:59→04:23)
[2017-09-20] MEDS: RESP: IPRATROPIUM 0.5 MG/2.5 ML NEB NEB SCH ×4 (05:20→21:04)
[2017-09-20] MEDS: SODIUM CHLORIDE 0.9% FLUSH 10 ML FLUSH IV FLUSH SCH ×2 (09:00→20:06)
[2017-09-20] MEDS: LISINOPRIL 20 MG TAB PO SCH (09:00)
[2017-09-20] MEDS: PANTOPRAZOLE SOD 40 MG DELAYED RELEASE TAB PO SCH (09:00)
[2017-09-20] MEDS: ATENOLOL 25 MG TAB PO SCH (09:00)
--- NOTE | 2017-09-20 09:59 | PD.ONC.PN ---
Subjective Subjective Remarks Afebrile Pt resting in bed currently being cleaned by aide. Nonverbal Moaning Objective Data Date Time Temp Pulse Resp B/P (MAP) Pulse Ox O2 Delivery O2 Flow Rate FiO2 09/20/17 08:52 97.7 95 22 127/58 (81) 95 09/20/17 04:54 92 104/51 (68) 09/20/17 04:29 97.8 88 22 86/58 (67) 94 09/20/17 04:23 200 09/20/17 04:10 18 09/20/17 04:03 114 09/20/17 03:58 109 09/20/17 03:51 192 111/93 (99) 09/20/17 03:45 200 09/20/17 03:42 214 09/20/17 03:37 207 09/19/17 23:43 98.4 86 16 157/96 (116) 96 09/19/17 23:41 79 09/19/17 20:50 Nasal Cannula 2.00 28 09/19/17 20:48 97.5 95 21 153/68 (96) 97 09/19/17 20:07 92 09/19/17 16:33 95 Nasal Cannula 2.00 09/19/17 15:35 97.8 97 20 145/83 (103) 95 09/19/17 11:53 97.4 77 24 124/70 (88) 95 09/20/17 09/20/17 09/20/17 07:00 15:00 23:00 Intake Total 532 ml Balance 532 ml Result Diagram: 09/19/17 1045 09/18/17 0514 Laboratory Results Laboratory Tests Test 09/19/17 10:45 White Blood Count 15.9 TH/MM3 Red Blood Count 4.69 MIL/MM3 Hemoglobin 13.8 GM/DL Hematocrit 40.4 % Mean Corpuscular Volume 86.1 FL Mean Corpuscular Hemoglobin 29.5 PG Mean Corpuscular Hemoglobin Concent 34.3 % Red Cell Distribution Width 15.9 % Platelet Count 200 TH/MM3 Mean Platelet Volume 7.5 FL Neutrophils (%) (Auto) 94.0 % Lymphocytes (%) (Auto) 2.0 % Monocytes (%) (Auto) 4.0 % Eosinophils (%) (Auto) 0.0 % Basophils (%) (Auto) 0.0 % Neutrophils # (Auto) 14.9 TH/MM3 Lymphocytes # (Auto) 0.3 TH/MM3 Monocytes # (Auto) 0.6 TH/MM3 Eosinophils # (Auto) 0.0 TH/MM3 Basophils # (Auto) 0.0 TH/MM3 CBC Comment DIFF FINAL Differential Comment Administered Medications Medications (Trade) Dose Ordered Sig/Arleen Route PRN Reason Start Time Stop Time Status Last Admin Dose Admin Sodium Chloride (NS Flush) 2 ml UNSCH PRN IV FLUSH FLUSH AFTER USING IV ACCESS 09/05/17 13:15 09/19/17 02:01 Sodium Chloride (NS Flush) 2 ml BID IV FLUSH 09/05/17 21:00 09/19/17 08:29 Ipratropium [place] (Atrovent Neb) 0.5 mg Q2HR NEB PRN NEB wheezing 09/05/17 13:15 09/16/17 17:10 Ipratropium [place] (Atrovent Neb) 0.5 mg Q6HR NEB NEB 09/05/17 16:00 09/19/17 21:22 Pantoprazole Sodium (Protonix) 40 mg DAILY PO 09/06/17 09:00 09/07/17 10:15 Ondansetron HCl (Zofran Inj) 4 mg Q6HR PRN IV PUSH nausea 09/05/17 19:00 09/15/17 21:58 Acetaminophen (Tylenol) 650 mg Q4H PRN PO PAIN SCALE 1-5 09/05/17 21:45 09/07/17 19:58 Enalaprilat (Vasotec Inj) 1.25 mg Q6H PRN IV PUSH SBP>160, DBP>90 09/07/17 13:15 09/11/17 12:08 Hydralazine HCl (Apresoline Inj) 10 mg Q4H PRN IV PUSH SBP>160, DBP>90 09/07/17 13:15 09/10/17 09:00 Lisinopril (Prinivil) 20 mg DAILY PO 09/08/17 09:00 09/08/17 09:00 Potassium Chloride 30 meq/ Sodium Chloride 1,015 ml @ 45 mls/hr [id number] IV 09/12/17 19:00 09/19/17 12:18 Dexamethasone Sodium Phosphate (Decadron Inj) 4 mg Q12HR IV PUSH 09/13/17 09:00 09/19/17 20:44 Morphine Sulfate (Morphine Inj) 1 mg Q3H PRN IV PUSH PAIN >5 09/16/17 23:30 09/20/17 04:05 Lorazepam (Ativan Inj) 0.5 mg Q6HR PRN IV PUSH agitation 09/18/17 07:30 09/20/17 00:16 Enoxaparin Sodium (Lovenox Inj) 40 mg Q24H SQ 09/18/17 12:00 09/19/17 11:50 Diltiazem HCl 125 mg/Sodium Chloride 125 ml @ 5 mls/hr TITRATE PRN IV Tachycardia 09/20/17 03:45 09/20/17 03:45 Objective Remarks GENERAL: Chronically ill female supine in bed resting. SKIN: Warm and dry. HEAD: Normocephalic. EYES: No injection or drainage. NECK: Supple, trachea midline. CARDIOVASCULAR: Regular rate and rhythm RESPIRATORY: Anterior stark with expiratory wheezing. GASTROINTESTINAL: Abdomen soft, non-tender, nondistended. EXTREMITIES: No cyanosis. No edema. NEURO: Awake and alert. Nonverbal. Moving all extremities. Assessment/Plan Problem List: (1) Lung cancer metastatic to brain ICD Codes: C34.90 - Malignant neoplasm of unspecified part of unspecified bronchus or lung; C79.31 - Secondary malignant neoplasm of brain Plan: Decadron same dose. Possible neurologic decline. Pt more quiet, we will monitor. Prognosis explained to family. Continue palliative treatment. -- started on XRT on 09/07; total of 10 treatments scheduled -- May begin chemotherapy with irinotecan after she has completed XRT if PFS improves. Hx: She has a history of right lung cancer resected in 2001. 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 She was treated with carboplatin and STIFF LEG DERRICK OPERATOR-16 with excellent response. MRI evaluation before the treatment shows nonspecific lesion. However, on followup July 15, MRI shows widespread metastatic disease to the POTTERY DECORATION DESIGNER without hemorrhage or mass effect. She was referred promptly to radiation oncology for treatment but unfortunately there were delays prior to treatment. In clinic on 09/05 it was noted that she was symptomatic with HR in the 200's and [facility] was called to bring her to the hospital. (2) Paroxysmal tachycardia ICD Codes: I47.9 - Paroxysmal tachycardia, unspecified Status: Acute Plan: -- on cardizem gtt at 5mg/hr -- Rate now controlled Assessment 71 y/o female with metastatic small cell lung cancer admitted with tachycardia, and POTTERY DECORATION DESIGNER metastatic disease. Unable to make decision for herself, eat herself or care for herself. Family decline hospice. Placement has been central issue. Plan 1. Last day of XRT today 2. Discussed with case mgmt; she has a bed at [facility] 3. Plan for outpatient followup. 4. OK for discharge today after XRT today from oncology standpoint. 5. Continue Decadron Attending Statement The exam, history, and the medical decision-making described in the above note were completed with the assistance of the mid-level provider. I reviewed and agree with the findings presented. I attest that I had a [id number] encounter with the patient on the same day, and personally performed and documented my assessment and findings in the medical record. at bedside, angry about result of XRT, attributing blame to Rad Onc. Discussed the situation, and rationale to start XRT. For several days after starting XRT,pt appeared to have responded. He was reminded of how she became angry and aggressive as she improved w/ XRT, she was throwing the food at him. Unfortunately, she declined clinically and worse over the weekend. Pt less verbal, moaning in her sleep. with unrealistic expectation, despite explanation of the situation that his is declining, getting worse day by day. Agree to have me call pt's daughter- to tell her that her mother needs her. Theresa Mendosa Sep 20, 2017 09:59 Shawanda Kong MD Sep 20, 2017 19:49
[2017-09-20] MEDS: DEXAMETHASONE SOD PHOS 4 MG/ML VIAL IV PUSH SCH ×2 (10:45→20:08)
[2017-09-20] MEDS: DRONABINOL 2.5 MG CAP PO SCH ×2 (11:00→16:00)
[2017-09-20] MEDS: ENOXAPARIN SODIUM 40 MG/0.4 ML SYRINGE SQ SCH (12:50)
--- NOTE | 2017-09-20 13:32 | HHI.PR ---
Subjective Remarks Nursing reports that the patient had been off of her Cardizem drip sometime yesterday evening. However earlier this morning her heart rate went to the 200s spontaneously, Cardizem bolus was given along with pain medication with no significant relief in her tachycardia. Was therefore put on the trip again. Nursing reports the patient is refusing worse too drowsy to safely take her oral medications. Nursing also does report that the patient did not demonstrate adequate meal intake today. Objective Vital Signs Date Time Temp Pulse Resp B/P (MAP) Pulse Ox O2 Delivery O2 Flow Rate FiO2 09/20/17 10:46 84 127/58 09/20/17 10:06 94 Nasal Cannula 2.00 09/20/17 08:52 97.7 95 22 127/58 (81) 95 09/20/17 08:00 98.7 95 22 127/58 (81) 95 09/20/17 08:00 80 09/20/17 04:54 92 104/51 (68) 09/20/17 04:29 97.8 88 22 86/58 (67) 94 09/20/17 04:23 200 09/20/17 04:10 18 09/20/17 04:03 114 09/20/17 03:58 109 09/20/17 03:51 192 111/93 (99) 09/20/17 03:45 200 09/20/17 03:42 214 09/20/17 03:37 207 09/19/17 23:43 98.4 86 16 157/96 (116) 96 09/19/17 23:41 79 09/19/17 20:50 Nasal Cannula 2.00 28 09/19/17 20:48 97.5 95 21 153/68 (96) 97 09/19/17 20:07 92 09/19/17 16:33 95 Nasal Cannula 2.00 09/19/17 15:35 97.8 97 20 145/83 (103) 95 I/O 09/19/17 09/19/17 09/19/17 09/20/17 09/20/17 09/20/17 07:00 15:00 23:00 07:00 15:00 23:00 Intake Total 720 ml 305 ml 360 ml 532 ml Balance 720 ml 305 ml 360 ml 532 ml Intake Oral 120 ml 360 ml IV Total 600 ml 305 ml 532 ml # Voids 3 4 4 Result Diagram: 09/19/17 1045 09/18/17 0514 Objective Remarks Patient lying in bed,'s appears like she is sleeping, is mumbling nonsensical sounds Does respond to sternal rub by opening her eyes and moaning more, when asked what is her name she mumbles something that I am unable to understand Unlabored breathing A/P Assessment and Plan (1) Paroxysmal tachycardia needing drip again - currently drip is running and rate is controlled will try oral short acting crushed diltiazem to see the patient takes this as well (2) Lung cancer metastatic to brain ICD Code: C34.90 - Malignant neoplasm of unspecified part of unspecified bronchus or lung; C79.31 - Secondary malignant neoplasm of brain Plan: Patient 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 Prognosis is poor due to her advanced age and multiple comorbidities Current DNR status confirmed Continue with radiation as scheduled continue supportive care for pain and respiratory distress continue decadron (3) Constipation ICD Code: K59.00 - Constipation, unspecified Plan: Patient with poor oral intake Continue with suppository/enema as needed, bowel movement 09/18 ivf nutritional team following Discharge Planning Patient is a candidate for hospice however the family would like to complete current course of radiation We consulting palliative care since the patient may not maintain her candidacy for a custodial facility if she is unable to take her oral medications adequately to control her conditions, especially her tachycardia. Manan Haque MD Sep 20, 2017 13:32
[2017-09-20] MEDS: DILTIAZEM HCL 30 MG TAB PO SCH ×2 (14:15→18:00)
--- NOTE | 2017-09-20 16:31 | HHI.HCPN ---
Reason for visit a. To assist with evaluation and management of symptoms including: shortness of breath and nausea b. To assist medical decision maker(s) with: better understanding of current medical conditions; weighing benefits/burdens of medical treatment options; making medical treatment decisions. . Subjective/Interval History Palliative care reconsulted today for follow up regarding goals of care, patient examined today, recently returned from radiation treatment, no family or visitors present, bedside RN present during exam. Patient is lethargic, confused, moans intermittently, unable to verbalize any words, very disoriented , unable to follow simple one step commands. Per EMR patient is refusing to eat and refusing her medications. Tentative plan to discharge patient to SNF after completion of palliative radiation today, however due to her refusal of PO medications, she became tachycardic and Cardizem drip had to be reinitiated. Patient is not eligible for discharge to SNF with Cardizem drip and without route to administer medications. Family/friend interactions Attempted to call patient's , no answer, and no availability to leave voicemail message. Advance Directives Living Will: Never completed Health Care Surrogate: Never completed Durable Power of Automated Manufacturing Instructor: Never completed Objective Vital Signs Date Time Temp Pulse Resp B/P (MAP) Pulse Ox O2 Delivery O2 Flow Rate FiO2 09/20/17 16:12 98.8 109 22 149/79 (102) 94 09/20/17 15:08 94 Nasal Cannula 2.00 09/20/17 12:00 98.0 89 20 116/55 (75) 95 09/20/17 10:46 84 127/58 09/20/17 10:06 94 Nasal Cannula 2.00 09/20/17 08:52 97.7 95 22 127/58 (81) 95 09/20/17 08:00 98.7 95 22 127/58 (81) 95 09/20/17 08:00 80 09/20/17 04:54 92 104/51 (68) 09/20/17 04:29 97.8 88 22 86/58 (67) 94 09/20/17 04:23 200 09/20/17 04:10 18 09/20/17 04:03 114 09/20/17 03:58 109 09/20/17 03:51 192 111/93 (99) 09/20/17 03:45 200 09/20/17 03:42 214 09/20/17 03:37 207 09/19/17 23:43 98.4 86 16 157/96 (116) 96 09/19/17 23:41 79 09/19/17 20:50 Nasal Cannula 2.00 28 09/19/17 20:48 97.5 95 21 153/68 (96) 97 09/19/17 20:07 92 09/19/17 16:33 95 Nasal Cannula 2.00 Intake & Output 09/20/17 09/20/17 07:00 19:00 Intake Total 532 ml Balance 532 ml IV Total 532 ml # Voids 4 . Physical Exam CONSTITUTIONAL/GENERAL: This is a frail elderly female patient, lethargic, disoriented, and confused. TUBES/LINES/DRAINS: Left subclavian port accessed. SKIN: No jaundice, rashes, or lesions. No wounds seen anteriorly. Skin temperature appropriate. Not diaphoretic. CARDIOVASCULAR: Irregular, no murmur. No peripheral edema. Peripheral pulses symmetric. RESPIRATORY/CHEST: Symmetric, unlabored respirations. On NC 2L Clear to auscultation. Breath sounds equal bilaterally. GASTROINTESTINAL: Abdomen soft, non-tender, nondistended. No guarding. Bowel sounds present. GENITOURINARY: Without palpable bladder distension. NEUROLOGICAL: Lethargic. Disoriented and confused. Moans, does not verbalize any words. Unable to follow commands. PSYCHIATRIC: Unable to assess secondary to clinical condition. . Diagnostic Tests Laboratory Laboratory Tests Test 09/18/17 05:14 09/19/17 10:45 White Blood Count 16.4 TH/MM3 (4.0-11.0) 15.9 TH/MM3 (4.0-11.0) Red Blood Count 4.73 MIL/MM3 (4.00-5.30) 4.69 MIL/MM3 (4.00-5.30) Hemoglobin 13.6 GM/DL (11.6-15.3) 13.8 GM/DL (11.6-15.3) Hematocrit 40.8 % (35.0-46.0) 40.4 % (35.0-46.0) Mean Corpuscular Volume 86.1 FL (80.0-100.0) 86.1 FL (80.0-100.0) Mean Corpuscular Hemoglobin 28.8 PG (27.0-34.0) 29.5 PG (27.0-34.0) Mean Corpuscular Hemoglobin Concent 33.4 % (32.0-36.0) 34.3 % (32.0-36.0) Red Cell Distribution Width 15.8 % (11.6-17.2) 15.9 % (11.6-17.2) Platelet Count 233 TH/MM3 (150-450) 200 TH/MM3 (150-450) Mean Platelet Volume 7.2 FL (7.0-11.0) 7.5 FL (7.0-11.0) Neutrophils (%) (Auto) 93.6 % (16.0-70.0) 94.0 % (16.0-70.0) Lymphocytes (%) (Auto) 2.3 % (9.0-44.0) 2.0 % (9.0-44.0) Monocytes (%) (Auto) 4.0 % (0.0-8.0) 4.0 % (0.0-8.0) Eosinophils (%) (Auto) 0.0 % (0.0-4.0) 0.0 % (0.0-4.0) Basophils (%) (Auto) 0.1 % (0.0-2.0) 0.0 % (0.0-2.0) Neutrophils # (Auto) 15.4 TH/MM3 (1.8-7.7) 14.9 TH/MM3 (1.8-7.7) Lymphocytes # (Auto) 0.4 TH/MM3 (1.0-4.8) 0.3 TH/MM3 (1.0-4.8) Monocytes # (Auto) 0.7 TH/MM3 (0-0.9) 0.6 TH/MM3 (0-0.9) Eosinophils # (Auto) 0.0 TH/MM3 (0-0.4) 0.0 TH/MM3 (0-0.4) Basophils # (Auto) 0.0 TH/MM3 (0-0.2) 0.0 TH/MM3 (0-0.2) CBC Comment AUTO DIFF DIFF FINAL Differential Comment AUTO DIFF CONFIRMED Hypersegmented Polys 1+ (NORMAL) Blood Urea Nitrogen 19 MG/DL (7-18) Creatinine 0.54 MG/DL (0.50-1.00) Random Glucose 173 MG/DL (74-106) Total Protein 5.3 GM/DL (6.4-8.2) Albumin 2.8 GM/DL (3.4-5.0) Calcium Level 7.9 MG/DL (8.5-10.1) Phosphorus Level 3.0 MG/DL (2.5-4.9) Magnesium Level 2.2 MG/DL (1.5-2.5) Alkaline Phosphatase 54 U/L (45-117) Aspartate Amino Transf (AST/SGOT) 14 U/L (15-37) Alanine Aminotransferase (ALT/SGPT) 31 U/L (10-53) Total Bilirubin 0.7 MG/DL (0.2-1.0) Sodium Level 133 MEQ/L (136-145) Potassium Level 4.4 MEQ/L (3.5-5.1) Chloride Level 100 MEQ/L (98-107) Carbon Dioxide Level 25.4 MEQ/L (21.0-32.0) Anion Gap 8 MEQ/L (5-15) Estimat Glomerular Filtration Rate 111 ML/MIN (>89) Result Diagram: 09/19/17 1045 09/18/17 0514 Assessment and Plan Disease Oriented Problem List: (1) Lung cancer metastatic to brain (2) Paroxysmal tachycardia Symptom Scale: (1) Shortness of breath (2) Debility (3) Anorexia Pertinent Non-Medical Issues Psychosocial:Patient is originally from [facility]. She has been for 47 years and has one adult daughter. 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 The patient and her relocated to [place] some time back in the and also moved back and forth from [place] during this time period. Spiritual: Mandaen. Legal: None known. Ethical issues impacting care: None known. . Important Contacts Jori Izaguirre () [phone] Tiffanie Lainez (daughter) [phone] . 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 Due to her advanced age and multiple comorbidities patient is at a high risk for complications and setbacks. Given her recent diagnosis of brain mets, unfortunately her overall prognosis is poor. . Code Status: No Code Plan * Legal decision maker: Patient appears to lack the capacity to make informed health care decisions independently at this time, further evaluation and determination of capacity should be verified by two physicians. During this hospitalization she has been lethargic at times, minimally engages in conversation, has intermittent confusion and has limited insight into her current prognosis. She has a history of cancer with a recent diagnosis of brain mets. Patient does not have any previous written advanced directives, per [place] statutes in the absence of written advanced directives health care decision making would fall to her next of kin which is her . * Goals: Due to patient's limited insight health care decision making would fall to her , he has verbalized AGGRESSIVE goals of care (short of resuscitation). Palliative attempted to reach to discuss GOC again, if goals remain aggressive patient will likely need a PEG tube to administer medications and nutrition. Patient is Hospice appropriate however patient's has refused to discuss comfort focused goals any further in past conversations. Palliative care will F/U tomorrow. * CODE STATUS: DNR. * SYMPTOMS: --Shortness of breath: Multifactorial, secondary to history of lung cancer, COPD, irregular heart rhythm, etc. Patient on 2L NC, Atrovent 0.5mg ordered q 6 hours scheduled and q 2 hours PRN. No recommendations at this time. --Nausea: Patient has had ongoing issues with nausea and vomiting prior to her hospital admission. Ondansetron 4mg q 6 hours PRN ordered. Patient denies nausea or GI complaints today. No recommendations at this time. -- Poor appetite /malnutrition/anorexia - ST has evaluated, pt tolerating PO liquids/pudding, however refusing most things offered. Eating 10-20% of meals, albumin 2.8 on 09/12/17. Marinol added by medical attending on 09/12/17. Senior Game Developer recommends considering initiating enteral nutrition. -- debility- multifactorial-->2/2 metastatic cancer/chronic illness, poor oral intake. PT working w, pt very weak, able to ambulate few steps w assist, and walker. Recommends cont PT/rehab. * Palliative care will continue to follow during hospital course as condition evolves, to assist patient/decision-maker with understanding of medical conditions, weighing benefits/burdens of treatment options, for clarification of goals of treatment. Additionally will assist with any symptoms of palliative concern Attestation To help prompt me to consider important information that might be impacting today's encounter and assessment, information from prior notes written by myself or my colleagues may have been "brought forward" into today's note. My signature on this note, however, is an attestation that I personally performed the exam, history, and/or decision-making noted today, and, unless otherwise indicated, the interactions with patient, family, and staff as well as the review of records all occurred today. I also attest that the listed assessment and stated plan reflect my best clinical judgment today based on the combination of historical information, prior notes, and today's exam/ interactions. When time spent is documented, it refers only to time spent today by the signer, or if indicated, combined time spent today by collaborating physician/nurse practitioner. Angle Liu Sep 20, 2017 16:31
[2017-09-20] MEDS: POTASSIUM CHLORIDE INJ 30 MEQ in SODIUM CHLOR 0.9% 1000 ML INJ 1,000 ML IV SCH (19:09)
[2017-09-21] VITALS (9 sets, daily range): BP systolic 110–144; BP diastolic 51–75; PULSE 71–99; RESP 18–24; TEMP 97.9–98.8; O2SAT 91–96
[2017-09-21] MEDS: MORPHINE SULFATE 2 MG/ML INJ IV PUSH PRN ×5 (00:22→21:56)
[2017-09-21] MEDS: DILTIAZEM INJ 125 MG in SODIUM CHLORIDE 0.9% INJ 100 ML IV PRN ×2 (01:13→16:14)
[2017-09-21] MEDS: RESP: IPRATROPIUM 0.5 MG/2.5 ML NEB NEB SCH ×4 (04:01→20:56)
[2017-09-21] MEDS: DILTIAZEM HCL 30 MG TAB PO SCH ×4 (06:00→18:00)
[2017-09-21] MEDS: ATENOLOL 25 MG TAB PO SCH (09:00)
[2017-09-21] MEDS: LISINOPRIL 20 MG TAB PO SCH (09:00)
[2017-09-21] MEDS: PANTOPRAZOLE SOD 40 MG DELAYED RELEASE TAB PO SCH (09:00)
[2017-09-21] MEDS: SODIUM CHLORIDE 0.9% FLUSH 10 ML FLUSH IV FLUSH SCH ×2 (09:00→20:02)
[2017-09-21] MEDS: DEXAMETHASONE SOD PHOS 4 MG/ML VIAL IV PUSH SCH ×2 (09:09→20:02)
[2017-09-21] MEDS: LORazepam 2 MG/ML VIAL IV PUSH PRN ×3 (09:09→21:57)
--- NOTE | 2017-09-21 09:50 | PD.ONC.PN ---
Subjective Subjective Remarks Afebrile Pt remains on cardizem gtt at 10mg/hr Nonverbal this morning Objective Data Date Time Temp Pulse Resp B/P (MAP) Pulse Ox O2 Delivery O2 Flow Rate FiO2 09/21/17 04:01 95 Nasal Cannula 2.00 09/21/17 04:00 98.6 95 18 144/70 (94) 93 09/21/17 01:13 86 125/75 09/21/17 00:00 98.8 99 21 125/75 (92) 94 09/20/17 20:00 98 09/20/17 20:00 93 Nasal Cannula 2.00 09/20/17 20:00 98.9 95 21 123/63 (83) 93 09/20/17 18:00 94 09/20/17 18:00 84 09/20/17 17:00 82 09/20/17 16:12 98.8 109 22 149/79 (102) 94 09/20/17 15:08 94 Nasal Cannula 2.00 09/20/17 14:00 88 09/20/17 12:00 98.0 89 20 116/55 (75) 95 09/20/17 11:00 94 09/20/17 10:46 84 127/58 09/20/17 10:06 94 Nasal Cannula 2.00 09/20/17 10:00 94 09/21/17 09/21/17 09/21/17 07:00 15:00 23:00 Intake Total 100 ml Balance 100 ml Result Diagram: 09/19/17 1045 09/18/17 0514 Administered Medications Medications (Trade) Dose Ordered Sig/Arleen Route PRN Reason Start Time Stop Time Status Last Admin Dose Admin Sodium Chloride (NS Flush) 2 ml UNSCH PRN IV FLUSH FLUSH AFTER USING IV ACCESS 09/05/17 13:15 09/19/17 02:01 Sodium Chloride (NS Flush) 2 ml BID IV FLUSH 09/05/17 21:00 09/19/17 08:29 Iprat[address]ium [facility] (Atrovent Neb) 0.5 mg Q2HR NEB PRN NEB wheezing 09/05/17 13:15 09/16/17 17:10 [address] [facility] (Atrovent Neb) 0.5 mg Q6HR NEB NEB 09/05/17 16:00 09/21/17 09:27 Pantoprazole Sodium (Protonix) 40 mg DAILY PO 09/06/17 09:00 09/07/17 10:15 Ondansetron HCl (Zofran Inj) 4 mg Q6HR PRN IV PUSH nausea 09/05/17 19:00 09/15/17 21:58 Acetaminophen (Tylenol) 650 mg Q4H PRN PO PAIN SCALE 1-5 09/05/17 21:45 09/07/17 19:58 Enalaprilat (Vasotec Inj) 1.25 mg Q6H PRN IV PUSH SBP>160, DBP>90 09/07/17 13:15 09/11/17 12:08 Hydralazine HCl (Apresoline Inj) 10 mg Q4H PRN IV PUSH SBP>160, DBP>90 09/07/17 13:15 09/10/17 09:00 Lisinopril (Prinivil) 20 mg DAILY PO 09/08/17 09:00 09/08/17 09:00 Potassium Chloride 30 meq/ Sodium Chloride 1,015 ml @ 45 mls/hr [id number] IV 09/12/17 19:00 09/20/17 19:09 Dexamethasone Sodium Phosphate (Decadron Inj) 4 mg Q12HR IV PUSH 09/13/17 09:00 09/21/17 09:09 Morphine Sulfate (Morphine Inj) 1 mg Q3H PRN IV PUSH PAIN >5 09/16/17 23:30 09/21/17 09:10 Lorazepam (Ativan Inj) 0.5 mg Q6HR PRN IV PUSH agitation 09/18/17 07:30 09/21/17 09:09 Enoxaparin Sodium (Lovenox Inj) 40 mg Q24H SQ 09/18/17 12:00 09/20/17 12:50 Diltiazem HCl 125 mg/Sodium Chloride 125 ml @ 5 mls/hr TITRATE PRN IV Tachycardia 09/20/17 03:45 09/21/17 01:13 Objective Remarks GENERAL: Chronically ill female supine in bed resting. SKIN: Warm and dry. HEAD: Normocephalic. EYES: No injection or drainage. NECK: Supple, trachea midline. CARDIOVASCULAR: Regular rate and rhythm. On cardizem gtt at 10mg/hr RESPIRATORY: Anterior stark with expiratory wheezing. GASTROINTESTINAL: Abdomen soft, non-tender, nondistended. EXTREMITIES: No cyanosis. No edema. NEURO: Awake and alert. Nonverbal. Moving all extremities. Assessment/Plan Problem List: (1) Lung cancer metastatic to brain ICD Codes: C34.90 - Malignant neoplasm of unspecified part of unspecified bronchus or lung; C79.31 - Secondary malignant neoplasm of brain Plan: -- Had 10 treatments of XRT Hx: She has a history of right lung cancer resected in 2001. 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 She was treated with carboplatin and DATA ANALYSIS INTERN-16 with excellent response. MRI evaluation before the treatment shows nonspecific lesion. However, on followup July 15, MRI shows widespread metastatic disease to the STAFF OCCUPATIONAL THERAPIST without hemorrhage or mass effect. She was referred promptly to radiation oncology for treatment but unfortunately there were delays prior to treatment. In clinic on 09/05 it was noted that she was symptomatic with HR in the 200's and [facility] was called to bring her to the hospital. 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 Unable to make decision for herself, eat herself or care for herself. Family decline hospice. Placement has been central issue. Plan 1. Continue emotional/supportive care to pt and spouse 2. Difficulty in assisting to understand prognosis 3. Pt has been accepted at [facility] however she remains on Cardizem gtt 4. Appreciate palliative support Theresa Mendosa Sep 21, 2017 09:50
[2017-09-21] MEDS: DRONABINOL 2.5 MG CAP PO SCH ×2 (10:37→15:32)
--- NOTE | 2017-09-21 10:53 | HHI.PR ---
Subjective Remarks RN reports pt still needing cardizem drip. pt still not tolerating po intake. at bedside. Objective Vital Signs Date Time Temp Pulse Resp B/P (MAP) Pulse Ox O2 Delivery O2 Flow Rate FiO2 09/21/17 09:47 94 Nasal Cannula 2.00 09/21/17 04:01 95 Nasal Cannula 2.00 09/21/17 04:00 98.6 95 18 144/70 (94) 93 09/21/17 01:13 86 125/75 09/21/17 00:00 98.8 99 21 125/75 (92) 94 09/20/17 20:00 98 09/20/17 20:00 93 Nasal Cannula 2.00 09/20/17 20:00 98.9 95 21 123/63 (83) 93 09/20/17 18:00 94 09/20/17 18:00 84 09/20/17 17:00 82 09/20/17 16:12 98.8 109 22 149/79 (102) 94 09/20/17 15:08 94 Nasal Cannula 2.00 09/20/17 14:00 88 09/20/17 12:00 98.0 89 20 116/55 (75) 95 09/20/17 11:00 94 I/O 09/20/17 09/20/17 09/20/17 09/21/17 09/21/17 09/21/17 07:00 15:00 23:00 07:00 15:00 23:00 Intake Total 532 ml 1700 ml 100 ml Balance 532 ml 1700 ml 100 ml Intake Oral 0 ml IV Total 532 ml 1700 ml 100 ml # Voids 4 5 4 Result Diagram: 09/19/17 1045 09/18/17 0514 Objective Remarks Patient lying in bed,'s appears like she is sleeping, is mumbling nonsensical sounds Does respond to sternal rub by opening her eyes and moaning more Has some mildly labored breathing A/P Assessment and Plan (1) Paroxysmal tachycardia still needing drip - unable to take a number of her meds. 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 Prognosis is poor due to her advanced age and multiple comorbidities Current DNR status confirmed Continue with radiation as scheduled continue supportive care for pain and respiratory distress continue Decadron (3) Constipation ICD Code: K59.00 - Constipation, unspecified Plan: Patient with poor oral intake Continue with suppository/enema as needed, bowel movement 09/18 ivf nutritional team following Encephalopathy - waxing and waning, likely 2/2 from brain mets I had over a 20 minute discussion with the patient's at bedside. I explained to him that she was too weak to go to a rehabilitation facility and that every time she is too drowsy or to altered to take medications or refuses to take medications it hinders the chances of her being able to go to a retirement safely. He admitted that she is in a state of suffering and that he does not one her to suffer anymore. However he does reiterate that he would like to keep her alive as long as it doesn't cause much suffering. He does admit having apprehension to hospice but seems more receptive to hearing about it given that she could be at a variety of places receiving it such as a retirement, home hospice, hospice at an inpatient facility, etc. After my discussion with him he allegedly came out of the room and told the nurse that he does not want hospice. I inform nursing to simply do further conversation to the hospice consultants. Over 35 minutes were spent in the time caring for this patient including time spent on the pelayo, placing orders, reviewing charts, and discussing care plan with patient's family. Discharge Planning Patient is a candidate for hospice however the family would like to complete current course of radiation Hospice consult placed. Manan Haque MD Sep 21, 2017 10:53
[2017-09-21] MEDS: ENOXAPARIN SODIUM 40 MG/0.4 ML SYRINGE SQ SCH (12:00)
[2017-09-21] MEDS ORDERED: D5-NS + KCL 20 MEQ INJ 1,000 ML IV SCH (19:15)
[2017-09-22] VITALS (12 sets, daily range): BP systolic 125–146; BP diastolic 58–69; PULSE 71–97; RESP 20–24; TEMP 97.2–98.7; O2SAT 91–96
[2017-09-22] MEDS: MORPHINE SULFATE 2 MG/ML INJ IV PUSH PRN ×5 (01:18→23:58)
[2017-09-22] MEDS: DILTIAZEM INJ 125 MG in SODIUM CHLORIDE 0.9% INJ 100 ML IV PRN ×2 (04:20→20:11)
[2017-09-22] MEDS: LORazepam 2 MG/ML VIAL IV PUSH PRN ×2 (04:24→09:42)
[2017-09-22] MEDS: RESP: IPRATROPIUM 0.5 MG/2.5 ML NEB NEB SCH ×4 (04:35→20:20)
[2017-09-22] MEDS: DILTIAZEM HCL 30 MG TAB PO SCH ×5 (06:00→23:54)
[2017-09-22] MEDS: SODIUM CHLOR 0.9% 1000 ML INJ 1,000 ML IV SCH ×2 (06:00→16:28)
[2017-09-22] MEDS: LISINOPRIL 20 MG TAB PO SCH (09:00)
[2017-09-22] MEDS: SODIUM CHLORIDE 0.9% FLUSH 10 ML FLUSH IV FLUSH SCH ×2 (09:00→20:18)
[2017-09-22] MEDS: ATENOLOL 25 MG TAB PO SCH (09:00)
[2017-09-22] MEDS: PANTOPRAZOLE SOD 40 MG DELAYED RELEASE TAB PO SCH (09:00)
[2017-09-22] MEDS: DRONABINOL 2.5 MG CAP PO SCH ×2 (09:36→16:00)
[2017-09-22] MEDS: DEXAMETHASONE SOD PHOS 4 MG/ML VIAL IV PUSH SCH ×2 (09:42→20:08)
--- NOTE | 2017-09-22 15:46 | HHI.PR ---
Subjective Remarks RN reports that the patient is still not taking medications nor eating. They had to keep the drip on sustained since yesterday evening around 5 PM. Patient herself is still not conversive with me when asked how she is doing. She is not following commands when prompted to. Is essentially just moaning. still does not want hospice. Daughter or granddaughter are expected to arrive within the next day or so. Objective Vital Signs Date Time Temp Pulse Resp B/P (MAP) Pulse Ox O2 Delivery O2 Flow Rate FiO2 09/22/17 08:52 94 Nasal Cannula 3.00 09/22/17 08:45 97.5 84 24 146/63 (90) 95 09/22/17 04:51 93 Nasal Cannula 3.00 09/22/17 04:36 91 Nasal Cannula 2.00 09/22/17 04:20 97 144/65 09/22/17 04:00 98.0 97 20 144/65 (91) 91 09/22/17 00:00 98.3 80 21 131/66 (87) 96 09/21/17 20:35 77 09/21/17 20:10 96 Nasal Cannula 2.00 09/21/17 20:10 98.2 78 21 123/51 (75) 96 09/21/17 18:07 98.7 71 22 110/60 (77) 96 09/21/17 16:14 89 110/60 I/O 09/21/17 09/21/17 09/21/17 09/22/17 09/22/17 09/22/17 07:00 15:00 23:00 07:00 15:00 23:00 Intake Total 100 ml Balance 100 ml IV Total 100 ml # Voids 4 4 Result Diagram: 09/19/17 1045 09/18/17 0514 Objective Remarks Patient lying in bed, again she is just periodically moaning, not necessarily responding to sternal rub with the exception of increased moaning Does not follow commands when asked to squeeze hand Heart rate is regular at this time A/P Assessment and Plan (1) Paroxysmal tachycardia still needing drip on and off throughout the day 2) Encephalopathy - still persisting, secondary to brain metastases - no improvement. 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 Prognosis is poor due to her advanced age and multiple comorbidities Current DNR status confirmed Continue with radiation as scheduled continue supportive care for pain and respiratory distress continue Decadron (4) Constipation ICD Code: K59.00 - Constipation, unspecified Plan: Patient with poor oral intake Continue with suppository/enema as needed, bowel movement 09/18 [facility] nutritional team following Hospice consult pending. Poor prognosis. Manan Haque MD Sep 22, 2017 15:46
[2017-09-22] MEDS: ENOXAPARIN SODIUM 40 MG/0.4 ML SYRINGE SQ SCH (16:56)
[2017-09-23] VITALS (11 sets, daily range): BP systolic 138–162; BP diastolic 64–78; PULSE 84–118; RESP 20–22; TEMP 98–98.8; O2SAT 88–96
[2017-09-23] MEDS: DILTIAZEM HCL 30 MG TAB PO SCH ×4 (00:05→18:00)
[2017-09-23] MEDS: LORazepam 2 MG/ML VIAL IV PUSH PRN ×2 (02:25→22:16)
[2017-09-23] MEDS: RESP: IPRATROPIUM 0.5 MG/2.5 ML NEB NEB SCH ×4 (02:49→20:25)
[2017-09-23] MEDS: MORPHINE SULFATE 2 MG/ML INJ IV PUSH PRN (04:07)
[2017-09-23] MEDS: ATENOLOL 25 MG TAB PO SCH (09:00)
[2017-09-23] MEDS: PANTOPRAZOLE SOD 40 MG DELAYED RELEASE TAB PO SCH (09:00)
[2017-09-23] MEDS: LISINOPRIL 20 MG TAB PO SCH (09:00)
[2017-09-23] MEDS: DRONABINOL 2.5 MG CAP PO SCH ×2 (10:37→16:00)
[2017-09-23] MEDS: DEXAMETHASONE SOD PHOS 4 MG/ML VIAL IV PUSH SCH ×2 (10:38→22:16)
[2017-09-23] MEDS: SODIUM CHLORIDE 0.9% FLUSH 10 ML FLUSH IV FLUSH SCH ×2 (10:38→21:00)
[2017-09-23] MEDS ORDERED: BISACODYL 10 MG SUPP RECTAL PRN (14:15)
--- NOTE | 2017-09-23 15:10 | PD.ONC.PN ---
Subjective Subjective Remarks Afebrile Pt resting in bed with eyes closed She is moaning and tachypneic at bedside He is upset because the pt's daughter had the police check him for weapons yesterday confused, states he was told by Dr Kong that she is cancer free Hospice now following Objective Data Date Time Temp Pulse Resp B/P (MAP) Pulse Ox O2 Delivery O2 Flow Rate FiO2 09/23/17 10:57 95 Nasal Cannula 3.00 09/23/17 10:00 96 Nasal Cannula 2.50 09/23/17 10:00 98.4 88 20 144/64 (90) 96 09/23/17 04:16 18 09/23/17 04:12 98.2 93 22 148/77 (100) 94 09/23/17 04:06 91 09/23/17 00:08 89 09/23/17 00:00 98.7 84 20 152/77 (102) 95 09/22/17 20:20 96 Nasal Cannula 3.00 09/22/17 20:11 74 140/76 09/22/17 20:11 98.1 20 96 09/22/17 20:10 Nasal Cannula 2.00 28 09/22/17 20:01 71 09/22/17 18:06 69 09/22/17 16:52 98 Nasal Cannula 3.00 09/22/17 16:22 97.2 84 22 135/69 (91) 95 Result Diagram: 09/19/17 1045 Administered Medications Medications (Trade) Dose Ordered Sig/Arleen Route PRN Reason Start Time Stop Time Status Last Admin Dose Admin Sodium Chloride (NS Flush) 2 ml UNSCH PRN IV FLUSH FLUSH AFTER USING IV ACCESS 09/05/17 13:15 09/19/17 02:01 Sodium Chloride (NS Flush) 2 ml BID IV FLUSH 09/05/17 21:00 09/23/17 10:38 Ipratropium [place] (Atrovent Neb) 0.5 mg Q2HR NEB PRN NEB wheezing 09/05/17 13:15 09/16/17 17:10 Ipratropium [place] (Atrovent Neb) 0.5 mg Q6HR NEB NEB 09/05/17 16:00 09/23/17 10:57 Pantoprazole Sodium (Protonix) 40 mg DAILY PO 09/06/17 09:00 09/07/17 10:15 Ondansetron HCl (Zofran Inj) 4 mg Q6HR PRN IV PUSH nausea 09/05/17 19:00 09/15/17 21:58 Acetaminophen (Tylenol) 650 mg Q4H PRN PO PAIN SCALE 1-5 09/05/17 21:45 09/07/17 19:58 Enalaprilat (Vasotec Inj) 1.25 mg Q6H PRN IV PUSH SBP>160, DBP>90 09/07/17 13:15 09/11/17 12:08 Hydralazine HCl (Apresoline Inj) 10 mg Q4H PRN IV PUSH SBP>160, DBP>90 09/07/17 13:15 09/10/17 09:00 Lisinopril (Prinivil) 20 mg DAILY PO 09/08/17 09:00 09/08/17 09:00 Dexamethasone Sodium Phosphate (Decadron Inj) 4 mg Q12HR IV PUSH 09/13/17 09:00 09/23/17 10:38 Morphine Sulfate (Morphine Inj) 1 mg Q3H PRN IV PUSH PAIN >5 09/16/17 23:30 09/23/17 04:07 Lorazepam (Ativan Inj) 0.5 mg Q6HR PRN IV PUSH agitation 09/18/17 07:30 09/23/17 02:25 Enoxaparin Sodium (Lovenox Inj) 40 mg Q24H SQ 09/18/17 12:00 09/22/17 16:56 Diltiazem HCl 125 mg/Sodium Chloride 125 ml @ 5 mls/hr TITRATE PRN IV Tachycardia 09/20/17 03:45 09/22/17 20:11 Sodium Chloride 1,000 ml @ 42 mls/hr [id number] IV 09/22/17 06:00 09/22/17 16:28 Objective Remarks GENERAL: Chronically ill female supine in bed moaning SKIN: Warm and dry. HEAD: Normocephalic. EYES: No injection or drainage. NECK: Supple, trachea midline. CARDIOVASCULAR: Regular rate and rhythm. On cardizem gtt at 5mg/hr RESPIRATORY: Anterior stark with expiratory wheezing. +Tachypnea GASTROINTESTINAL: Abdomen soft, non-tender, nondistended. EXTREMITIES: No cyanosis. No edema. NEURO: Nonverbal. Not following commands Assessment/Plan Problem List: (1) Lung cancer metastatic to brain ICD Codes: C34.90 - Malignant neoplasm of unspecified part of unspecified bronchus or lung; C79.31 - Secondary malignant neoplasm of brain Plan: -- Had 10 treatments of XRT Hx: She has a history of right lung cancer resected in 2001. 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 She was treated with carboplatin and COMPUTER AIDED DRAFTER-16 with excellent response. MRI evaluation before the treatment shows nonspecific lesion. 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 She was referred promptly to radiation oncology for treatment but unfortunately there were delays prior to treatment. In clinic on 09/05 it was noted that she was symptomatic with HR in the 200's and [facility] was called to bring her to the hospital. 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 Unable to make decision for herself, eat herself or care for herself. Family decline hospice. Placement has been central issue. Plan 1. Ask RT to give pt prn treatment 2. Get CXR for increasing tachypnea 3. Hospice following 4. Per RN, the daughter is flying down tomorrow from [place]. 5. Continue emotional support Attending Statement Discussed above. For brief period of time, patient was in remission. Since then, she has found to DRYING MACHINE OPERATOR metastatic disease. She has not been restaged since to determine if she has active extracranial disease but suspect recurrence. Theresa Mendosa Sep 23, 2017 15:10 Shawanda Kong MD Sep 26, 2017 08:23
[2017-09-23] MEDS: ENOXAPARIN SODIUM 40 MG/0.4 ML SYRINGE SQ SCH (15:51)
[2017-09-23] MEDS: DILTIAZEM INJ 125 MG in SODIUM CHLORIDE 0.9% INJ 100 ML IV PRN (16:22)
--- NOTE | 2017-09-23 16:54 | HHI.HCPN ---
Reason for visit a. To assist with evaluation and management of symptoms including: shortness of breath and nausea b. To assist medical decision maker(s) with: better understanding of current medical conditions; weighing benefits/burdens of medical treatment options; making medical treatment decisions. . Subjective/Interval History Patient seen today for follow up, at bedside, patient is lethargic, only moaning, unable to verbalize any words, does not follow commands, does not open eyes. Patient is visibly short of breath with audible wheezing. Long discussion at bedside with patient's Jori, he is visibly exhausted, confirmed he has not been sleeping well, and at times is at a loss for words or slurs his speech, none of which he did in previous meetings or discussions. Discussed patient's poor prognosis, limited treatment options, that she is approaching the end of her life, and . Patient's again stated he does want Hospice, he stated "Hospice makes you quicker". Discussed the role of Hospice, philosophy, and benefits. Unfortunately patient's has limited insight into her prognosis. Patient's daughter to arrive from [place] tomorrow. Family/friend interactions Bedside meeting with patient's Jori. Advance Directives Living Will: Never completed Health Care Surrogate: Never completed Durable Power of Bending Roll Operator: Never completed Objective Vital Signs Date Time Temp Pulse Resp B/P (MAP) Pulse Ox O2 Delivery O2 Flow Rate FiO2 09/23/17 16:22 100 162/78 09/23/17 10:57 95 Nasal Cannula 3.00 09/23/17 10:00 96 Nasal Cannula 2.50 09/23/17 10:00 98.4 88 20 144/64 (90) 96 09/23/17 04:16 18 09/23/17 04:12 98.2 93 22 148/77 (100) 94 09/23/17 04:06 91 09/23/17 00:08 89 09/23/17 00:00 98.7 84 20 152/77 (102) 95 09/22/17 20:20 96 Nasal Cannula 3.00 09/22/17 20:11 74 140/76 09/22/17 20:11 98.1 20 96 09/22/17 20:10 Nasal Cannula 2.00 28 09/22/17 20:01 71 09/22/17 18:06 69 09/22/17 16:52 98 Nasal Cannula 3.00 Intake & Output 09/23/17 09/23/17 07:00 19:00 # Voids 4 Physical Exam CONSTITUTIONAL/GENERAL: This is a frail elderly female patient, lethargic, disoriented, and confused. TUBES/LINES/DRAINS: Left subclavian port accessed. SKIN: No jaundice, rashes, or lesions. No wounds seen anteriorly. Skin temperature appropriate. Not diaphoretic. CARDIOVASCULAR: Irregular, no murmur. No peripheral edema. Peripheral pulses symmetric. RESPIRATORY/CHEST: Symmetric, unlabored respirations. Course crackles and wheezing bilaterally. GASTROINTESTINAL: Abdomen soft, non-tender, nondistended. No guarding. Bowel sounds present. GENITOURINARY: Without palpable bladder distension. NEUROLOGICAL: Lethargic. Disoriented and confused. Moans, does not verbalize any words. Unable to follow commands. PSYCHIATRIC: Unable to assess secondary to clinical condition. . Diagnostic Tests Laboratory Result Diagram: 09/19/17 0093 Assessment and Plan Disease Oriented Problem List: (1) Lung cancer metastatic to brain (2) Paroxysmal tachycardia Symptom Scale: (1) Shortness of breath (2) Debility (3) Anorexia Pertinent Non-Medical Issues Psychosocial:Patient is originally from [facility]. She has been for 47 years and has one adult daughter. 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 The patient and her relocated to [place] some time back in the 1970s and also moved back and forth from [place] during this time period. Spiritual: Restorationist. Legal: None known. Ethical issues impacting care: None known. . Important Contacts Jori Izaguirre () [phone] Tiffanie Lainez (daughter) [phone] . 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 Due to her advanced age and multiple comorbidities patient is at a high risk for complications and setbacks. Given her recent diagnosis of brain mets, unfortunately her overall prognosis is poor. . Code Status: No Code Plan * Legal decision maker: Patient appears to lack the capacity to make informed health care decisions independently at this time. During this hospitalization she has been lethargic at times, minimally engages in conversation, has intermittent confusion and has limited insight into her current prognosis. She has a history of cancer with a recent diagnosis of brain mets. Patient does not have any previous written advanced directives, per [place] statutes in the absence of written advanced directives health care decision making would fall to her next of kin which is her . * Goals: Aggressive. Patient's continues to verbalize aggressive goals of care, despite ongoing discussions with multiple providers regarding the patient's poor prognosis and limited treatment options. * CODE STATUS: DNR. * SYMPTOMS: --Shortness of breath: Multifactorial, secondary to history of lung cancer, COPD, irregular heart rhythm, etc. Patient on 2L NC, Atrovent 0.5mg ordered q 6 hours scheduled and q 2 hours PRN. No recommendations at this time. --Nausea: Patient has had ongoing issues with nausea and vomiting prior to her hospital admission. Ondansetron 4mg q 6 hours PRN ordered. Patient denies nausea or GI complaints today. No recommendations at this time. -- Poor appetite /malnutrition/anorexia - ST has evaluated, pt tolerating PO liquids/pudding, however refusing most things offered. -- debility- multifactorial-->2/2 metastatic cancer/chronic illness, poor oral intake. Patient is too lethargic to participate in PT at this time. * Palliative care will continue to follow during hospital course as condition evolves, to assist patient/decision-maker with understanding of medical conditions, weighing benefits/burdens of treatment options, for clarification of goals of treatment. Additionally will assist with any symptoms of palliative concern Attestation To help prompt me to consider important information that might be impacting today's encounter and assessment, information from prior notes written by myself or my colleagues may have been "brought forward" into today's note. My signature on this note, however, is an attestation that I personally performed the exam, history, and/or decision-making noted today, and, unless otherwise indicated, the interactions with patient, family, and staff as well as the review of records all occurred today. I also attest that the listed assessment and stated plan reflect my best clinical judgment today based on the combination of historical information, prior notes, and today's exam/ interactions. When time spent is documented, it refers only to time spent today by the signer, or if indicated, combined time spent today by collaborating physician/nurse practitioner. Angle Liu Sep 23, 2017 16:54
--- NOTE | 2017-09-23 21:01 | RADRPT ---
EXAM DATE/TIME: 09/23/2017 20:05 [facility] COMPARISON: CHEST SINGLE AP, September 05, 2017, 10:54. INDICATIONS : Shortness of breath. MEDICAL HISTORY : Chronic obstructive pulmonary disease. SURGICAL HISTORY : Hysterectomy. ENCOUNTER: Subsequent ACUITY: 2 days PAIN SCORE: Non-responsive. LOCATION: Bilateral chest FINDINGS: Interval development of consolidation of left lower lung with loss of delineation of the medial two t hirds of left hemidiaphragm. There is an increasing size right pleural effusion with meniscal interf tee. The heart is stable in size. Left Yhlvgp-r-[id number] catheter tip projects over the mid superior ve na cava. CONCLUSION: Left lower lobe consolidation. Increasing size right pleural effusion. Garrick Bernabe MD on September 23, 2017 at 20:58 Board Certified Radiologist. This report was verified electronically.
[2017-09-24] VITALS (13 sets, daily range): BP systolic 106–155; BP diastolic 64–80; PULSE 91–128; RESP 22–28; TEMP 97.6–99.6; O2SAT 90–98
[2017-09-24] MEDS: MORPHINE SULFATE 2 MG/ML INJ IV PUSH PRN ×3 (03:06→18:49)
[2017-09-24] MEDS: RESP: IPRATROPIUM 0.5 MG/2.5 ML NEB NEB SCH ×4 (03:07→21:24)
[2017-09-24] MEDS: DILTIAZEM HCL 30 MG TAB PO SCH ×5 (06:00→23:43)
[2017-09-24] MEDS: DEXAMETHASONE SOD PHOS 4 MG/ML VIAL IV PUSH SCH ×2 (08:59→20:27)
[2017-09-24] MEDS: SODIUM CHLORIDE 0.9% FLUSH 10 ML FLUSH IV FLUSH SCH ×2 (08:59→20:27)
[2017-09-24] MEDS: PANTOPRAZOLE SOD 40 MG DELAYED RELEASE TAB PO SCH (09:00)
[2017-09-24] MEDS: LISINOPRIL 20 MG TAB PO SCH (09:00)
[2017-09-24] MEDS: ATENOLOL 25 MG TAB PO SCH (09:00)
--- NOTE | 2017-09-24 10:09 | PD.ONC.PN ---
Subjective Subjective Remarks Afebrile Pt resting in bed moaning at bedside; appears to be declining- he is repeating himself and appears physically exhausted. He is still questioning if she has cancer or not- also he tells me he has been getting rides home from the nurses Pt's daughter reportedly flying in from [place] today Objective Data Date Time Temp Pulse Resp B/P (MAP) Pulse Ox O2 Delivery O2 Flow Rate FiO2 09/24/17 09:15 92 Nasal Cannula 4.00 09/24/17 08:57 98.6 102 28 155/79 (104) 95 09/24/17 03:42 97.6 94 22 135/68 (90) 95 09/24/17 00:00 98.6 91 22 148/74 (98) 98 09/24/17 00:00 97 Nasal Cannula 3.00 09/23/17 20:26 88 Nasal Cannula 3.00 09/23/17 20:00 98.7 98 22 145/78 (100) 96 09/23/17 19:00 118 09/23/17 16:45 98.0 100 22 162/78 (106) 96 09/23/17 16:22 100 162/78 09/23/17 12:50 98.8 90 22 138/74 (95) 95 09/23/17 10:57 95 Nasal Cannula 3.00 09/24/17 09/24/17 09/24/17 07:00 15:00 23:00 Intake Total 1536 ml Balance 1536 ml Imaging Studies Last 48 hours Impressions Chest X-Ray 09/23/17 0000 Signed Impressions: Service Date/Time: Saturday, September 23, 2017 20:05 - CONCLUSION: Left lower lobe consolidation. Increasing size right pleural effusion. Garrick Bernabe MD Administered Medications Medications (Trade) Dose Ordered Sig/Arleen Route PRN Reason Start Time Stop Time Status Last Admin Dose Admin Sodium Chloride (NS Flush) 2 ml UNSCH PRN IV FLUSH FLUSH AFTER USING IV ACCESS 09/05/17 13:15 09/19/17 02:01 Sodium Chloride (NS Flush) 2 ml BID IV FLUSH 09/05/17 21:00 09/24/17 08:59 Ipratropium [place] (Atrovent Neb) 0.5 mg Q2HR NEB PRN NEB wheezing 09/05/17 13:15 09/16/17 17:10 Ipratropium [place] (Atrovent Neb) 0.5 mg Q6HR NEB NEB 09/05/17 16:00 09/24/17 09:13 Pantoprazole Sodium (Protonix) 40 mg DAILY PO 09/06/17 09:00 09/07/17 10:15 Ondansetron HCl (Zofran Inj) 4 mg Q6HR PRN IV PUSH nausea 09/05/17 19:00 09/15/17 21:58 Acetaminophen (Tylenol) 650 mg Q4H PRN PO PAIN SCALE 1-5 09/05/17 21:45 09/07/17 19:58 Enalaprilat (Vasotec Inj) 1.25 mg Q6H PRN IV PUSH SBP>160, DBP>90 09/07/17 13:15 09/11/17 12:08 Hydralazine HCl (Apresoline Inj) 10 mg Q4H PRN IV PUSH SBP>160, DBP>90 09/07/17 13:15 09/10/17 09:00 Lisinopril (Prinivil) 20 mg DAILY PO 09/08/17 09:00 09/08/17 09:00 Dexamethasone Sodium Phosphate (Decadron Inj) 4 mg Q12HR IV PUSH 09/13/17 09:00 09/24/17 08:59 Morphine Sulfate (Morphine Inj) 1 mg Q3H PRN IV PUSH PAIN >5 09/16/17 23:30 09/24/17 03:06 Lorazepam (Ativan Inj) 0.5 mg Q6HR PRN IV PUSH agitation 09/18/17 07:30 09/23/17 22:16 Enoxaparin [place] (Lovenox Inj) 40 mg Q24H SQ 09/18/17 12:00 09/23/17 15:51 Diltiazem HCl 125 mg/Sodium Chloride 125 ml @ 5 mls/hr TITRATE PRN IV Tachycardia 09/20/17 03:45 09/23/17 16:22 Sodium Chloride 1,000 ml @ 42 mls/hr [id number] IV 09/22/17 06:00 09/22/17 16:28 Objective Remarks GENERAL: Chronically ill female supine in bed. She appears to be in moderate distress with moaning and tachypnea. SKIN: Warm and dry. HEAD: Normocephalic. EYES: No injection or drainage. NECK: Supple, trachea midline. CARDIOVASCULAR: Regular rate and rhythm. On cardizem gtt at 5mg/hr RESPIRATORY: Anterior stark with expiratory wheezing. +Tachypnea. On 3L NC GASTROINTESTINAL: Abdomen soft, non-tender, nondistended. EXTREMITIES: No cyanosis. No edema. NEURO: Nonverbal. Not following commands. Attempts to make eye contact. Assessment/Plan Problem List: (1) Lung cancer metastatic to brain ICD Codes: C34.90 - Malignant neoplasm of unspecified part of unspecified bronchus or lung; C79.31 - Secondary malignant neoplasm of brain Plan: -- Had 10 treatments of XRT Hx: She has a history of right lung cancer resected in 2001. 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 She was treated with carboplatin and DIRECTOR MATERNAL CHILD-16 with excellent response. MRI evaluation before the treatment shows nonspecific lesion. 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 She was referred promptly to radiation oncology for treatment but unfortunately there were delays prior to treatment. In clinic on 09/05 it was noted that she was symptomatic with HR in the 200's and [facility] was called to bring her to the hospital. 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 Unable to make decision for herself, eat herself or care for herself. Family decline hospice. Placement has been central issue. Plan 1. CXR yesterday showed LLL consolidation. Start pt on Zosyn for possible pneumonia. 2. The situation remains a difficult case as the does not appear capable to make decisions. 3. The pt has largely been non-verbal and not taking in anything by mouth for the last 4-5 days. 4. Check CBC, CMP. 5. Per nursing staff the pt's daughter is flying in today from [place]. Attending Statement The exam, history, and the medical decision-making described in the above note were completed with the assistance of the mid-level provider. I reviewed and agree with the findings presented. I attest that I had a [id number] encounter with the patient on the same day, and personally performed and documented my assessment and findings in the medical record. Patient seen and examined, vital signs, medications and labs, imaging studies were reviewed. Case discussed with GENESIS Loving. For slightly patient with diagnosis of metastatic small cell lung carcinoma with brain metastases. Poor ECOG performance status and what appears to be some dementia. Candidate for hospice/palliative care. Palliative care team working with the patient's who also has dementia for post acute care planning. Theresa Mendosa Sep 24, 2017 10:09 Fernie Box MD Sep 24, 2017 12:45
[2017-09-24] MEDS: PIPERACIL-TAZO 3.375 GM PREMIX 50 ML IV SCH ×2 (10:40→18:41)
[2017-09-24] MEDS: SODIUM CHLORIDE 0.9% FLUSH 10 ML FLUSH IV FLUSH PRN (10:49)
[2017-09-24] MEDS: DRONABINOL 2.5 MG CAP PO SCH ×2 (11:00→16:00)
--- NOTE | 2017-09-24 11:18 | HHI.PR ---
Subjective Remarks RN denies any deterioration since last night. RN does report the patient's apparently is claiming that one of the doctors are nurses told him that her cancer is cured which is clearly not the case. Patient is still not eating or drinking. Is still requiring the Cardizem drip. Patient herself is not responding with any audible words. Objective Vital Signs Date Time Temp Pulse Resp B/P (MAP) Pulse Ox O2 Delivery O2 Flow Rate FiO2 09/24/17 09:15 92 Nasal Cannula 4.00 09/24/17 08:57 98.6 102 28 155/79 (104) 95 09/24/17 08:57 Nasal Cannula 4.00 09/24/17 03:42 97.6 94 22 135/68 (90) 95 09/24/17 00:00 98.6 91 22 148/74 (98) 98 09/24/17 00:00 97 Nasal Cannula 3.00 09/23/17 20:26 88 Nasal Cannula 3.00 09/23/17 20:00 98.7 98 22 145/78 (100) 96 09/23/17 19:00 118 09/23/17 16:45 98.0 100 22 162/78 (106) 96 09/23/17 16:22 100 162/78 09/23/17 12:50 98.8 90 22 138/74 (95) 95 I/O 09/23/17 09/23/17 09/23/17 09/24/17 09/24/17 09/24/17 07:00 15:00 23:00 07:00 15:00 23:00 Intake Total 725.8 ml 1536 ml Balance 725.8 ml 1536 ml Intake Oral 170 ml IV Total 555.8 ml 1536 ml # Voids 1 5 2 Objective Remarks Patient lying in bed, Occasionally is opening her eyes but does not follow Does not follow commands Has diminished breath sounds bilateral bases, worse on the left then right Heart rate is regular at this time A/P Assessment and Plan (1) Paroxysmal tachycardia still needing Cardizem drip, goal is to transition to oral Cardizem but the patient is not tolerating by mouth intake safely or reliably at this time 2) Encephalopathy - no sustained improvement, this is the most profound impediment to the patient's improvement as her ability to follow commands and take medications orally his hand during her recovery to any extent whether the ultimate goal is home or to a rehabilitation facility. 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 Prognosis is poor due to her advanced age and multiple comorbidities Current DNR status confirmed Continue with radiation as scheduled continue supportive care for pain and respiratory distress continue Decadron (4) Constipation ICD Code: K59.00 - Constipation, unspecified Plan: Patient with poor oral intake Continue with suppository/enema as needed, bowel movement 09/18 ivf nutritional team following Hospice is following, palliative care is following. Granddaughter or daughter expected to arrive today. Nursing has been informed to start documenting any and all nonsensical statements made by the patient's to help medical staff assess his own medical decision-making capability which is in question at this time. Manan Haque MD Sep 24, 2017 11:18
--- NOTE | 2017-09-24 11:18 | HHI.PR ---
Subjective Remarks LATE ENTRY NOTE FOR DOS 09/23/17. RN reports that the patient is still not taking medications nor eating. Still requiring the drip of Cardizem to keep heart rate control. Patient still just is occasionally moaning at best. Objective Vital Signs Date Time Temp Pulse Resp B/P (MAP) Pulse Ox O2 Delivery O2 Flow Rate FiO2 09/24/17 09:15 92 Nasal Cannula 4.00 09/24/17 08:57 98.6 102 28 155/79 (104) 95 09/24/17 08:57 Nasal Cannula 4.00 09/24/17 03:42 97.6 94 22 135/68 (90) 95 09/24/17 00:00 98.6 91 22 148/74 (98) 98 09/24/17 00:00 97 Nasal Cannula 3.00 09/23/17 20:26 88 Nasal Cannula 3.00 09/23/17 20:00 98.7 98 22 145/78 (100) 96 09/23/17 19:00 118 09/23/17 16:45 98.0 100 22 162/78 (106) 96 09/23/17 16:22 100 162/78 09/23/17 12:50 98.8 90 22 138/74 (95) 95 I/O 09/23/17 09/23/17 09/23/17 09/24/17 09/24/17 09/24/17 07:00 15:00 23:00 07:00 15:00 23:00 Intake Total 725.8 ml 1536 ml Balance 725.8 ml 1536 ml Intake Oral 170 ml IV Total 555.8 ml 1536 ml # Voids 1 5 2 Objective Remarks Patient lying in bed, Patient is periodically moaning, not necessarily responding to sternal rub with the exception of increased moaning Has mildly labored breathing Heart rate is regular at this time while on Cardizem drip A/P Assessment and Plan (1) Paroxysmal tachycardia Still needing drip actively 2) Encephalopathy -secondary to brain metastases, no sustained improvement (3) Lung cancer metastatic to brain ICD Code: C34.90 - Malignant neoplasm of unspecified part of unspecified bronchus or lung; C79.31 - Secondary malignant neoplasm of brain Plan: Patient 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 Prognosis is poor due to her advanced age and multiple comorbidities Current DNR status confirmed Continue with radiation as scheduled continue supportive care for pain and respiratory distress continue Decadron (4) Constipation ICD Code: K59.00 - Constipation, unspecified Plan: Patient with poor oral intake Continue with suppository/enema as needed, bowel movement 09/18 ivf nutritional team following Hospice is following. Daughter or granddaughter should be arriving in the next day or so to help with ultimate disposition planning since the patient is not showing any sustained improvement where she would be stable for discharge either to a rehabilitation facility or home for that matter. Manan Haque MD Sep 24, 2017 11:18
[2017-09-24] MEDS: LORazepam 2 MG/ML VIAL IV PUSH PRN ×2 (11:39→20:43)
[2017-09-24] MEDS: ENOXAPARIN SODIUM 40 MG/0.4 ML SYRINGE SQ SCH (11:39)
[2017-09-24 12:01] LABS: BASOPHIL % 0.4 % (0.0-2.0); EOSINOPHIL % 0.1 % (0.0-4.0); LYMPH % 0.9 % (9.0-44.0); LYMPHOCYTE # 0.1 TH/MM3 (1.0-4.8); MEAN CELL VOLUME 87.2 FL (80.0-100.0); MEAN CORPUSCULAR HEMOGLOBIN 29.2 PG (27.0-34.0); MEAN CORPUSCULAR HGB CONC 33.5 % (32.0-36.0); MONO % 1.8 % (0.0-8.0); NEUT % 96.8 % (16.0-70.0); PLATELET COUNT 89 TH/MM3 (150-450); RED BLOOD COUNT 4.35 MIL/MM3 (4.00-5.30); WHITE BLOOD COUNT 10.3 TH/MM3 (4.0-11.0)
[2017-09-24 12:29] LABS: ANION GAP 9 MEQ/L (5-15); AST (GOT) 18 U/L (15-37); BICARBONATE 28.7 MEQ/L (21.0-32.0); BLOOD UREA NITROGEN 21 MG/DL (7-18); CHLORIDE 102 MEQ/L (98-107); GLOMERULAR FILTRATION RATE 218 ML/MIN (>89); POTASSIUM 3.5 MEQ/L (3.5-5.1); SODIUM (NA) 140 MEQ/L (136-145)
[2017-09-24 12:31] LABS: ALT (GPT) 39 U/L (10-53)
[2017-09-24 12:33] LABS: ALKALINE PHOSPHATASE 78 U/L (45-117); TOTAL BILIRUBIN ADULT 0.7 MG/DL (0.2-1.0)
[2017-09-24 13:02] LABS: HEMO FLAGS AUTO DIFF
[2017-09-24 13:14] LABS: PLATELET ESTIMATE SMEAR LOW (NORMAL); PLATELET MORPHOLOGY NORMAL (NORMAL); SCAN/DIFF AUTO DIFF CONFIRMED
[2017-09-24] MEDS: SODIUM CHLOR 0.9% 1000 ML INJ 1,000 ML IV SCH (17:21)
[2017-09-24] MEDS: DILTIAZEM INJ 125 MG in SODIUM CHLORIDE 0.9% INJ 100 ML IV PRN (20:26)
[2017-09-25] VITALS (18 sets, daily range): BP systolic 120–149; BP diastolic 59–75; PULSE 96–160; RESP 21–30; TEMP 98.6–99.9; O2SAT 90–100
[2017-09-25] MEDS: MORPHINE SULFATE 2 MG/ML INJ IV PUSH PRN ×4 (00:50→20:40)
[2017-09-25] MEDS: PIPERACIL-TAZO 3.375 GM PREMIX 50 ML IV SCH ×3 (00:50→16:05)
[2017-09-25] MEDS: RESP: IPRATROPIUM 0.5 MG/2.5 ML NEB NEB SCH ×4 (04:01→21:02)
[2017-09-25] MEDS: DILTIAZEM HCL 30 MG TAB PO SCH ×4 (05:15→23:17)
[2017-09-25] MEDS: SODIUM CHLOR 0.9% 1000 ML INJ 1,000 ML IV SCH ×2 (05:27→20:52)
[2017-09-25] MEDS: SODIUM CHLORIDE 0.9% FLUSH 10 ML FLUSH IV FLUSH SCH ×2 (08:04→20:58)
[2017-09-25] MEDS: DEXAMETHASONE SOD PHOS 4 MG/ML VIAL IV PUSH SCH ×2 (08:05→20:43)
[2017-09-25] MEDS: DILTIAZEM INJ 125 MG in SODIUM CHLORIDE 0.9% INJ 100 ML IV PRN ×2 (08:28→20:52)
--- NOTE | 2017-09-25 08:54 | PD.ONC.PN ---
Subjective Subjective Remarks Tmax 99.8 this am Per RN she ate a popsicle yesterday Pt's daughter did not come yesterday Cardizem gtt turned up to 15mg/hr this am for tachycardia Security had to be called on pt's this morning as he was yelling in the hallway Objective Data Date Time Temp Pulse Resp B/P (MAP) Pulse Ox O2 Delivery O2 Flow Rate FiO2 09/25/17 08:28 143 149/70 09/25/17 08:26 99.8 143 28 149/70 (96) 90 09/25/17 06:00 110 09/25/17 05:21 20 09/25/17 05:00 116 09/25/17 04:00 114 09/25/17 04:00 98.9 113 22 140/71 (94) 93 09/25/17 04:00 Nasal Cannula 4.00 09/25/17 03:00 160 09/25/17 02:00 142 09/25/17 01:00 122 09/25/17 00:45 98.6 118 22 140/68 (92) 96 09/25/17 00:45 Nasal Cannula 4.00 09/25/17 00:00 160 09/24/17 23:00 128 09/24/17 22:00 126 09/24/17 21:26 95 Nasal Cannula 4.00 09/24/17 21:00 124 09/24/17 20:30 125 09/24/17 20:26 145 106/70 09/24/17 20:00 99.6 119 22 106/64 (78) 92 09/24/17 20:00 Nasal Cannula 4.00 09/24/17 20:00 128 09/24/17 19:00 116 09/24/17 16:27 98.3 112 28 128/75 (92) 93 09/24/17 12:06 98.7 125 28 148/80 (102) 90 09/24/17 09:15 92 Nasal Cannula 4.00 09/24/17 08:57 98.6 102 28 155/79 (104) 95 09/24/17 08:57 Nasal Cannula 4.00 09/25/17 09/25/17 09/25/17 07:00 15:00 23:00 Intake Total 601 ml Output Total 2 ml Balance 599 ml Result Diagram: 09/24/17 1150 09/24/17 1150 Laboratory Results Laboratory Tests Test 09/24/17 11:50 White Blood Count 10.3 TH/MM3 Red Blood Count 4.35 MIL/MM3 Hemoglobin 12.7 GM/DL Hematocrit 38.0 % Mean Corpuscular Volume 87.2 FL Mean Corpuscular Hemoglobin 29.2 PG Mean Corpuscular Hemoglobin Concent 33.5 % Red Cell Distribution Width 17.0 % Platelet Count 89 TH/MM3 Mean Platelet Volume 7.6 FL Neutrophils (%) (Auto) 96.8 % Lymphocytes (%) (Auto) 0.9 % Monocytes (%) (Auto) 1.8 % Eosinophils (%) (Auto) 0.1 % Basophils (%) (Auto) 0.4 % Neutrophils # (Auto) 10.0 TH/MM3 Lymphocytes # (Auto) 0.1 TH/MM3 Monocytes # (Auto) 0.2 TH/MM3 Eosinophils # (Auto) 0.0 TH/MM3 Basophils # (Auto) 0.0 TH/MM3 CBC Comment AUTO DIFF Differential Comment AUTO DIFF CONFIRMED Platelet Estimate LOW Platelet Morphology Comment NORMAL Blood Urea Nitrogen 21 MG/DL Creatinine 0.30 MG/DL Random Glucose 166 MG/DL Total Protein 6.1 GM/DL Albumin 2.2 GM/DL Calcium Level 8.5 MG/DL Alkaline Phosphatase 78 U/L Aspartate Amino Transf (AST/SGOT) 18 U/L Alanine Aminotransferase (ALT/SGPT) 39 U/L Total Bilirubin 0.7 MG/DL Sodium Level 140 MEQ/L Potassium Level 3.5 MEQ/L Chloride Level 102 MEQ/L Carbon Dioxide Level 28.7 MEQ/L Anion Gap 9 MEQ/L Estimat Glomerular Filtration Rate 218 ML/MIN Administered Medications Medications (Trade) Dose Ordered Sig/Arleen Route PRN Reason Start Time Stop Time Status Last Admin Dose Admin Sodium Chloride (NS Flush) 2 ml UNSCH PRN IV FLUSH FLUSH AFTER USING IV ACCESS 09/05/17 13:15 09/24/17 10:49 Sodium Chloride (NS Flush) 2 ml BID IV FLUSH 09/05/17 21:00 09/25/17 08:04 Ipratropium [place] (Atrovent Neb) 0.5 mg Q2HR NEB PRN NEB wheezing 09/05/17 13:15 09/16/17 17:10 Ipratropium [place] (Atrovent Neb) 0.5 mg Q6HR NEB NEB 09/05/17 16:00 09/25/17 04:01 Pantoprazole Sodium (Protonix) 40 mg DAILY PO 09/06/17 09:00 09/07/17 10:15 Ondansetron HCl (Zofran Inj) 4 mg Q6HR PRN IV PUSH nausea 09/05/17 19:00 09/15/17 21:58 Acetaminophen (Tylenol) 650 mg Q4H PRN PO PAIN SCALE 1-5 09/05/17 21:45 09/07/17 19:58 Enalaprilat (Vasotec Inj) 1.25 mg Q6H PRN IV PUSH SBP>160, DBP>90 09/07/17 13:15 09/11/17 12:08 Hydralazine HCl (Apresoline Inj) 10 mg Q4H PRN IV PUSH SBP>160, DBP>90 09/07/17 13:15 09/10/17 09:00 Lisinopril (Prinivil) 20 mg DAILY PO 09/08/17 09:00 09/08/17 09:00 Dexamethasone Sodium Phosphate (Decadron Inj) 4 mg Q12HR IV PUSH 09/13/17 09:00 09/25/17 08:05 Morphine Sulfate (Morphine Inj) 1 mg Q3H PRN IV PUSH PAIN >5 09/16/17 23:30 09/25/17 05:16 Lorazepam (Ativan Inj) 0.5 mg Q6HR PRN IV PUSH agitation 09/18/17 07:30 09/24/17 20:43 Enoxaparin Sodium (Lovenox Inj) 40 mg Q24H SQ 09/18/17 12:00 09/24/17 11:39 Diltiazem HCl 125 mg/Sodium Chloride 125 ml @ 5 mls/hr TITRATE PRN IV Tachycardia 09/20/17 03:45 09/25/17 08:28 Diltiazem HCl (Cardizem) 30 mg Q6HR PO 09/20/17 14:15 09/25/17 05:15 Sodium Chloride 1,000 ml @ 42 mls/hr [id number] IV 09/22/17 06:00 09/24/17 17:21 Piperacillin Sod/ Tazobactam Sod 50 ml @ 100 mls/hr Q8H IV 09/24/17 09:00 09/25/17 00:50 Objective Remarks GENERAL: Chronically ill female supine in bed. She is no longer moaning. Not opening eyes. SKIN: Warm and dry. HEAD: Normocephalic. EYES: No injection or drainage. NECK: Supple, trachea midline. CARDIOVASCULAR: Regular rate and rhythm. On cardizem gtt at 15mg/hr RESPIRATORY: Anterior stark with expiratory wheezing. Somewhat labored breathing. On 4.5L NC GASTROINTESTINAL: Abdomen soft, non-tender, nondistended. EXTREMITIES: No cyanosis. No edema. NEURO: Nonverbal. Not following commands. Not attempting to make eye contact. Assessment/Plan Problem List: (1) Lung cancer metastatic to brain ICD Codes: C34.90 - Malignant neoplasm of unspecified part of unspecified bronchus or lung; C79.31 - Secondary malignant neoplasm of brain Plan: -- Had 10 treatments of XRT Hx: She has a history of right lung cancer resected in 2001. 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 She was treated with carboplatin and INFORMATION SECURITY-16 with excellent response. MRI evaluation before the treatment shows nonspecific lesion. 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 She was referred promptly to radiation oncology for treatment but unfortunately there were delays prior to treatment. In clinic on 09/05 it was noted that she was symptomatic with HR in the 200's and [facility] was called to bring her to the hospital. 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 Unable to make decision for herself, eat herself or care for herself. Family decline hospice. Placement has been central issue. Plan 1. Pt appears to be actively dying; Hospice has been called to come see the patient again today. 2. Noted platelet count of 89k; will recheck CBC. 3. Attempted to call pt's daughter; phone rang around 10 times with no option to leave message. 4. Continue supportive care. Attending Statement The exam, history, and the medical decision-making described in the above note were completed with the assistance of the mid-level provider. I reviewed and agree with the findings presented. I attest that I had a [id number] encounter with the patient on the same day, and personally performed and documented my assessment and findings in the medical record. Patient seen and examined, vital signs, labs and medications reviewed. was at bedside, I spent a fair amount of time with the and discussed her condition, location and size of the brain metastases as well as her systemic disease. I did talk to him about increasing her sedation and pain medication for comfort. The plan is to transition her to inpatient hospice for end-of-life/comfort oriented care. Theresa Mendosa Sep 25, 2017 08:54 Fernie Box MD Sep 25, 2017 14:26
[2017-09-25] MEDS: ATENOLOL 25 MG TAB PO SCH (09:00)
[2017-09-25] MEDS: LISINOPRIL 20 MG TAB PO SCH (09:00)
[2017-09-25] MEDS: PANTOPRAZOLE SOD 40 MG DELAYED RELEASE TAB PO SCH (09:00)
[2017-09-25] MEDS: DRONABINOL 2.5 MG CAP PO SCH ×2 (10:41→15:26)
[2017-09-25] MEDS: ENOXAPARIN SODIUM 40 MG/0.4 ML SYRINGE SQ SCH (12:03)
[2017-09-25] MEDS: LORazepam 2 MG/ML VIAL IV PUSH PRN ×2 (16:05→21:14)
--- NOTE | 2017-09-25 16:24 | HHI.PR ---
Subjective Remarks Discussed with RN, who reports the patient is not taking any medications or food as expected. Family friends did show up and were successful and instrumental in helping the patient's understand that the patient could still be here at this hospital and undergo comfort measures with hospice. Hospice did talk with the patient's in the presence of these assisting family friends. apparently is willing to do inpatient hospice but does not want to sign any forms until the patient's daughter arrives from [place] which is expected to be any time now as soon as she can get through traffic. Patient is still needing the Cardizem drip. Objective Vital Signs Date Time Temp Pulse Resp B/P (MAP) Pulse Ox O2 Delivery O2 Flow Rate FiO2 09/25/17 15:32 99.9 105 26 144/75 (98) 97 09/25/17 14:59 24 09/25/17 11:35 99.1 113 30 147/67 (93) 96 09/25/17 08:50 100 Nasal Cannula 2.00 09/25/17 08:28 143 149/70 09/25/17 08:26 99.8 143 28 149/70 (96) 90 09/25/17 08:05 Nasal Cannula 4.50 Humidified 09/25/17 08:00 127 09/25/17 06:00 110 09/25/17 05:00 116 09/25/17 04:00 114 09/25/17 04:00 98.9 113 22 140/71 (94) 93 09/25/17 04:00 Nasal Cannula 4.00 09/25/17 03:00 160 09/25/17 02:00 142 09/25/17 01:00 122 09/25/17 00:45 98.6 118 22 140/68 (92) 96 09/25/17 00:45 Nasal Cannula 4.00 09/25/17 00:00 160 09/24/17 23:00 128 09/24/17 22:00 126 09/24/17 21:26 95 Nasal Cannula 4.00 09/24/17 21:00 124 09/24/17 20:30 125 09/24/17 20:26 145 106/70 09/24/17 20:00 99.6 119 22 106/64 (78) 92 09/24/17 20:00 Nasal Cannula 4.00 09/24/17 20:00 128 09/24/17 19:00 116 09/24/17 16:27 98.3 112 28 128/75 (92) 93 I/O 09/24/17 09/24/17 09/24/17 09/25/17 09/25/17 09/25/17 07:00 15:00 23:00 07:00 15:00 23:00 Intake Total 1536 ml 51 ml 612 ml 601 ml 52 ml Output Total 2 ml Balance 1536 ml 51 ml 612 ml 599 ml 52 ml Intake Oral 50 ml IV Total 1536 ml 51 ml 612 ml 551 ml 52 ml Output Urine Total 2 ml # Voids 2 2 3 # Bowel Movements 0 Result Diagram: 09/24/17 1150 09/24/17 1150 Objective Remarks Patient lying in bed, Has labored breathing and moans at the same time, has some mild audible wheezing Nasal cannula and nose Heart rate is slightly tachycardic A/P Assessment and Plan (1) Paroxysmal tachycardia still needing Cardizem drip, we anticipate discontinuing Cardizem drip once the patient is transferred into hospice 2) Encephalopathy - no sustained improvement, this remains as the profound impediment to the patient's improvement (3) Lung cancer metastatic to brain ICD Code: C34.90 - Malignant neoplasm of unspecified part of unspecified bronchus or lung; C79.31 - Secondary malignant neoplasm of brain Plan: Patient 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 Prognosis is poor due to her advanced age and multiple comorbidities Current DNR status confirmed Continue with radiation as scheduled continue supportive care for pain and respiratory distress continue Decadron (4) Constipation ICD Code: K59.00 - Constipation, unspecified Plan: Patient with poor oral intake Continue with suppository/enema as needed, bowel movement 09/18 ivf nutritional team following Discussed with Dr. Box and hospice. Medical team waiting on daughter to come assist with having patient's sign papers for inpatient hospice. Manan Haque MD Sep 25, 2017 16:24
[2017-09-26] VITALS: BP 138/63; PULSE 93; RESP 17; TEMP 98.2; O2SAT 94
[2017-09-26] MEDS: PIPERACIL-TAZO 3.375 GM PREMIX 50 ML IV SCH ×3 (01:10→17:00)
[2017-09-26] MEDS: RESP: IPRATROPIUM 0.5 MG/2.5 ML NEB NEB SCH ×3 (03:16→15:59)
[2017-09-26 03:24] VITALS: O2SAT 92
[2017-09-26 04:00] VITALS: BP 145/63; PULSE 91; PULSE 96; RESP 20; TEMP 98.8; O2SAT 96
[2017-09-26] MEDS: DILTIAZEM INJ 125 MG in SODIUM CHLORIDE 0.9% INJ 100 ML IV PRN (05:14)
[2017-09-26] MEDS: DILTIAZEM HCL 30 MG TAB PO SCH ×3 (05:39→18:00)
[2017-09-26 07:17] LABS: AUTOMATED NEUTROPHIL # 8.3 TH/MM3 (1.8-7.7); BASOPHIL % 0.2 % (0.0-2.0); EOSINOPHIL % 0.1 % (0.0-4.0); LYMPH % 1.9 % (9.0-44.0); LYMPHOCYTE # 0.2 TH/MM3 (1.0-4.8); MEAN CELL VOLUME 87.7 FL (80.0-100.0); MEAN CORPUSCULAR HEMOGLOBIN 29.4 PG (27.0-34.0); MEAN CORPUSCULAR HGB CONC 33.6 % (32.0-36.0); MONO % 1.5 % (0.0-8.0); NEUT % 96.3 % (16.0-70.0); PLATELET COUNT 32 TH/MM3 (150-450); RED BLOOD COUNT 3.99 MIL/MM3 (4.00-5.30); RED CELL DISTRIBUTION WIDTH 17.9 % (11.6-17.2); WHITE BLOOD COUNT 8.6 TH/MM3 (4.0-11.0)
[2017-09-26 08:00] VITALS: BP 149/65; PULSE 97; RESP 22; TEMP 100.3; O2SAT 93
[2017-09-26] MEDS ORDERED: BISACODYL 10 MG SUPP RECTAL PRN (08:15)
[2017-09-26] MEDS ORDERED: MAGNESIUM HYDROXIDE SUSP 30 ML CUP PO PRN (08:15)
[2017-09-26] MEDS ORDERED: LACTULOSE SYRUP 20 GM/30 ML CUP PO PRN (08:15)
[2017-09-26] MEDS ORDERED: SENNOSIDES 8.6 MG TAB PO PRN (08:15)
[2017-09-26 08:19] LABS: HEMO FLAGS AUTO DIFF
[2017-09-26 08:24] LABS: BANDS 39 % (0-6); METAMYELOCYTES 1 % (0-1); NEUTROPHIL # MANUAL DIFF 8.5 TH/MM3 (1.8-7.7); PLATELET ESTIMATE SMEAR LOW (NORMAL); PLATELET MORPHOLOGY NORMAL (NORMAL); POLYS (SEG NEUTROPHILS) 59 % (16-70); SCAN/DIFF FINAL DIFF MANUAL; WBC DIFF SAMPLE 100
[2017-09-26 08:26] LABS: DOHLE BODIES PRESENT (NONE SEEN); TOXIC VACUOLATION PRESENT (NONE SEEN)
[2017-09-26] MEDS: ATENOLOL 25 MG TAB PO SCH (09:00)
[2017-09-26] MEDS: DEXAMETHASONE SOD PHOS 4 MG/ML VIAL IV PUSH SCH (09:00)
[2017-09-26] MEDS: PANTOPRAZOLE SOD 40 MG DELAYED RELEASE TAB PO SCH (09:00)
[2017-09-26] MEDS: LISINOPRIL 20 MG TAB PO SCH (09:00)
[2017-09-26] MEDS ORDERED: DOCUSATE SODIUM 50 MG/SENNA 8.6 MG TAB PO SCH (09:00)
--- NOTE | 2017-09-26 09:23 | HHI.PR ---
Subjective Remarks Follow-up pneumonia and respiratory failure. Patient is nonresponsive with agonal breathing. Discussed with and RN Objective Vitals Vital Signs Date Time Temp Pulse Resp B/P (MAP) Pulse Ox O2 Delivery O2 Flow Rate FiO2 09/26/17 05:14 96 145/65 09/26/17 04:00 91 09/26/17 04:00 98.8 96 20 145/63 (90) 96 09/26/17 04:00 Simple Mask 7.00 09/26/17 03:24 92 Simple Mask 6.00 09/26/17 00:15 Nasal Cannula 6.00 Humidified 09/26/17 00:00 93 09/26/17 00:00 98.2 93 17 138/63 (88) 94 09/26/17 00:00 Simple Mask 5.00 09/25/17 23:01 96 09/25/17 22:42 93 Simple Mask 6.00 09/25/17 22:15 98.7 101 21 120/59 (79) 93 09/25/17 21:02 94 Nasal Cannula 3.00 09/25/17 20:58 99.0 140 28 121/72 (88) 94 09/25/17 20:52 136 113/56 09/25/17 15:32 99.9 105 26 144/75 (98) 97 09/25/17 14:59 24 09/25/17 11:35 99.1 113 30 147/67 (93) 96 I/O 09/25/17 09/25/17 09/25/17 09/26/17 09/26/17 09/26/17 07:00 15:00 23:00 07:00 15:00 23:00 Intake Total 601 ml 52 ml 661 ml 58 ml Output Total 2 ml Balance 599 ml 52 ml 661 ml 58 ml Intake Oral 50 ml 0 ml IV Total 551 ml 52 ml 661 ml 58 ml Output Urine Total 2 ml # Voids 3 3 # Bowel Movements 0 Result Diagram: 09/26/17 0602 09/24/17 1150 Imaging Last Impressions Chest X-Ray 09/23/17 0000 Signed Impressions: Service Date/Time: Saturday, September 23, 2017 20:05 - CONCLUSION: Left lower lobe consolidation. Increasing size right pleural effusion. Garrick Bernabe MD Head CT 09/07/17 0000 Signed Impressions: Service Date/Time: Thursday, September 07, 2017 15:22 - CONCLUSION: 1. 1.5 cm hypodense left thalamic lesion which may reflect a prior lacunar infarct. However, there is potentially subtle mass effect and therefore a mass lesion cannot be entirely excluded. Additional characterization may be performed with MRI exam as indicated. 2. Mild ventricular megaly out of proportion to degree of atrophy. Clinical correlation for normal pressure hydrocephalus is recommended. 3. Moderate periventricular white matter hypodensities which may reflect ischemic white matter demyelination versus transependymal fluid migration. Jorge Escobar MD Lower Extremity Ultrasound 09/05/17 0000 Signed Impressions: Service Date/Time: Tuesday, September 05, 2017 15:13 - CONCLUSION: No DVT in either leg. Alec Almeida MD Objective Remarks GENERAL: WD WN with simple mask SKIN: Warm and dry. CARDIOVASCULAR: Tachycardic RESPIRATORY: Rhonchi and wheezes noted with abdominal breathing GASTROINTESTINAL: Abdomen soft, nondistended. MUSCULOSKELETAL: Extremities without clubbing, cyanosis, or edema. No obvious deformities. NEUROLOGICAL: Unresponsive not moving extremities Procedures none A/P Problem List: (1) Paroxysmal tachycardia ICD Code: I47.9 - Paroxysmal tachycardia, unspecified Status: Acute (2) Lung cancer metastatic to brain ICD Code: C34.90 - Malignant neoplasm of unspecified part of unspecified bronchus or lung; C79.31 - Secondary malignant neoplasm of brain (3) Constipation ICD Code: K59.00 - Constipation, unspecified Assessment and Plan Paroxysmal tachycardia Still needing Cardizem drip, we anticipate discontinuing Cardizem drip once the patient is transferred into hospice. 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 Prognosis is poor due to her advanced age and multiple comorbidities Current DNR status confirmed Continue with radiation as scheduled continue supportive care for pain and respiratory distress continue Decadron Acute respiratory failure with Pneumonia. Continue oxygen, nebulizations and Zosyn Decreased TSH but not suppressed. Normal free T4 likely euthyroid. Worsening thrombocytopenia. Discontinue Lovenox Monitor Constipation Patient with poor oral intake Continue with suppository/enema as needed, Discharge Planning Patient is imminent apprised Abando,Sukh Bean MD Sep 26, 2017 09:23
[2017-09-26] MEDS ORDERED: ACETAMINOPHEN 650 MG SUPP RECTAL PRN (09:30)
[2017-09-26 09:36] VITALS: O2SAT 91
[2017-09-26] MEDS: SODIUM CHLORIDE 0.9% FLUSH 10 ML FLUSH IV FLUSH SCH (10:07)
[2017-09-26] MEDS: MORPHINE SULFATE 2 MG/ML INJ IV PUSH PRN (10:08)
[2017-09-26] MEDS: DRONABINOL 2.5 MG CAP PO SCH ×2 (11:00→16:00)
--- NOTE | 2017-09-26 11:30 | PD.ONC.PN ---
Subjective Subjective Remarks Tmax 100.3 overnight. Patient with agonal breathing. at bedside. Objective Data Date Time Temp Pulse Resp B/P (MAP) Pulse Ox O2 Delivery O2 Flow Rate FiO2 09/26/17 09:36 91 Simple Mask 6.00 09/26/17 08:00 100.3 97 22 149/65 (93) 93 09/26/17 05:14 96 145/65 09/26/17 04:00 91 09/26/17 04:00 98.8 96 20 145/63 (90) 96 09/26/17 04:00 Simple Mask 7.00 09/26/17 03:24 92 Simple Mask 6.00 09/26/17 00:15 Nasal Cannula 6.00 Humidified 09/26/17 00:00 93 09/26/17 00:00 98.2 93 17 138/63 (88) 94 09/26/17 00:00 Simple Mask 5.00 09/25/17 23:01 96 09/25/17 22:42 93 Simple Mask 6.00 09/25/17 22:15 98.7 101 21 120/59 (79) 93 09/25/17 21:02 94 Nasal Cannula 3.00 09/25/17 20:58 99.0 140 28 121/72 (88) 94 09/25/17 20:52 136 113/56 09/25/17 15:32 99.9 105 26 144/75 (98) 97 09/25/17 14:59 24 09/25/17 11:35 99.1 113 30 147/67 (93) 96 09/26/17 09/26/17 09/26/17 07:00 15:00 23:00 Intake Total 58 ml Balance 58 ml Result Diagram: 09/26/17 0602 09/24/17 1150 Laboratory Results Laboratory Tests Test 09/26/17 06:02 White Blood Count 8.6 TH/MM3 Red Blood Count 3.99 MIL/MM3 Hemoglobin 11.8 GM/DL Hematocrit 35.0 % Mean Corpuscular Volume 87.7 FL Mean Corpuscular Hemoglobin 29.4 PG Mean Corpuscular Hemoglobin Concent 33.6 % Red Cell Distribution Width 17.9 % Platelet Count 32 TH/MM3 Mean Platelet Volume 10.3 FL Neutrophils (%) (Auto) 96.3 % Lymphocytes (%) (Auto) 1.9 % Monocytes (%) (Auto) 1.5 % Eosinophils (%) (Auto) 0.1 % Basophils (%) (Auto) 0.2 % Neutrophils # (Auto) 8.3 TH/MM3 Lymphocytes # (Auto) 0.2 TH/MM3 Monocytes # (Auto) 0.1 TH/MM3 Eosinophils # (Auto) 0.0 TH/MM3 Basophils # (Auto) 0.0 TH/MM3 CBC Comment AUTO DIFF Differential Total Cells Counted 100 Neutrophils % (Manual) 59 % Band Neutrophils % 39 % Monocytes % 1 % Neutrophils # (Manual) 8.5 TH/MM3 Metamyelocytes 1 % Differential Comment FINAL DIFF MANUAL Toxic Vacuolation PRESENT Dohle Bodies PRESENT Platelet Estimate LOW Platelet Morphology Comment NORMAL Administered Medications Medications (Trade) Dose Ordered Sig/Arleen Route PRN Reason Start Time Stop Time Status Last Admin Dose Admin Sodium Chloride (NS Flush) 2 ml UNSCH PRN IV FLUSH FLUSH AFTER USING IV ACCESS 09/05/17 13:15 09/24/17 10:49 Sodium Chloride (NS Flush) 2 ml BID IV FLUSH 09/05/17 21:00 09/26/17 10:07 Ipratropium [place] (Atrovent Neb) 0.5 mg Q2HR NEB PRN NEB wheezing 09/05/17 13:15 09/16/17 17:10 Ipratropium [place] (Atrovent Neb) 0.5 mg Q6HR NEB NEB 09/05/17 16:00 09/26/17 09:32 Pantoprazole Sodium (Protonix) 40 mg DAILY PO 09/06/17 09:00 09/07/17 10:15 Ondansetron HCl (Zofran Inj) 4 mg Q6HR PRN IV PUSH nausea 09/05/17 19:00 09/15/17 21:58 Acetaminophen (Tylenol) 650 mg Q4H PRN PO PAIN SCALE 1-5 09/05/17 21:45 09/07/17 19:58 Enalaprilat (Vasotec Inj) 1.25 mg Q6H PRN IV PUSH SBP>160, DBP>90 09/07/17 13:15 09/11/17 12:08 Hydralazine HCl (Apresoline Inj) 10 mg Q4H PRN IV PUSH SBP>160, DBP>90 09/07/17 13:15 09/10/17 09:00 Lisinopril (Prinivil) 20 mg DAILY PO 09/08/17 09:00 09/08/17 09:00 Dexamethasone Sodium Phosphate (Decadron Inj) 4 mg Q12HR IV PUSH 09/13/17 09:00 09/26/17 09:00 Morphine Sulfate (Morphine Inj) 1 mg Q3H PRN IV PUSH PAIN >5, SOB 09/16/17 23:30 09/26/17 10:08 Enoxaparin Sodium (Lovenox Inj) 40 mg Q24H SQ 09/18/17 12:00 09/25/17 12:03 Diltiazem HCl 125 mg/Sodium Chloride 125 ml @ 5 mls/hr TITRATE PRN IV Tachycardia 09/20/17 03:45 09/26/17 05:14 Diltiazem HCl (Cardizem) 30 mg Q6HR PO 09/20/17 14:15 09/25/17 05:15 Sodium Chloride 1,000 ml @ 42 mls/hr [id number] IV 09/22/17 06:00 09/25/17 20:52 Piperacillin Sod/ Tazobactam Sod 50 ml @ 100 mls/hr Q8H IV 09/24/17 09:00 09/26/17 10:06 Lorazepam (Ativan Inj) 0.5 mg Q4HR PRN IV PUSH agitation, SOB 09/25/17 16:00 09/25/17 21:14 Objective Remarks GENERAL: Elderly female supine in bed, with agonal breathing. SKIN: Warm and dry. HEAD: Normocephalic. NECK: Supple, trachea midline. CARDIOVASCULAR: +S1/S2, tachy RESPIRATORY: +agonal breathing. GASTROINTESTINAL: Abdomen mildly distended. EXTREMITIES: +peripheral edema. Assessment/Plan Problem List: (1) Lung cancer metastatic to brain ICD Codes: C34.90 - Malignant neoplasm of unspecified part of unspecified bronchus or lung; C79.31 - Secondary malignant neoplasm of brain Plan: -- Had 10 treatments of XRT Hx: She has a history of right lung cancer resected in 2001. 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 She was treated with carboplatin and [employer] SUPERINTENDENT-16 with excellent response. MRI evaluation before the treatment shows nonspecific lesion. However, on followup July 15, MRI shows widespread metastatic disease to the CAREER RESOURCE TECHNICIAN without hemorrhage or mass effect. She was referred promptly to radiation oncology for treatment but unfortunately there were delays prior to treatment. In clinic on 09/05 it was noted that she was symptomatic with HR in the 200's and [facility] was called to bring her to the hospital. (2) Paroxysmal tachycardia ICD Codes: I47.9 - Paroxysmal tachycardia, unspecified Status: Acute Plan: -- on cardizem gtt at 15mg/hr -- Rate remains tachy -- Cardiology on board Assessment 71 y/o female with metastatic small cell lung cancer admitted with tachycardia, and CAREER RESOURCE TECHNICIAN metastatic disease. Unable to make decision for herself, eat herself or care for herself. Family decline hospice. Placement has been central issue. Plan 1. Patient with agonal breathing. I discussed with the patient's she will likely pass in the next 24 hours. Daughter Letty will be here today. Patient would be appropriate to transfer to inpatient hospice services if and daughter would be open to it. will discuss with daughter Letty when she arrives. Attending Statement The exam, history, and the medical decision-making described in the above note were completed with the assistance of the mid-level provider. I reviewed and agree with the findings presented. I attest that I had a [id number] encounter with the patient on the same day, and personally performed and documented my assessment and findings in the medical record. Pt with NRB not responsive, some agonal breathing. Some drama with at bedside, yelling, angry about moving pt to [facility]. Ultimately agree to comfort measures here at hospital, continue in patient hospice. Called [facility] to negotiate ultimately what patient's agree to. Daughter and granddaughter supporting emotionally. Daughter glad she came to see her mother. Answered questions, emotional support provided. Kelly Barrera Sep 26, 2017 11:30 Shawanda Kong MD Sep 26, 2017 18:51
[2017-09-26] MEDS: ENOXAPARIN SODIUM 40 MG/0.4 ML SYRINGE SQ SCH (11:38)
[2017-09-26 12:00] VITALS: BP 144/71; PULSE 106; RESP 24; TEMP 102.3; O2SAT 66
[2017-09-26] MEDS ORDERED: MORPHINE SULFATE 2 MG/ML INJ IV PUSH PRN (14:30)
--- NOTE | 2017-09-26 15:31 | HHI.HCPN ---
Palliative care informed Mrs. Izaguirre may have advanced directives on file at Dr. Christopher' office. Spoke with office staff, they report no advanced directives on file. Palliative care will continue to follow throughout hospitalization. Jimena Sanford MSW, ELL TEACHER Sep 26, 2017 15:31
--- NOTE | 2017-09-26 17:09 | HHI.DS ---
Discharge Summary Admission Date Sep 05, 2017 at 13:34 Discharge Date: Sep 26, 2017 Admitting Diagnosis AFIB (1) Paroxysmal tachycardia ICD Code: I47.9 - Paroxysmal tachycardia, unspecified Diagnosis: Principal Status: Acute (2) Lung cancer metastatic to brain ICD Code: C34.90 - Malignant neoplasm of unspecified part of unspecified bronchus or lung; C79.31 - Secondary malignant neoplasm of brain Diagnosis: Principal (3) Constipation ICD Code: K59.00 - Constipation, unspecified Diagnosis: Secondary Procedures none Brief History - From Admission History from patient, ER physician communication, and review of medical records. Patient reported that she came to the hospital from Dr. Kong office. She stated this because her heart rate was high. Per ER triage note, patient was sent from lab core because of SVT with a heart rate in the 200s. Patient herself denies any symptoms associated with it. Particularly, she denies any chest pain/feeling of palpitations/nausea/sweating/diarrhea/vomiting. She denies any fever. Denies any cough. Denies any burning urination or pain on urination. denies any recent black color stools or red color stools. Denies hematuria. Patient is somewhat of a poor historian though. She is reports that she does have history of irregular heart beat. She denies being on blood thinners. She states she does have history of lung cancer. She states that she has had chemotherapy previously and last dose was in January. She reports she is supposed to start her first radiation today. When asked whether she takes Decadron, she states that it makes her feel so horrible and she does not take it. She does complain of severe headaches. However when asked whether her cancer had spread to her brain, she does not seem to know it. She is still driving. CBC/BMP: 09/26/17 0602 09/24/17 1150 Significant Findings Laboratory Tests Test 09/24/17 11:50 09/26/17 06:02 Platelet Count 89 TH/MM3 (150-450) 32 TH/MM3 (150-450) Neutrophils (%) (Auto) 96.8 % (16.0-70.0) 96.3 % (16.0-70.0) Lymphocytes (%) (Auto) 0.9 % (9.0-44.0) 1.9 % (9.0-44.0) Neutrophils # (Auto) 10.0 TH/MM3 (1.8-7.7) 8.3 TH/MM3 (1.8-7.7) Lymphocytes # (Auto) 0.1 TH/MM3 (1.0-4.8) 0.2 TH/MM3 (1.0-4.8) Platelet Estimate LOW (NORMAL) LOW (NORMAL) Blood Urea Nitrogen 21 MG/DL (7-18) Creatinine 0.30 MG/DL (0.50-1.00) Random Glucose 166 MG/DL (74-106) Total Protein 6.1 GM/DL (6.4-8.2) Albumin 2.2 GM/DL (3.4-5.0) Red Blood Count 3.99 MIL/MM3 (4.00-5.30) Red Cell Distribution Width 17.9 % (11.6-17.2) Band Neutrophils % 39 % (0-6) Neutrophils # (Manual) 8.5 TH/MM3 (1.8-7.7) Toxic Vacuolation PRESENT (NONE SEEN) Dohle Bodies PRESENT (NONE SEEN) Imaging Last Impressions Chest X-Ray 09/23/17 0000 Signed Impressions: Service Date/Time: Saturday, September 23, 2017 20:05 - CONCLUSION: Left lower lobe consolidation. Increasing size right pleural effusion. Garrick Bernabe MD Head CT 09/07/17 0000 Signed Impressions: Service Date/Time: Thursday, September 07, 2017 15:22 - CONCLUSION: 1. 1.5 cm hypodense left thalamic lesion which may reflect a prior lacunar infarct. However, there is potentially subtle mass effect and therefore a mass lesion cannot be entirely excluded. Additional characterization may be performed with MRI exam as indicated. 2. Mild ventricular megaly out of proportion to degree of atrophy. Clinical correlation for normal pressure hydrocephalus is recommended. 3. Moderate periventricular white matter hypodensities which may reflect ischemic white matter demyelination versus transependymal fluid migration. Jorge Escobar MD Lower Extremity Ultrasound 09/05/17 0000 Signed Impressions: Service Date/Time: Tuesday, September 05, 2017 15:13 - CONCLUSION: No DVT in either leg. Alec Almeida MD PE at Discharge GENERAL: WD WN with simple mask SKIN: Warm and dry. CARDIOVASCULAR: Tachycardic RESPIRATORY: Rhonchi and wheezes noted with abdominal breathing GASTROINTESTINAL: Abdomen soft, nondistended. MUSCULOSKELETAL: Extremities without clubbing, cyanosis, or edema. No obvious deformities. 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 Prognosis is poor due to her advanced age and multiple comorbidities Current DNR status confirmed Continue with radiation as scheduled continue supportive care for pain and respiratory distress continue Decadron Paroxysmal tachycardia Still needing Cardizem drip, we anticipate discontinuing Cardizem drip once the patient is transferred into hospice. Continue by mouth Cardizem if tolerated Encephalopathy - no sustained improvement, this remains as the profound impediment to the patient's improvement Acute respiratory failure with Pneumonia. Continue oxygen, nebulizations and Zosyn Decreased TSH but not suppressed. Normal free T4 likely euthyroid. Worsening thrombocytopenia. Discontinue Lovenox Monitor Constipation Patient with poor oral intake Continue with suppository/enema as needed, Patient imminent. Family has opted for comfort measures and enrolled her under hospice care which is the appropriate course of treatment Pt Condition on Discharge: Deteriorating Discharge Disposition: Hospice/Med Facility Discharge Time: > 30 minutes Discharge Instructions DIET: Follow Instructions for: Nothing By Mouth Speech Therapy-Diet Recommends: Mechanical Soft Activities you can perform: Regular-No Restrictions Activities to Avoid: Driving Additional Information Comfort meds per Hospice Sukh Riggs MD Sep 26, 2017 17:09
== END 2017-09-26 19:30 | disposition hospice, inpatient (51) | DRG 308 ==
LOC: NEPE 10:23 → NEDH 13:34 → HCPC 20:46 → HCIN 09-06 16:29 → N04A 09-25 21:55
PROVIDERS: ADMIT Internal Medicine; ATTEND Internal Medicine
PROC: D00 Radiation Therapy, Central and Peripheral Nervous System, Beam Radiation (ICD-10-PCS; principal; 2017-09-07)
DX: I47.1 Supraventricular tachycardia (principal); J18.9 Pneumonia, unspecified organism; J96.00 Acute respiratory failure, unspecified whether with hypoxia or hypercapnia; G93.49 Other encephalopathy; C79.31 Secondary malignant neoplasm of brain; C34.92 Malignant neoplasm of unspecified part of left bronchus or lung; D69.6 Thrombocytopenia, unspecified; Z99.81 Dependence on supplemental oxygen; J44.0 Chronic obstructive pulmonary disease with (acute) lower respiratory infection; I48.0 Paroxysmal atrial fibrillation; E87.6 Hypokalemia; K59.00 Constipation, unspecified; Z51.5 Encounter for palliative care; I10 Essential (primary) hypertension; G43.909 Migraine, unspecified, not intractable, without status migrainosus; Z66 Do not resuscitate; Z87.891 Personal history of nicotine dependence; Z92.21 Personal history of antineoplastic chemotherapy; Z85.118 Personal history of other malignant neoplasm of bronchus and lung; Z88.8 Allergy status to other drugs, medicaments and biological substances; Z91.041 Radiographic dye allergy status
CPT/HCPCS: 36591; 70450; 71010; 80048; 80053; 80069; 82550; 83036; 83615; 83735; 84100; 84439; 84443; 84484; 85007; 85025; 85027; 85044; 85379; 85610; 85730; 93005; 93970; 94640; 94664; 96365; 96375; C9113; J0153; J0360; J1100; J1642; J1650; J2060; J2270; J2405; J2543; J3480; J7030; J7040; J7644